=== PATIENT | female | born 1955 | race Caucasian/White ===

== ENCOUNTER 2016-10-08 13:21 | Emergency (ER) | payer MEDICARE ==
[2016-10-08] MEDS ORDERED: predniSONE 20 MG TAB PO STA (14:08)
[2016-10-08] MEDS ORDERED: DIAZEPAM 5 MG TAB PO STA (14:08)
[2016-10-08] MEDS ORDERED: HYDROmorphone 2 MG/ML 1 ML SYRINGE IM STA (14:08)
[2016-10-08] MEDS ORDERED: KETOROLAC 60 MG/2 ML VIAL IM STA (14:10)
--- NOTE | 2016-10-08 14:16 | ED ---
General Adult HPI - General Chief complaint: Extremity Problem,Nontraumatic Stated complaint: R side numbness Time Seen by Provider: 10/08/16 13:39 Source: patient, RN notes reviewed, old records reviewed Mode of arrival: wheelchair Limitations: no limitations - History of Present Illness Initial comments: This is a 7-year-old female to the ER for evaluation today. This patient presents for evaluation regarding right arm pain tingling and numbness. History of chronic back disease. Patient has multiple evaluations by different pain management physicians, has a appointment with neurologist next month. Patient does state premedication home but states her pain medication is working that she did this point is not working completely. Otherwise she denies any trauma or injury. - Related Data Home Medications Medication Instructions Recorded Confirmed ALPRAZolam [Xanax] 1 mg PO BID PRN 10/08/16 10/08/16 Gabapentin 1,200 mg PO BID 10/08/16 10/08/16 HYDROcodone/APAP 10-325MG [[place] 1 tab PO Q8H PRN 10/08/16 10/08/16 10-325] Hydrochlorothiazide 12.5 mg PO DAILY 10/08/16 10/08/16 Insulin Glargine,Hum.rec.anlog 24 unit SQ HS 10/08/16 10/08/16 [Lantus Solostar] Linagliptin [Tradjenta] 5 mg PO AC-LUNCH 10/08/16 10/08/16 Meloxicam [Mobic] 7.5 mg PO HS 10/08/16 10/08/16 Topiramate [Topamax] 100 mg PO BID 10/08/16 10/08/16 amLODIPine [Norvasc] 10 mg PO DAILY 10/08/16 10/08/16 tiZANidine [Zanaflex] 4 mg PO TID PRN 10/08/16 10/08/16 traZODone HCL 150 mg PO HS 10/08/16 10/08/16 Allergies Allergy/AdvReac Type Severity Reaction Status Date / Time aspirin AdvReac Nausea & Verified 10/08/16 13:57 Vomiting ibuprofen [From Motrin] AdvReac Nausea & Verified 10/08/16 13:57 Vomiting Review of Systems ROS Statement: Those systems with pertinent positive or pertinent negative responses have been documented in the HPI. ROS Other: All systems not noted in ROS Statement are negative. Past Medical History Past Medical History: COPD, Diabetes Mellitus Additional Past Medical History / Comment(s): kidney History of Any Multi-Drug Resistant Organisms: None Reported Past Surgical History: Tubal Ligation Additional Past Surgical History / Comment(s): toe, hip replacement Past Psychological History: Bipolar, Depression Smoking Status: Current every day smoker Past Alcohol Use History: None Reported Past Drug Use History: Marijuana General Exam Limitations: no limitations General appearance: alert, in no apparent distress Head exam: Present: atraumatic, normocephalic, normal inspection Eye exam: Present: normal appearance, PERRL, EOMI. Absent: scleral icterus, conjunctival injection, periorbital swelling ENT exam: Present: normal exam, mucous membranes moist Neck exam: Present: normal inspection. Absent: tenderness, meningismus, lymphadenopathy Respiratory exam: Present: normal lung sounds bilaterally. Absent: respiratory distress, wheezes, rales, rhonchi, stridor Cardiovascular Exam: Present: regular rate, normal rhythm, normal heart sounds. Absent: systolic murmur, diastolic murmur, rubs, gallop, clicks GI/Abdominal exam: Present: soft, normal bowel sounds. Absent: distended, tenderness, guarding, rebound, rigid Extremities exam: Present: normal inspection, full ROM, normal capillary refill. Absent: tenderness, pedal edema, joint swelling, calf tenderness Back exam: Present: normal inspection Neurological exam: Present: alert, oriented X3, CN II-XII intact Psychiatric exam: Present: normal affect, normal mood Skin exam: Present: warm, dry, intact, normal color. Absent: rash Course Vital Signs 10/08/16 13:35 Temperature 97.1 F L Pulse Rate 60 Respiratory 20 Rate Blood Pressure 135/70 O2 Sat by Pulse 97 Oximetry - Reevaluation(s) Reevaluation #1: 10/08/16 14:15 Pain and symptoms are improved, resolving Medical Decision Making - Medical Decision Making 61 [place] F reverse her bilateral extremity numbness and tingling, chronic back pain. Patient has good control pain symptoms at this time and can be discharged home Disposition Clinical Impression: Paresthesia of right upper extremity Disposition: HOME SELF-CARE Condition: Good Instructions: Cervical Radiculopathy (ED) Referrals: Zuhair Patel MD [Primary Care Provider] - 1-2 days
[2016-10-08 15:25] VITALS: BP 130/59; PULSE 58; RESP 18; TEMP 97
== END 2016-10-08 15:25 | disposition home or self-care (01) ==
LOC: EC 13:21
DX: R20.2 Paresthesia of skin (principal); E11.9 Type 2 diabetes mellitus without complications; F31.9 Bipolar disorder, unspecified; F17.200 Nicotine dependence, unspecified, uncomplicated; Z96.649 Presence of unspecified artificial hip joint; Z79.1 Long term (current) use of non-steroidal anti-inflammatories (NSAID); Z79.4 Long term (current) use of insulin; Z79.899 Other long term (current) drug therapy; Z88.6 Allergy status to analgesic agent
CPT/HCPCS: 99283; 96372 ×2; J1170; J1885; J7512

== ENCOUNTER 2017-05-16 14:00 | Emergency (ER) | payer MEDICARE ==
[2017-05-16 14:34] VITALS: TEMP 98.2
[2017-05-16] MEDS ORDERED: HYDROcodone/APAP 5-325MG 1 EACH TAB PO STA (14:50)
--- NOTE | 2017-05-16 15:21 | ED ---
Lower Extremity Injury HPI - General Chief Complaint: Extremity Injury, Lower Stated Complaint: Fell Time Seen by Provider: 05/16/17 14:42 Source: patient Mode of arrival: wheelchair Limitations: no limitations - History of Present Illness Initial Comments: 62-year-old female patient presents to the emergency department today for evaluation of left hip and left knee pain. Patient states that she had a fall on Tuesday, states that she twisted her knee during the fall. She denies hitting her head or losing consciousness. She states that since then she has had pain shooting from her hip down her thigh and from her knee down to her leg. States that she is having swelling to the left knee. States that she did see her primary care doctor today who was concerned for ligamentous injury so she sent her in for evaluation. Patient denies any numbness or tingling to the leg. States she is able to ablate however is very painful for her. Patient denies any headache, neck pain, back pain, chest pain, shortness of breath, dizziness, weakness, abdominal pain, nausea, vomiting, or difficulties with bowel movements or urination. - Related Data Home Medications Medication Instructions Recorded Confirmed ALPRAZolam [Xanax] 1 mg PO BID PRN 10/08/16 10/08/16 Gabapentin 1,200 mg PO BID 10/08/16 10/08/16 HYDROcodone/APAP 10-325MG [[place] 1 tab PO Q8H PRN 10/08/16 10/08/16 10-325] Hydrochlorothiazide 12.5 mg PO DAILY 10/08/16 10/08/16 Insulin Glargine,Hum.rec.anlog 24 unit SQ HS 10/08/16 10/08/16 [Lantus Solostar] Linagliptin [Tradjenta] 5 mg PO AC-LUNCH 10/08/16 10/08/16 Meloxicam [Mobic] 7.5 mg PO HS 10/08/16 10/08/16 Topiramate [Topamax] 100 mg PO BID 10/08/16 10/08/16 amLODIPine [Norvasc] 10 mg PO DAILY 10/08/16 10/08/16 tiZANidine [Zanaflex] 4 mg PO TID PRN 10/08/16 10/08/16 traZODone HCL 150 mg PO HS 10/08/16 10/08/16 Previous Rx's Medication Instructions Recorded Diazepam [Valium] 5 mg PO HS #20 tab 10/08/16 predniSONE 50 mg PO DAILY #5 tab 10/08/16 Hydrocodone/Acetaminophen [[place] 1 tab PO Q6HR PRN #12 tab 05/16/17 5-325] Allergies Allergy/AdvReac Type Severity Reaction Status Date / Time aspirin AdvReac Nausea & Verified 05/16/17 14:34 Vomiting ibuprofen [From Motrin] AdvReac Nausea & Verified 05/16/17 14:34 Vomiting Review of Systems ROS Statement: Those systems with pertinent positive or pertinent negative responses have been documented in the HPI. ROS Other: All systems not noted in ROS Statement are negative. Past Medical History Past Medical History: COPD, Diabetes Mellitus Additional Past Medical History / Comment(s): kidney History of Any Multi-Drug Resistant Organisms: None Reported Past Surgical History: Joint Replacement, Orthopedic Surgery, Tubal Ligation Additional Past Surgical History / Comment(s): toe, hip replacement Past Psychological History: Bipolar, Depression Smoking Status: Current every day smoker Past Alcohol Use History: None Reported Past Drug Use History: Marijuana General Exam Limitations: no limitations General appearance: alert, in no apparent distress, other (This is a well- developed, well-nourished adult female patient in no acute distress. Vital signs upon presentation are temperature 98.2F, pulse 77, respirations 18, blood pressure 133/61, pulse ox 95% on room air.) Eye exam: Present: normal appearance, PERRL, EOMI. Absent: scleral icterus, conjunctival injection, periorbital swelling Respiratory exam: Present: normal lung sounds bilaterally. Absent: respiratory distress, wheezes, rales, rhonchi, stridor Cardiovascular Exam: Present: regular rate, normal rhythm, normal heart sounds. Absent: systolic murmur, diastolic murmur, rubs, gallop, clicks Extremities exam: Present: full ROM, tenderness (Tenderness over the medial aspect of the left knee), normal capillary refill, joint swelling (Swelling noted over the medial aspect of the left knee), other (Skin is otherwise pink, warm, and dry to the left lower eduction 70. Cap refills less than 3 seconds. Pedal and posttibial pulses are 2+ and equal bilaterally.). Absent: normal inspection, pedal edema, calf tenderness Neurological exam: Present: alert, oriented X3, CN II-XII intact Psychiatric exam: Present: normal affect, normal mood Skin exam: Present: warm, dry, intact, normal color. Absent: rash Course Vital Signs 05/16/17 05/16/17 14:31 16:02 Temperature 98.2 F 98.2 F Pulse Rate 77 74 Respiratory 18 17 Rate Blood Pressure 133/61 128/72 O2 Sat by Pulse 95 99 Oximetry Medical Decision Making - Medical Decision Making 62-year-old female patient presented to the emergency department today for complaints of left hip and left knee pain after a fall on Tuesday. Physical examination does reveal some left knee swelling and tenderness to the medial aspect. Neurovascular status is intact. X-rays were obtained of left hip and knee which showed no acute osseous abnormalities. Did discuss with patient the possible of ligamentous injury and recommended she follow up with orthopedics for recheck in 1-2 days. She'll be given [place] for pain control. She is instructed to return here immediately for any new, worsening, or concerning symptoms. She verbalizes understanding and agrees with this plan. - Radiology Data Radiology results: report reviewed, image reviewed 3 views of the left knee are obtained, there is no acute fracture/dislocation evident in the left knee. There is mild to moderate tricompartment joint space loss. Vascular calcification in the posterior tissue is noted. Impression by Dr. Graff shows no acute fracture or dislocation in the left knee. Single AP view of the pelvis and 2 views of left hip are obtained. There is no acute fracture dislocation evident in the pelvis. The sacroiliac joints appear symmetric and unremarkable. Metallic hardware from bilateral hip surgery is present. Vascular calcification is seen in the pelvis extending into bilateral groin regions. 2 views of the left hip showed no acute fracture dislocation. Metallic hardware from left hip arthroplasty is well seated. The left great vascular calcification is present. Impression by Dr. Graff chest shows no acute fracture dislocation of the pelvis or left hip. Disposition Clinical Impression: Left hip pain, Left knee pain Disposition: HOME SELF-CARE Condition: Good Instructions: Knee Pain (ED), Hip Pain (ED) Additional Instructions: Plan ice to the painful areas, keep left leg elevated. Follow-up with orthopedics as soon as possible. Return here immediately for any new, worsening , or concerning symptoms. Prescriptions: Hydrocodone/Acetaminophen [[place] 5-325] 1 tab PO Q6HR PRN #12 tab PRN Reason: Pain Referrals: Nonstaff,Physician [Primary Care Provider] - 1-2 days Steven Dash DO [Doctor of Osteopathic Medicine] - 1-2 days Time of Disposition: 15:54
--- NOTE | 2017-05-16 15:25 | XR ---
EXAMINATION TYPE: XR knee complete LT DATE OF EXAM: 05/16/2017 CLINICAL HISTORY: Left knee pain after fall injury 3 days ago TECHNIQUE: Three views of the left knee are obtained. COMPARISON: None. FINDINGS: There is no acute fracture/dislocation evident in left knee. There is mild to moderate tri compartment joint space loss. Vascular calcification in the posterior tissue is noted. IMPRESSION: There is no acute fracture or dislocation in the left knee.
--- NOTE | 2017-05-16 15:27 | XR ---
EXAMINATION TYPE: XR Hip LT and AP Pelvis DATE OF EXAM: 05/16/2017 COMPARISON: NONE HISTORY: Fall injury 3 days ago with pelvic and left hip pain. TECHNIQUE: A single AP view of the pelvis is obtained. Two views of the left hip are obtained. FINDINGS: There is no acute fracture/dislocation evident in the pelvis. The sacroiliac joints appea r symmetric and unremarkable. Metallic hardware from bilateral hip surgery is present. Vascular suzanne cification is seen in the pelvis extending into bilateral groin regions. Two views of left hip show no acute fracture or dislocation. Metallic hardware from left hip arthropl asty is well seated. Left groin vascular calcification is present. IMPRESSION: There is no acute fracture or dislocation in the pelvis or left hip.
[2017-05-16 16:02] VITALS: BP 128/72; PULSE 74; RESP 17
== END 2017-05-16 16:02 | disposition home or self-care (01) ==
LOC: EC 14:00
DX: M25.562 Pain in left knee (principal); M25.552 Pain in left hip; E11.9 Type 2 diabetes mellitus without complications; F32.9 Major depressive disorder, single episode, unspecified; F17.200 Nicotine dependence, unspecified, uncomplicated; Z96.649 Presence of unspecified artificial hip joint; Z79.899 Other long term (current) drug therapy; Z79.4 Long term (current) use of insulin; Z79.1 Long term (current) use of non-steroidal anti-inflammatories (NSAID); Z88.6 Allergy status to analgesic agent; W00.0XXA Fall on same level due to ice and snow, initial encounter
CPT/HCPCS: 73502; 99283

== ENCOUNTER 2018-01-30 08:53 | Inpatient (IN) | payer MEDICARE ==
[2018-01-30] MEDS ORDERED: IPRATROPIUM-ALBUTEROL 3 ML NEB INHALATION STA (09:10)
[2018-01-30] MEDS ORDERED: SODIUM CHLORIDE 0.9% 1,000 ML IV STA (09:11)
--- NOTE | 2018-01-30 09:15 | ED ---
General Adult HPI <Patricio Escobar - Last Filed: 01/30/18 12:04> - General Source: patient, RN notes reviewed Mode of arrival: wheelchair Limitations: no limitations <Judd Granados - Last Filed: 01/30/18 13:01> - General Chief complaint: Shortness of Breath Stated complaint: upper respiratory Time Seen by Provider: 01/30/18 09:03 - History of Present Illness Initial comments: Patient 62-year-old female with significant past medical history for COPD, presented to the emergency room today with a chief complaint of increased shortness of breath and chest pain. She does admit that symptoms started approximately a week ago. She does have cough congestion but states she's been unable to get any sputum out. Patient states that she has been doing breathing treatments at home with little relief of the symptoms. She does admit that tightness in her chest. She denies any other complaints or symptoms. Patient denies any recent fever, chills, back pain, abdominal pain, nausea or vomiting, numbness or tingling, headaches or visual changes, or any other complaints. ( Judd Granados) - Related Data Home Medications Medication Instructions Recorded Confirmed ALPRAZolam [Xanax] 1 mg PO BID 10/08/16 01/30/18 Hydrochlorothiazide 12.5 mg PO DAILY 10/08/16 01/30/18 Linagliptin [Tradjenta] 5 mg PO AC-LUNCH 10/08/16 01/30/18 amLODIPine [Norvasc] 10 mg PO DAILY 10/08/16 01/30/18 traZODone HCL 150 mg PO HS 10/08/16 01/30/18 Cetirizine HCl [Zyrtec] 10 mg PO DAILY PRN 01/30/18 01/30/18 Gabapentin 800 mg PO TID 01/30/18 01/30/18 Insulin Degludec [Tresiba 24 units SQ HS 01/30/18 01/30/18 Flextouch U-100] Allergies Allergy/AdvReac Type Severity Reaction Status Date / Time aspirin AdvReac Nausea & Verified 01/30/18 11:17 Vomiting ibuprofen [From Motrin] AdvReac Nausea & Verified 01/30/18 11:17 Vomiting Review of Systems ROS Other: All systems not noted in ROS Statement are negative. <Patricio Escobar - Last Filed: 01/30/18 12:04> ROS Other: All systems not noted in ROS Statement are negative. <Judd Granados - Last Filed: 01/30/18 13:01> ROS Statement: Those systems with pertinent positive or pertinent negative responses have been documented in the HPI. Past Medical History Past Medical History: COPD, Diabetes Mellitus Additional Past Medical History / Comment(s): kidney History of Any Multi-Drug Resistant Organisms: None Reported Past Surgical History: Joint Replacement, Orthopedic Surgery, Tubal Ligation Additional Past Surgical History / Comment(s): toe, hip replacement Past Psychological History: Bipolar, Depression Smoking Status: Current every day smoker Past Alcohol Use History: None Reported Past Drug Use History: Marijuana <Judd Granados - Last Filed: 01/30/18 13:01> General Exam <Patricio Escobar - Last Filed: 01/30/18 12:04> Limitations: no limitations <Judd Granados - Last Filed: 01/30/18 13:01> - General Exam Comments Initial Comments: General: The patient is awake and alert, mild distress. Eye: Pupils are equal, round and reactive to light. Extra-ocular movements are intact. No nystagmus. There is normal conjunctiva bilaterally. No signs of icterus. Ears, nose, mouth and throat: There are moist mucous membranes and no oral lesions. Neck: The neck is supple, there is no tenderness or JVD. Cardiovascular: There is a regular rate and rhythm. No murmur, rub or gallop is appreciated. Respiratory: Bilateral expiratory wheeze. respirations are non-labored, breath sounds are equal. Nostridor, rales, or rhonchi. Musculoskeletal: Normal ROM, no tenderness. Sensation intact. Strength 5/5. Pulses equal bilaterally 2+. Neurological: A&O x 3. CN II-XII intact, There are no obvious motor or sensory deficits. Coordination appears grossly intact. Speech is normal. Skin: Skin is warm and dry and no rashes or lesions are noted. Psychiatric: Cooperative, appropriate mood & affect, normal judgment. (Judd Granados) Course <Patricio Escobar - Last Filed: 01/30/18 12:04> <Judd Granados - Last Filed: 01/30/18 13:01> Vital Signs 11/19/18 11/19/18 11/19/18 09:00 09:10 09:13 Temperature 98.6 F 99.8 F H Pulse Rate 95 Respiratory 26 H Rate Blood Pressure 130/80 O2 Sat by Pulse 74 L 87 L Oximetry 01/30/18 01/30/18 01/30/18 09:19 09:30 09:45 Temperature Pulse Rate 81 75 75 Respiratory Rate Blood Pressure O2 Sat by Pulse 88 L Oximetry 01/30/18 01/30/18 01/30/18 10:00 10:34 10:50 Temperature Pulse Rate 76 84 80 Respiratory 19 18 Rate Blood Pressure O2 Sat by Pulse 94 L Oximetry 01/30/18 01/30/18 01/30/18 11:00 11:30 12:00 Temperature Pulse Rate 86 86 87 Respiratory 22 22 19 Rate Blood Pressure O2 Sat by Pulse 88 L 92 L 94 L Oximetry - Reevaluation(s) Reevaluation #1: 01/30/18 12:04 Patient does meet criteria for sepsis diagnosed at 1204. Blood culture and lactic acid and IV antibiotics have been ordered. (Patricio Escobar) EKG Findings - EKG Comments: EKG Findings:: EKG performed at 1025: Shows normal sinus rhythm at 83 bpm. WI interval 138. QRS is 80. QT/QTc 400/470. No acute ST changes. <Judd Granados - Last Filed: 01/30/18 13:01> Medical Decision Making - Lab Data Result diagrams: 01/30/18 10:28 01/30/18 10:28 <Patricio Escobar - Last Filed: 01/30/18 12:04> - Lab Data Result diagrams: 01/30/18 10:28 01/30/18 10:28 <Judd Granados - Last Filed: 01/30/18 13:01> - Medical Decision Making Patient reevaluated by myself, Dr. Escobar. Patient resting comfortably in bed. Pulse ox 91-97% on Ventimask. Lung sounds with x-ray wheeze. Patient is not currently in respiratory distress. Patient family are updated on results and plan. Case was discussed in detail with Dr. tomlinson, with [facility] who will admit for hospital call. I did review and agree with PAs findings. this includes all diagnostic interpretations and treatment plan. (Patricio Escobar) Patient's chest x-ray shows possible pneumonia. Started on antibiotics of azithromycin and Rocephin. Patient breathing improved after breathing treatments here in the emergency room along with steroids. Patient does meet criteria for sepsis. Antibiotics and cultures have been ordered. Patient will be admitted to the hospital. (Judd Granados) - Lab Data Lab Results 01/30/18 01/30/18 01/30/18 Range/Units 10:28 10:28 10:28 WBC 10.0 (3.8-10.6) k/uL RBC 4.54 (3.80-5.40) m/uL Hgb 13.5 (11.4-16.0) gm/dL Hct 40.1 (34.0-46.0) % MCV 88.2 (80.0-100.0) fL MCH 29.8 (25.0-35.0) pg MCHC 33.7 (31.0-37.0) g/dL RDW 13.0 (11.5-15.5) % Plt Count 219 (150-450) k/uL Neutrophils % 59 % Lymphocytes % 28 % Monocytes % 4 % Eosinophils % 8 % Basophils % 0 % Neutrophils # 5.9 (1.3-7.7) k/uL Lymphocytes # 2.8 (1.0-4.8) k/uL Monocytes # 0.4 (0-1.0) k/uL Eosinophils # 0.8 H (0-0.7) k/uL Basophils # 0.0 (0-0.2) k/uL PT (9.0-12.0) sec INR (<1.2) APTT (22.0-30.0) sec Sodium 132 L (137-145) mmol/L Potassium 4.3 (3.5-5.1) mmol/L Chloride 93 L (98-107) mmol/L Carbon Dioxide 29 (22-30) mmol/L Anion Gap 10 mmol/L BUN 12 (7-17) mg/dL Creatinine 1.21 H (0.52-1.04) mg/dL Est GFR (CKD-EPI)AfAm 56 (>60 ml/min/1.73 sqM) Est GFR (CKD-EPI)NonAf 49 (>60 ml/min/1.73 sqM) Glucose 186 H (74-99) mg/dL Calcium 8.9 (8.4-10.2) mg/dL Total Bilirubin 0.8 (0.2-1.3) mg/dL AST 21 (14-36) U/L ALT 17 (9-52) U/L Alkaline Phosphatase 76 (38-126) U/L Total Creatine Kinase 115 (30-135) U/L CK-MB (CK-2) 2.1 (0.0-2.4) ng/mL CK-MB (CK-2) Rel Index 1.8 Troponin I <0.012 (0.000-0.034) ng/mL NT-Pro-B Natriuret Pep pg/mL Total Protein 7.4 (6.3-8.2) g/dL Albumin 3.6 (3.5-5.0) g/dL 01/30/18 01/30/18 Range/Units 10:28 10:28 WBC (3.8-10.6) k/uL RBC (3.80-5.40) m/uL Hgb (11.4-16.0) gm/dL Hct (34.0-46.0) % MCV (80.0-100.0) fL MCH (25.0-35.0) pg MCHC (31.0-37.0) g/dL RDW (11.5-15.5) % Plt Count (150-450) k/uL Neutrophils % % Lymphocytes % % Monocytes % % Eosinophils % % Basophils % % Neutrophils # (1.3-7.7) k/uL Lymphocytes # (1.0-4.8) k/uL Monocytes # (0-1.0) k/uL Eosinophils # (0-0.7) k/uL Basophils # (0-0.2) k/uL PT 10.0 (9.0-12.0) sec INR 1.0 (<1.2) APTT 22.9 (22.0-30.0) sec Sodium (137-145) mmol/L Potassium (3.5-5.1) mmol/L Chloride (98-107) mmol/L Carbon Dioxide (22-30) mmol/L Anion Gap mmol/L BUN (7-17) mg/dL Creatinine (0.52-1.04) mg/dL Est GFR (CKD-EPI)AfAm (>60 ml/min/1.73 sqM) Est GFR (CKD-EPI)NonAf (>60 ml/min/1.73 sqM) Glucose (74-99) mg/dL Calcium (8.4-10.2) mg/dL Total Bilirubin (0.2-1.3) mg/dL AST (14-36) U/L ALT (9-52) U/L Alkaline Phosphatase (38-126) U/L Total Creatine Kinase (30-135) U/L CK-MB (CK-2) (0.0-2.4) ng/mL CK-MB (CK-2) Rel Index Troponin I (0.000-0.034) ng/mL NT-Pro-B Natriuret Pep 545 pg/mL Total Protein (6.3-8.2) g/dL Albumin (3.5-5.0) g/dL Disposition <Patricio Escobar - Last Filed: 01/30/18 12:04> <Judd Granados - Last Filed: 01/30/18 13:01> Clinical Impression: COPD exacerbation, Sepsis Disposition: ADMITTED IP TO THIS HOSP Condition: Stable Referrals: Nonstaff,Physician [Primary Care Provider] - 1-2 days
[2018-01-30] MEDS ORDERED: ALBUTEROL NEBULIZED 15 MG, IPRATROPIUM NEBULIZED 0.5 MG INHALATION ONE ×2 (09:37)
--- NOTE | 2018-01-30 10:37 | XR ---
EXAMINATION TYPE: XR chest 2V DATE OF EXAM: 01/30/2018 COMPARISON: None HISTORY: 62-year-old female difficulty breathing, shortness of breath TECHNIQUE: AP and lateral views FINDINGS: Heart upper limits of normal in size. Diffuse interstitial densities. No sizable pleural effusion. IMPRESSION: Interstitial changes could reflect bronchitis, atypical pneumonias, interstitial pneumonitis, hyperse nsitivity pneumonitis, or pulmonary vascular congestion. Clinically correlate.
[2018-01-30] MEDS ORDERED: methylPREDNISolone SOD SUCCI 125 MG/2 ML VIAL IV STA (10:48)
[2018-01-30 10:59] LABS: Basophils % (A) 0 %; Eosinophils # (A) 0.8 k/uL (0-0.7); Eosinophils % (A) 8 %; HCT 40.1 % (34.0-46.0); HGB 13.5 gm/dL (11.4-16.0); Lymphocytes # (A) 2.8 k/uL (1.0-4.8); Lymphocytes % (A) 28 %; MCH 29.8 pg (25.0-35.0); MCHC 33.7 g/dL (31.0-37.0); MCV 88.2 fL (80.0-100.0); Mean Platelet Volume 7.7; Monocytes # (A) 0.4 k/uL (0-1.0); Monocytes % (A) 4 %; Neutrophils # (A) 5.9 k/uL (1.3-7.7); Neutrophils % (A) 59 %; Partial Thromboplastin Time 22.9 sec (22.0-30.0); Platelet Count 219 k/uL (150-450); RBC 4.54 m/uL (3.80-5.40)
[2018-01-30 11:03] LABS: Albumin 3.6 g/dL (3.5-5.0); Calcium 8.9 mg/dL (8.4-10.2); Total Bilirubin 0.8 mg/dL (0.2-1.3); Total Protein 7.4 g/dL (6.3-8.2)
[2018-01-30 11:11] LABS: Potassium 4.3 mmol/L (3.5-5.1)
[2018-01-30 11:17] LABS: Creatine Kinase 115 U/L (30-135)
[2018-01-30] MEDS ORDERED: AZITHROMYCIN 500 MG in SODIUM CHLORIDE 0.9% 250 ML IVPB STA (11:17)
[2018-01-30 11:28] LABS: Creatine Kinase MB 2.1 ng/mL (0.0-2.4); Troponin I <0.012 ng/mL (0.000-0.034)
[2018-01-30] MEDS ORDERED: SODIUM CHLORIDE 0.9% 1,000 ML IV ONE (13:01)
[2018-01-30] MEDS ORDERED: ONDANSETRON 4 MG/2 ML VIAL IVP PRN (13:47)
--- NOTE | 2018-01-30 13:57 | P.HPIM ---
History of Present Illness H&P Date: 01/30/18 Chief Complaint: Shortness of breath and cough This is a 62-year-old female with past medical history noted below significant for underlying COPD, essential hypertension, and type 2 diabetes who presented to the emergency room with worsening shortness of breath and cough. Patient said that her symptoms started last week and is being getting progressively worse over the past few days. She said that couple of days ago she was having a lot of chills and feeling generally fatigued. This was associated with worsening shortness of breath and cough. Patient said that her cough is generally nonproductive but occasionally productive of yellowish sputum. Patient was evaluated in the emergency room and was noted to be hypoxic requiring a Ventimask. She was given bronchodilators and IV steroids. Chest x- ray showed evidence of a typical pneumonia with acute on chronic bronchitis. Patient admitted that she smokes approximately one pack of cigarettes per day. She does not use oxygen at home usually. She denies any chest pain at this time. Review of Systems Review of system: 14 points review of systems were obtained and were negative except to what were mentioned in the HPI. All systems: negative Constitutional: Denies chills, Denies fever Eyes: denies blurred vision, denies pain Ears, nose, mouth and throat: Denies headache, Denies sore throat Cardiovascular: Denies chest pain, Denies shortness of breath Respiratory: Denies cough Gastrointestinal: Denies abdominal pain, Denies diarrhea, Denies nausea, Denies vomiting Genitourinary: Denies dysuria, Denies hematuria Musculoskeletal: Denies myalgias Integumentary: Denies pruritus, Denies rash Neurological: Denies numbness, Denies weakness Psychiatric: Denies anxiety, Denies depression Endocrine: Denies fatigue, Denies weight change Past Medical History Past Medical History: COPD, Diabetes Mellitus Additional Past Medical History / Comment(s): kidney History of Any Multi-Drug Resistant Organisms: None Reported Past Surgical History: Joint Replacement, Orthopedic Surgery, Tubal Ligation Additional Past Surgical History / Comment(s): toe, hip replacement Past Psychological History: Bipolar, Depression Smoking Status: Current every day smoker Past Alcohol Use History: None Reported Past Drug Use History: Marijuana Medications and Allergies Home Medications Medication Instructions Recorded Confirmed Type ALPRAZolam [Xanax] 1 mg PO BID 10/08/16 01/30/18 History Hydrochlorothiazide 12.5 mg PO DAILY 10/08/16 01/30/18 History Linagliptin [Tradjenta] 5 mg PO AC-LUNCH 10/08/16 01/30/18 History amLODIPine [Norvasc] 10 mg PO DAILY 10/08/16 01/30/18 History traZODone HCL 150 mg PO HS 10/08/16 01/30/18 History Cetirizine HCl [Zyrtec] 10 mg PO DAILY PRN 01/30/18 01/30/18 History Gabapentin 800 mg PO TID 01/30/18 01/30/18 History Insulin Degludec [Tresiba 24 units SQ HS 01/30/18 01/30/18 History Flextouch U-100] Allergies Allergy/AdvReac Type Severity Reaction Status Date / Time aspirin AdvReac Nausea & Verified 01/30/18 11:17 Vomiting ibuprofen [From Motrin] AdvReac Nausea & Verified 01/30/18 11:17 Vomiting Physical Exam Vitals: Vital Signs Temp Pulse Resp BP Pulse Ox 01/30/18 12:00 87 19 94 L 01/30/18 11:30 86 22 92 L 01/30/18 11:00 86 22 88 L 01/30/18 10:50 80 18 01/30/18 10:34 84 19 01/30/18 10:00 76 94 L 01/30/18 09:45 75 01/30/18 09:30 75 88 L 01/30/18 09:19 81 01/30/18 09:13 99.8 F H 01/30/18 09:10 87 L 01/30/18 09:00 98.6 F 95 26 H 130/80 74 L Intake and Output 01/29/18 01/30/18 01/30/18 22:59 06:59 14:59 Other: Weight 108.409 kg General: The patient is awake and alert, in no distress Eye: there is normal conjunctiva bilaterally. Neck: The neck is supple, there is no JVD. Cardiovascular: Normal S1-S2, no S3-S4, no murmurs. Respiratory: Lungs are diminished with mild end expiratory wheezing Gastrointestinal: Abdomen is soft, nontender Musculoskeletal: There is no pedal edema. Neurological:. Speech is normal. Skin: Skin is warm and dry Results CBC & Chem 7: 01/30/18 10:28 01/30/18 10:28 Labs: Abnormal Lab Results - Last 24 Hours (Table) 01/30/18 01/30/18 Range/Units 10:28 10:28 Eosinophils # 0.8 H (0-0.7) k/uL Sodium 132 L (137-145) mmol/L Chloride 93 L (98-107) mmol/L Creatinine 1.21 H (0.52-1.04) mg/dL Glucose 186 H (74-99) mg/dL Assessment and Plan Assessment: 1. Acute COPD exacerbation 2. Acute hypoxic respiratory failure 3. Interstitial pneumonia with acute on chronic bronchitis 4. Tobacco abuse: Counseled extensively to quit. Nicotine patch ordered 5. Type 2 diabetes, resume home dose of long-acting insulin. Sliding scale insulin as well 6. Essential hypertension: Blood pressure within acceptable range. Today, I reviewed her medication list and lab work results. We will continue bronchodilators around the clock. Mucinex twice daily. IV Solu-Medrol 60 mg every 6 hours for now. I would also order influenza screen to rule out influenza. Continue IV ceftriaxone and azithromycin for now. Attempt to collect sputum culture. Pulmonology consulted for further evaluation. I would also order lactic acid and probe calcitonin. Patient was updated about her current condition. All of her questions answered to her satisfaction.
[2018-01-30] MEDS: NICOTINE 14MG/24HR PATCH TRANSDERM SCH (15:53)
[2018-01-30] MEDS: GABAPENTIN 400 MG CAP PO SCH ×2 (15:54→20:25)
[2018-01-30 17:04] LABS: Glucose,Whole Blood 351 mg/dL (75-99)
[2018-01-30] MEDS: INSULIN ASPART 100 UNIT/ML 1 ML 10 ML VIAL SQ SCH ×2 (17:20→21:08)
[2018-01-30] MEDS: methylPREDNISolone SOD SUCCI 125 MG/2 ML VIAL IV SCH ×2 (17:22→23:47)
[2018-01-30] MEDS: IPRATROPIUM-ALBUTEROL 3 ML NEB INHALATION SCH ×2 (17:31→19:02)
[2018-01-30] MEDS: ACETAMINOPHEN TAB 325 MG TAB PO PRN (18:48)
[2018-01-30] MEDS: guaiFENesin 600 MG TABLET.ER PO SCH (20:24)
[2018-01-30] MEDS: ALPRAZolam 1 MG TAB PO SCH (20:24)
[2018-01-30] MEDS: HEPARIN SODIUM,PORCINE 5,000 UNIT/ML 1 ML VIAL SQ SCH (20:24)
[2018-01-30] MEDS: traZODone HCL 100 MG TAB PO SCH (20:25)
[2018-01-30 20:58] LABS: Glucose,Whole Blood 375 mg/dL (75-99)
[2018-01-30] MEDS: INSULIN DETEMIR 100 UNIT/ML 10 ML VIAL SQ SCH (21:08)
[2018-01-31 02:02] LABS: Glucose,Whole Blood 183 mg/dL (75-99)
[2018-01-31] MEDS: IPRATROPIUM-ALBUTEROL 3 ML NEB INHALATION PRN ×2 (03:17→23:59)
[2018-01-31] MEDS: methylPREDNISolone SOD SUCCI 125 MG/2 ML VIAL IV SCH ×2 (05:28→11:22)
[2018-01-31] MEDS: ACETAMINOPHEN TAB 325 MG TAB PO PRN (05:29)
[2018-01-31 05:41] LABS: Hemoglobin A1C 7.8 % (4.0-6.0)
[2018-01-31] MEDS: IPRATROPIUM-ALBUTEROL 3 ML NEB INHALATION SCH ×4 (06:52→19:58)
[2018-01-31 07:16] LABS: Glucose,Whole Blood 219 mg/dL (75-99)
[2018-01-31] MEDS: INSULIN ASPART 100 UNIT/ML 1 ML 10 ML VIAL SQ SCH ×4 (08:12→20:46)
[2018-01-31] MEDS: ALPRAZolam 1 MG TAB PO SCH ×2 (08:12→20:46)
[2018-01-31] MEDS: GABAPENTIN 400 MG CAP PO SCH ×3 (08:14→20:45)
[2018-01-31] MEDS: HEPARIN SODIUM,PORCINE 5,000 UNIT/ML 1 ML VIAL SQ SCH ×2 (08:15→20:46)
[2018-01-31] MEDS: guaiFENesin 600 MG TABLET.ER PO SCH ×2 (08:15→20:46)
[2018-01-31] MEDS ORDERED: cefTRIAXone 1,000 MG VIAL (IM USE) IM SCH (09:00)
[2018-01-31] MEDS: AZITHROMYCIN 500 MG in SODIUM CHLORIDE 0.9% 250 ML IVPB SCH (09:09)
[2018-01-31] MEDS: amLODIPine 10 MG TAB PO SCH (09:09)
[2018-01-31] MEDS: PANTOPRAZOLE 40 MG/10 ML VIAL IVP SCH (09:09)
[2018-01-31] MEDS: NICOTINE 14MG/24HR PATCH TRANSDERM SCH (09:09)
[2018-01-31] MEDS: HYDROCHLOROTHIAZIDE 12.5 MG CAP PO SCH (09:09)
--- NOTE | 2018-01-31 09:28 | P.PN ---
Subjective Progress Note Date: 01/31/18 Principal diagnosis: COPD exacerbation Patient is feeling slightly better today. Her shortness of breath improved compared to yesterday. However she is still requiring 4 L of oxygen and still having a lot of cough that is mostly nonproductive. No documented fever. Objective - Vital Signs Vital signs: Vital Signs Temp 97.8 F 01/31/18 06:08 Pulse 96 01/31/18 07:13 Resp 15 01/31/18 06:08 BP 135/63 01/31/18 06:08 Pulse Ox 96 01/31/18 06:08 Intake & Output 01/30/18 01/31/18 01/31/18 18:59 06:59 18:59 Intake Total 500 Balance 500 Weight 108.409 kg 108.409 kg Intake: Amount of Fluid Infused ( 500 ml) Other: # Voids 1 - Exam General: The patient is awake and alert, in no distress Eye: there is normal conjunctiva bilaterally. Neck: The neck is supple, there is no JVD. Cardiovascular: Normal S1-S2, no S3-S4, no murmurs. Respiratory: Lungs are diminished with mild end expiratory Gastrointestinal: Abdomen is soft, nontender Musculoskeletal: There is no pedal edema. Neurological:. Speech is normal. Skin: Skin is warm and dry - Labs CBC & Chem 7: 01/30/18 10:28 01/30/18 10:28 Labs: Abnormal Lab Results - Last 24 Hours (Table) 01/30/18 01/30/18 01/30/18 Range/Units 10:28 10:28 15:49 Eosinophils # 0.8 H (0-0.7) k/uL Sodium 132 L (137-145) mmol/L Chloride 93 L (98-107) mmol/L Creatinine 1.21 H (0.52-1.04) mg/dL Glucose 186 H (74-99) mg/dL POC Glucose (mg/dL) (75-99) mg/dL Hemoglobin A1c 7.8 H (4.0-6.0) % 01/30/18 01/30/18 01/31/18 Range/Units 16:57 20:56 01:58 Eosinophils # (0-0.7) k/uL Sodium (137-145) mmol/L Chloride (98-107) mmol/L Creatinine (0.52-1.04) mg/dL Glucose (74-99) mg/dL POC Glucose (mg/dL) 351 H 375 H 183 H (75-99) mg/dL Hemoglobin A1c (4.0-6.0) % 01/31/18 Range/Units 07:11 Eosinophils # (0-0.7) k/uL Sodium (137-145) mmol/L Chloride (98-107) mmol/L Creatinine (0.52-1.04) mg/dL Glucose (74-99) mg/dL POC Glucose (mg/dL) 219 H (75-99) mg/dL Hemoglobin A1c (4.0-6.0) % Assessment and Plan Assessment: 1. Acute COPD exacerbation 2. Acute hypoxic respiratory failure 3. Interstitial pneumonia with acute on chronic bronchitis 4. Tobacco abuse: Counseled extensively to quit. Nicotine patch ordered 5. Type 2 diabetes, resume home dose of long-acting insulin. Sliding scale insulin as well 6. Essential hypertension: Blood pressure within acceptable range. Today, I reviewed her medication list and lab work results. We will continue bronchodilators around the clock. Mucinex twice daily. IV Solu-Medrol 60 mg every 6 hours for now. Influenza screen was negative. Lactic acid was normal and pro-calcitonin is pending. Continue IV ceftriaxone and azithromycin for now. Attempt to collect sputum culture. Pulmonology consulted for further evaluation. Wean off O2 as tolerated for O2 sat greater than 90%. Incentive spirometry at bedside. Patient was updated about her current condition. All of her questions answered to her satisfaction.
[2018-01-31 11:01] LABS: Calcium 8.9 mg/dL (8.4-10.2); Potassium 4.4 mmol/L (3.5-5.1)
[2018-01-31 12:19] LABS: Glucose,Whole Blood 328 mg/dL (75-99)
--- NOTE | 2018-01-31 14:26 | P.CNPUL ---
History of Present Illness Consult date: 01/31/18 Requesting physician: Margarito Britt Reason for consult: dyspnea Chief complaint: Shortness of breath, cough, congestion History of present illness: This is a very pleasant 62-year-old female patient who follows with a doctor Nikolas out of the [facility] as her primary care physician. She has a history of hypertension, diabetes mellitus, left kidney atrophy and stage IV renal failure, hip replacement, toe amputation, peripheral neuropathy and bipolar disorder. She also has a history of chronic tobacco dependence of 50 years. She has not been seen by a straight edger in the past. She does have a albuterol rescue inhaler and a nebulizer at home. No maintenance medications. She presented here to the emergency room yesterday with complaints of increasing shortness of breath, chills, fatigue, nonproductive cough. She was quite hypoxic initially at 74% on room air. T-max 99.8. White count 10.0. Hemoglobin 13.5. Creatinine 1. 38. Influenza screen is negative. Troponin negative. His chest x-ray did reveal interstitial changes reflective for probable bronchitis, atypical pneumonia, interstitial pneumonitis, hypersensitivity pneumonitis or pulmonary vascular congestion. ProBNP 545. She is seen today in consultation on the regular medical floor. She is up ambulating in her room. She is awake and alert in no acute distress. She is breathing quite a bit easier today as compared to yesterday. Maintaining O2 saturations in the 90s on 2 L/m per nasal cannula. She was initiated on DuoNeb inhalations and IV Solu-Medrol. She was initiated on ceftriaxone and azithromycin. Review of Systems 14 point review of system was conducted. All negative other than as mentioned in the HPI. Past Medical History Past Medical History: COPD, Diabetes Mellitus, Hypertension, Osteoarthritis (OA) , Renal Disease Additional Past Medical History / Comment(s): jolly but does'nt use cpap anymore, past uterine fibroids.pt stated has had a pne vaccine but not sure of date.promotion writer unable to verify date at time of admit-please f/u w/ office in am. History of Any Multi-Drug Resistant Organisms: None Reported Past Surgical History: Hysterectomy, Joint Replacement, Orthopedic Surgery, Tubal Ligation Additional Past Surgical History / Comment(s): rt great toe amp,lt hip replacement, x2 rt hip replacments Past Anesthesia/Blood Transfusion Reactions: No Reported Reaction Smoking Status: Current every day smoker - Past Family History Mother Family Medical History: Diabetes Mellitus, Myocardial Infarction ([place]), Osteoarthritis (OA) Additional Family Medical History / Comment(s): djd Father Family Medical History: Deep Vein Thrombosis (DVT) Medications and Allergies Home Medications Medication Instructions Recorded Confirmed Type ALPRAZolam [Xanax] 1 mg PO BID 10/08/16 01/30/18 History Hydrochlorothiazide 12.5 mg PO DAILY 10/08/16 01/30/18 History Linagliptin [Tradjenta] 5 mg PO AC-LUNCH 10/08/16 01/30/18 History amLODIPine [Norvasc] 10 mg PO DAILY 10/08/16 01/30/18 History traZODone HCL 150 mg PO HS 10/08/16 01/30/18 History Cetirizine HCl [Zyrtec] 10 mg PO DAILY PRN 01/30/18 01/30/18 History Gabapentin 800 mg PO TID 01/30/18 01/30/18 History Insulin Degludec [Tresiba 24 units SQ HS 01/30/18 01/30/18 History Flextouch U-100] Allergies Allergy/AdvReac Type Severity Reaction Status Date / Time aspirin AdvReac Nausea & Verified 01/30/18 11:17 Vomiting ibuprofen [From Motrin] AdvReac Nausea & Verified 01/30/18 11:17 Vomiting Physical Exam Vitals: Vital Signs Temp Pulse Pulse Resp BP Pulse Ox 01/31/18 11:48 91 L 01/31/18 11:47 95 01/31/18 10:53 92 01/31/18 10:46 88 01/31/18 07:13 96 01/31/18 06:55 92 01/31/18 06:08 97.8 F 77 15 135/63 96 01/31/18 06:06 97.8 F 87 18 135/63 94 L 01/31/18 03:36 84 01/31/18 03:17 88 01/30/18 23:00 99.0 F 91 16 122/66 96 01/30/18 19:03 88 01/30/18 16:09 94 L 01/30/18 15:30 97.8 F 84 18 135/77 93 L Intake and Output 01/30/18 01/31/18 01/31/18 22:59 06:59 14:59 Other: # Voids 1 Weight 108.409 kg GENERAL EXAM: Alert, active, comfortable in no apparent distress. HEAD: Normocephalic. EYES: Normal reaction of pupils, equal size. NOSE: Clear with pink turbinates. THROAT: No erythema or exudates. NECK: No masses, no JVD. CHEST: No chest wall deformity. LUNGS: Equal air entry with few scattered rhonchi, bilateral end expiratory wheeze, faint crackles in posterior bases. Diminished. CVS: S1 and S2 normal with no audible murmur, regular rhythm. ABDOMEN: No hepatosplenomegaly, normal bowel sounds, no guarding or rigidity. SPINE: No scoliosis or deformity SKIN: No rashes CENTRAL NERVOUS SYSTEM: No focal deficits, tone is normal in all 4 extremities. EXTREMITIES: There is no peripheral edema. No clubbing, no cyanosis. Peripheral pulses are intact. Results - Laboratory Findings CBC and BMP: 01/30/18 10:28 01/31/18 09:52 PT/INR, D-dimer PT 10.0 sec (9.0-12.0) 01/30/18 10:28 INR 1.0 (<1.2) 01/30/18 10:28 Abnormal lab findings: Abnormal Labs 01/30/18 01/30/18 01/30/18 10:28 10:28 15:49 Eosinophils # 0.8 H Sodium 132 L Chloride 93 L BUN Creatinine 1.21 H Glucose 186 H POC Glucose (mg/dL) Hemoglobin A1c 7.8 H 01/30/18 01/30/18 01/31/18 16:57 20:56 01:58 Eosinophils # Sodium Chloride BUN Creatinine Glucose POC Glucose (mg/dL) 351 H 375 H 183 H Hemoglobin A1c 01/31/18 01/31/18 01/31/18 07:11 09:52 12:17 Eosinophils # Sodium 131 L Chloride 94 L BUN 20 H Creatinine 1.38 H Glucose 312 H POC Glucose (mg/dL) 219 H 328 H Hemoglobin A1c - Diagnostic Findings Chest x-ray: image reviewed Assessment and Plan Assessment: Impression: #1 Acute hypoxic respiratory failure secondary to an acute exacerbation of chronic obstructive pulmonary disease secondary to possible atypical pneumonia. #2 Chronic and ongoing tobacco dependence of 50 years. #3 Acute on chronic renal failure, creatinine 1.3. #4 Diabetes mellitus. #5 Diabetic neuropathy. #6 History of amputated toe. #7 Hypertension. #8 Bipolar disorder. Plan: The patient was seen and evaluated by Dr. Bergeron. Chest x-ray and labs reviewed. We'll continue with DuoNeb inhalations and IV Solu-Medrol. Add Symbicort. She remains on empiric antibiotics in the form of ceftriaxone and azithromycin. She is educated regarding the importance of complete smoking cessation. A NicoDerm patch will be applied. She would benefit from a follow- up in our office to perform full pulmonary function testing to evaluate the severity of her suspected COPD and make further recommendations regarding maintenance medications. In the interim, we will increase her activity as tolerated. We'll continue to follow and make further recommendations based on her clinical status. I, the cosigning physician, performed a history & physical examination of the patient. Lungs sounds with bilateral end expiratory wheeze, crackles in the bases. Diminished. Maintaining good O2 saturations in the 90s on 2 L/m per nasal cannula. I discussed the assessment and plan of care with my nurse practitioner, Sammi Garcia. I attest to the above consultation as dictated by her. Time with Patient: Greater than 30
[2018-01-31] MEDS: methylPREDNISolone SOD SUCCI 40 MG/ML 1 ML VIAL IV SCH ×2 (16:18→23:46)
[2018-01-31 17:24] LABS: Glucose,Whole Blood 235 mg/dL (75-99)
[2018-01-31 20:09] LABS: Glucose,Whole Blood 233 mg/dL (75-99)
[2018-01-31] MEDS: traZODone HCL 100 MG TAB PO SCH (20:45)
[2018-01-31] MEDS: INSULIN DETEMIR 100 UNIT/ML 10 ML VIAL SQ SCH (20:47)
[2018-02-01] MEDS: IPRATROPIUM-ALBUTEROL 3 ML NEB INHALATION PRN (03:24)
[2018-02-01] MEDS: ACETAMINOPHEN TAB 325 MG TAB PO PRN (06:16)
[2018-02-01 06:17] VITALS: TEMP 98
[2018-02-01] MEDS: IPRATROPIUM-ALBUTEROL 3 ML NEB INHALATION SCH ×3 (07:36→15:15)
[2018-02-01 07:37] LABS: Glucose,Whole Blood 265 mg/dL (75-99)
[2018-02-01] MEDS: INSULIN ASPART 100 UNIT/ML 1 ML 10 ML VIAL SQ SCH ×2 (08:08→13:24)
[2018-02-01] MEDS: guaiFENesin 600 MG TABLET.ER PO SCH (08:09)
[2018-02-01] MEDS: GABAPENTIN 400 MG CAP PO SCH ×2 (08:09→14:59)
[2018-02-01] MEDS: amLODIPine 10 MG TAB PO SCH (08:09)
[2018-02-01] MEDS: NICOTINE 14MG/24HR PATCH TRANSDERM SCH (08:09)
[2018-02-01] MEDS: methylPREDNISolone SOD SUCCI 40 MG/ML 1 ML VIAL IV SCH ×2 (08:09→14:59)
[2018-02-01] MEDS: HEPARIN SODIUM,PORCINE 5,000 UNIT/ML 1 ML VIAL SQ SCH (08:10)
[2018-02-01] MEDS: HYDROCHLOROTHIAZIDE 12.5 MG CAP PO SCH (08:10)
[2018-02-01] MEDS: PANTOPRAZOLE 40 MG/10 ML VIAL IVP SCH (08:10)
[2018-02-01] MEDS ORDERED: predniSONE 20 MG TAB PO SCH (09:00)
[2018-02-01] MEDS: AZITHROMYCIN 500 MG in SODIUM CHLORIDE 0.9% 250 ML IVPB SCH (09:23)
[2018-02-01] MEDS: ALPRAZolam 1 MG TAB PO SCH (09:23)
--- NOTE | 2018-02-01 10:37 | P.DS ---
Providers Date of admission: 01/30/18 12:02 Expected date of discharge: 02/01/18 Attending physician: Maki Kyle MD Consults: 01/30/18 12:05 Consult Physician Urgent Consulting Provider: Corby Artis Consult Reason/Comments: dyspnea Do you want consulting provider notified?: Yes Primary care physician: Physician Nonstaff Hospital Course: 1. Acute COPD exacerbation 2. Acute hypoxic respiratory failure 3. Interstitial pneumonia with acute on chronic bronchitis. Influenza screen was negative 4. Tobacco abuse: Counseled extensively to quit. Nicotine patch ordered 5. Type 2 diabetes, resume home dose of long-acting insulin. Sliding scale insulin as well 6. Essential hypertension: Blood pressure within acceptable range. Patient is feeling a lot better today. She is requesting to go home. She still having mild end expiratory wheezing. Shortness of breath and cough has resolved. She would be discharged home in a stable condition. She will finish 5 days course of prednisone. She will continue bronchodilators at home. Please refer to the electronic chart for further details about this hospitalization. Patient Condition at Discharge: Fair Plan - Discharge Summary Discharge Rx Participant: Yes New Discharge Prescriptions: New guaiFENesin [Mucinex] 1,200 mg PO Q12HR #10 tablet.er Ipratropium-Albuterol Nebulize [Duoneb 0.5 mg-3 mg/3 ml Soln] 3 ml INHALATION RT-QID ampul.neb Levofloxacin [Levaquin] 500 mg PO DAILY 5 Days #5 tab Nicotine 14Mg/24Hr Patch [Habitrol] 1 patch TRANSDERM DAILY #30 patch predniSONE 40 mg PO DAILY #10 tab Continue amLODIPine [Norvasc] 10 mg PO DAILY ALPRAZolam [Xanax] 1 mg PO BID Linagliptin [Tradjenta] 5 mg PO AC-LUNCH Hydrochlorothiazide 12.5 mg PO DAILY traZODone HCL 150 mg PO HS Cetirizine HCl [Zyrtec] 10 mg PO DAILY PRN PRN Reason: Allergy Symptoms Gabapentin 800 mg PO TID Insulin Degludec [Tresiba Flextouch U-100] 24 units SQ HS Discharge Medication List ALPRAZolam [Xanax] 1 mg PO BID 10/08/16 [History] Hydrochlorothiazide 12.5 mg PO DAILY 10/08/16 [History] Linagliptin [Tradjenta] 5 mg PO AC-LUNCH 10/08/16 [History] amLODIPine [Norvasc] 10 mg PO DAILY 10/08/16 [History] traZODone HCL 150 mg PO HS 10/08/16 [History] Cetirizine HCl [Zyrtec] 10 mg PO DAILY PRN 01/30/18 [History] Gabapentin 800 mg PO TID 01/30/18 [History] Insulin Degludec [Tresiba Flextouch U-100] 24 units SQ HS 01/30/18 [History] Ipratropium-Albuterol Nebulize [Duoneb 0.5 mg-3 mg/3 ml Soln] 3 ml INHALATION RT -QID ampul.neb 02/01/18 [Rx] Levofloxacin [Levaquin] 500 mg PO DAILY 5 Days #5 tab 02/01/18 [Rx] Nicotine 14Mg/24Hr Patch [Habitrol] 1 patch TRANSDERM DAILY #30 patch 02/01/18 [ Rx] guaiFENesin [Mucinex] 1,200 mg PO Q12HR #10 tablet.er 02/01/18 [Rx] predniSONE 40 mg PO DAILY #10 tab 02/01/18 [Rx] Follow up Appointment(s)/Referral(s): Nonstaff,Physician [Primary Care Provider] - 1-2 days Mary Ann Bergeron MD [STAFF PHYSICIAN] - 1 Week Discharge Disposition: HOME SELF-CARE
[2018-02-01 11:14] LABS: Calcium 9.2 mg/dL (8.4-10.2); Potassium 4.5 mmol/L (3.5-5.1)
[2018-02-01 11:17] LABS: Basophils % (A) 0 %; Eosinophils % (A) 0 %; HCT 40.3 % (34.0-46.0); HGB 12.7 gm/dL (11.4-16.0); Lymphocytes # (A) 0.7 k/uL (1.0-4.8); Lymphocytes % (A) 5 %; MCH 28.4 pg (25.0-35.0); MCHC 31.4 g/dL (31.0-37.0); MCV 90.4 fL (80.0-100.0); Mean Platelet Volume 7.3; Monocytes # (A) 0.4 k/uL (0-1.0); Monocytes % (A) 3 %; Neutrophils # (A) 12.1 k/uL (1.3-7.7); Neutrophils % (A) 91 %; Platelet Count 258 k/uL (150-450); RBC 4.46 m/uL (3.80-5.40); RDW 12.9 % (11.5-15.5); WBC 13.2 k/uL (3.8-10.6)
--- NOTE | 2018-02-01 11:37 | P.PN ---
Subjective Progress Note Date: 02/01/18 Principal diagnosis: Acute exacerbation of suspected significant chronic obstructive pulmonary disease. This is a very pleasant 62-year-old female patient who follows with a doctor Nikolas out of the [facility] as her primary care physician. She has a history of hypertension, diabetes mellitus, left kidney atrophy and stage IV renal failure, hip replacement, toe amputation, peripheral neuropathy and bipolar disorder. She also has a history of chronic tobacco dependence of 50 years. She has not been seen by a railway track worker in the past. She does have a albuterol rescue inhaler and a nebulizer at home. No maintenance medications. She presented here to the emergency room yesterday with complaints of increasing shortness of breath, chills, fatigue, nonproductive cough. She was quite hypoxic initially at 74% on room air. T-max 99.8. White count 10.0. Hemoglobin 13.5. Creatinine 1. 38. Influenza screen is negative. Troponin negative. His chest x-ray did reveal interstitial changes reflective for probable bronchitis, atypical pneumonia, interstitial pneumonitis, hypersensitivity pneumonitis or pulmonary vascular congestion. ProBNP 545. She is seen today in consultation on the regular medical floor. She is up ambulating in her room. She is awake and alert in no acute distress. She is breathing quite a bit easier today as compared to yesterday. Maintaining O2 saturations in the 90s on 2 L/m per nasal cannula. She was initiated on DuoNeb inhalations and IV Solu-Medrol. She was initiated on ceftriaxone and azithromycin. The patient is seen again today 02/01/2018 in follow-up on the regular medical floor. She is awake and alert in no acute distress. She's been up ambulating in the hallway without any respiratory distress. She is nearly back to her baseline. She is anxious to go home. She has been treated with DuoNeb inhalations, IV Solu-Medrol, empiric antibiotics. She's been afebrile. White count 13.2. Hemoglobin 12.7. Creatinine 1.48. Objective - Vital Signs Vital signs: Vital Signs Temp 98.0 F 02/01/18 06:16 Pulse 80 02/01/18 07:50 Resp 16 02/01/18 06:16 BP 128/70 02/01/18 06:16 Pulse Ox 95 02/01/18 06:16 Intake & Output 01/31/18 02/01/18 02/01/18 18:59 06:59 18:59 Intake Total 1050 Balance 1050 Weight 108.409 kg Intake: Oral 1050 Other: # Voids 3 1 3 - Exam GENERAL EXAM: Alert, active, comfortable in no apparent distress. HEAD: Normocephalic. EYES: Normal reaction of pupils, equal size. NOSE: Clear with pink turbinates. THROAT: No erythema or exudates. NECK: No masses, no JVD. CHEST: No chest wall deformity. LUNGS: Equal air entry with few end expiratory wheeze. Diminished. CVS: S1 and S2 normal with no audible murmur, regular rhythm. ABDOMEN: No hepatosplenomegaly, normal bowel sounds, no guarding or rigidity. SPINE: No scoliosis or deformity SKIN: No rashes CENTRAL NERVOUS SYSTEM: No focal deficits, tone is normal in all 4 extremities. EXTREMITIES: There is no peripheral edema. No clubbing, no cyanosis. Peripheral pulses are intact. - Labs CBC & Chem 7: 02/01/18 10:08 02/01/18 10:08 Labs: Abnormal Lab Results - Last 24 Hours (Table) 01/31/18 01/31/18 01/31/18 Range/Units 12:17 17:17 20:06 WBC (3.8-10.6) k/uL Neutrophils # (1.3-7.7) k/uL Lymphocytes # (1.0-4.8) k/uL Sodium (137-145) mmol/L Chloride (98-107) mmol/L BUN (7-17) mg/dL Creatinine (0.52-1.04) mg/dL Glucose (74-99) mg/dL POC Glucose (mg/dL) 328 H 235 H 233 H (75-99) mg/dL 02/01/18 02/01/18 02/01/18 Range/Units 07:06 10:08 10:08 WBC 13.2 H (3.8-10.6) k/uL Neutrophils # 12.1 H (1.3-7.7) k/uL Lymphocytes # 0.7 L (1.0-4.8) k/uL Sodium 132 L (137-145) mmol/L Chloride 93 L (98-107) mmol/L BUN 30 H (7-17) mg/dL Creatinine 1.48 H (0.52-1.04) mg/dL Glucose 382 H (74-99) mg/dL POC Glucose (mg/dL) 265 H (75-99) mg/dL Assessment and Plan Assessment: Impression: #1 Acute hypoxic respiratory failure secondary to an acute exacerbation of chronic obstructive pulmonary disease secondary to possible atypical pneumonia. #2 Chronic and ongoing tobacco dependence of 50 years. #3 Acute on chronic renal failure, creatinine 1.48. #4 Diabetes mellitus. #5 Diabetic neuropathy. #6 History of amputated toe. #7 Hypertension. #8 Bipolar disorder. Plan: The patient was seen and evaluated by Dr. Bergeron. She is cleared for discharge from the pulmonary standpoint. Complete a course of antibiotics. Complete her course of prednisone taper. Continue bronchodilators. She is educated regarding the importance of complete smoking cessation. A NicoDerm patch has been applied. She will be seen in our office in 1-2 weeks' time. She will perform a full pulmonary function testing to evaluate the severity of her suspected COPD and make further recommendations regarding maintenance medications. She is however encouraged to call sooner with any recurrence of symptoms or other questions or concerns. I, the cosigning physician, performed a history & physical examination of the patient. Lungs sounds with bilateral end expiratory wheeze. Diminished. Maintaining good O2 saturations in the 90s on room air. I discussed the assessment and plan of care with my nurse practitioner, Sammi Garcia. I attest to the above consultation as dictated by her.
[2018-02-01 12:37] LABS: Glucose,Whole Blood 268 mg/dL (75-99)
[2018-02-01 15:07] VITALS: BP 112/67; RESP 18
[2018-02-01 15:18] VITALS: PULSE 80
== END 2018-02-01 16:29 | disposition home or self-care (01) | DRG 190 ==
LOC: EC 08:53 → UNDOADMIN 12:02 → 4MS4W 12:02 → EC 14:04
PROVIDERS: ADMIT Internal Medicine; ATTEND Internal Medicine
DX: J44.0 Chronic obstructive pulmonary disease with (acute) lower respiratory infection (principal); J96.01 Acute respiratory failure with hypoxia; J84.9 Interstitial pulmonary disease, unspecified; N17.9 Acute kidney failure, unspecified; N18.4 Chronic kidney disease, stage 4 (severe); J44.1 Chronic obstructive pulmonary disease with (acute) exacerbation; E11.22 Type 2 diabetes mellitus with diabetic chronic kidney disease; E11.42 Type 2 diabetes mellitus with diabetic polyneuropathy; F17.200 Nicotine dependence, unspecified, uncomplicated; F31.9 Bipolar disorder, unspecified; G47.33 Obstructive sleep apnea (adult) (pediatric); I12.9 Hypertensive chronic kidney disease with stage 1 through stage 4 chronic kidney disease, or unspecified chronic kidney disease; J20.9 Acute bronchitis, unspecified; N26.1 Atrophy of kidney (terminal); Z79.4 Long term (current) use of insulin; Z82.49 Family history of ischemic heart disease and other diseases of the circulatory system; Z83.3 Family history of diabetes mellitus; Z89.429 Acquired absence of other toe(s), unspecified side; Z90.710 Acquired absence of both cervix and uterus; Z96.642 Presence of left artificial hip joint; Z79.84 Long term (current) use of oral hypoglycemic drugs; Z79.899 Other long term (current) drug therapy; Z71.6 Tobacco abuse counseling
CPT/HCPCS: 36415; 71046; 80048; 80053; 82550; 82553; 83036; 83605; 83880; 84145; 84484; 85025; 85610; 85730; 87502; 93005; 94640; 94644; 96361; 96365; 96367; 96375; 99285

== ENCOUNTER 2020-08-12 19:46 | Emergency (ER) | payer MEDICARE ==
[2020-08-12 20:25] VITALS: RESP 16; TEMP 97.8
[2020-08-12] MEDS ORDERED: MORPHINE SULFATE 4 MG/ML SYRINGE IV STA (20:58)
[2020-08-12] MEDS ORDERED: METOCLOPRAMIDE 5 MG/ML 2 ML VIAL IVP STA (20:58)
[2020-08-12] MEDS ORDERED: SODIUM CHLORIDE 0.9% 1,000 ML IV STA (20:58)
--- NOTE | 2020-08-12 21:09 | ED ---
General Adult HPI - General Chief complaint: Nausea/Vomiting/Diarrhea Stated complaint: nauses, vomiting, side pain Time Seen by Provider: 08/12/20 20:42 Source: patient, family (Significant other), RN notes reviewed Mode of arrival: wheelchair Limitations: no limitations - History of Present Illness Initial comments: 65-year-old white female, alert and oriented 4, presents to the emergency room with her significant other complaining of 1-1/2 months of abdominal pain mostly on the right side that radiates across her lower abdomen. Patient states that the pain gets worse immediately after she eats and feels sharp. Patient states today she had 3 episodes of vomiting which looked like food and water did have a bowel movement that was diarrhea today and then had a second bowel movement that was more formed. Patient denies hematochezia or hematemesis. Patient denies fevers. Patient has history of COPD, insulin-dependent diabetes, hypertension, osteoarthritis and has one kidney and left hip replacement. Patient is a pack-a-day smoker. Patient is tearful states that the pain is worse with palpation and radiates to her back. Patient states that she recently had a primary care doctor's appointment but the pain was not bad at that time and her labs are within normal limits. -: month(s) (A month and a half) Location: abdomen Radiation: back Severity scale (1-10): 8 Consistency: constant Improves with: medication (Tylenol and [id number] pain cream) Worsens with: eating (Immediately after eating), movement Associated Symptoms: headaches, nausea/vomiting Treatments Prior to Arrival: other (Tylenol) - Related Data Home Medications Medication Instructions Recorded Confirmed ALPRAZolam [Xanax] 1 mg PO BID 10/08/16 08/12/20 Hydrochlorothiazide 12.5 mg PO DAILY 10/08/16 08/12/20 [hydroCHLOROthiazide] amLODIPine [Norvasc] 10 mg PO DAILY 10/08/16 08/12/20 traZODone HCL 150 mg PO HS 10/08/16 08/12/20 Gabapentin 800 mg PO TID 01/30/18 08/12/20 Insulin Degludec [Tresiba 30 units SQ HS 01/30/18 08/12/20 Flextouch U-100] Acetaminophen Tab [Tylenol Tab] 1,000 mg PO Q6HR PRN 08/12/20 08/12/20 Albuterol Inhaler [Ventolin Hfa 2 puff INHALATION RT-QID PRN 08/12/20 08/12/20 Inhaler] Albuterol Nebulized [Ventolin 2.5 mg INHALATION RT-QID PRN 08/12/20 08/12/20 Nebulized] Liraglutide [Victoza 3-Abdias] 1.2 mg SQ DAILY 08/12/20 08/12/20 Allergies Allergy/AdvReac Type Severity Reaction Status Date / Time aspirin AdvReac Nausea & Verified 08/12/20 21:50 Vomiting ibuprofen [From Motrin] AdvReac Nausea & Verified 08/12/20 21:50 Vomiting Review of Systems ROS Statement: Those systems with pertinent positive or pertinent negative responses have been documented in the HPI. ROS Other: All systems not noted in ROS Statement are negative. 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 Past Anesthesia/Blood Transfusion Reactions: No Reported Reaction Past Psychological History: Bipolar, Depression Smoking Status: Current every day smoker Past Alcohol Use History: None Reported Past Drug Use History: Marijuana - Past Family History Mother Family Medical History: Diabetes Mellitus, Myocardial Infarction ([place]), Osteoar thritis ([place]) Additional Family Medical History / Comment(s): djd Father Family Medical History: Deep Vein Thrombosis (DVT) General Exam Limitations: no limitations General appearance: alert, in no apparent distress, obese Head exam: Present: atraumatic, normocephalic, normal inspection Eye exam: Present: normal appearance, PERRL, EOMI. Absent: scleral icterus, conjunctival injection, periorbital swelling Pupils: Present: normal accommodation ENT exam: Present: normal exam, normal oropharynx, mucous membranes moist Neck exam: Present: normal inspection, full ROM. Absent: tenderness, meningismus, lymphadenopathy, thyromegaly Respiratory exam: Present: decreased breath sounds (Diminished bases due to poor effort ). Absent: respiratory distress, wheezes, rales, rhonchi, stridor Cardiovascular Exam: Present: regular rate, normal rhythm, normal heart sounds. Absent: systolic murmur, diastolic murmur, rubs, gallop, clicks, JVD GI/Abdominal exam: Present: soft, tenderness (Right lower quadrant), normal bowel sounds. Absent: distended, guarding, rebound, rigid, mass, bruit, pulsatile mass, hernia Rectal exam: Present: deferred Extremities exam: Present: normal inspection, full ROM, normal capillary refill. Absent: tenderness, pedal edema, joint swelling, calf tenderness Back exam: Present: normal inspection, full ROM, tenderness (Lumbar spine ), vertebral tenderness. Absent: CVA tenderness (R), CVA tenderness (L), muscle spasm, rash noted Neurological exam: Present: alert, oriented X3, CN II-XII intact. Absent: motor sensory deficit Psychiatric exam: Present: normal affect, normal mood, other (2.) Skin exam: Present: warm, dry, intact, normal color. Absent: rash, cyanosis, diaphoretic, erythema, petechiae, pallor, mottled Course Vital Signs 08/12/20 20:19 Temperature 97.8 F Pulse Rate 81 Respiratory 16 Rate Blood Pressure 156/73 O2 Sat by Pulse 94 L Oximetry EKG Findings - EKG Results: EKG: WNL, sinus rhythm (Ventricular rate of 72, [place] interval of 0.150, QRS of 0 .78, QTC of 0.455), not changed from: (01/30/2018) Medical Decision Making - Medical Decision Making Hematocrit is 17.2 and 50.0 respectively, WBC count is 8.8, troponin is negative at 0.012, glucose is 117, UA is negative for infection. Creatinine levels 1.31 which has been consistent for patient since 2018. KUB x-ray shows no pneumoperitoneum and a non- acute abdomen. CT shows no liver, spleen or gallbladder abnormalities, no obstruction. No free air. Patient states she does not have a left kidney which is evident on CT. Bilateral hip prosthesis noted, no dislocation. This is likely musculoskeletal pain as patient has increased pain when she tries to sit up on the cart. Patient states that she does get some relief with Tylenol and [id number] pain ointments. Patient is agreeable to being discharged home with her significant other. Case discussed with Dr. Singh - Lab Data Result diagrams: 08/12/20 21:47 08/12/20 21:47 Lab Results 08/12/20 08/12/20 08/12/20 Range/Units 21:47 21:47 21:47 WBC 8.8 (3.8-10.6) k/uL RBC 5.75 H (3.80-5.40) m/uL Hgb 17.2 H (11.4-16.0) gm/dL Hct 52.0 H (34.0-46.0) % MCV 90.5 (80.0-100.0) fL MCH 30.0 (25.0-35.0) pg MCHC 33.1 (31.0-37.0) g/dL RDW 14.7 (11.5-15.5) % Plt Count 205 (150-450) k/uL MPV 7.1 Neutrophils % 66 % Lymphocytes % 25 % Monocytes % 5 % Eosinophils % 3 % Basophils % 1 % Neutrophils # 5.8 (1.3-7.7) k/uL Lymphocytes # 2.2 (1.0-4.8) k/uL Monocytes # 0.4 (0-1.0) k/uL Eosinophils # 0.2 (0-0.7) k/uL Basophils # 0.1 (0-0.2) k/uL PT 11.3 (9.0-12.0) sec INR 1.1 (<1.2) APTT 27.0 (22.0-30.0) sec Sodium (137-145) mmol/L Potassium (3.5-5.1) mmol/L Chloride (98-107) mmol/L Carbon Dioxide (22-30) mmol/L Anion Gap mmol/L BUN (7-17) mg/dL Creatinine (0.52-1.04) mg/dL Est GFR (CKD-EPI)AfAm (>60 ml/min/1.73 sqM) Est GFR (CKD-EPI)NonAf (>60 ml/min/1.73 sqM) Glucose (74-99) mg/dL Plasma Lactic Acid Maurice (0.7-2.0) mmol/L Calcium (8.4-10.2) mg/dL Total Bilirubin (0.2-1.3) mg/dL AST (14-36) U/L ALT (4-34) U/L Alkaline Phosphatase (38-126) U/L Troponin I (0.000-0.034) ng/mL Total Protein (6.3-8.2) g/dL Albumin (3.5-5.0) g/dL Amylase (30-110) U/L Lipase (23-300) U/L Urine Color Light Yellow Urine Appearance Clear (Clear) Urine pH 7.0 (5.0-8.0) Ur Specific [place] 1.008 (1.001-1.035) Urine Protein Negative (Negative) Urine Glucose (UA) Negative (Negative) Urine Ketones Negative (Negative) Urine Blood Negative (Negative) Urine Nitrite Negative (Negative) Urine Bilirubin Negative (Negative) Urine Urobilinogen <2.0 (<2.0) mg/dL Ur Leukocyte Esterase Negative (Negative) 08/12/20 08/12/20 08/12/20 Range/Units 21:47 21:47 21:47 WBC (3.8-10.6) k/uL RBC (3.80-5.40) m/uL Hgb (11.4-16.0) gm/dL Hct (34.0-46.0) % MCV (80.0-100.0) fL MCH (25.0-35.0) pg MCHC (31.0-37.0) g/dL RDW (11.5-15.5) % Plt Count (150-450) k/uL MPV Neutrophils % % Lymphocytes % % Monocytes % % Eosinophils % % Basophils % % Neutrophils # (1.3-7.7) k/uL Lymphocytes # (1.0-4.8) k/uL Monocytes # (0-1.0) k/uL Eosinophils # (0-0.7) k/uL Basophils # (0-0.2) k/uL PT (9.0-12.0) sec INR (<1.2) APTT (22.0-30.0) sec Sodium 134 L (137-145) mmol/L Potassium 4.2 (3.5-5.1) mmol/L Chloride 96 L (98-107) mmol/L Carbon Dioxide 33 H (22-30) mmol/L Anion Gap 5 mmol/L BUN 15 (7-17) mg/dL Creatinine 1.31 H (0.52-1.04) mg/dL Est GFR (CKD-EPI)AfAm 50 (>60 ml/min/1.73 sqM) Est GFR (CKD-EPI)NonAf 43 (>60 ml/min/1.73 sqM) Glucose 117 H (74-99) mg/dL Plasma Lactic Acid Maurice 1.1 (0.7-2.0) mmol/L Calcium 9.7 (8.4-10.2) mg/dL Total Bilirubin 0.8 (0.2-1.3) mg/dL AST 18 (14-36) U/L ALT 8 (4-34) U/L Alkaline Phosphatase 89 (38-126) U/L Troponin I <0.012 (0.000-0.034) ng/mL Total Protein 7.6 (6.3-8.2) g/dL Albumin 4.1 (3.5-5.0) g/dL Amylase 53 (30-110) U/L Lipase 64 (23-300) U/L Urine Color Urine Appearance (Clear) Urine pH (5.0-8.0) Ur Specific [place] (1.001-1.035) Urine Protein (Negative) Urine Glucose (UA) (Negative) Urine Ketones (Negative) Urine Blood (Negative) Urine Nitrite (Negative) Urine Bilirubin (Negative) Urine Urobilinogen (<2.0) mg/dL Ur Leukocyte Esterase (Negative) Disposition Clinical Impression: Abdominal pain Disposition: HOME SELF-CARE Condition: Good Instructions (If sedation given, give patient instructions): Abdominal Pain (ED) Additional Instructions: Continue taking Tylenol [id number] for pain and the primary care. Is patient prescribed a controlled substance at d/c from ED?: No Referrals: Nonstaff,Physician [Primary Care Provider] - 1-2 days Time of Disposition: 23:29
[2020-08-12 22:02] LABS: Appearance,Urine Clear (Clear); Basophils # (A) 0.1 k/uL (0-0.2); Basophils % (A) 1 %; Bilirubin,Urine Negative (Negative); Blood,Urine Negative (Negative); Color,Urine Light Yellow; Eosinophils # (A) 0.2 k/uL (0-0.7); Eosinophils % (A) 3 %; Glucose,Urine (UA) Negative (Negative); HGB 17.2 gm/dL (11.4-16.0); Ketones,Urine Negative (Negative); Leukocyte Esterase,Urine Negative (Negative); Lymphocytes # (A) 2.2 k/uL (1.0-4.8); Lymphocytes % (A) 25 %; MCHC 33.1 g/dL (31.0-37.0); MCV 90.5 fL (80.0-100.0); Mean Platelet Volume 7.1; Monocytes # (A) 0.4 k/uL (0-1.0); Monocytes % (A) 5 %; Neutrophils # (A) 5.8 k/uL (1.3-7.7); Neutrophils % (A) 66 %; Nitrite,Urine Negative (Negative); Platelet Count 205 k/uL (150-450); Protein,Urine Negative (Negative); RBC 5.75 m/uL (3.80-5.40); RDW 14.7 % (11.5-15.5); Specific Gravity,Urine 1.008 (1.001-1.035); Urobilinogen,Urine <2.0 mg/dL (<2.0); WBC 8.8 k/uL (3.8-10.6)
[2020-08-12 22:13] LABS: Albumin 4.1 g/dL (3.5-5.0); Calcium 9.7 mg/dL (8.4-10.2); Potassium 4.2 mmol/L (3.5-5.1); Total Bilirubin 0.8 mg/dL (0.2-1.3); Total Protein 7.6 g/dL (6.3-8.2)
[2020-08-12 22:16] LABS: INR 1.1 (<1.2); Prothrombin Time 11.3 sec (9.0-12.0)
--- NOTE | 2020-08-12 23:01 | XR ---
EXAMINATION TYPE: XR KUB DATE OF EXAM: 08/12/2020 COMPARISON: NONE HISTORY: Flank pain TECHNIQUE: 2 views upright FINDINGS: There is no sign of intestinal obstruction or pneumoperitoneum. Fecal pattern is normal. [place] ng bases are clear. There are no pathologic calcifications over the kidneys. There is bilateral hip p rosthesis. IMPRESSION: Nonacute abdomen.
--- NOTE | 2020-08-12 23:06 | CT ---
EXAMINATION TYPE: CT abdomen pelvis wo con DATE OF EXAM: 08/12/2020 COMPARISON: None HISTORY: right sided abdominal pain CT DLP: 1303.4 mGycm Automated exposure control for dose reduction was used. Images obtained from the diaphragm to the floor the pelvis without contrast. Lung bases are clear. There is no pleural effusion. Heart size is normal. There is no pericardial eff usion. Liver spleen pancreas stomach gallbladder appear intact. Bile ducts are not dilated. There is no adrenal mass. Kidneys have normal size. There is no hydronephrosis. There is some lobulat ion on the lower lateral aspect of the left kidney. This could be related to atrophy of the lower ramana e. There is no retroperitoneal adenopathy. Abdominal aorta is atheromatous. There is no mesenteric edema. There is no ascites or free air. There is no bowel obstruction. Appendi x appears normal. There is bilateral hip prosthesis. There is spondylotic changes in the lumbar spine . There is no compression fracture. IMPRESSION: Lobulation of the lower pole left kidney. Ultrasound or contrast CT scan recommended to exclude a mas s. Ultrasound may be technically difficult because of patient's size. Normal appendix.
[2020-08-12 23:40] VITALS: BP 174/80; PULSE 78
== END 2020-08-12 23:40 | disposition home or self-care (01) ==
LOC: EC 19:46
DX: R10.31 Right lower quadrant pain (principal); R11.2 Nausea with vomiting, unspecified; R51.9 Headache, unspecified; R19.7 Diarrhea, unspecified; J44.9 Chronic obstructive pulmonary disease, unspecified; E11.9 Type 2 diabetes mellitus without complications; I10 Essential (primary) hypertension; M19.90 Unspecified osteoarthritis, unspecified site; G47.33 Obstructive sleep apnea (adult) (pediatric); F41.9 Anxiety disorder, unspecified; F17.200 Nicotine dependence, unspecified, uncomplicated; F12.90 Cannabis use, unspecified, uncomplicated; Z79.51 Long term (current) use of inhaled steroids; Z79.4 Long term (current) use of insulin
CPT/HCPCS: 36415; 93005; 80053; 82150; 83605; 83690; 84484; 85025; 85610; 85730; 81003; 74018; 74176; 99284; 96374; 96375; J2270; J2765

== ENCOUNTER 2020-10-24 12:50 | Emergency (ER) | payer MEDICARE ==
[2020-10-24 13:10] VITALS: TEMP 98.6
[2020-10-24] MEDS ORDERED: SODIUM CHLORIDE 0.9% 1,000 ML IV ONE (14:11)
[2020-10-24] MEDS ORDERED: SODIUM CHLORIDE 0.9% 500 ML 500 ML IV ONE (14:11)
[2020-10-24] MEDS ORDERED: ONDANSETRON 4 MG/2 ML VIAL IVP STA (14:11)
[2020-10-24] MEDS ORDERED: HYDROmorphone 1 MG/ML 1 ML SYRINGE IVP STA (14:11)
--- NOTE | 2020-10-24 15:01 | ED ---
Abdominal Pain HPI - General Chief Complaint: Abdominal Pain Stated Complaint: possible acute appendicitis Time Seen by Provider: 10/24/20 13:52 Source: patient, RN notes reviewed Mode of arrival: ambulatory Limitations: no limitations - History of Present Illness Initial Comments: 65-year-old female presents emergency Department with chief complaint of abdominal pain. She states she's been having on and off symptoms have greatly worsened. She states that she signed by PCP to rule out acute appendicitis. Patient has no dysuria no hematuria no diarrhea but does complain of nausea vomiting. Patient had CT is recently she states that something has changed and worsened. - Related Data Home Medications Medication Instructions Recorded Confirmed ALPRAZolam [Xanax] 1 mg PO BID 10/08/16 10/24/20 Hydrochlorothiazide 12.5 mg PO DAILY 10/08/16 10/24/20 [hydroCHLOROthiazide] amLODIPine [Norvasc] 10 mg PO DAILY 10/08/16 10/24/20 traZODone HCL 150 mg PO HS 10/08/16 10/24/20 Gabapentin 800 mg PO TID 01/30/18 10/24/20 Insulin Degludec [Tresiba 30 units SQ HS 01/30/18 10/24/20 Flextouch U-100] Acetaminophen Tab [Tylenol Tab] 1,000 mg PO Q6HR PRN 08/12/20 10/24/20 Albuterol Inhaler [Ventolin Hfa 2 puff INHALATION RT-QID PRN 08/12/20 10/24/20 Inhaler] Albuterol Nebulized [Ventolin 2.5 mg INHALATION RT-QID PRN 08/12/20 10/24/20 Nebulized] Liraglutide [Victoza 3-Abdias] 1.2 mg SQ DAILY 08/12/20 10/24/20 Amoxic-Pot Clav 875-125Mg 1 tab PO Q12HR 10/24/20 10/24/20 [Augmentin 875-125] Omeprazole 20 mg PO DAILY 10/24/20 10/24/20 traMADol HCL 50 mg PO DAILY 10/24/20 10/24/20 Allergies Allergy/AdvReac Type Severity Reaction Status Date / Time aspirin AdvReac Nausea & Verified 10/24/20 16:32 Vomiting ibuprofen [From Motrin] AdvReac Nausea & Verified 08/13/21 16:32 Vomiting Review of Systems ROS Statement: Those systems with pertinent positive or pertinent negative responses have been documented in the HPI. ROS Other: All systems not noted in ROS Statement are negative. 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 Past Anesthesia/Blood Transfusion Reactions: No Reported Reaction Past Psychological History: Bipolar, Depression Smoking Status: Current every day smoker Past Alcohol Use History: None Reported Past Drug Use History: Marijuana - Past Family History Mother Family Medical History: Diabetes Mellitus, Myocardial Infarction ([place]), O steoarthritis (OA) Additional Family Medical History / Comment(s): djd Father Family Medical History: Deep Vein Thrombosis (DVT) General Exam Limitations: no limitations General appearance: alert, in no apparent distress Head exam: Present: atraumatic, normocephalic, normal inspection Neck exam: Present: normal inspection, full ROM. Absent: tenderness, meningismus, lymphadenopathy Respiratory exam: Present: normal lung sounds bilaterally. Absent: respiratory distress, wheezes, rales, rhonchi, stridor Cardiovascular Exam: Present: regular rate, normal rhythm, normal heart sounds. Absent: systolic murmur, diastolic murmur, rubs, gallop, clicks GI/Abdominal exam: Present: soft, tenderness (Right lower quadrant), normal bowel sounds. Absent: distended, guarding, rebound, rigid Back exam: Absent: CVA tenderness (R), CVA tenderness (L) Neurological exam: Present: alert Skin exam: Present: warm, dry, intact, normal color. Absent: rash Course Vital Signs 10/24/20 10/24/20 13:06 16:52 Temperature 98.6 F Pulse Rate 77 68 Respiratory 20 18 Rate Blood Pressure 100/65 139/67 O2 Sat by Pulse 98 93 L Oximetry Medical Decision Making - Medical Decision Making CT labs reviewed no significant changes. No arm abnormality started on CAT scan. Patient is improved from prior she is well hydrated given pain meds she will follow-up with primary care physician. Patient's pain may related to dominant wall - Lab Data Result diagrams: 10/24/20 14:16 10/24/20 14:16 Lab Results 10/24/20 10/24/20 10/24/20 Range/Units 14:16 14:16 14:16 WBC 7.7 (3.8-10.6) k/uL RBC 5.58 H (3.80-5.40) m/uL Hgb 17.3 H (11.4-16.0) gm/dL Hct 52.6 H (34.0-46.0) % MCV 94.2 (80.0-100.0) fL MCH 31.0 (25.0-35.0) pg MCHC 32.9 (31.0-37.0) g/dL RDW 14.4 (11.5-15.5) % Plt Count 217 (150-450) k/uL MPV 7.4 Neutrophils % 61 % Lymphocytes % 31 % Monocytes % 5 % Eosinophils % 2 % Basophils % 0 % Neutrophils # 4.7 (1.3-7.7) k/uL Lymphocytes # 2.4 (1.0-4.8) k/uL Monocytes # 0.4 (0-1.0) k/uL Eosinophils # 0.2 (0-0.7) k/uL Basophils # 0.0 (0-0.2) k/uL Sodium 131 L (137-145) mmol/L Potassium 4.3 (3.5-5.1) mmol/L Chloride 95 L (98-107) mmol/L Carbon Dioxide 29 (22-30) mmol/L Anion Gap 7 mmol/L BUN 12 (7-17) mg/dL Creatinine 1.19 H (0.52-1.04) mg/dL Est GFR (CKD-EPI)AfAm 56 (>60 ml/min/1.73 sqM) Est GFR (CKD-EPI)NonAf 48 (>60 ml/min/1.73 sqM) Glucose 77 (74-99) mg/dL Plasma Lactic Acid Maurice 1.0 (0.7-2.0) mmol/L Calcium 9.4 (8.4-10.2) mg/dL Total Bilirubin 1.2 (0.2-1.3) mg/dL AST 23 (14-36) U/L ALT 7 (4-34) U/L Alkaline Phosphatase 78 (38-126) U/L Total Protein 7.3 (6.3-8.2) g/dL Albumin 3.9 (3.5-5.0) g/dL Amylase 45 (30-110) U/L Lipase 11 L (23-300) U/L Urine Color Urine Appearance (Clear) Urine pH (5.0-8.0) Ur Specific [place] (1.001-1.035) Urine Protein (Negative) Urine Glucose (UA) (Negative) Urine Ketones (Negative) Urine Blood (Negative) Urine Nitrite (Negative) Urine Bilirubin (Negative) Urine Urobilinogen (<2.0) mg/dL Ur Leukocyte Esterase (Negative) Urine RBC (0-5) /hpf Urine WBC (0-5) /hpf Ur Squamous Epith Cells (0-4) /hpf Hyaline Casts (0-2) /lpf Urine Mucus (None) /hpf 10/24/20 Range/Units 14:21 WBC (3.8-10.6) k/uL RBC (3.80-5.40) m/uL Hgb (11.4-16.0) gm/dL Hct (34.0-46.0) % MCV (80.0-100.0) fL MCH (25.0-35.0) pg MCHC (31.0-37.0) g/dL RDW (11.5-15.5) % Plt Count (150-450) k/uL MPV Neutrophils % % Lymphocytes % % Monocytes % % Eosinophils % % Basophils % % Neutrophils # (1.3-7.7) k/uL Lymphocytes # (1.0-4.8) k/uL Monocytes # (0-1.0) k/uL Eosinophils # (0-0.7) k/uL Basophils # (0-0.2) k/uL Sodium (137-145) mmol/L Potassium (3.5-5.1) mmol/L Chloride (98-107) mmol/L Carbon Dioxide (22-30) mmol/L Anion Gap mmol/L BUN (7-17) mg/dL Creatinine (0.52-1.04) mg/dL Est GFR (CKD-EPI)AfAm (>60 ml/min/1.73 sqM) Est GFR (CKD-EPI)NonAf (>60 ml/min/1.73 sqM) Glucose (74-99) mg/dL Plasma Lactic Acid Maurice (0.7-2.0) mmol/L Calcium (8.4-10.2) mg/dL Total Bilirubin (0.2-1.3) mg/dL AST (14-36) U/L ALT (4-34) U/L Alkaline Phosphatase (38-126) U/L Total Protein (6.3-8.2) g/dL Albumin (3.5-5.0) g/dL Amylase (30-110) U/L Lipase (23-300) U/L Urine Color Yellow Urine Appearance Clear (Clear) Urine pH 6.5 (5.0-8.0) Ur Specific [place] 1.014 (1.001-1.035) Urine Protein Trace H (Negative) Urine Glucose (UA) Negative (Negative) Urine Ketones Negative (Negative) Urine Blood Negative (Negative) Urine Nitrite Negative (Negative) Urine Bilirubin Negative (Negative) Urine Urobilinogen 3.0 (<2.0) mg/dL Ur Leukocyte Esterase Small H (Negative) Urine RBC <1 (0-5) /hpf Urine WBC 1 (0-5) /hpf Ur Squamous Epith Cells 1 (0-4) /hpf Hyaline Casts 3 H (0-2) /lpf Urine Mucus Rare H (None) /hpf Disposition Clinical Impression: Abdominal pain Disposition: HOME SELF-CARE Condition: Stable Instructions (If sedation given, give patient instructions): Abdominal Pain (ED) Additional Instructions: Please return to the Emergency Department if symptoms worsen or any other concerns. Is patient prescribed a controlled substance at d/c from ED?: No Referrals: Nonstaff,Physician [Primary Care Provider] - 1-2 days Mary Spencer MD [STAFF PHYSICIAN] - 1-2 days Time of Disposition: 17:08
[2020-10-24 15:06] LABS: Basophils % (A) 0 %; Eosinophils # (A) 0.2 k/uL (0-0.7); Eosinophils % (A) 2 %; HCT 52.6 % (34.0-46.0); HGB 17.3 gm/dL (11.4-16.0); Lymphocytes # (A) 2.4 k/uL (1.0-4.8); Lymphocytes % (A) 31 %; MCHC 32.9 g/dL (31.0-37.0); MCV 94.2 fL (80.0-100.0); Mean Platelet Volume 7.4; Monocytes # (A) 0.4 k/uL (0-1.0); Monocytes % (A) 5 %; Neutrophils # (A) 4.7 k/uL (1.3-7.7); Neutrophils % (A) 61 %; Platelet Count 217 k/uL (150-450); RBC 5.58 m/uL (3.80-5.40); RDW 14.4 % (11.5-15.5); WBC 7.7 k/uL (3.8-10.6)
[2020-10-24 15:30] LABS: Albumin 3.9 g/dL (3.5-5.0); Calcium 9.4 mg/dL (8.4-10.2); Total Bilirubin 1.2 mg/dL (0.2-1.3); Total Protein 7.3 g/dL (6.3-8.2)
[2020-10-24 15:31] LABS: Appearance,Urine Clear (Clear); Bilirubin,Urine Negative (Negative); Blood,Urine Negative (Negative); Color,Urine Yellow; Glucose,Urine (UA) Negative (Negative); Hyaline Casts,Urine 3 /lpf (0-2); Ketones,Urine Negative (Negative); Leukocyte Esterase,Urine Small (Negative); Mucus,Urine Rare /hpf; Nitrite,Urine Negative (Negative); PH, Urine 6.5 (5.0-8.0); Protein,Urine Trace (Negative); RBC,Urine <1 /hpf (0-5); Specific Gravity,Urine 1.014 (1.001-1.035); Squamous Epithelial Cell,Urine 1 /hpf (0-4); WBC,Urine 1 /hpf (0-5)
[2020-10-24 15:34] LABS: Potassium 4.3 mmol/L (3.5-5.1)
[2020-10-24 16:56] VITALS: BP 139/67; PULSE 68; RESP 18
--- NOTE | 2020-10-24 17:04 | CT ---
EXAMINATION TYPE: CT abdomen pelvis w con DATE OF EXAM: 10/24/2020 COMPARISON: 08/12/2020. HISTORY: Generalized pain. CT DLP: 2115.4 mGycm Automated exposure control for dose reduction was used. TECHNIQUE: Helical acquisition of images was performed from the lung bases through the pelvis. CONTRAST: Performed without Oral Contrast and with IV Contrast, patient injected with 100 mL of Isovue 300. FINDINGS: LUNG BASES: No significant abnormality is appreciated. LIVER/GB: No significant abnormality is appreciated. PANCREAS: No significant abnormality is seen. SPLEEN: No significant abnormality is seen. ADRENALS: No acute abnormality is seen. Nonspecific mild bilateral adrenal gland thickening. KIDNEYS: No significant abnormality is seen. FREE AIR: No free air is visualized. RETROPERITONEAL ADENOPATHY: None visualized REPRODUCTIVE ORGANS: No significant abnormality is seen URINARY BLADDER: No acute abnormality is seen. Left renal cortical scarring and mild hypertrophy see n. PELVIC ADENOPATHY: None visualized. OSSEOUS STRUCTURES: No acute abnormality is seen. Bilateral hip arthroplasties seen. BOWEL: No significant abnormality is seen. OTHER: Advanced atherosclerotic disease. IMPRESSION: NO ACUTE ABNORMALITY. CHRONIC AND INCIDENTAL FINDINGS ABOVE.
[2020-10-24] MEDS ORDERED: ACET/COD 300 MG/30 MG STARTER PACK 6 TAB BTL PO STA (17:19)
== END 2020-10-24 17:26 | disposition home or self-care (01) ==
LOC: EC 12:50
DX: R10.31 Right lower quadrant pain (principal); E11.9 Type 2 diabetes mellitus without complications; I10 Essential (primary) hypertension; J44.9 Chronic obstructive pulmonary disease, unspecified; M19.90 Unspecified osteoarthritis, unspecified site; F31.9 Bipolar disorder, unspecified; F17.200 Nicotine dependence, unspecified, uncomplicated; F12.90 Cannabis use, unspecified, uncomplicated; Z79.4 Long term (current) use of insulin; Z79.899 Other long term (current) drug therapy; Z88.6 Allergy status to analgesic agent; Z96.642 Presence of left artificial hip joint; Z83.3 Family history of diabetes mellitus; Z82.49 Family history of ischemic heart disease and other diseases of the circulatory system
CPT/HCPCS: 36415; 80053; 82150; 83605; 83690; 85025; 81001; 74177; 96374; 96375; 96361 ×3; 99284; J2405; J1170; Q9967

== ENCOUNTER → 2020-12-23 | Outpatient (CLI) | payer MEDICARE ==
--- NOTE | 2020-12-23 07:40 | CTL ---
EXAMINATION TYPE: CT Low Dose Lung DATE OF EXAM ORDERED: 12/23/2020 HISTORY: Long-term tobacco use. Lung cancer screening CT DLP: 132.[address] CTDI: 4.00 mGy Automated exposure control for dose reduction was used. SCREENING VISIT: Baseline COMPARISON: None TECHNIQUE: Low dose computed tomography scan was performed through the chest at 1 mm thick sections a nd reconstructed images in multiple planes at 1 mm and [address] DIAGNOSTIC QUALITY: Limited, but interpretable FINDINGS: LUNG NODULES: None. LUNGS: COPD: Severity: None Fibrosis: Severity: Moderate irregular peripheral anterior right mid lung fibrotic change. Mild to mo derate bibasilar fibrotic change. Lymph nodes: No abnormal greater than 1 cm Other findings: An azygos lobe/fissure is noted RIGHT PLEURAL SPACE: Effusion: None Calcification: None Thickening: None Pneumothorax: None LEFT PLEURAL SPACE: Effusion: None Calcification: None Thickening: None Pneumothorax: None HEART: Heart Size: Normal Coronary calcification: Moderate Pericardial effusion: None OTHER FINDINGS: Upper abdomen: No significant abnormality. Bony thorax: Underlying scoliotic curvature. Supraclavicular region: No significant abnormality. Other: No significant abnormality. IMPRESSION: Mild to moderate parenchymal fibrotic changes without suspicious pulmonary nodules. CT LUNG RAD AND CT CHEST RECOMMENDATION: Lung-Rad 1 Negative: Continue annual screening with LDCT in 12 months. S Modifier (other clinically significant findings): S Moderate coronary artery calcification in the LAD and left circumflex distribution. Correlate clinica lly with additional cardiac risk factors.
== END | disposition home or self-care (01) ==
LOC: RADCTMAIN 06:47
PROVIDERS: ATTEND Internal Medicine
DX: Z12.2 Encounter for screening for malignant neoplasm of respiratory organs (principal); Z72.0 Tobacco use
CPT/HCPCS: 71271

== ENCOUNTER 2022-10-13 18:01 | Emergency (ER) | payer MEDICARE ==
[2022-10-13 18:08] VITALS: TEMP 98.1
[2022-10-13] MEDS ORDERED: ALBUTEROL NEBULIZED 2.5 MG/3 ML INHALATION STA (18:42)
[2022-10-13] MEDS ORDERED: IPRATROPIUM 0.5 MG/2.5 ML NEBU INHALATION STA (18:42)
[2022-10-13] MEDS ORDERED: methylPREDNISolone SOD SUCCI 125 MG/2 ML VIAL IV STA (18:42)
--- NOTE | 2022-10-13 18:46 | ED ---
General Adult HPI - General Source: patient, RN notes reviewed, old records reviewed Mode of arrival: wheelchair Limitations: no limitations <Frank Tinajero - Last Filed: 10/13/22 20:58> <Angela Villaseñor - Last Filed: 10/14/22 08:23> - General Chief complaint: Shortness of Breath Stated complaint: marianela MONTIEL shot on 10/08 Time Seen by Provider: 10/13/22 18:15 - History of Present Illness Initial comments: This a 61 sutural female who presents emergency Department complaining of difficulty breathing. Patient states she has COPD per patient states she still smokes. Patient states ever since she got her Pneumovax on Tuesday she feels as though it exacerbated or shortness of breath. Patient states been taking b reathing treatments at home and using her oxygen but she continues to feel worse per patient denies any fever chills per patient chest pain or palpitations. Patient feels as though she is wheezing. Patient denies any abdominal pain patient denies nausea vomiting diarrhea. Patient denies any swelling to legs or calf tenderness. Patient denies any exposure to COVID. (Frank Tinajero) - Related Data Home Medications Medication Instructions Recorded Confirmed amLODIPine [Norvasc] 10 mg PO DAILY 10/08/16 10/13/22 traZODone HCL 150 mg PO HS 10/08/16 10/13/22 Insulin Degludec [Tresiba 32 units SQ HS 01/30/18 10/13/22 Flextouch U-100 Pen] Acetaminophen Tab [Tylenol Tab] 1,000 mg PO Q6HR PRN 08/12/20 10/13/22 Albuterol Inhaler [Ventolin Hfa 2 puff INHALATION RT-QID PRN 08/12/20 10/13/22 Inhaler] Albuterol Nebulized [Ventolin 2.5 mg INHALATION RT-QID PRN 08/12/20 10/13/22 Nebulized] Omeprazole 20 mg PO BID 10/24/20 10/13/22 ALPRAZolam [Xanax] 0.5 mg PO Q8H PRN 10/13/22 10/13/22 Acetaminophen-Codeine 300-30mg 1 tab PO Q8H PRN 10/13/22 10/13/22 [Tylenol w/codeine #3] Biofreeze Patches 1 patch TOPICAL DAILY PRN 10/13/22 10/13/22 Cyclobenzaprine [Flexeril] 5 mg PO TID PRN 10/13/22 10/13/22 Empagliflozin [Jardiance] 10 mg PO DAILY 10/13/22 10/13/22 Fluticasone Propion/Salmeterol 1 puff INHALATION RT-BID 10/13/22 10/13/22 [Wixela 250-50 Inhub] Furosemide [Lasix] 40 mg PO DAILY 10/13/22 10/13/22 Insulin Aspart [NovoLOG Flexpen] 5 units SQ AC-TID PRN 10/13/22 10/13/22 Ondansetron Odt [Zofran Odt] 4 mg PO TID PRN 10/13/22 10/13/22 Venlafaxine HCl ER [Effexor Xr] 37.5 mg PO DAILY 10/13/22 10/13/22 carvediloL [Coreg] 3.125 mg PO BID 10/13/22 10/13/22 hydrALAZINE HCL [Apresoline] 50 mg PO TID 10/13/22 10/13/22 Previous Rx's Medication Instructions Recorded Albuterol Inhaler [Ventolin Hfa 1 - 2 puff INHALATION Q4HR #1 each 10/13/22 Inhaler] predniSONE [Deltasone] 20 mg PO BID #10 tab 10/13/22 Allergies Allergy/AdvReac Type Severity Reaction Status Date / Time aspirin AdvReac Nausea & Verified 10/13/22 18:16 Vomiting ibuprofen [From Motrin] AdvReac Nausea & Verified 10/13/22 18:16 Vomiting Review of Systems ROS Other: All systems not noted in ROS Statement are negative. <Frank Tinajero - Last Filed: 10/13/22 20:58> ROS Other: All systems not noted in ROS Statement are negative. <Angela Villaseñor - Last Filed: 10/14/22 08:23> ROS Statement: Those systems with pertinent positive or pertinent negative responses have been documented in the HPI. Past Medical History Past Medical History: COPD, Diabetes Mellitus, Hypertension, Osteoarthritis (OA), Renal Disease Additional Past Medical History / Comment(s): jolly but does'nt use cpap anymore, past uterine fibroids.pt stated has had a pne vaccine but not sure of date.procedure writer unable to verify date at time of admit-please f/u w/dr office in am. 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 Past Anesthesia/Blood Transfusion Reactions: No Reported Reaction Past Psychological History: Bipolar, Depression Smoking Status: Current every day smoker Past Alcohol Use History: None Reported Past Drug Use History: Marijuana - Past Family History Mother Family Medical History: Diabetes Mellitus, Myocardial Infarction (SD), Osteoarthritis (OA) Additional Family Medical History / Comment(s): djd Father Family Medical History: Deep Vein Thrombosis (DVT) <Frank Tinajero - Last Filed: 10/13/22 20:58> General Exam Limitations: no limitations <Frank Tinajero - Last Filed: 10/13/22 20:58> - General Exam Comments Initial Comments: GENERAL: Patient is well-developed and well-nourished. Patient is nontoxic and well- hydrated and is in mild distress. ENT: Neck is soft and supple. No significant lymphadenopathy is noted. Oropharynx is clear. Moist mucous membranes. Neck has full range of motion without eliciting any pain. EYES: The sclera were anicteric and conjunctiva were pink and moist. Extraocular movements were intact and pupils were equal round and reactive to light. Eyelids were unremarkable. PULMONARY: Patient has expiratory wheezing CARDIOVASCULAR: There is a regular rate and rhythm without any murmurs gallops or rubs. ABDOMEN: Soft and nontender with normal bowel sounds. SKIN: Skin is clear with no lesions or rashes and otherwise unremarkable. NEUROLOGIC: Patient is alert and oriented x3. Cranial nerves II through XII are grossly intact. Motor and sensory are also intact. Normal speech, volume and content. Symmetrical smile. MUSCULOSKELETAL: Normal extremities with adequate strength and full range of motion. LYMPHATICS: No significant lymphadenopathy is noted PSYCHIATRIC: Normal psychiatric evaluation. (Frank Tinajero) Course Vital Signs 10/13/22 10/13/22 10/13/22 18:05 19:32 20:17 Temperature 98.1 F Pulse Rate 63 84 85 Respiratory 26 H Rate Blood Pressure 154/73 O2 Sat by Pulse 93 L Oximetry 10/13/22 21:59 Temperature Pulse Rate 77 Respiratory 18 Rate Blood Pressure 196/87 O2 Sat by Pulse 93 L Oximetry Medical Decision Making - Lab Data Result diagrams: 10/13/22 19:14 10/13/22 19:14 <LiorFrank - Last Filed: 10/13/22 20:58> - Lab Data Result diagrams: 10/13/22 19:14 10/13/22 19:14 <Angela Villaseñor - Last Filed: 10/14/22 08:23> - Medical Decision Making Was pt. sent in by a medical professional or institution (, PA, O[employer] AND G[employer] PRINCIPAL, urgent care, hospital, or snf...) When possible be specific @ -No Did you speak to anyone other than the patient for history (EMS, parent, family, police, friend...)? What history was obtained from this source @ -[No] Did you review nursing and triage notes (agree or disagree)? Why? @ -[I reviewed and agree with nursing and triage notes] Were old charts reviewed (outside hosp., previous admission, EMS record, old EKG, old radiological studies, urgent care reports/EKG's, snf records)? Report findings @ -Reviewed prior lab work from prior charts in this patient as well as prior x-rays Differential Diagnosis (chest pain, altered mental status, abdominal pain women, abdominal pain men, vaginal bleeding, weakness, fever, dyspnea, syncope, headache, dizziness, GI bleed, back pain, seizure, CVA, palpatations, mental health, musculoskeletal)? @ -Differential Dyspnea: Coronary syndrome, arrhythmia, tamponade, asthma, COPD, pulmonary embolism, pneumonia, pneumothorax, pulmonary effusion, anaphylaxis, diabetic ketoacidosis, flailed chest, pulmonary contusion, diaphragmatic rupture, anemia, neuromuscular, this is not meant to be an all-inclusive list. EKG interpreted by me (3pts min.). @ -[As above] X-rays interpreted by me (1pt min.). @ -Chest x-ray shows no acute abnormality CT interpreted by me (1pt min.). @ -[None done] U/S interpreted by me (1pt. min.). @ -[None done] What testing was considered but not performed or refused? (CT, X-rays, U/S, labs )? Why? @ -[None] What meds were considered but not given or refused? Why? @ -[None] Did you discuss the management of the patient with other professionals (professionals i.e. , PA, O[employer] G[employer] PRINCIPAL, lab, RT, psych nurse, clinical social work therapist, night court magistrate, teacher, campus police officer, manager of case)? Give summary @ -[No] Was smoking cessation discussed for >3mins.? @ -[No] Was critical care preformed (if so, how long)? @ -[No] Were there social determinants of health that impacted care today? How? (Homelessness, low income, unemployed, alcoholism, drug addiction, transportation, low edu. Level, literacy, decrease access to med. care, correction, rehab)? @ -[No] Was there de-escalation of care discussed even if they declined (Discuss DNR or withdrawal of care, Hospice)? DNR status @ -[No] What co-morbidities impacted this encounter? (DM, HTN, Smoking, COPD, CAD, Cancer, CVA, ARF, Chemo, Hep., AIDS, mental health diagnosis, sleep apnea, morbid obesity)? @ -[None] Was patient admitted / discharged? Hospital course, mention meds given and route, prescriptions, significant lab abnormalities, going to OR and other pert inent info. @ -She received 2 breathing treatments while in the ER as well as Solu-Medrol. I went back and reevaluated the patient she was feeling considerably better was hoping to be able to go home this evening. Dr. Villaseñor will be taking over the care of this patient at 9 PM (Frank Tinajero) Was patient admitted / discharged? Hospital course, mention meds given and route, prescriptions, significant lab abnormalities, going to OR and other per tinent info. @ -Patient was signed out to me pending results of her viral swab. Patient is negative for influenza, RSV and Covid. She is reevaluated and would like to go home at this time. She'll be discharged on prednisone 20 mg twice daily. I did refill her albuterol inhaler. Instructed to use every 4 hours. Follow up with her adjunct faculty instructor return for any new or worsening symptoms. She does have oxygen at home and to use if needed. Patient was agreeable to this plan she is discharged in stable condition Undiagnosed new problem with uncertain prognosis? @ -No Drug Therapy requiring intensive monitoring for toxicity (Heparin, Nitro Insulin, Cardizem)? @ -No Were any procedures done? @ -No Diagnosis/symptom? @ -Acute respiratory insufficiency, acute COPD exacerbation Acute, or Chronic, or Acute on Chronic? @ -Acute Uncomplicated (without systemic symptoms) or Complicated (systemic symptoms)? @ -Complicated Side effects of treatment? @ -No Exacerbation, Progression, or Severe Exacerbation? @ -Exacerbation Poses a threat to life or bodily function? How? (Chest pain, USA, SD, pneumonia, PE, COPD, DKA, ARF, appy, cholecystitis, CVA, Diverticulitis, Homicidal, Suicidal, threat to staff... and al ritical care pts) @ -No (Angela Villaseñor) - Lab Data Lab Results 10/13/22 10/13/22 10/13/22 Range/Units 19:14 19:14 19:14 WBC 7.6 (3.8-10.6) k/uL RBC 4.79 (3.80-5.40) m/uL Hgb 13.9 (11.4-16.0) gm/dL Hct 42.8 (34.0-46.0) % MCV 89.2 (80.0-100.0) fL MCH 28.9 (25.0-35.0) pg MCHC 32.4 (31.0-37.0) g/dL RDW 14.8 (11.5-15.5) % Plt Count 235 (150-450) k/uL MPV 8.0 Neutrophils % 61 % Lymphocytes % 30 % Monocytes % 5 % Eosinophils % 2 % Basophils % 0 % Neutrophils # 4.6 (1.3-7.7) k/uL Lymphocytes # 2.2 (1.0-4.8) k/uL Monocytes # 0.4 (0-1.0) k/uL Eosinophils # 0.2 (0-0.7) k/uL Basophils # 0.0 (0-0.2) k/uL PT 10.4 (9.0-12.0) sec INR 1.0 (<1.2) APTT 27.0 (22.0-30.0) sec Sodium 130 L (137-145) mmol/L Potassium 3.6 (3.5-5.1) mmol/L Chloride 90 L (98-107) mmol/L Carbon Dioxide 33 H (22-30) mmol/L Anion Gap 7 mmol/L BUN 28 H (7-17) mg/dL Creatinine 1.98 H (0.52-1.04) mg/dL Est GFR (CKD-EPI)AfAm 30 (>60 ml/min/1.73 sqM) Est GFR (CKD-EPI)NonAf 26 (>60 ml/min/1.73 sqM) Glucose 58 L (74-99) mg/dL POC Glucose (mg/dL) (70-110) mg/dL POC Glu Construction Equipment Technician ID Plasma Lactic Acid Maurice (0.7-2.0) mmol/L Calcium 8.7 (8.4-10.2) mg/dL Magnesium 2.2 (1.6-2.3) mg/dL Total Bilirubin 1.4 H (0.2-1.3) mg/dL AST 24 (14-36) U/L ALT 12 (4-34) U/L Alkaline Phosphatase 94 (38-126) U/L Troponin I (0.000-0.034) ng/mL NT-Pro-B Natriuret Pep pg/mL Total Protein 7.4 (6.3-8.2) g/dL Albumin 3.9 (3.5-5.0) g/dL Influenza Type A (PCR) (Not Detectd) Influenza Type B (PCR) (Not Detectd) RSV (PCR) (Not Detectd) SARS-CoV-2 (PCR) (Not Detectd) 10/13/22 10/13/22 10/13/22 Range/Units 19:14 19:14 19:14 WBC (3.8-10.6) k/uL RBC (3.80-5.40) m/uL Hgb (11.4-16.0) gm/dL Hct (34.0-46.0) % MCV (80.0-100.0) fL MCH (25.0-35.0) pg MCHC (31.0-37.0) g/dL RDW (11.5-15.5) % Plt Count (150-450) k/uL MPV Neutrophils % % Lymphocytes % % Monocytes % % Eosinophils % % Basophils % % Neutrophils # (1.3-7.7) k/uL Lymphocytes # (1.0-4.8) k/uL Monocytes # (0-1.0) k/uL Eosinophils # (0-0.7) k/uL Basophils # (0-0.2) k/uL PT (9.0-12.0) sec INR (<1.2) APTT (22.0-30.0) sec Sodium (137-145) mmol/L Potassium (3.5-5.1) mmol/L Chloride (98-107) mmol/L Carbon Dioxide (22-30) mmol/L Anion Gap mmol/L BUN (7-17) mg/dL Creatinine (0.52-1.04) mg/dL Est GFR (CKD-EPI)AfAm (>60 ml/min/1.73 sqM) Est GFR (CKD-EPI)NonAf (>60 ml/min/1.73 sqM) Glucose (74-99) mg/dL POC Glucose (mg/dL) (70-110) mg/dL POC Glu Construction Equipment Technician ID Plasma Lactic Acid Maurice 1.2 (0.7-2.0) mmol/L Calcium (8.4-10.2) mg/dL Magnesium (1.6-2.3) mg/dL Total Bilirubin (0.2-1.3) mg/dL AST (14-36) U/L ALT (4-34) U/L Alkaline Phosphatase (38-126) U/L Troponin I <0.012 (0.000-0.034) ng/mL NT-Pro-B Natriuret Pep pg/mL Total Protein (6.3-8.2) g/dL Albumin (3.5-5.0) g/dL Influenza Type A (PCR) Not Detected (Not Detectd) Influenza Type B (PCR) Not Detected (Not Detectd) RSV (PCR) Not Detected (Not Detectd) SARS-CoV-2 (PCR) Not Detected (Not Detectd) 10/13/22 10/13/22 Range/Units 20:51 20:55 WBC (3.8-10.6) k/uL RBC (3.80-5.40) m/uL Hgb (11.4-16.0) gm/dL Hct (34.0-46.0) % MCV (80.0-100.0) fL MCH (25.0-35.0) pg MCHC (31.0-37.0) g/dL RDW (11.5-15.5) % Plt Count (150-450) k/uL MPV Neutrophils % % Lymphocytes % % Monocytes % % Eosinophils % % Basophils % % Neutrophils # (1.3-7.7) k/uL Lymphocytes # (1.0-4.8) k/uL Monocytes # (0-1.0) k/uL Eosinophils # (0-0.7) k/uL Basophils # (0-0.2) k/uL PT (9.0-12.0) sec INR (<1.2) APTT (22.0-30.0) sec Sodium (137-145) mmol/L Potassium (3.5-5.1) mmol/L Chloride (98-107) mmol/L Carbon Dioxide (22-30) mmol/L Anion Gap mmol/L BUN (7-17) mg/dL Creatinine (0.52-1.04) mg/dL Est GFR (CKD-EPI)AfAm (>60 ml/min/1.73 sqM) Est GFR (CKD-EPI)NonAf (>60 ml/min/1.73 sqM) Glucose (74-99) mg/dL POC Glucose (mg/dL) 76 (70-110) mg/dL POC Glu Construction Equipment Technician ID Ralph Larios Plasma Lactic Acid Maurice (0.7-2.0) mmol/L Calcium (8.4-10.2) mg/dL Magnesium (1.6-2.3) mg/dL Total Bilirubin (0.2-1.3) mg/dL AST (14-36) U/L ALT (4-34) U/L Alkaline Phosphatase (38-126) U/L Troponin I (0.000-0.034) ng/mL NT-Pro-B Natriuret Pep 2280 pg/mL Total Protein (6.3-8.2) g/dL Albumin (3.5-5.0) g/dL Influenza Type A (PCR) (Not Detectd) Influenza Type B (PCR) (Not Detectd) RSV (PCR) (Not Detectd) SARS-CoV-2 (PCR) (Not Detectd) Disposition <Frank Tinajero - Last Filed: 10/13/22 20:58> Is patient prescribed a controlled substance at d/c from ED?: No Time of Disposition: 21:44 <Angela Villaseñor - Last Filed: 10/14/22 08:23> Clinical Impression: COPD exacerbation Disposition: HOME SELF-CARE Condition: Stable Instructions (If sedation given, give patient instructions): COPD (Chronic Obstructive Pulmonary Disease) (ED) Additional Instructions: Start the steroids tomorrow. Use your inhaler or nebulizer every 4 hours. Follow-up with your adjunct faculty instructor and return for any new or worsening symptoms Prescriptions: predniSONE [Deltasone] 20 mg PO BID #10 tab Albuterol Inhaler [Ventolin Hfa Inhaler] 1 - 2 puff INHALATION Q4HR #1 each Referrals: Amara Parnell MD [Primary Care Provider] - 1-2 days
[2022-10-13 19:38] LABS: Basophils % (A) 0 %; Eosinophils # (A) 0.2 k/uL (0-0.7); Eosinophils % (A) 2 %; HCT 42.8 % (34.0-46.0); HGB 13.9 gm/dL (11.4-16.0); Lymphocytes # (A) 2.2 k/uL (1.0-4.8); Lymphocytes % (A) 30 %; MCH 28.9 pg (25.0-35.0); MCHC 32.4 g/dL (31.0-37.0); MCV 89.2 fL (80.0-100.0); Monocytes # (A) 0.4 k/uL (0-1.0); Monocytes % (A) 5 %; Neutrophils # (A) 4.6 k/uL (1.3-7.7); Neutrophils % (A) 61 %; Platelet Count 235 k/uL (150-450); RBC 4.79 m/uL (3.80-5.40); RDW 14.8 % (11.5-15.5); WBC 7.6 k/uL (3.8-10.6)
[2022-10-13 19:49] LABS: ALT 12 U/L (4-34); AST 24 U/L (14-36); African American GFR (CKD) 30 (>60 ml/min/1.73 sqM); Albumin 3.9 g/dL (3.5-5.0); Alkaline Phosphatase 94 U/L (38-126); Anion Gap 7 mmol/L; Blood Urea Nitrogen 28 mg/dL (7-17); Calcium 8.7 mg/dL (8.4-10.2); Carbon Dioxide 33 mmol/L (22-30); Chloride 90 mmol/L (98-107); Glucose 58 mg/dL (74-99); Magnesium 2.2 mg/dL (1.6-2.3); Non-African American GFR(CKD) 26 (>60 ml/min/1.73 sqM); Sodium 130 mmol/L (137-145); Total Bilirubin 1.4 mg/dL (0.2-1.3); Total Protein 7.4 g/dL (6.3-8.2)
[2022-10-13 19:51] LABS: Potassium 3.6 mmol/L (3.5-5.1)
[2022-10-13 20:16] LABS: Prothrombin Time 10.4 sec (9.0-12.0)
--- NOTE | 2022-10-13 20:32 | XR ---
EXAMINATION TYPE: XR chest 2V DATE OF EXAM: 10/13/2022 8:13 PM COMPARISON: Chest radiographs from 04/28/2022. TECHNIQUE: XR chest 2V Frontal and lateral views of the chest. CLINICAL INDICATION:Female, 67 years old with history of difficulty breathing; FINDINGS: Lungs/Pleura: There is no evidence of pleural effusion, focal consolidation, or pneumothorax. Pulmonary vascularity: Unremarkable. Heart/mediastinum: Cardiomediastinal silhouette is enlarged and stable. Musculoskeletal: No acute osseous pathology. IMPRESSION: Low lung volumes with a generalized hazy appearance which could represent atelectasis versus pulmonar y edema correlate with serum BNP.
[2022-10-13 20:53] LABS: Glucose,Whole Blood 76 mg/dL (70-110)
[2022-10-13 22:00] VITALS: BP 196/87; PULSE 77; RESP 18
== END 2022-10-13 22:00 | disposition home or self-care (01) ==
LOC: EC 18:01
DX: J44.1 Chronic obstructive pulmonary disease with (acute) exacerbation (principal); E11.9 Type 2 diabetes mellitus without complications; I10 Essential (primary) hypertension; F31.9 Bipolar disorder, unspecified; F17.200 Nicotine dependence, unspecified, uncomplicated; F12.90 Cannabis use, unspecified, uncomplicated; Z20.822 Contact with and (suspected) exposure to COVID-19; Z79.4 Long term (current) use of insulin; Z79.84 Long term (current) use of oral hypoglycemic drugs; Z79.51 Long term (current) use of inhaled steroids; Z79.899 Other long term (current) drug therapy; Z88.6 Allergy status to analgesic agent
CPT/HCPCS: 36415; 94640; 93005; 83880; 80053; 83605; 83735; 84484; 85025; 85610; 85730; 87636; 71046; 99285; 96374; J2930

== ENCOUNTER 2022-11-02 11:02 | Inpatient (IN) | payer MEDICARE ==
[2022-11-02] MEDS ORDERED: IPRATROPIUM-ALBUTEROL 3 ML NEB INHALATION STA (11:12)
[2022-11-02 11:52] LABS: Basophils % (A) 0 %; Eosinophils # (A) 0.2 k/uL (0-0.7); Eosinophils % (A) 2 %; HCT 43.4 % (34.0-46.0); HGB 13.5 gm/dL (11.4-16.0); Hypochromasia Slight; Lymphocytes # (A) 0.3 k/uL (1.0-4.8); Lymphocytes % (A) 3 %; MCH 28.2 pg (25.0-35.0); MCHC 31.2 g/dL (31.0-37.0); MCV 90.3 fL (80.0-100.0); Mean Platelet Volume 8.1; Monocytes # (A) 0.2 k/uL (0-1.0); Monocytes % (A) 2 %; Neutrophils # (A) 10.7 k/uL (1.3-7.7); Neutrophils % (A) 94 %; Platelet Count 249 k/uL (150-450); RDW 14.5 % (11.5-15.5); WBC 11.4 k/uL (3.8-10.6)
[2022-11-02 12:03] LABS: INR 0.9 (<1.2); Partial Thromboplastin Time 23.7 sec (22.0-30.0)
--- NOTE | 2022-11-02 12:07 | XR ---
EXAMINATION TYPE: XR chest 1V portable DATE OF EXAM: 11/02/2022 HISTORY: Shortness of breath. COMPARISON: 10/13/2022 TECHNIQUE: Single view of the chest is submitted. FINDINGS: Demonstrated are scattered senescent parenchymal change. Diffuse airspace infiltrates are seen with small effusions. Findings may reflect congestive failure a lthough underlying pneumonia is not excluded. Correlate clinically. Hilar and mediastinal structures are within normal limits. Degenerative changes are seen of the dorsal spine. IMPRESSION: 1. Diffuse airspace infiltrates are seen with small effusions. Findings may reflect congestive failu re although underlying pneumonia is not excluded. Correlate clinically.
[2022-11-02 12:11] LABS: ALT 14 U/L (4-34); AST 22 U/L (14-36); African American GFR (CKD) 23 (>60 ml/min/1.73 sqM); Albumin 3.8 g/dL (3.5-5.0); Alkaline Phosphatase 98 U/L (38-126); Anion Gap 11 mmol/L; Blood Urea Nitrogen 37 mg/dL (7-17); Calcium 8.6 mg/dL (8.4-10.2); Carbon Dioxide 29 mmol/L (22-30); Chloride 92 mmol/L (98-107); Glucose 299 mg/dL (74-99); Non-African American GFR(CKD) 20 (>60 ml/min/1.73 sqM); Potassium 4.4 mmol/L (3.5-5.1); Sodium 132 mmol/L (137-145); Total Bilirubin 0.7 mg/dL (0.2-1.3); Total Protein 7.4 g/dL (6.3-8.2)
[2022-11-02] MEDS ORDERED: FUROSEMIDE 10 MG/ML 4 ML VIAL IV STA (12:23)
[2022-11-02 12:38] LABS: ABG Base Excess 3.8 mmol/L; ABG HCO3 28 mmol/L (21-25); ABG Oxygen Saturation 97.4 % (94-97); ABG PCO2 40 mmHg (35-45); ABG PH 7.45 (7.35-7.45); ABG PO2 91 mmHg (83-108); ABG TCO2 29 mmol/L (19-24); Allen Test Performed? Yes
[2022-11-02] MEDS ORDERED: NALOXONE 0.4 MG/ML 1 ML VIAL IV PRN (13:19)
--- NOTE | 2022-11-02 14:14 | ED ---
General Adult HPI - General Chief complaint: Shortness of Breath Stated complaint: SOB Time Seen by Provider: 11/02/22 11:15 Source: patient, RN notes reviewed, old records reviewed Mode of arrival: EMS Limitations: physical limitation - History of Present Illness Initial comments: Patient is a 67 year old female who presents emergency Department complaining of shortness of breath. Has a history of COPD, diabetes, hypertension. Was transferred from [facility]. Presented hypoxic and was placed on BiPAP. Workup consisted cardio pulmonary workup. Diagnosis was pneumonia versus possible CHF and pulmonary edema. BNP was elevated. Chest x-ray shows diffuse infiltrates versus pulmonary edema. She improved on BiPAP. ABG adequate. Was given breathing treatments and steroids. He was transferred here for further evaluation. Patient is placed in trauma bay 4 upon arrival. She is saturating well. Alert and oriented 4. States she feels much improved. Vital signs within except for limits on BiPAP. We will repeat ABG as well as basic labs, and obtain a repeat EKG, and admit the patient the hospital. Echo was ordered. - Related Data Home Medications Medication Instructions Recorded Confirmed amLODIPine [Norvasc] 10 mg PO DAILY 10/08/16 11/02/22 traZODone HCL 150 mg PO HS 10/08/16 11/02/22 Insulin Degludec [Tresiba 32 units SQ HS PRN 01/30/18 11/02/22 Flextouch U-100 Pen] Acetaminophen Tab [Tylenol Tab] 1,000 mg PO Q6HR PRN 08/12/20 11/02/22 Albuterol Inhaler [Ventolin Hfa 2 puff INHALATION RT-QID PRN 08/12/20 11/02/22 Inhaler] Albuterol Nebulized [Ventolin 2.5 mg INHALATION RT-QID PRN 08/12/20 11/02/22 Nebulized] Omeprazole 20 mg PO BID 10/24/20 11/02/22 ALPRAZolam [Xanax] 0.5 mg PO Q8H PRN 10/13/22 11/02/22 Acetaminophen-Codeine 300-30mg 1 tab PO Q8H PRN 10/13/22 11/02/22 [Tylenol w/codeine #3] Biofreeze Patches 1 patch TOPICAL DAILY PRN 10/13/22 11/02/22 Cyclobenzaprine [Flexeril] 5 mg PO TID PRN 10/13/22 11/02/22 Empagliflozin [Jardiance] 10 mg PO DAILY 10/13/22 11/02/22 Furosemide [Lasix] 40 mg PO DAILY 10/13/22 11/02/22 Insulin Aspart [NovoLOG Flexpen] 5 units SQ AC-TID PRN 10/13/22 11/02/22 Ondansetron Odt [Zofran Odt] 4 mg PO TID PRN 10/13/22 11/02/22 Venlafaxine HCl ER [Effexor Xr] 37.5 mg PO DAILY 10/13/22 11/02/22 carvediloL [Coreg] 3.125 mg PO BID 10/13/22 11/02/22 hydrALAZINE HCL [Apresoline] 50 mg PO TID 10/13/22 11/02/22 Allergies Allergy/AdvReac Type Severity Reaction Status Date / Time aspirin AdvReac Nausea & Verified 11/02/22 13:24 Vomiting ibuprofen [From Motrin] AdvReac Nausea & Verified 11/02/22 13:24 Vomiting Review of Systems ROS Statement: Those systems with pertinent positive or pertinent negative responses have been documented in the HPI. Review of Systems: CONST: Denies fever EYES: Denies blurry vision ENT: Denies nasal congestion C/V: Denies Chest pain RESP: Endorses dyspnea GI: Denies abdominal pain : Denies dysuria SKIN: Denies rash. MSK: Denies joint pain. NEURO: Denies headache ROS Other: All systems not noted in ROS Statement are negative. Past Medical History Past Medical History: COPD, Diabetes Mellitus, Hypertension, Osteoarthritis ([place]), Renal Disease Additional Past Medical History / Comment(s): jolly but does'nt use cpap anymore, past uterine fibroids.pt stated has had a pne vaccine but not sure of date.web content writer unable to verify date at time of admit-please f/u w/dr office in am. 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 Past Anesthesia/Blood Transfusion Reactions: No Reported Reaction Past Psychological History: Bipolar, Depression Smoking Status: Current every day smoker Past Alcohol Use History: None Reported Past Drug Use History: Marijuana - Past Family History Mother Family Medical History: Diabetes Mellitus, Myocardial Infarction ([place]), Osteoar thritis ([place]) Additional Family Medical History / Comment(s): djd Father Family Medical History: Deep Vein Thrombosis (DVT) General Exam - General Exam Comments Initial Comments: General: Appears in no acute distress. HEAD: Normal with no signs of head trauma. EYES: PERRLA, EOMI, conjunctiva normal, no discharge. ENT: Hearing grossly intact, normal oropharynx. RESPIRATORY: Coarse breath sounds bilaterally. Saturating 93% on BiPAP, FiO2 of 75. Work of breathing improved from outside hospital. C/V: Regular rate and rhythm. S1 and S2 auscultated, no significant edema, peripheral pulses 2+ and intact throughout ABD: Abd is soft, nontender, nondistended EXT: Normal range of motion, no obvious deformity SKIN: No rashes or lesions observed on exposed skin. NEURO: Alert and oriented 4. Limitations: physical limitation Course Vital Signs 11/02/22 11/02/22 11/02/22 11:03 11:16 11:18 Temperature 98.2 F Pulse Rate 78 Respiratory 30 H Rate Blood Pressure 162/112 O2 Sat by Pulse 89 L Oximetry Fraction of 100 100 Inspired Oxygen (FIO2) 11/02/22 11/02/22 11/02/22 11:56 11:59 12:18 Temperature Pulse Rate 76 75 Respiratory 20 20 Rate Blood Pressure 176/96 O2 Sat by Pulse 95 Oximetry Fraction of Inspired Oxygen (FIO2) 11/02/22 11/02/22 11/02/22 12:30 12:46 12:52 Temperature Pulse Rate 71 74 Respiratory 13 Rate Blood Pressure 154/74 O2 Sat by Pulse 93 L Oximetry Fraction of 75 Inspired Oxygen (FIO2) 11/02/22 13:15 Temperature Pulse Rate Respiratory Rate Blood Pressure O2 Sat by Pulse Oximetry Fraction of 75 Inspired Oxygen (FIO2) Medical Decision Making - Medical Decision Making Was pt. sent in by a medical professional or institution (, PA, VERTICAL CONTOUR BAND SAW OPERATOR, urgent care, hospital, or shelter...) When possible be specific @ -No Did you speak to anyone other than the patient for history (EMS, parent, family, police, friend...)? What history was obtained from this source @ -Discussed with the physician from [facility] for course of care there. Did you review nursing and triage notes (agree or disagree)? Why? @ -I reviewed and agree with nursing and triage notes Were old charts reviewed (outside hosp., previous admission, EMS record, old EKG, old radiological studies, urgent care reports/EKG's, shelter records)? Report findings @ -Old charts reviewed from [facility] from earlier today. Differential Diagnosis (chest pain, altered mental status, abdominal pain women, abdominal pain men, vaginal bleeding, weakness, fever, dyspnea, syncope, headache, dizziness, GI bleed, back pain, seizure, CVA, palpatations, mental health, musculoskeletal)? @ -Differential Dyspnea: Coronary syndrome, arrhythmia, tamponade, asthma, COPD, pulmonary embolism, pneumonia, pneumothorax, pulmonary effusion, anaphylaxis, diabetic ketoacidosis, flailed chest, pulmonary contusion, diaphragmatic rupture, anemia, neuromuscul ar, this is not meant to be an all-inclusive list. EKG interpreted by me (3pts min.). @ -As above X-rays interpreted by me (1pt min.). @ -Chest x-ray shows bilateral pulmonary vascular congestion versus atypical pneumonia. CT interpreted by me (1pt min.). @ -None done U/S interpreted by me (1pt. min.). @ -None done What testing was considered but not performed or refused? (CT, X-rays, U/S, labs)? Why? @ -None What meds were considered but not given or refused? Why? @ -None Did you discuss the management of the patient with other professionals (chastity beal i.e. , PA, VERTICAL CONTOUR BAND SAW OPERATOR, lab, RT, psych nurse, social work job titles, tooling manager, teacher, worldwide chief creative officer, case loader operator)? Give summary @ -Discussed with transferring physician from [facility]. Discussed with the admitting physician, Dr. Yuan who accepted the admission. Patient sees Dr. gottlieb PCP who admits to [facility]. Was smoking cessation discussed for >3mins.? @ -No Was critical care preformed (if so, how long)? @ -Yes, 38 minutes. Were there social determinants of health that impacted care today? How? (Homelessness, low income, unemployed, alcoholism, drug addiction, transportation, low edu. Level, literacy, decrease access to med. care, snf, re hab)? @ -No Was there de-escalation of care discussed even if they declined (Discuss DNR or withdrawal of care, Hospice)? DNR status @ -No What co-morbidities impacted this encounter? (DM, HTN, Smoking, COPD, CAD, Cancer, CVA, ARF, Chemo, Hep., AIDS, mental health diagnosis, sleep apnea, morbid obesity)? @ -COPD Was patient admitted / discharged? Hospital course, mention meds given and route, prescriptions, significant lab abnormalities, going to OR and other pertinent info. @ -Based on the patient's presentation and physical exam, presents with acute hypoxic respiratory failure. Requiring BiPAP. Resting comfortably at this time. We will repeat labs as well as chest x-ray and obtain an anoscope. It is suspected revealing workup that patient has multiple decubitus to her hypoxia including COPD, as well as his atypical pneumonia versus CHF. Patient has worsening orthopnea, exertional dyspnea, mild lower extremity edema. Appears to be CHF related by patient was restarted on antibiotics to cover for atypical pneumonia. We will continue azithromycin and Rocephin tomorrow. We will provide her with a breathing treatment. She'll also receive Lasix. We will obtain an echo. Cardiology will be consulted. Pulmonology will consult. She was in agreement this plan. EKG showed no signs of acute ischemia. Chest x-ray showed bilateral pulmonary vascular congestion versus atypical pneumonia. Patient's labs were remarkable for an adequate ABG. Patient has an elevated troponin of 0.788 which is likely secondary to her underlying hypoxic etiology. She is no chest pain. Low suspicion for ACS. We'll continue to monitor. Patient has an ETHAN on CK D as well with a creatinine is 2.41. On reevaluation, patient remains stable. We are down titrating the patient's FiO2. BiPAP settings are 15/5 FiO2 of 75% at this time. Patient was in agreeme nt this plan for admission. I spoke with the admitting physician, Dr. Yuan of [facility] who admits for Dr. gottlieb. He accepted the admission. Patient admitted in serious condition to stepdown. Undiagnosed new problem with uncertain prognosis? @ -No Drug Therapy requiring intensive monitoring for toxicity (Heparin, Nitro, I nsulin, Cardizem)? @ -No Were any procedures done? @ -No Diagnosis/symptom? @ -Hypoxic respiratory failure, CHF versus atypical pneumonia in the setting of COPD requiring noninvasive positive pressure ventilation Acute, or Chronic, or Acute on Chronic? @ -Acute Uncomplicated (without systemic symptoms) or Complicated (systemic symptoms)? @ -Complicated Side effects of treatment? @ -No Exacerbation, Progression, or Severe Exacerbation? @ -No Poses a threat to life or bodily function? How? (Chest pain, [place], [place], pneumonia, PE, COPD, DKA, ARF, appy, cholecystitis, CVA, Diverticulitis, Homicidal, Suicidal, threat to staff... and all critical care pts) @ -Yes Diagnosis/symptom? @ -Elevated troponin Acute, or Chronic, or Acute on Chronic? @ -Acute Uncomplicated (without systemic symptoms) or Complicated (systemic symptoms)? @ -Uncomplicated Side effects of treatment? @ -none Exacerbation, Progression, or Severe Exacerbation] @ -no Poses a threat to life or bodily function? @ -no Diagnosis/symptom? @ -ETHAN on CK D Acute, or Chronic, or Acute on Chronic? @ -Acute Uncomplicated (without systemic symptoms) or Complicated (systemic symptoms)? @ -Uncomplicated Side effects of treatment? @ -none Exacerbation, Progression, or Severe Exacerbation] @ -no Poses a threat to life or bodily function? @ -no - Lab Data Result diagrams: 11/02/22 11:44 11/02/22 11:44 Lab Results 11/02/22 11/02/22 11/02/22 Range/Units 11:44 11:44 11:44 WBC 11.4 H (3.8-10.6) k/uL RBC 4.80 (3.80-5.40) m/uL Hgb 13.5 (11.4-16.0) gm/dL Hct 43.4 (34.0-46.0) % MCV 90.3 (80.0-100.0) fL MCH 28.2 (25.0-35.0) pg MCHC 31.2 (31.0-37.0) g/dL RDW 14.5 (11.5-15.5) % Plt Count 249 (150-450) k/uL MPV 8.1 Neutrophils % 94 % Lymphocytes % 3 % Monocytes % 2 % Eosinophils % 2 % Basophils % 0 % Neutrophils # 10.7 H (1.3-7.7) k/uL Lymphocytes # 0.3 L (1.0-4.8) k/uL Monocytes # 0.2 (0-1.0) k/uL Eosinophils # 0.2 (0-0.7) k/uL Basophils # 0.0 (0-0.2) k/uL Hypochromasia Slight PT 10.0 (9.0-12.0) sec INR 0.9 (<1.2) APTT 23.7 (22.0-30.0) sec Sample Site ABG pH (7.35-7.45) ABG pCO2 (35-45) mmHg ABG pO2 (83-108) mmHg ABG HCO3 (21-25) mmol/L ABG Total CO2 (19-24) mmol/L ABG O2 Saturation (94-97) % ABG Base Excess mmol/L Paramjit Test FiO2 % Sodium 132 L (137-145) mmol/L Potassium 4.4 (3.5-5.1) mmol/L Chloride 92 L (98-107) mmol/L Carbon Dioxide 29 (22-30) mmol/L Anion Gap 11 mmol/L BUN 37 H (7-17) mg/dL Creatinine 2.41 H (0.52-1.04) mg/dL Est GFR (CKD-EPI)AfAm 23 (>60 ml/min/1.73 sqM) Est GFR (CKD-EPI)NonAf 20 (>60 ml/min/1.73 sqM) Glucose 299 H (74-99) mg/dL Plasma Lactic Acid Maurice (0.7-2.0) mmol/L Calcium 8.6 (8.4-10.2) mg/dL Total Bilirubin 0.7 (0.2-1.3) mg/dL AST 22 (14-36) U/L ALT 14 (4-34) U/L Alkaline Phosphatase 98 (38-126) U/L Troponin I (0.000-0.034) ng/mL Total Protein 7.4 (6.3-8.2) g/dL Albumin 3.8 (3.5-5.0) g/dL 11/02/22 11/02/22 11/02/22 Range/Units 11:44 11:44 12:30 WBC (3.8-10.6) k/uL RBC (3.80-5.40) m/uL Hgb (11.4-16.0) gm/dL Hct (34.0-46.0) % MCV (80.0-100.0) fL MCH (25.0-35.0) pg MCHC (31.0-37.0) g/dL RDW (11.5-15.5) % Plt Count (150-450) k/uL MPV Neutrophils % % Lymphocytes % % Monocytes % % Eosinophils % % Basophils % % Neutrophils # (1.3-7.7) k/uL Lymphocytes # (1.0-4.8) k/uL Monocytes # (0-1.0) k/uL Eosinophils # (0-0.7) k/uL Basophils # (0-0.2) k/uL Hypochromasia PT (9.0-12.0) sec INR (<1.2) APTT (22.0-30.0) sec Sample Site Left Radial ABG pH 7.45 (7.35-7.45) ABG pCO2 40 (35-45) mmHg ABG pO2 91 (83-108) mmHg ABG HCO3 28 H (21-25) mmol/L ABG Total CO2 29 H (19-24) mmol/L ABG O2 Saturation 97.4 H (94-97) % ABG Base Excess 3.8 mmol/L Paramjit Test Yes FiO2 100 % Sodium (137-145) mmol/L Potassium (3.5-5.1) mmol/L Chloride (98-107) mmol/L Carbon Dioxide (22-30) mmol/L Anion Gap mmol/L BUN (7-17) mg/dL Creatinine (0.52-1.04) mg/dL Est GFR (CKD-EPI)AfAm (>60 ml/min/1.73 sqM) Est GFR (CKD-EPI)NonAf (>60 ml/min/1.73 sqM) Glucose (74-99) mg/dL Plasma Lactic Acid Maurice 1.7 (0.7-2.0) mmol/L Calcium (8.4-10.2) mg/dL Total Bilirubin (0.2-1.3) mg/dL AST (14-36) U/L ALT (4-34) U/L Alkaline Phosphatase (38-126) U/L Troponin I 0.788 H* (0.000-0.034) ng/mL Total Protein (6.3-8.2) g/dL Albumin (3.5-5.0) g/dL - EKG Data -: EKG Interpreted by Me EKG Comments: 12-lead Electrocardiogram Interpretation Note EKG was reviewed and interpreted by myself. 12-lead ECG performed at [facility] is interpreted by me as revealing normal sinus rhythm at a rate of 78 beats per minute. Mcloud is normal. KS Intervals 144 ms, QRS duration is 82 ms, QTc is 440 ms.. There were no ST or T wave abnormalities to suggest myocardial ischemia or injury. R wave progr ession across the precordium was satisfactory. By my interpretation this EKG is non-diagnostic for acute ischemia. Critical Care Time Critical Care Time: Yes Total Critical Care Time: 38 Disposition Clinical Impression: Acute respiratory failure with hypoxia, CHF (congestive heart failure), Atypical pneumonia, COPD (chronic obstructive pulmonary disease), ETHAN (acute kidney injury), Elevated troponin Disposition: ADMITTED IP TO THIS [facility] Condition: Serious Time of Disposition: 13:00
[2022-11-02] MEDS ORDERED: ALBUTEROL NEBULIZED 2.5 MG/3 ML INHALATION PRN (14:33)
[2022-11-02] MEDS ORDERED: ONDANSETRON ODT 4 MG TAB PO PRN (14:33)
[2022-11-02] MEDS ORDERED: ALBUTEROL HFA INHALER INHALATION PRN (14:33)
[2022-11-02] MEDS ORDERED: ASPIRIN 81 MG PO STA (15:19)
--- NOTE | 2022-11-02 15:48 | P.HPIM ---
History of Present Illness H&P Date: 11/02/22 Chief Complaint: dyspnea 67-year-old woman with medical history of COPD, hypertension, diabetes, hyperlipidemia presented for evaluation of dyspnea. Patient says that starting last night she started to experience sudden onset dyspnea which was particularly worse when she was lying flat. Remainder of the history is hard to ascertain due to patient frequent falling asleep during my exam as a consequence of being on BiPAP and having significant dyspnea. History is taken from chart review. From my understanding she went to an outside facility where she was placed on Bi PAP after being found to be hypoxic, noted to have a chest x-ray concerning for heart failure and pulmonary edema versus pneumonia, elevated BNP. She was up slightly transferred to our facility for further evaluation. Review of systems is limited due to patient's participation in history taking, however she does deny fevers, chills, chest pain, palpitations. She does report lower extremity edema. In the emergency room, patient was afebrile, 148/69, heart rate 78, 95% on BiPAP with an FiO2 of 75%. CBC shows leukocytosis to 11.4. Basic metabolic panel shows sodium of 132, chloride of 92, BMI of 37, creatinine 2.41, glucose was 299. Liver function tests are unremarkable. Initial troponin was 0.788. Coags are unremarkable. ABG showed a pH of 7.45, pCO2 of 40, pO2 of 91 on FiO2 of 100 %. EKG shows normal sinus rhythm with no evidence of ischemia. Chest x-ray shows bilateral pulmonary infiltrates concerning for pulmonary edema. Case was discussed with emergency room provider and Decision was made to admit the patient for heart failure exacerbation. All Systems reviewed and pertinent positives and negatives noted in HPI, all other symptoms are negative Gen: in no apparent distress, resting comfortably in bed Eyes: PERRL, no scleral injection or icterus HENT: normocephalic, atraumatic, good hearing acuity, moist mucous membranes Neck: no tracheal deviation, full range of motion Resp: Symmetric air expansion, no accessory muscle use, bilateral crackles, no wheezes CVS: good distal perfusion x 4, trace to 1+ pitting edema, regular rate and rhythm without murmurs GI: soft, NTTP, ND, no hepatosplenomegaly : no suprapubic tenderness, no CVAT, staley catheter not present MSK: no clubbing, no cyanosis, no noted contractures of extremities Skin: no noted rashes, petechiae; temperature of skin is appropriate Neuro: moving all extremities without signs of weakness, CN II-XII intact Psych: cooperative, euthymic mood, insight and judgment intact Labs and imaging as above Assessment: Acute heart failure exacerbation, echo pending Acute hypoxemic respiratory failure Elevated troponin secondary to the above Acute kidney injury superimposed on chronic kidney disease stage IIIB COPD without exacerbation Hypertension Hyperlipidemia Diabetes type 2 Plan: Vital signs reviewed and noted in the HPI Lab work reviewed and noted in the HPI EKG and CXR are personally interpreted and noted in the HPI Case was discussed with the Emergency Room provider and decision was made to admit the patient for heart failure exacerbation, respiratory failure Cardiology consult Echocardiogram Trend troponins Lasix 40 mg IV twice a day Ceftriaxone 1 g daily, azithromycin 500 mg daily initiated Patient is full code Past Medical History Past Medical History: COPD, Diabetes Mellitus, Hypertension, Osteoarthritis (OA), Renal Disease Additional Past Medical History / Comment(s): jolly but does'nt use cpap anymore, past uterine fibroids.pt stated has had a pne vaccine but not sure of date.advertising writer unable to verify date at time of admit-please f/u w/dr office in am. 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 Past Anesthesia/Blood Transfusion Reactions: No Reported Reaction Past Psychological History: Bipolar, Depression Smoking Status: Current every day smoker Past Alcohol Use History: None Reported Past Drug Use History: Marijuana - Past Family History Mother Family Medical History: Diabetes Mellitus, Myocardial Infarction ([place]), Osteoarthritis ([place]) Additional Family Medical History / Comment(s): djd Father Family Medical History: Deep Vein Thrombosis (DVT) Medications and Allergies Home Medications Medication Instructions Recorded Confirmed Type amLODIPine [Norvasc] 10 mg PO DAILY 10/08/16 11/02/22 History traZODone HCL 150 mg PO HS 10/08/16 11/02/22 History Insulin Degludec [Tresiba 32 units SQ HS PRN 01/30/18 11/02/22 History Flextouch U-100 Pen] Acetaminophen Tab [Tylenol Tab] 1,000 mg PO Q6HR PRN 08/12/20 11/02/22 History Albuterol Inhaler [Ventolin Hfa 2 puff INHALATION RT-QID PRN 08/12/20 11/02/22 History Inhaler] Albuterol Nebulized [Ventolin 2.5 mg INHALATION RT-QID PRN 08/12/20 11/02/22 History Nebulized] Omeprazole 20 mg PO BID 10/24/20 11/02/22 History ALPRAZolam [Xanax] 0.5 mg PO Q8H PRN 10/13/22 11/02/22 History Acetaminophen-Codeine 300-30mg 1 tab PO Q8H PRN 10/13/22 11/02/22 History [Tylenol w/codeine #3] Biofreeze Patches 1 patch TOPICAL DAILY PRN 10/13/22 11/02/22 History Cyclobenzaprine [Flexeril] 5 mg PO TID PRN 10/13/22 11/02/22 History Empagliflozin [Jardiance] 10 mg PO DAILY 10/13/22 11/02/22 History Furosemide [Lasix] 40 mg PO DAILY 10/13/22 11/02/22 History Insulin Aspart [NovoLOG Flexpen] 5 units SQ AC-TID PRN 10/13/22 11/02/22 History Ondansetron Odt [Zofran Odt] 4 mg PO TID PRN 10/13/22 11/02/22 History Venlafaxine HCl ER [Effexor Xr] 37.5 mg PO DAILY 10/13/22 11/02/22 History carvediloL [Coreg] 3.125 mg PO BID 10/13/22 11/02/22 History hydrALAZINE HCL [Apresoline] 50 mg PO TID 10/13/22 11/02/22 History Allergies Allergy/AdvReac Type Severity Reaction Status Date / Time aspirin AdvReac Nausea & Verified 11/02/22 13:24 Vomiting ibuprofen [From Motrin] AdvReac Nausea & Verified 11/02/22 13:24 Vomiting Physical Exam Osteopathic Statement: *. No significant issues noted on an osteopathic structural exam other than those noted in the History and Physical/Consult. Vitals: Vital Signs Temp Pulse Resp BP Pulse Ox FiO2 11/02/22 14:47 78 18 148/69 95 11/02/22 13:30 84 22 150/79 97 11/02/22 13:15 75 11/02/22 12:52 74 13 154/74 93 L 11/02/22 12:46 75 11/02/22 12:30 71 11/02/22 12:18 75 11/02/22 11:59 20 11/02/22 11:56 76 20 176/96 95 11/02/22 11:18 100 11/02/22 11:16 100 11/02/22 11:03 98.2 F 78 30 H 162/112 89 L Intake and Output 11/02/22 11/02/22 11/02/22 06:59 14:59 22:59 Other: Weight 143.789 kg Results CBC & Chem 7: 11/02/22 11:44 11/02/22 11:44 Labs: Abnormal Lab Results - Last 24 Hours (Table) 11/02/22 11/02/22 11/02/22 Range/Units 11:44 11:44 11:44 WBC 11.4 H (3.8-10.6) k/uL Neutrophils # 10.7 H (1.3-7.7) k/uL Lymphocytes # 0.3 L (1.0-4.8) k/uL ABG HCO3 (21-25) mmol/L ABG Total CO2 (19-24) mmol/L ABG O2 Saturation (94-97) % Sodium 132 L (137-145) mmol/L Chloride 92 L (98-107) mmol/L BUN 37 H (7-17) mg/dL Creatinine 2.41 H (0.52-1.04) mg/dL Glucose 299 H (74-99) mg/dL Troponin I 0.788 H* (0.000-0.034) ng/mL 11/02/22 Range/Units 12:30 WBC (3.8-10.6) k/uL Neutrophils # (1.3-7.7) k/uL Lymphocytes # (1.0-4.8) k/uL ABG HCO3 28 H (21-25) mmol/L ABG Total CO2 29 H (19-24) mmol/L ABG O2 Saturation 97.4 H (94-97) % Sodium (137-145) mmol/L Chloride (98-107) mmol/L BUN (7-17) mg/dL Creatinine (0.52-1.04) mg/dL Glucose (74-99) mg/dL Troponin I (0.000-0.034) ng/mL
[2022-11-02] MEDS: IPRATROPIUM-ALBUTEROL 3 ML NEB INHALATION SCH ×3 (15:56→22:55)
[2022-11-02] MEDS: hydrALAZINE HCL 50 MG TAB PO SCH ×2 (16:43→21:24)
[2022-11-02] MEDS: HEPARIN SODIUM,PORCINE 5,000 UNIT/ML 1 ML VIAL SQ SCH ×2 (16:45→23:59)
[2022-11-02] MEDS: carvediloL 3.125 MG TAB PO SCH (17:55)
[2022-11-02] MEDS: FUROSEMIDE 10 MG/ML 4 ML VIAL IV SCH (20:34)
[2022-11-02] MEDS: CYCLOBENZAPRINE 5 MG TAB PO PRN (20:35)
[2022-11-02] MEDS: PANTOPRAZOLE 40 MG TABLET PO SCH (20:35)
[2022-11-03] MEDS: methylPREDNISolone SOD SUCCI 125 MG/2 ML VIAL IV SCH ×4 (00:54→18:00)
[2022-11-03] MEDS ORDERED: DEXTROSE 50% SYRINGE 50 ML IVP PRN ×2 (01:03)
--- NOTE | 2022-11-03 01:38 | P.CNPUL ---
History of Present Illness Consult date: 11/03/22 (n) Requesting physician: Addison London Reason for consult: dyspnea Chief complaint: Shortness of breath and chest pain History of present illness: I am seeing this patient in new consultation today 11/03/2022 after being transferred from [facility] for acute hypoxemic respiratory failure requiring BiPAP. Patient is a 67-year-old female with past medical history significant for chronic obstructive pulmonary disease, obstructive sleep apnea not compliant with CPAP, hypertension, diabetes mellitus type 2, chronic kidney disease stage IV, GERD, and morbid obesity. Patient does follow in the office with Dr. Bergeron for management of her COPD, pulmonary nodule f/u, and suspected nonspecific interstitial pneumonitis. Patient presented to [facility] yesterday complaining of worsening shortness of breath over the preceding 24 hours accompanied with nonradiating epigastric pain. On arrival, patient was in respiratory distress, placed on the BiPAP, and subsequently transferred to [facility]. Patient is currently sitting up in bed, on BiPAP, in no acute distress. ABG on arrival to our facility shows a pO2 of 91, pCO2 of 40, and pH of 7.45 on 100% FiO2. Current BiPAP settings are 15/5 with an FiO2 of 60%. She appears comfortable. No signs of hypercapnic encephalopathy. Respiratory rate in the low 20s and achieving tidal volumes around 500 ML's. Chest x-ray on arrival shows diffuse interstitial infiltrates with small effusions concerning for congestive heart failure although underlying pneumonia is not excluded. She does have chronic fibrotic changes with lower lobe predominance. ProBNP was 9241 at [facility]. Admits epigastric pain prior to pres entation to the hospital. Denies heart palpitations, PND. No current lower extremity swelling. Troponins are elevated at 0.79, 0.86, and 0.93 respectfully. ECG shows normal sinus rhythm without any obvious acute ischemic changes. Denies any current chest pain. Admits persistent cough with occasional clear sputum production. Denies any fevers, chills, myalgias, hemoptysis. Denies sick contacts. CBC on arrival was unremarkable. BMP on arrival has a sodium 132, potassium 4.4, chloride 92, serum bicarb 29, BUN 37, creatinine 2.41, glucose 299. Patient has been started on Lasix 40 mg twice a day. Also started on bronchodilators, budesonide and formoterol inhalation, and IV Solu- Medrol. Empirically covered for community-acquired pneumonia. Afebrile. Patient is going to be admitted to the cardiac stepdown unit, we will continue to follow and make recommendations. Review of Systems REVIEW OF SYSTEMS: CONSTITUTIONAL: Denies any recent significant weight loss or weight gain. EYES: Denies change in vision. EARS, NOSE, MOUTH, THROAT: Denies headaches, denies sore throat. CARDIOVASCULAR: See HPI RESPIRATORY: See HPI GASTROINTESTINAL: Denies change in appetite, abdominal pain, or diarrhea . Admits some nausea and vomiting earlier in the week which was described as yellow/bilious, nothing currently. GENITOURINARY: Denies hematuria, denies infections. MUSKULOSKELETAL: Denies pain, denies swelling. INTEGUMENTARY: Denies rash, denies eczema. NEUROLOGICAL: Denies recent memory loss, no recent seizure activity. PSYCHIATRIC: Denies anxiety, denies depression. HEMATOLOGIC/LYMPHATIC: Denies anemia, denies enlarged lymph node Past Medical History Past Medical History: COPD, Diabetes Mellitus, Hypertension, Osteoarthritis (OA), Renal Disease Additional Past Medical History / Comment(s): jolly but does'nt use cpap anymore, past uterine fibroids.pt stated has had a pne vaccine but not sure of date.writer editor unable to verify date at time of admit-please f/u w/dr office in am. 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 Past Anesthesia/Blood Transfusion Reactions: No Reported Reaction Past Psychological History: Bipolar, Depression Smoking Status: Current every day smoker Past Alcohol Use History: None Reported Past Drug Use History: Marijuana - Past Family History Mother Family Medical History: Diabetes Mellitus, Myocardial Infarction (AR), Osteoarthritis (OA) Additional Family Medical History / Comment(s): djd Father Family Medical History: Deep Vein Thrombosis (DVT) Medications and Allergies Home Medications Medication Instructions Recorded Confirmed Type amLODIPine [Norvasc] 10 mg PO DAILY 10/08/16 11/02/22 History traZODone HCL 150 mg PO HS 10/08/16 11/02/22 History Insulin Degludec [Tresiba 32 units SQ HS PRN 01/30/18 11/02/22 History Flextouch U-100 Pen] Acetaminophen Tab [Tylenol Tab] 1,000 mg PO Q6HR PRN 08/12/20 11/02/22 History Albuterol Inhaler [Ventolin Hfa 2 puff INHALATION RT-QID PRN 08/12/20 11/02/22 History Inhaler] Albuterol Nebulized [Ventolin 2.5 mg INHALATION RT-QID PRN 08/12/20 11/02/22 History Nebulized] Omeprazole 20 mg PO BID 10/24/20 11/02/22 History ALPRAZolam [Xanax] 0.5 mg PO Q8H PRN 10/13/22 11/02/22 History Acetaminophen-Codeine 300-30mg 1 tab PO Q8H PRN 10/13/22 11/02/22 History [Tylenol w/codeine #3] Biofreeze Patches 1 patch TOPICAL DAILY PRN 10/13/22 11/02/22 History Cyclobenzaprine [Flexeril] 5 mg PO TID PRN 10/13/22 11/02/22 History Empagliflozin [Jardiance] 10 mg PO DAILY 10/13/22 11/02/22 History Furosemide [Lasix] 40 mg PO DAILY 10/13/22 11/02/22 History Insulin Aspart [NovoLOG Flexpen] 5 units SQ AC-TID PRN 10/13/22 11/02/22 History Ondansetron Odt [Zofran Odt] 4 mg PO TID PRN 10/13/22 11/02/22 History Venlafaxine HCl ER [Effexor Xr] 37.5 mg PO DAILY 10/13/22 11/02/22 History carvediloL [Coreg] 3.125 mg PO BID 10/13/22 11/02/22 History hydrALAZINE HCL [Apresoline] 50 mg PO TID 10/13/22 11/02/22 History Allergies Allergy/AdvReac Type Severity Reaction Status Date / Time aspirin AdvReac Nausea & Verified 11/02/22 13:24 Vomiting ibuprofen [From Motrin] AdvReac Nausea & Verified 11/02/22 13:24 Vomiting Physical Exam Vitals: Vital Signs Temp Pulse Resp BP Pulse Ox FiO2 11/03/22 00:02 79 27 H 163/78 98 11/02/22 23:10 74 11/02/22 22:56 73 60 11/02/22 21:24 72 14 167/89 98 11/02/22 20:33 75 18 155/78 98 11/02/22 19:52 75 11/02/22 19:41 75 18 168/82 97 11/02/22 19:40 77 65 11/02/22 18:14 97.8 F 81 20 168/80 92 L 11/02/22 18:09 79 26 H 165/79 92 L 11/02/22 17:35 79 22 168/84 92 L 11/02/22 16:51 80 168/87 11/02/22 15:36 80 11/02/22 15:26 80 70 11/02/22 14:47 78 18 148/69 95 11/02/22 13:30 84 22 150/79 97 11/02/22 13:15 75 11/02/22 12:52 74 13 154/74 93 L 11/02/22 12:46 75 11/02/22 12:30 71 11/02/22 12:18 75 11/02/22 11:59 20 11/02/22 11:56 76 20 176/96 95 11/02/22 11:18 100 11/02/22 11:16 100 11/02/22 11:03 98.2 F 78 30 H 162/112 89 L Intake and Output 11/02/22 11/02/22 11/03/22 14:59 22:59 06:59 Other: Weight 143.789 kg GENERAL EXAM: Alert, 67-year-old obese white female, comfortable in no apparent distress. HEAD: Normocephalic and atraumatic EYES: Normal reaction of pupils, equal size. NOSE: Clear with pink turbinates. THROAT: No erythema or exudates. NECK: No masses, no JVD. CHEST: No chest wall deformity. LUNGS: Equal air entry with expiratory wheezes heard throughout. Minimal bibasilar inspiratory crackles. On BiPAP with settings 15/5 and FiO2 of 60%. SpO2 is 96% on current settings. No conversational dyspnea or accessory muscle use.. CVS: S1 and S2 normal with no audible murmur, regular rhythm. No extra heart sounds ABDOMEN: Obese abdomen, no hepatosplenomegaly, active bowel sounds, no guarding or rigidity. SPINE: No scoliosis or deformity SKIN: No rashes CENTRAL NERVOUS SYSTEM: No focal deficits, tone is normal in all 4 extremities. EXTREMITIES: There is no peripheral edema, clubbing, or cyanosis. Peripheral p ulses are intact. Results - Laboratory Findings CBC and BMP: 11/03/22 08:59 11/03/22 08:59 ABG ABG pH 7.45 (7.35-7.45) 11/02/22 12:30 ABG pCO2 40 mmHg (35-45) 11/02/22 12:30 ABG pO2 91 mmHg (83-108) 11/02/22 12:30 ABG O2 Saturation 97.4 % (94-97) H 11/02/22 12:30 PT/INR, D-dimer PT 10.0 sec (9.0-12.0) 11/02/22 11:44 INR 0.9 (<1.2) 11/02/22 11:44 Abnormal lab findings: Abnormal Labs 11/02/22 11/02/22 11/02/22 11:44 11:44 11:44 WBC 11.4 H Neutrophils # 10.7 H Lymphocytes # 0.3 L ABG HCO3 ABG Total CO2 ABG O2 Saturation Sodium 132 L Chloride 92 L BUN 37 H Creatinine 2.41 H Glucose 299 H Troponin I 0.788 H* 11/02/22 11/02/22 11/02/22 12:30 16:36 19:47 WBC Neutrophils # Lymphocytes # ABG HCO3 28 H ABG Total CO2 29 H ABG O2 Saturation 97.4 H Sodium Chloride BUN Creatinine Glucose Troponin I 0.864 H* 0.926 H* - Diagnostic Findings Chest x-ray: image reviewed Assessment and Plan Assessment: Acute hypoxemic respiratory failure, currently on BiPAP, likely secondary to diastolic CHF exacerbation, although, underlying pneumonia is not ruled out. Chest x-ray on arrival shows diffuse interstitial infiltrates with small effusions concerning for congestive heart failure. She does have chronic fibrotic changes with lower lobe predominance. ProBNP was 9241 at [facility]. COVID-19 negative at [facility]. No significant leukocytosis. Afebrile. Acute COPD exacerbation Chronic systolic heart failure with impaired left ventricular ejection fraction Elevated troponins, rule out non-ST elevation AR Acute on chronic kidney disease, creatinine 2.41 Diabetes mellitus type 2, insulin-dependent Benign essential hypertension Chronic kidney disease stage IV GERD without esophagitis Morbid obesity, with a BMI of 68.6 kg/m Obstructive sleep apnea, noncompliant with CPAP Chronic nicotine dependence Plan: Patient's medications, labs, chest x-ray reviewed Continue BiPAP with current settings and titrate FiO2 as tolerated Agree with diuresis Monitor intake and output Repeat chest x-ray in a.m. Echocardiogram is pending Troponins are trending Cardiology has been consulted Start patient on combination of bronchodilators, formoterol, budesonide, and IV Solu-Medrol Continue empiric antibiotics, and check procalcitonin level NovoLog ACHS to scale for hyperglycemia Protonix for GI prophylaxis We will continue to follow and make recommendations I have personally seen and examined the patient, performed the documentation and the assessment and plan as written. Number of minutes spent on the visit:20 Ms. the joint evaluation that was done along with the nurse practitioner. This evaluation was done in more than 30 minutes. The patient presented with decompensated heart failure and fluid overload and she also has a component of chronic kidney disease. The patient responded nicely to diuretics. Overnight, the patient was On a BiPAP and currently she is off the BiPAP and she is on 3 L of oxygen by nasal cannula. The chest x-ray that was repeated showed improvement in the volume status. The patient is hemodynamically stable. The patient is also to be evaluated by cardiology. Aspirin was added. Coreg dose will be modified. Will monitor renal function. Will continue diuresis. Fluid echocardiogram to be obtained. We'll continue to follow.
[2022-11-03 01:56] LABS: Glucose,Whole Blood 176 mg/dL (70-110)
[2022-11-03] MEDS: IPRATROPIUM-ALBUTEROL 3 ML NEB INHALATION SCH ×5 (02:45→21:44)
[2022-11-03 06:06] LABS: Glucose,Whole Blood 208 mg/dL (70-110)
[2022-11-03] MEDS: INSULIN ASPART (NovoLOG) 100 UNIT/ML VIAL SQ SCH ×4 (06:36→20:52)
[2022-11-03] MEDS: PANTOPRAZOLE 40 MG TABLET PO SCH (06:37)
[2022-11-03] MEDS: carvediloL 3.125 MG TAB PO SCH (06:37)
[2022-11-03] MEDS: ACETAMINOPHEN TAB 325 MG TAB PO PRN ×3 (06:37→21:01)
[2022-11-03] MEDS: VENLAFAXINE HCL ER 37.5 MG CAP PO SCH (08:40)
[2022-11-03] MEDS: hydrALAZINE HCL 50 MG TAB PO SCH ×3 (08:42→20:51)
[2022-11-03] MEDS: HEPARIN SODIUM,PORCINE 5,000 UNIT/ML 1 ML VIAL SQ SCH ×2 (08:42→18:00)
[2022-11-03] MEDS: FUROSEMIDE 10 MG/ML 4 ML VIAL IV SCH ×2 (08:43→20:52)
[2022-11-03] MEDS ORDERED: amLODIPine 10 MG TAB PO SCH (09:00)
[2022-11-03] MEDS: BUDESONIDE 1 MG/2 ML NEBU INHALATION SCH ×2 (09:03→21:44)
[2022-11-03] MEDS: FORMOTEROL FUMARATE 20 MCG/2 ML NEBU INHALATION SCH ×2 (09:03→21:44)
--- NOTE | 2022-11-03 09:54 | XR ---
EXAMINATION TYPE: XR chest 1V portable DATE OF EXAM: 11/03/2022 COMPARISON: 11/02/2022 INDICATION: CHF TECHNIQUE: Single frontal view of the chest is obtained. FINDINGS: The heart size is normal. The pulmonary vasculature is somewhat prominent. Mild diffuse increased lung markings may be present. Correlate for mild volume overload IMPRESSION: 1. Mild CHF or mild volume overload. Findings have improved from comparison.
--- NOTE | 2022-11-03 10:00 | CA ---
Transthoracic Echo Report Name: Alexandria Conteh Age: 67 Gender: F : 1955 Exam Date: 11/02/2022 14:06 Exam Location: [facility] Ht (in): 57 Wt (lb): 317 Ordering Physician: Addison London MD Attending/Referring Phys: [employer] Director Tramaine Martino Procedure CPT: Indications: chf Cardiac Hx: Technical Quality: Very technically difficult study Contrast 1: Lumason Total Dose (mL): 5 Contrast 2: Total Dose (mL): MEASUREMENTS (Male / Female) Normal Values 2D ECHO LV Diastolic Diameter PLAX 4.6 cm 4.2 - 5.9 / 3.9 - 5.3 cm LV Systolic Diameter PLAX 3.3 cm IVS Diastolic Thickness 1.2 cm 0.6 - 1.0 / 0.6 - 0.9 cm LVPW Diastolic Thickness 1.1 cm 0.6 - 1.0 / 0.6 - 0.9 cm LV Relative Wall Thickness 0.5 RV Internal Dim ED PLAX 1.9 cm LVOT Diameter 1.8 cm Aortic Root Diameter 2.4 cm LA Systolic Diameter LX 2.9 cm 3.0 - 4.0 / 2.7 - 3.8 cm LA Volume 42.0 cm??? 18 - 58 / 22 - 52 cm??? DOPPLER AV Peak Velocity 126.2 cm/s AV Peak Gradient 6.4 mmHg LVOT Peak Velocity 87.7 cm/s LVOT Peak Gradient 3.1 mmHg AV Area Cont Eq pk 1.7 cm??? MV Peak Velocity 129.6 cm/s MV Peak Gradient 6.7 mmHg MV Mean Velocity 73.4 cm/s MV Mean Gradient 2.7 mmHg MV Velocity Time Integral 43.7 cm MR Peak Velocity 443.1 cm/s MR Peak Gradient 78.5 mmHg Mitral E Point Velocity 110.3 cm/s Mitral A Point Velocity 94.2 cm/s Mitral E to A Ratio 1.2 MV Deceleration Time 194.1 ms MV E' Velocity 9.1 cm/s Mitral E to MV E' Ratio 12.2 TR Peak Velocity 297.2 cm/s TR Peak Gradient 35.3 mmHg Right Ventricular Systolic Press 40.3 mmHg PV Peak Velocity 93.0 cm/s PV Peak Gradient 3.5 mmHg FINDINGS Left Ventricle Normal LV saundra and wall thickness.left ventricular ejection fraction is estimated at 30-35 %. Right Ventricle Normal right ventricular size. RVSP= 40mmhg. Right Atrium Normal right atrial size. Left Atrium Normal left atrial size. LA Volume index= 19 ml/m2 Mitral Valve Mild posterior MAC. Mild MR. Aortic Valve Aortic valve not well visualized. No aortic valve stenosis or regurgitation. Tricuspid Valve Tricuspid valve not well visualized. Mild TR. Pulmonic Valve Pulmonic valve not well visualized. Pericardium Normal pericardium. Aorta Normal size aortic root . CONCLUSIONS Normal LV size with reduced LV systolic function Ejection fraction 35% echo contrast used Previewed by: Dr. Garth Ontiveros MD (Electronically Signed) Final Date: 03 November 2022 09:59
[2022-11-03 10:21] LABS: African American GFR (CKD) 27 (>60 ml/min/1.73 sqM); Anion Gap 12 mmol/L; Blood Urea Nitrogen 36 mg/dL (7-17); Calcium 8.5 mg/dL (8.4-10.2); Carbon Dioxide 30 mmol/L (22-30); Chloride 88 mmol/L (98-107); Glucose 329 mg/dL (74-99); Non-African American GFR(CKD) 23 (>60 ml/min/1.73 sqM); Potassium 3.6 mmol/L (3.5-5.1); Sodium 130 mmol/L (137-145)
--- NOTE | 2022-11-03 10:23 | P.PN ---
Subjective Progress Note Date: 11/03/22 No new complaints. Plan for [facility] today. Gen: awake, alert HEENT: normocephalic, atraumatic, good hearing acuity, moist mucous membranes Resp: good air exchange, breathing comfortably with no accessory muscle use CVS: good distal perfusion x 4, GI: soft, NTTP, ND : no SPT, no CVAT, staley catheter not present MSK: no pitting edema, no clubbing Neuro: non-focal, moving all extremities Psych: cooperative, euthymic mood Hospital Course: 67-year-old woman with medical history of COPD, hypertension, diabetes, hyperlipidemia presented for evaluation of dyspnea. In the emergency room, patient was afebrile, 148/69, heart rate 78, 95% on BiPAP with an FiO2 of 75%. CBC shows leukocytosis to 11.4. Basic metabolic panel shows sodium of 132, chloride of 92, BMI of 37, creatinine 2.41, glucose was 299. Liver function tests are unremarkable. Initial troponin was 0.788. Coags are unremarkable. ABG showed a pH of 7.45, pCO2 of 40, pO2 of 91 on FiO2 of 100%. EKG shows normal sinus rhythm with no evidence of ischemia. Chest x-ray shows bilateral pulmonary infiltrates concerning for pulmonary edema. Case was discussed with emergency room provider and Decision was made to admit the patient for heart failure exacerbation. Assessment: Acute heart failure exacerbation, echo pending Acute hypoxemic respiratory failure Elevated troponin secondary to the above Acute kidney injury superimposed on chronic kidney disease stage IIIB COPD without exacerbation Hypertension Hyperlipidemia Diabetes type 2 Plan: BMP shows Na of 130, Cl 88, BUN 36, Cr 2.15 PC is 0.45 CXR personally interpreted by me today - shows improvement in pulmonary edema Pulmonology note reviewed - they agree with diuresis, broad spectrum abx until PC returns Cardiology consult Echocardiogram Trend troponins Lasix 40 mg IV twice a day Ceftriaxone 1 g daily, azithromycin 500 mg daily initiated Patient is full code Objective - Vital Signs Vital signs: Vital Signs Temp 98 F 11/03/22 03:17 Pulse 86 11/03/22 09:29 Resp 18 11/03/22 03:17 BP 171/92 11/03/22 01:00 Pulse Ox 95 11/03/22 09:03 FiO2 35 11/03/22 06:08 Intake & Output 11/02/22 11/03/2223 18:59 06:59 18:59 Intake Total 360 Output Total 300 Balance -300 360 Weight 143.789 kg 96 kg Intake: Oral 360 Output: Urine 300 Other: Voiding Method External Catheter - Labs CBC & Chem 7: 11/02/22 11:44 11/02/22 11:44 Labs: Abnormal Lab Results - Last 24 Hours (Table) 11/02/22 11/02/22 11/02/22 Range/Units 11:44 11:44 11:44 WBC 11.4 H (3.8-10.6) k/uL Neutrophils # 10.7 H (1.3-7.7) k/uL Lymphocytes # 0.3 L (1.0-4.8) k/uL ABG HCO3 (21-25) mmol/L ABG Total CO2 (19-24) mmol/L ABG O2 Saturation (94-97) % Sodium 132 L (137-145) mmol/L Chloride 92 L (98-107) mmol/L BUN 37 H (7-17) mg/dL Creatinine 2.41 H (0.52-1.04) mg/dL Glucose 299 H (74-99) mg/dL POC Glucose (mg/dL) (70-110) mg/dL Troponin I 0.788 H* (0.000-0.034) ng/mL Procalcitonin (0.02-0.09) ng/mL 11/02/22 11/02/22 11/02/22 Range/Units 11:44 12:30 16:36 WBC (3.8-10.6) k/uL Neutrophils # (1.3-7.7) k/uL Lymphocytes # (1.0-4.8) k/uL ABG HCO3 28 H (21-25) mmol/L ABG Total CO2 29 H (19-24) mmol/L ABG O2 Saturation 97.4 H (94-97) % Sodium (137-145) mmol/L Chloride (98-107) mmol/L BUN (7-17) mg/dL Creatinine (0.52-1.04) mg/dL Glucose (74-99) mg/dL POC Glucose (mg/dL) (70-110) mg/dL Troponin I 0.864 H* (0.000-0.034) ng/mL Procalcitonin 0.45 H (0.02-0.09) ng/mL 11/02/22 11/03/22 11/03/22 Range/Units 19:47 01:54 06:04 WBC (3.8-10.6) k/uL Neutrophils # (1.3-7.7) k/uL Lymphocytes # (1.0-4.8) k/uL ABG HCO3 (21-25) mmol/L ABG Total CO2 (19-24) mmol/L ABG O2 Saturation (94-97) % Sodium (137-145) mmol/L Chloride (98-107) mmol/L BUN (7-17) mg/dL Creatinine (0.52-1.04) mg/dL Glucose (74-99) mg/dL POC Glucose (mg/dL) 176 H 208 H (70-110) mg/dL Troponin I 0.926 H* (0.000-0.034) ng/mL Procalcitonin (0.02-0.09) ng/mL
[2022-11-03 10:47] LABS: Basophils % (A) 0 %; Eosinophils % (A) 0 %; HCT 40.8 % (34.0-46.0); HGB 12.9 gm/dL (11.4-16.0); Hypochromasia Slight; Lymphocytes # (A) 0.4 k/uL (1.0-4.8); Lymphocytes % (A) 4 %; MCH 28.6 pg (25.0-35.0); MCHC 31.5 g/dL (31.0-37.0); MCV 90.7 fL (80.0-100.0); Mean Platelet Volume 8.4; Monocytes # (A) 0.2 k/uL (0-1.0); Monocytes % (A) 2 %; Neutrophils % (A) 94 %; Platelet Count 258 k/uL (150-450); RDW 14.5 % (11.5-15.5); WBC 8.5 k/uL (3.8-10.6)
[2022-11-03] MEDS ORDERED: hydrALAZINE HCL 50 MG TAB PO SCH (11:30)
[2022-11-03 12:09] LABS: Glucose,Whole Blood 368 mg/dL (70-110)
[2022-11-03] MEDS: AZITHROMYCIN 500 MG in SODIUM CHLORIDE 0.9% 250 ML IVPB SCH (13:23)
[2022-11-03] MEDS: CYCLOBENZAPRINE 5 MG TAB PO PRN ×2 (13:33→21:01)
--- NOTE | 2022-11-03 13:43 | P.CRDCN ---
History of Present Illness History of present illness: HISTORY OF PRESENT ILLNESS: This is a 67-year-old female with a past medical history significant for hypertension, hyperlipidemia, diabetes, and COPD. 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 We have been asked to see the patient in consultation for possible congestive heart failure and elevated troponin. Patient examined at the bedside. Patient reports Tuesday after dinner she went to sit on her bed and she could not breath. She denies chest pain or pressure. Blood pressures are elevated with a SBP 150-160s. * EKG reveals sinus mechanism with no signs of acute ischemia * Chest xray from 11/02/2022 reveals diffuse airspace infiltrates are seen a small effusions. Findings may reflect congestive heart failure although underlying pneumonias excluded. * Laboratory data: WBC 8.5. Hemoglobin 12.9. Platelet count 258. Sodium 130. Potassium 3.6. BUN 36. Creatinine 2.15. Troponin 0.788. 0.864. 0.96. * Current home cardiac medications include Lasix 40 mg daily, amlodipine 10 mg daily, carvedilol 3.125 mg twice a day, hydralazine 50 mg 3 times a day * Echocardiogram completed revealing ejection fraction 30-35%, mild MR, mild TR REVIEW OF SYSTEMS: At the time of my exam: CONSTITUTIONAL: Denies fever or chills. HEENT: Denies blurred vision, vision changes, or eye pain. Denies hemoptysis CARDIOVASCULAR: Denies chest pain. Denies orthopnea. Denies PND. Denies palpitations RESPIRATORY: Denies shortness of breath. GASTROINTESTINAL: Denies abdominal pain. Denies nausea or vomiting. HEMATOLOGIC: Denies bleeding disorders. GENITOURINARY: Denies any blood in urine. SKIN: Denies pruitis. Denies rash. PHYSICAL EXAM: VITAL SIGNS: Reviewed. GENERAL: Well-developed in no acute distress. HEENT: Head is normocephalic. Pupils are equal, round. Sclerae anicteric. Mucous membranes of the mouth are moist. Neck supple. No JVD or thyromegaly LUNGS: Respirations even and unlabored. Lungs with expiratory wheezing throughout. HEART: Regular rate and rhythm. S1 and S2 heard. ABDOMEN: Soft. Nondistended. Nontender. EXTREMITIES: Normal range of motion. No clubbing or cyanosis. Peripheral pulses intact. Minimal lower extremity edema, left greater than right. NEUROLOGIC: Awake and alert. Oriented x 3. ASSESSMENT: Shortness of breath COPD exacerbation Acute on chronic heart failure with reduced EF, 30-35% Acute on chronic hypoxic respiratory failure requiring supplemental oxygen, patient also on home o2 Cardiomyopathy, unknown if ischemic or nonischemic Acute kidney injury Elevated troponins, flat, likely secondary to above, no evidence of acute coronary syndrome Chronic kidney disease Hypertension Hyperlipidemia Diabetes Morbid obesity: BMI 45.8 Nicotine dependence, patient quit smoking 1 week ago PLAN: 2-D echo obtained and reviewed Discontinue amlodipine secondary to cardiomyopathy Add aspirin 81 mg daily Increase Coreg to 12.5mg BID. Goal to increase to 25mg BID. Recommend starting Jardiance and Imdur tomorrow Patient would benefit from MARINO/ARB secondary to cardiomyopathy. However, will hold at this time secondary to kidney function. Outpatient workup for cardiomyopathy Further recommendations pending patient course Nurse practitioner note has been reviewed by physician. Signing provider agrees with the documented findings, assessment, and plan of care. Past Medical History Past Medical History: COPD, Diabetes Mellitus, Hypertension, Osteoarthritis (OA), Renal Disease Additional Past Medical History / Comment(s): jolly but does'nt use cpap anymore, past uterine fibroids.pt stated has had a pne vaccine but not sure of date.write r unable to verify date at time of admit-please f/u w/dr office in am. 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 Past Anesthesia/Blood Transfusion Reactions: No Reported Reaction Past Psychological History: Bipolar, Depression Smoking Status: Current every day smoker Past Alcohol Use History: None Reported Past Drug Use History: Marijuana - Past Family History Mother Family Medical History: Diabetes Mellitus, Myocardial Infarction (CT), Osteoarthritis (OA) Additional Family Medical History / Comment(s): djd Father Family Medical History: Deep Vein Thrombosis (DVT) Medications and Allergies Home Medications Medication Instructions Recorded Confirmed Type amLODIPine [Norvasc] 10 mg PO DAILY 10/08/16 11/02/22 History traZODone HCL 150 mg PO HS 10/08/16 11/02/22 History Insulin Degludec [Tresiba 32 units SQ HS PRN 01/30/18 11/02/22 History Flextouch U-100 Pen] Acetaminophen Tab [Tylenol Tab] 1,000 mg PO Q6HR PRN 08/12/20 11/02/22 History Albuterol Inhaler [Ventolin Hfa 2 puff INHALATION RT-QID PRN 08/12/20 11/02/22 History Inhaler] Albuterol Nebulized [Ventolin 2.5 mg INHALATION RT-QID PRN 08/12/20 11/02/22 History Nebulized] Omeprazole 20 mg PO BID 10/24/20 11/02/22 History ALPRAZolam [Xanax] 0.5 mg PO Q8H PRN 10/13/22 11/02/22 History Acetaminophen-Codeine 300-30mg 1 tab PO Q8H PRN 10/13/22 11/02/22 History [Tylenol w/codeine #3] Biofreeze Patches 1 patch TOPICAL DAILY PRN 10/13/22 11/02/22 History Cyclobenzaprine [Flexeril] 5 mg PO TID PRN 10/13/22 11/02/22 History Empagliflozin [Jardiance] 10 mg PO DAILY 10/13/22 11/02/22 History Furosemide [Lasix] 40 mg PO DAILY 10/13/22 11/02/22 History Insulin Aspart [NovoLOG Flexpen] 5 units SQ AC-TID PRN 10/13/22 11/02/22 History Ondansetron Odt [Zofran Odt] 4 mg PO TID PRN 10/13/22 11/02/22 History Venlafaxine HCl ER [Effexor Xr] 37.5 mg PO DAILY 10/13/22 11/02/22 History carvediloL [Coreg] 3.125 mg PO BID 10/13/22 11/02/22 History hydrALAZINE HCL [Apresoline] 50 mg PO TID 10/13/22 11/02/22 History Allergies Allergy/AdvReac Type Severity Reaction Status Date / Time aspirin AdvReac Nausea & Verified 11/02/22 13:24 Vomiting ibuprofen [From Motrin] AdvReac Nausea & Verified 11/02/22 13:24 Vomiting Physical Exam Vitals: Vital Signs Temp Pulse Pulse Resp BP Pulse Ox FiO2 11/03/22 09:29 86 11/03/22 09:20 87 11/03/22 09:19 87 11/03/22 09:03 86 95 11/03/22 08:00 98 F 82 18 95 11/03/22 06:08 35 11/03/22 03:17 98 F 80 18 98 60 11/03/22 03:08 50 11/03/22 02:55 77 11/03/22 02:45 79 60 11/03/22 01:00 79 25 H 171/92 96 11/03/22 00:14 80 27 H 163/78 97 11/03/22 00:02 79 27 H 163/78 98 11/02/22 23:10 74 11/02/22 22:56 73 60 11/02/22 21:24 72 14 167/89 98 11/02/22 20:33 75 18 155/78 98 11/02/22 19:52 75 11/02/22 19:41 75 18 168/82 97 11/02/22 19:40 77 65 11/02/22 18:14 97.8 F 81 20 168/80 92 L 11/02/22 18:09 79 26 H 165/79 92 L 11/02/22 17:35 79 22 168/84 92 L 11/02/22 16:51 80 168/87 11/02/22 15:36 80 11/02/22 15:26 80 70 11/02/22 14:47 78 18 148/69 95 11/02/22 13:30 84 22 150/79 97 11/02/22 13:15 75 11/02/22 12:52 74 13 154/74 93 L 11/02/22 12:46 75 11/02/22 12:30 71 11/02/22 12:18 75 11/02/22 11:59 20 11/02/22 11:56 76 20 176/96 95 11/02/22 11:18 100 11/02/22 11:16 100 Intake and Output 11/02/22 11/03/22 11/03/22 22:59 06:59 14:59 Intake Total 360 Output Total 300 Balance -300 360 Intake: Oral 360 Output: Urine 300 Other: Voiding Method External Catheter External Catheter Weight 96 kg Results 11/03/22 08:59 11/03/22 08:59 Cardiac Enzymes 11/02/22 11/02/22 11/02/22 Range/Units 11:44 11:44 16:36 AST 22 (14-36) U/L Troponin I 0.788 H* 0.864 H* (0.000-0.034) ng/mL 11/02/22 Range/Units 19:47 AST (14-36) U/L Troponin I 0.926 H* (0.000-0.034) ng/mL Coagulation 11/02/22 Range/Units 11:44 PT 10.0 (9.0-12.0) sec APTT 23.7 (22.0-30.0) sec CBC 11/02/22 11/03/22 Range/Units 11:44 08:59 WBC 11.4 H 8.5 (3.8-10.6) k/uL RBC 4.80 4.50 (3.80-5.40) m/uL Hgb 13.5 12.9 (11.4-16.0) gm/dL Hct 43.4 40.8 (34.0-46.0) % Plt Count 249 258 (150-450) k/uL Comprehensive Metabolic Panel 11/02/22 11/03/22 Range/Units 11:44 08:59 Sodium 132 L 130 L (137-145) mmol/L Potassium 4.4 3.6 (3.5-5.1) mmol/L Chloride 92 L 88 L (98-107) mmol/L Carbon Dioxide 29 30 (22-30) mmol/L BUN 37 H 36 H (7-17) mg/dL Creatinine 2.41 H 2.15 H (0.52-1.04) mg/dL Glucose 299 H 329 H (74-99) mg/dL Calcium 8.6 8.5 (8.4-10.2) mg/dL AST 22 (14-36) U/L ALT 14 (4-34) U/L Alkaline Phosphatase 98 (38-126) U/L Total Protein 7.4 (6.3-8.2) g/dL Albumin 3.8 (3.5-5.0) g/dL Current Medications Generic Name Dose Route Start Last Admin Trade Name Freq PRN Reason Stop Dose Admin Acetaminophen 650 mg 11/03/22 06:25 11/03/22 06:37 Acetaminophen Tab 325 Mg Tab PO 650 mg Q4HR PRN Administration Fever and/ or Pain Albuterol Sulfate 2.5 mg 11/02/22 14:33 Albuterol Nebulized 2.5 Mg/3 Ml INHALATION RT-QID PRN Shortness Of Breath Albuterol/Ipratropium 3 ml 11/02/22 16:00 11/03/22 09:03 Ipratropium-Albuterol 3 Ml Neb INHALATION 3 ml RT-Q4H DESTINY Administration Amlodipine Besylate 10 mg 11/03/22 09:00 11/03/22 08:42 Amlodipine 10 Mg Tab PO 10 mg DAILY DESTINY Administration Budesonide 1 mg 11/03/22 08:00 11/03/22 09:03 Budesonide 1 Mg/2 Ml Nebu INHALATION 1 mg RT-BID DESTINY Administration Carvedilol 3.125 mg 11/02/22 17:30 11/03/22 06:37 Carvedilol 3.125 Mg Tab PO 3.125 mg BID-W/MEALS DESTINY Administration Cyclobenzaprine HCl 5 mg 11/02/22 14:33 11/02/22 20:35 Cyclobenzaprine 5 Mg Tab PO 5 mg TID PRN Administration Muscle Pain Dextrose/Water 25 ml 11/03/22 01:03 Dextrose 50% Syringe 50 Ml IVP PER PROTOCOL PRN Hypoglycemia Protocol Dextrose/Water 50 ml 11/03/22 01:03 Dextrose 50% Syringe 50 Ml IVP PER PROTOCOL PRN Hypoglycemia Protocol Formoterol Fumarate 20 mcg 11/03/22 08:00 11/03/22 09:03 Formoterol Fumarate 20 Mcg/2 Ml Nebu INHALATION 20 mcg RT-BID DESTINY Administration Furosemide 40 mg 11/02/22 21:00 11/03/22 08:43 Furosemide 10 Mg/Ml 4 Ml Vial IV 40 mg Q12HR DESTINY Administration Heparin Sodium (Porcine) 5,000 unit 11/02/22 16:00 11/03/22 08:42 Heparin Sodium,Porcine 5,000 Unit/Ml 1 Ml Vial SQ 5,000 unit Q8HR DESTINY Administration Hydralazine HCl 50 mg 11/02/22 16:00 11/03/22 08:42 Hydralazine Hcl 50 Mg Tab PO 50 mg TID DESTINY Administration Azithromycin 500 mg/ Sodium 250 mls @ 250 mls/hr 11/03/22 09:00 Chloride IVPB 11/05/22 09:59 DAILY DESTINY Protocol Ceftriaxone Sodium 1 gm/ 50 mls @ 100 mls/hr 11/03/22 09:00 11/03/22 08:43 Sodium Chloride IVPB 100 mls/hr Q24HR DESTINY Administration Protocol Insulin Aspart 0 unit 11/03/22 07:30 11/03/22 06:36 Insulin Aspart (Novolog) 100 Unit/Ml Vial SQ 4 unit ACHS DESTINY Administration Protocol Methylprednisolone Sodium Succinate 60 mg 11/03/22 00:30 11/03/22 06:36 Methylprednisolone Sod Succi 125 Mg/2 Ml Vial IV 60 mg Q6HR DESTINY Administration Naloxone HCl 0.2 mg 11/02/22 13:19 Naloxone 0.4 Mg/Ml 1 Ml Vial IV Q2M PRN Opioid Reversal Ondansetron HCl 4 mg 11/02/22 14:33 Ondansetron Odt 4 Mg Tab PO TID PRN Nausea Pantoprazole Sodium 40 mg 11/02/22 21:00 11/03/22 06:37 Pantoprazole 40 Mg Tablet PO 40 mg AC-[id number] DESTINY Administration Venlafaxine HCl 37.5 mg 11/03/22 09:00 11/03/22 08:40 Venlafaxine Hcl Er 37.5 Mg Cap PO 37.5 mg DAILY DESTINY Administration Intake and Output 11/02/22 11/03/22 11/03/22 22:59 06:59 14:59 Intake Total 360 Output Total 300 Balance -300 360 Intake: Oral 360 Output: Urine 300 Other: Voiding Method External Catheter External Catheter Weight 96 kg 11/03/22 08:59 11/03/22 08:59
[2022-11-03 17:03] LABS: Glucose,Whole Blood 290 mg/dL (70-110)
[2022-11-03] MEDS: carvediloL 12.5 MG TAB PO SCH (18:00)
[2022-11-03 20:54] LABS: Glucose,Whole Blood 232 mg/dL (70-110)
[2022-11-04] MEDS: HEPARIN SODIUM,PORCINE 5,000 UNIT/ML 1 ML VIAL SQ SCH ×3 (00:45→16:34)
[2022-11-04] MEDS: methylPREDNISolone SOD SUCCI 125 MG/2 ML VIAL IV SCH ×2 (00:45→06:30)
[2022-11-04] MEDS: IPRATROPIUM-ALBUTEROL 3 ML NEB INHALATION SCH ×6 (00:54→22:04)
[2022-11-04] MEDS: ACETAMINOPHEN TAB 325 MG TAB PO PRN ×2 (06:31→20:54)
[2022-11-04] MEDS: carvediloL 12.5 MG TAB PO SCH ×2 (06:31→16:34)
[2022-11-04] MEDS: PANTOPRAZOLE 40 MG TABLET PO SCH (06:31)
[2022-11-04] MEDS: INSULIN ASPART (NovoLOG) 100 UNIT/ML VIAL SQ SCH ×4 (06:34→20:55)
[2022-11-04 06:48] LABS: Glucose,Whole Blood 256 mg/dL (70-110)
[2022-11-04] MEDS: FORMOTEROL FUMARATE 20 MCG/2 ML NEBU INHALATION SCH ×2 (09:16→19:50)
[2022-11-04] MEDS: BUDESONIDE 1 MG/2 ML NEBU INHALATION SCH ×2 (09:16→19:38)
[2022-11-04] MEDS: ASPIRIN 81 MG PO SCH (09:22)
[2022-11-04] MEDS: VENLAFAXINE HCL ER 37.5 MG CAP PO SCH (09:22)
[2022-11-04] MEDS: FUROSEMIDE 10 MG/ML 4 ML VIAL IV SCH (09:22)
[2022-11-04] MEDS: AZITHROMYCIN 500 MG in SODIUM CHLORIDE 0.9% 250 ML IVPB SCH (09:22)
[2022-11-04] MEDS: hydrALAZINE HCL 50 MG TAB PO SCH ×3 (09:22→20:55)
[2022-11-04] MEDS: CYCLOBENZAPRINE 5 MG TAB PO PRN ×2 (09:41→20:55)
[2022-11-04 10:40] LABS: Basophils % (A) 0 %; Eosinophils # (A) 0.1 k/uL (0-0.7); Eosinophils % (A) 1 %; HCT 39.9 % (34.0-46.0); HGB 13.1 gm/dL (11.4-16.0); Lymphocytes # (A) 0.4 k/uL (1.0-4.8); Lymphocytes % (A) 4 %; MCH 29.3 pg (25.0-35.0); MCHC 32.9 g/dL (31.0-37.0); Mean Platelet Volume 7.9; Monocytes # (A) 0.3 k/uL (0-1.0); Monocytes % (A) 3 %; Neutrophils # (A) 8.2 k/uL (1.3-7.7); Neutrophils % (A) 91 %; Platelet Count 252 k/uL (150-450); RBC 4.49 m/uL (3.80-5.40); RDW 14.8 % (11.5-15.5)
[2022-11-04 10:56] LABS: African American GFR (CKD) 30 (>60 ml/min/1.73 sqM); Anion Gap 12 mmol/L; Blood Urea Nitrogen 53 mg/dL (7-17); Calcium 8.6 mg/dL (8.4-10.2); Carbon Dioxide 29 mmol/L (22-30); Chloride 88 mmol/L (98-107); Glucose 270 mg/dL (74-99); Magnesium 2.2 mg/dL (1.6-2.3); Non-African American GFR(CKD) 26 (>60 ml/min/1.73 sqM); Potassium 3.4 mmol/L (3.5-5.1); Sodium 129 mmol/L (137-145)
[2022-11-04] MEDS ORDERED: carvediloL 12.5 MG TAB PO STA (11:04)
--- NOTE | 2022-11-04 11:10 | CDI ---
Documentation Clarification Form Date: 11/04/2022 10:52:32 AM From: Hillary Cooper RN CCDS Phone: [phone] Admit Date: 11/02/2022 01:20:00 PM Patient Name: Alexandria Conteh Visit Number: [id number] Discharge Date: ATTENTION: The Clinical Documentation Specialists (CDI) and [facility] Coding Staff appreciate your assistance in clarifying documentation. Please respond to the clarification below the line at the bottom and electronically sign. The CDI & [facility] Coding staff will review the response and follow-up if needed. Please note: Queries are made part of the Legal Health Record. If you have any questions, please contact the author of this message via ITS. Dr. Carla Finnegan Conflicting documentation has been found in the medical record. As attending physician, please provide clarification. Chronic kidney disease stage IIIB, documented Medicine note, 11/03. Chronic kidney disease stage IV, documented Pulmonology consult, 11/02 History/Risk Factors: 67-year-old male presents to the ED with shortness of breath. Medical history: CHF, CKD, HTN, COPD and DM2 Patients Historical 10/13/22 BUN 28 CR 1.98 GFR 48 02/10/22 BUN 16.5 CR 2.2 GFR 22.6 Clinical Indicators: Current 11/02/22BUN 37 CR 2.41 GFR: 20 Treatment: daily lab monitoring of creatinine Please clarify the stage of the CKD, if known: [ ] CKD Stage 4 (GFR 15-29) CKD Stage IIIB (Template Last revised: April 2020) MTDD
--- NOTE | 2022-11-04 11:27 | P.PN ---
Subjective Progress Note Date: 11/04/22 No new complaints. Breathing is signficantly improved per patient. Now on home oxygen rate for nasal cannula. Gen: awake, alert HEENT: normocephalic, atraumatic, good hearing acuity, moist mucous membranes Resp: good air exchange, breathing comfortably with no accessory muscle use CVS: good distal perfusion x 4, GI: soft, NTTP, ND : no SPT, no CVAT, staley catheter not present MSK: no pitting edema, no clubbing Neuro: non-focal, moving all extremities Psych: cooperative, euthymic mood Hospital Course: 67-year-old woman with medical history of COPD, hypertension, diabetes, hyperlipidemia presented for evaluation of dyspnea. In the emergency room, patient was afebrile, 148/69, heart rate 78, 95% on BiPAP with an FiO2 of 75%. CBC shows leukocytosis to 11.4. Basic metabolic panel shows sodium of 132, chloride of 92, BMI of 37, creatinine 2.41, glucose was 299. Liver function tests are unremarkable. Initial troponin was 0.788. Coags are unremarkable. ABG showed a pH of 7.45, pCO2 of 40, pO2 of 91 on FiO2 of 100%. EKG shows normal sinus rhythm with no evidence of ischemia. Chest x-ray shows bilateral pulmonary infiltrates concerning for pulmonary edema. Case was discussed with e mergency room provider and Decision was made to admit the patient for heart failure exacerbation. Assessment: Acute heart failure exacerbation, EF 35-40% Acute hypoxemic respiratory failure Elevated troponin secondary to the above Acute kidney injury superimposed on chronic kidney disease stage IIIB COPD without exacerbation Hypertension Hyperlipidemia Diabetes type 2 Plan: BMP shows Na of 129, Cl 88, BUN 53, Cr 1.97 Discussed with cardiology, would like to continue ongoing diuresis Pulmonology note reviewed - they agree with diuresis Echocardiogram = reduced EF 35-40% Lasix 40 mg IV twice a day to be switched to bumex 1mg PO daily Ceftriaxone 1 g daily, azithromycin 500 mg daily initiated in the ER, I will discontinue this today Patient is full code Objective - Vital Signs Vital signs: Vital Signs Temp 97.8 F 11/04/22 07:47 Pulse 74 11/04/22 09:36 Resp 18 11/04/22 09:36 BP 151/64 11/04/22 07:47 Pulse Ox 96 11/04/22 09:19 FiO2 35 11/03/22 06:08 Intake & Output 11/03/22 11/04/22 11/04/22 18:59 06:59 18:59 Intake Total 980 20 370 Output Total 550 1700 350 Balance 430 -1680 20 Weight 95.5 kg Intake: IV 20 20 10 Invasive Line 2 20 20 10 Oral 960 360 Output: Urine 550 1700 350 Other: Voiding Method External Catheter External Catheter External Catheter - Labs CBC & Chem 7: 11/04/22 10:14 11/04/22 10:14 Labs: Abnormal Lab Results - Last 24 Hours (Table) 11/03/22 11/03/22 11/03/22 Range/Units 11:59 16:54 20:53 Neutrophils # (1.3-7.7) k/uL Lymphocytes # (1.0-4.8) k/uL Sodium (137-145) mmol/L Potassium (3.5-5.1) mmol/L Chloride (98-107) mmol/L BUN (7-17) mg/dL Creatinine (0.52-1.04) mg/dL Glucose (74-99) mg/dL POC Glucose (mg/dL) 368 H 290 H 232 H (70-110) mg/dL 11/04/22 11/04/22 11/04/22 Range/Units 06:32 10:14 10:14 Neutrophils # 8.2 H (1.3-7.7) k/uL Lymphocytes # 0.4 L (1.0-4.8) k/uL Sodium 129 L (137-145) mmol/L Potassium 3.4 L (3.5-5.1) mmol/L Chloride 88 L (98-107) mmol/L BUN 53 H (7-17) mg/dL Creatinine 1.97 H (0.52-1.04) mg/dL Glucose 270 H (74-99) mg/dL POC Glucose (mg/dL) 256 H (70-110) mg/dL
--- NOTE | 2022-11-04 11:28 | CDI ---
Documentation Clarification Form Date: 11/04/2022 11:11:38 AM From: Hillary Cooper RN CCDS Phone: [phone] Admit Date: 11/02/2022 01:20:00 PM Patient Name: Alexandria Conteh Visit Number: [id number] Discharge Date: ATTENTION: The Clinical Documentation Specialists (CDI) and [facility] Coding Staff appreciate your assistance in clarifying documentation. Please respond to the clarification below the line at the bottom and electronically sign. The CDI & [facility] Coding staff will review the response and follow-up if needed. Please note: Queries are made part of the Legal Health Record. If you have any questions, please contact the author of this message via ITS. Dr. Carla Finnegan Elevated troponin secondary to Acute heart failure exacerbation and Acute hypoxemic respiratory failure, 11/02, H&P. Please clarify if there is an additional diagnosis and/or clinical significance related to this value. History/Risk Factors: 67-year-old male presents to the ED with shortness of breath. Medical history: CHF, CKD, HTN, COPD and DM2 Clinical indicators: 11/02, EKG: Sinus rhythm 11/02 VSS: B/P 162/112; HR 78; Temp 98.2 F Axillary; RR 30; SpO2 89% BiPAP 11/02 Labs: Troponin 0.788; 0.926 ProBNP 50112 Treatment: 11/02 Lasix 40mg IV x 1; 11/02 11/03 Coreg 3.125mg PO BID; 11/03- 11/04 Coreg 12.5mg PO BID; 11/04 Coreg 25mg PO BID; 11/05 Bumex 1mg PO Daily; 11/04 Imdur 30mg PO Daily; 11/02 Duoneb Inhalation x 1; Ventolin Hfa Inhaler QID PRN; 11/02 Duoneb Inhalation Q4H DESTINY; 11/03 11/04 Solumedorl IV Q6HR; 11/03 Pulmicort Inhalation BID DESTINY; 11/03 Perforomist Inhalation BID DESTINY; 11/04 Prednisone 40mg PO Daily Is there an additional diagnosis and/or clinical significance related to the above lab result/information: [x] Type 2 MT due to Acute exacerbation of heart failure and acute hypoxemic respiratory failure [ ] No additional diagnosis/Not clinically significant [ ] Other, please specify [ ] Unable to determine Reference: [place] [employer] Fourth [place] Definition of Myocardial Infraction Elevated Cardiac Troponin >99th percentile with Troponin rise and/or fall With Acute ischemia o Acute Myocardial Infarction Atherosclerosis thrombosis Type I MT Oxygen supply and demand imbalance Type II MT (Please indicate etiology) Without acute ischemia o Acute Myocardial Injury (Template Last Reviewed: September 2022) MTDD
[2022-11-04 11:42] LABS: Glucose,Whole Blood 289 mg/dL (70-110)
[2022-11-04] MEDS: NICOTINE 21MG/24HR PATCH TRANSDERM SCH (11:56)
[2022-11-04] MEDS: predniSONE 20 MG TAB PO SCH (11:56)
[2022-11-04] MEDS: ISOSORBIDE MONONITRATE ER 30 MG TAB.ER.24H PO SCH (11:56)
[2022-11-04] MEDS: LIDOCAINE 5% PATCH TOPICAL SCH (11:56)
--- NOTE | 2022-11-04 12:46 | P.PN ---
Subjective Progress Note Date: 11/04/22 I am seeing this patient in new consultation today 11/03/2022 after being trans ferred from [facility] for acute hypoxemic respiratory failure requiring BiPAP. Patient is a 67-year-old female with past medical history significant for chronic obstructive pulmonary disease, obstructive sleep apnea not compliant with CPAP, hypertension, diabetes mellitus type 2, chronic kidney disease stage IV, GERD, and morbid obesity. Patient does follow in the office with Dr. Bergeron for management of her COPD, pulmonary nodule f/u, and suspected nonspecific interstitial pneumonitis. Patient presented to [facility] yesterday complaining of worsening shortness of breath over the preceding 24 hours accompanied with nonradiating epigastric pain. On arrival, patient was in respiratory distress, placed on the BiPAP, and subsequently transferred to [facility]. Patient is currently sitting up in bed, on BiPAP, in no acute distress. ABG on arrival to our facility shows a pO2 of 91, pCO2 of 40, and pH of 7.45 on 100% FiO2. Current BiPAP settings are 15/5 with an FiO2 of 60%. She appears comfortable. No signs of hypercapnic encephalopathy. Respiratory rate in the low 20s and achieving tidal volumes around 500 ML's. Chest x-ray on arrival shows diffuse interstitial infiltrates with small effusions concerning for congestive heart failure although underlying pneumonia is not excluded. She does have chronic fibrotic changes with lower lobe predominance. ProBNP was 9241 at [facility]. Admits epigastric pain prior to presentation to the hospital. Denies heart palpitations, PND. No current lower extremity swelling. Troponins are elevated at 0.79, 0.86, and 0.93 respectfully. ECG shows normal sinus rhythm without any obvious acute ischemic changes. Denies any current chest pain. Admits persistent cough with occasional clear sputum production. Denies any fevers, chills, myalgias, hemoptysis. Denies sick contacts. CBC on arrival was unremarkable. BMP on arrival has a sodium 132, potassium 4.4, chloride 92, serum bicarb 29, BUN 37, creatinine 2.41, glucose 299. Patient has been started on Lasix 40 mg twice a day. Also started on bronchodilators, budesonide and formoterol inhalation, and IV Solu- Medrol. Empirically covered for community-acquired pneumonia. Afebrile. Patient is going to be admitted to the cardiac stepdown unit, we will continue to follow and make On today's evaluation, the patient is being seen in follow-up on 11/04/2022. The patient is doing well. She is less short of breath compared to yesterday. The patient's diabetes IV Lasix. The patient is also on empiric antibiotic coverage and she is also on IV Solu-Medrol. Reports improvement in her shortness of breath. Her presentation was more consistent with CHF although she has an underlying component of COPD. She is a chronic smoker and she is also in need for a nicotine patch. No other new complaints otherwise for now. No chest pain. Objective - Vital Signs Vital signs: Vital Signs Temp 97.8 F 11/04/22 07:47 Pulse 74 11/04/22 09:36 Resp 18 11/04/22 09:36 BP 151/64 11/04/22 07:47 Pulse Ox 96 11/04/22 09:19 FiO2 35 11/03/22 06:08 Intake & Output 11/03/22 11/04/22 11/04/22 18:59 06:59 18:59 Intake Total 980 20 370 Output Total 550 1700 350 Balance 430 -1680 20 Weight 95.5 kg Intake: IV 20 20 10 Invasive Line 2 20 20 10 Oral 960 360 Output: Urine 550 1700 350 Other: Voiding Method External Catheter External Catheter External Catheter - Exam GENERAL EXAM: Alert, 67-year-old obese white female, comfortable in no apparent distress. The patient is currently on 3 L of oxygen by nasal cannula with a pulse ox of 98%. HEAD: Normocephalic and atraumatic EYES: Normal reaction of pupils, equal size. NOSE: Clear with pink turbinates. THROAT: No erythema or exudates. NECK: No masses, no JVD. CHEST: No chest wall deformity. LUNGS: Equal air entry with expiratory wheezes heard throughout. Minimal bibasilar inspiratory crackles. No conversational dyspnea or accessory muscle use.. CVS: S1 and S2 normal with no audible murmur, regular rhythm. No extra heart so unds ABDOMEN: Obese abdomen, no hepatosplenomegaly, active bowel sounds, no guarding or rigidity. SPINE: No scoliosis or deformity SKIN: No rashes CENTRAL NERVOUS SYSTEM: No focal deficits, tone is normal in all 4 extremities. EXTREMITIES: There is no peripheral edema, clubbing, or cyanosis. Peripheral pulses are intact. - Labs CBC & Chem 7: 11/04/22 10:14 11/04/22 10:14 Labs: Abnormal Lab Results - Last 24 Hours (Table) 11/03/22 11/03/22 11/03/22 Range/Units 08:59 11:59 16:54 Neutrophils # 8.0 H (1.3-7.7) k/uL Lymphocytes # 0.4 L (1.0-4.8) k/uL POC Glucose (mg/dL) 368 H 290 H (70-110) mg/dL 11/03/22 11/04/22 Range/Units 20:53 06:32 Neutrophils # (1.3-7.7) k/uL Lymphocytes # (1.0-4.8) k/uL POC Glucose (mg/dL) 232 H 256 H (70-110) mg/dL Assessment and Plan Assessment: Acute hypoxemic respiratory failure, currently on BiPAP, likely secondary to diastolic CHF exacerbation, although, underlying pneumonia is not ruled out. Chest x-ray on arrival shows diffuse interstitial infiltrates with small effusions concerning for congestive heart failure. She does have chronic fibrotic changes with lower lobe predominance. ProBNP was 9241 at [facility]. COVID-19 negative at [facility]. No significant leukocytosis. Afebrile. Acute COPD exacerbation Chronic systolic heart failure with impaired left ventricular ejection fraction Elevated troponins, rule out non-ST elevation [place] Acute on chronic kidney disease, creatinine 2.41 Diabetes mellitus type 2, insulin-dependent Benign essential hypertension Chronic kidney disease stage IV GERD without esophagitis Morbid obesity, with a BMI of 68.6 kg/m Obstructive sleep apnea, noncompliant with CPAP Chronic nicotine dependence Plan: Continue diuretics Discontinue the IV Solu-Medrol. The patient prednisone burst taper Continue the antibiotic antibiotic coverage Discontinue BiPAP for now Continue combination of bronchodilators, formoterol, budesonide, and IV Solu-M edrol Continue empiric antibiotics, and check procalcitonin level was 0.45 NovoLog ACHS to scale for hyperglycemia Protonix for GI prophylaxis Give the patient nicotine patch Repeat chest x-ray in the morning We will continue to follow and make recommendations
--- NOTE | 2022-11-04 13:56 | P.PN ---
Subjective HISTORY OF PRESENT ILLNESS: This is a 67-year-old female with a past medical history significant for hypertension, hyperlipidemia, diabetes, and COPD. Patient does not follow with a school librarian. We have been asked to see the patient in consultation for possible congestive heart failure and elevated troponin. Patient examined at the bedside. Patient reports Tuesday after dinner she went to sit on her bed and she could not breath. She denies chest pain or pressure. Blood pressures are elevated with a SBP 150-160s. * EKG reveals sinus mechanism with no signs of acute ischemia * Chest xray from 11/02/2022 reveals diffuse airspace infiltrates are seen a small effusions. Findings may reflect congestive heart failure although underlying pneumonias excluded. * Laboratory data: WBC 8.5. Hemoglobin 12.9. Platelet count 258. Sodium 130. Potassium 3.6. BUN 36. Creatinine 2.15. Troponin 0.788. 0.864. 0.96. * Current home cardiac medications include Lasix 40 mg daily, amlodipine 10 mg daily, carvedilol 3.125 mg twice a day, hydralazine 50 mg 3 times a day * Echocardiogram completed revealing ejection fraction 30-35%, mild MR, mild TR 11/04/2022 Patient examined this afternoon at the bedside. Patient denies chest pain or pressure. She denies shortness of breath. She is complaining of right shoulder pain and is crying at the time of examination. Vital signs are stable. Blood pressure remains elevated with a recent reading of 175/80. PHYSICAL EXAM: VITAL SIGNS: Reviewed. GENERAL: Well-developed in no acute distress. HEENT: Head is normocephalic. Pupils are equal, round. Sclerae anicteric. Mucous membranes of the mouth are moist. Neck supple. No JVD or thyromegaly LUNGS: Respirations even and unlabored. Lungs with expiratory wheezing throughout. HEART: Regular rate and rhythm. S1 and S2 heard. ABDOMEN: Soft. Nondistended. Nontender. EXTREMITIES: Normal range of motion. No clubbing or cyanosis. Peripheral pulses intact. Minimal lower extremity edema, left greater than right. NEUROLOGIC: Awake and alert. Oriented x 3. ASSESSMENT: Shortness of breath COPD exacerbation Acute on chronic heart failure with reduced EF, 30-35% Acute on chronic hypoxic respiratory failure requiring supplemental oxygen, patient also on home o2 Cardiomyopathy, unknown if ischemic or nonischemic Acute kidney injury Elevated troponins, flat, likely secondary to above, no evidence of acute coronary syndrome Chronic kidney disease Hypertension Hyperlipidemia Diabetes Morbid obesity: BMI 45.8 Nicotine dependence, patient quit smoking 1 week ago Chronic right shoulder pain, patient reports she has dislocated shoulder PLAN: Amlodipine discontinued secondary to cardiomyopathy Increase carvedilol to 25 mg twice a day Add Imdur 30 mg daily Recommend starting Jardiance. However, will hold off secondary to patient's renal function Patient would benefit from MARINO/ARB secondary to cardiomyopathy. However, will hold at this time secondary to kidney function. Outpatient workup for cardiomyopathy Further recommendations pending patient course Nurse practitioner note has been reviewed by physician. Signing provider agrees with the documented findings, assessment, and plan of care. Objective - Vital Signs Vital signs: Vital Signs Temp 98 F 11/04/22 12:00 Pulse 72 11/04/22 12:00 Resp 18 11/04/22 12:00 BP 175/80 11/04/22 12:00 Pulse Ox 98 11/04/22 12:00 FiO2 35 11/03/22 06:08 Intake & Output 11/03/22 11/04/22 11/04/22 18:59 06:59 18:59 Intake Total 980 20 370 Output Total 550 1700 1000 Balance 430 -1680 -630 Weight 95.5 kg Intake: IV 20 20 10 Invasive Line 2 20 20 10 Oral 960 360 Output: Urine 550 1700 1000 Other: Voiding Method External Catheter External Catheter External Catheter - Labs CBC & Chem 7: 11/04/22 10:14 11/04/22 10:14 Labs: Abnormal Lab Results - Last 24 Hours (Table) 11/03/22 11/03/22 11/04/22 Range/Units 16:54 20:53 06:32 Neutrophils # (1.3-7.7) k/uL Lymphocytes # (1.0-4.8) k/uL Sodium (137-145) mmol/L Potassium (3.5-5.1) mmol/L Chloride (98-107) mmol/L BUN (7-17) mg/dL Creatinine (0.52-1.04) mg/dL Glucose (74-99) mg/dL POC Glucose (mg/dL) 290 H 232 H 256 H (70-110) mg/dL Troponin I (0.000-0.034) ng/mL 11/04/22 11/04/22 11/04/22 Range/Units 10:14 10:14 10:14 Neutrophils # 8.2 H (1.3-7.7) k/uL Lymphocytes # 0.4 L (1.0-4.8) k/uL Sodium 129 L (137-145) mmol/L Potassium 3.4 L (3.5-5.1) mmol/L Chloride 88 L (98-107) mmol/L BUN 53 H (7-17) mg/dL Creatinine 1.97 H (0.52-1.04) mg/dL Glucose 270 H (74-99) mg/dL POC Glucose (mg/dL) (70-110) mg/dL Troponin I 0.470 H* (0.000-0.034) ng/mL 11/04/22 Range/Units 11:40 Neutrophils # (1.3-7.7) k/uL Lymphocytes # (1.0-4.8) k/uL Sodium (137-145) mmol/L Potassium (3.5-5.1) mmol/L Chloride (98-107) mmol/L BUN (7-17) mg/dL Creatinine (0.52-1.04) mg/dL Glucose (74-99) mg/dL POC Glucose (mg/dL) 289 H (70-110) mg/dL Troponin I (0.000-0.034) ng/mL
[2022-11-04 16:20] LABS: Glucose,Whole Blood 369 mg/dL (70-110)
[2022-11-04 20:10] LABS: Glucose,Whole Blood 351 mg/dL (70-110)
[2022-11-05] MEDS: HEPARIN SODIUM,PORCINE 5,000 UNIT/ML 1 ML VIAL SQ SCH ×4 (00:01→23:26)
[2022-11-05] MEDS: IPRATROPIUM-ALBUTEROL 3 ML NEB INHALATION SCH ×7 (00:36→21:12)
[2022-11-05 06:07] LABS: Glucose,Whole Blood 230 mg/dL (70-110)
[2022-11-05] MEDS ORDERED: INSULIN DETEMIR (LEVEMIR) 100 UNIT/ML SYR SQ STA (08:32)
[2022-11-05] MEDS: carvediloL 12.5 MG TAB PO SCH ×2 (09:03→16:14)
[2022-11-05] MEDS: INSULIN ASPART (NovoLOG) 100 UNIT/ML VIAL SQ SCH ×5 (09:04→20:25)
[2022-11-05] MEDS: PANTOPRAZOLE 40 MG TABLET PO SCH (09:04)
[2022-11-05] MEDS: NICOTINE 21MG/24HR PATCH TRANSDERM SCH (09:10)
[2022-11-05] MEDS: LIDOCAINE 5% PATCH TOPICAL SCH (09:10)
[2022-11-05] MEDS: VENLAFAXINE HCL ER 37.5 MG CAP PO SCH (09:11)
[2022-11-05] MEDS: ASPIRIN 81 MG PO SCH (09:11)
[2022-11-05] MEDS: ISOSORBIDE MONONITRATE ER 30 MG TAB.ER.24H PO SCH (09:12)
[2022-11-05] MEDS: BUMETANIDE 1 MG TAB PO SCH (09:12)
[2022-11-05] MEDS: predniSONE 20 MG TAB PO SCH (09:12)
[2022-11-05] MEDS: hydrALAZINE HCL 50 MG TAB PO SCH ×3 (09:12→20:25)
[2022-11-05] MEDS: FORMOTEROL FUMARATE 20 MCG/2 ML NEBU INHALATION SCH ×3 (09:43→21:13)
[2022-11-05] MEDS: BUDESONIDE 1 MG/2 ML NEBU INHALATION SCH ×2 (09:43→21:13)
[2022-11-05 10:21] LABS: Basophils % (A) 0 %; Eosinophils # (A) 0.1 k/uL (0-0.7); Eosinophils % (A) 1 %; HCT 41.6 % (34.0-46.0); HGB 13.2 gm/dL (11.4-16.0); Hypochromasia Slight; Lymphocytes # (A) 0.7 k/uL (1.0-4.8); Lymphocytes % (A) 9 %; MCH 28.6 pg (25.0-35.0); MCHC 31.7 g/dL (31.0-37.0); MCV 90.2 fL (80.0-100.0); Mean Platelet Volume 8.1; Monocytes # (A) 0.4 k/uL (0-1.0); Monocytes % (A) 5 %; Neutrophils # (A) 6.7 k/uL (1.3-7.7); Neutrophils % (A) 84 %; Platelet Count 255 k/uL (150-450); RBC 4.61 m/uL (3.80-5.40); RDW 14.7 % (11.5-15.5)
[2022-11-05 10:37] LABS: African American GFR (CKD) 35 (>60 ml/min/1.73 sqM); Blood Urea Nitrogen 59 mg/dL (7-17); Calcium 8.4 mg/dL (8.4-10.2); Carbon Dioxide 31 mmol/L (22-30); Chloride 86 mmol/L (98-107); Glucose 268 mg/dL (74-99); Magnesium 2.2 mg/dL (1.6-2.3); Non-African American GFR(CKD) 31 (>60 ml/min/1.73 sqM); Potassium 3.7 mmol/L (3.5-5.1)
[2022-11-05 10:38] LABS: Anion Gap 8 mmol/L; Sodium 125 mmol/L (137-145)
[2022-11-05 11:30] LABS: Glucose,Whole Blood 276 mg/dL (70-110)
[2022-11-05] MEDS: DAPAGLIFLOZIN PROPANEDIOL 10 MG TABLET PO SCH (12:27)
--- NOTE | 2022-11-05 12:42 | P.PN ---
Subjective HISTORY OF PRESENT ILLNESS: This is a 67-year-old female with a past medical history significant for hypertension, hyperlipidemia, diabetes, and COPD. Patient does not follow with a home service consultant. We have been asked to see the patient in consultation for possible congestive heart failure and elevated troponin. Patient examined at the bedside. Patient reports Tuesday after dinner she went to sit on her bed and she could not breath. She denies chest pain or pressure. Blood pressures are elevated with a SBP 150-160s. * EKG reveals sinus mechanism with no signs of acute ischemia * Chest xray from 11/02/2022 reveals diffuse airspace infiltrates are seen a small effusions. Findings may reflect congestive heart failure although underlying pneumonias excluded. * Laboratory data: WBC 8.5. Hemoglobin 12.9. Platelet count 258. Sodium 130. Potassium 3.6. BUN 36. Creatinine 2.15. Troponin 0.788. 0.864. 0.96. * Current home cardiac medications include Lasix 40 mg daily, amlodipine 10 mg daily, carvedilol 3.125 mg twice a day, hydralazine 50 mg 3 times a day * Echocardiogram completed revealing ejection fraction 30-35%, mild MR, mild TR 11/04/2022 Patient examined this afternoon at the bedside. Patient denies chest pain or pressure. She denies shortness of breath. She is complaining of right shoulder pain and is crying at the time of examination. Vital signs are stable. Blood pressure remains elevated with a recent reading of 175/80. 11/05/2022 Patient examined this morning at the bedside. Patient denies chest pain or pressure. She denies shortness of breath. She states her right shoulder pain has resolved. She reports relief with a lidocaine patch. Blood pressure 126/57. PHYSICAL EXAM: VITAL SIGNS: Reviewed. GENERAL: Well-developed in no acute distress. HEENT: Head is normocephalic. Pupils are equal, round. Sclerae anicteric. Mucous membranes of the mouth are moist. Neck supple. No JVD or thyromegaly LUNGS: Respirations even and unlabored. Lungs clear to auscultation HEART: Regular rate and rhythm. S1 and S2 heard. ABDOMEN: Soft. Nondistended. Nontender. EXTREMITIES: Normal range of motion. No clubbing or cyanosis. Peripheral pulses intact. Minimal lower extremity edema, left greater than right. NEUROLOGIC: Awake and alert. Oriented x 3. ASSESSMENT: Shortness of breath COPD exacerbation Acute on chronic heart failure with reduced EF, 30-35% Acute on chronic hypoxic respiratory failure requiring supplemental oxygen, patient also on home o2 Cardiomyopathy, unknown if ischemic or nonischemic Acute kidney injury Elevated troponins, flat, likely secondary to above, no evidence of acute coronary syndrome Chronic kidney disease Hypertension Hyperlipidemia Diabetes Morbid obesity: BMI 45.8 Nicotine dependence, patient quit smoking 1 week ago Chronic right shoulder pain, patient reports she has dislocated shoulder PLAN: Amlodipine discontinued secondary to cardiomyopathy Add Farxiga 10mg daily (patient takes Jardiance at home) Patient would benefit from MARINO/ARB secondary to cardiomyopathy. However, will hold at this time secondary to kidney function. Outpatient workup for cardiomyopathy Patient is stable for discharge home today from a cardiac standpoint Nurse practitioner note has been reviewed by physician. Signing provider agrees with the documented findings, assessment, and plan of care. Objective - Vital Signs Vital signs: Vital Signs Temp 97.8 F 11/04/22 15:20 Pulse 68 11/05/22 09:54 Resp 16 11/05/22 08:00 BP 126/57 11/05/22 08:00 Pulse Ox 94 L 11/05/22 08:00 FiO2 35 11/03/22 06:08 Intake & Output 11/04/22 11/05/22 11/05/22 18:59 06:59 18:59 Intake Total 860 10 360 Output Total 1000 600 650 Balance -140 -590 -290 Intake: IV 20 10 Invasive Line 2 20 10 Oral 840 360 Output: Urine 1000 600 650 Other: Voiding Method External Catheter External Catheter External Catheter - Labs CBC & Chem 7: 11/05/22 09:37 11/05/22 09:37 Labs: Abnormal Lab Results - Last 24 Hours (Table) 11/03/22 11/04/22 11/04/22 Range/Units 08:59 16:18 20:07 Lymphocytes # (1.0-4.8) k/uL Sodium (137-145) mmol/L Chloride (98-107) mmol/L Carbon Dioxide (22-30) mmol/L BUN (7-17) mg/dL Creatinine (0.52-1.04) mg/dL Glucose (74-99) mg/dL POC Glucose (mg/dL) 369 H 351 H (70-110) mg/dL Hemoglobin A1c 7.3 H (<=6.0) % 11/05/22 11/05/22 11/05/22 Range/Units 06:06 09:37 09:37 Lymphocytes # 0.7 L (1.0-4.8) k/uL Sodium 125 L (137-145) mmol/L Chloride 86 L (98-107) mmol/L Carbon Dioxide 31 H (22-30) mmol/L BUN 59 H (7-17) mg/dL Creatinine 1.72 H (0.52-1.04) mg/dL Glucose 268 H (74-99) mg/dL POC Glucose (mg/dL) 230 H (70-110) mg/dL Hemoglobin A1c (<=6.0) % 11/05/22 Range/Units 11:28 Lymphocytes # (1.0-4.8) k/uL Sodium (137-145) mmol/L Chloride (98-107) mmol/L Carbon Dioxide (22-30) mmol/L BUN (7-17) mg/dL Creatinine (0.52-1.04) mg/dL Glucose (74-99) mg/dL POC Glucose (mg/dL) 276 H (70-110) mg/dL Hemoglobin A1c (<=6.0) %
--- NOTE | 2022-11-05 14:05 | P.PN ---
Subjective Progress Note Date: 11/05/22 I am seeing this patient in new consultation today 11/03/2022 after being trans ferred from [facility] for acute hypoxemic respiratory failure requiring BiPAP. Patient is a 67-year-old female with past medical history significant for chronic obstructive pulmonary disease, obstructive sleep apnea not compliant with CPAP, hypertension, diabetes mellitus type 2, chronic kidney disease stage IV, GERD, and morbid obesity. Patient does follow in the office with Dr. Bergeron for management of her COPD, pulmonary nodule f/u, and suspected nonspecific interstitial pneumonitis. Patient presented to [facility] yesterday complaining of worsening shortness of breath over the preceding 24 hours accompanied with nonradiating epigastric pain. On arrival, patient was in respiratory distress, placed on the BiPAP, and subsequently transferred to [facility]. Patient is currently sitting up in bed, on BiPAP, in no acute distress. ABG on arrival to our facility shows a pO2 of 91, pCO2 of 40, and pH of 7.45 on 100% FiO2. Current BiPAP settings are 15/5 with an FiO2 of 60%. She appears comfortable. No signs of hypercapnic encephalopathy. Respiratory rate in the low 20s and achieving tidal volumes around 500 ML's. Chest x-ray on arrival shows diffuse interstitial infiltrates with small effusions concerning for congestive heart failure although underlying pneumonia is not excluded. She does have chronic fibrotic changes with lower lobe predominance. ProBNP was 9241 at [facility]. Admits epigastric pain prior to presentation to the hospital. Denies heart palpitations, PND. No current lower extremity swelling. Troponins are elevated at 0.79, 0.86, and 0.93 respectfully. ECG shows normal sinus rhythm without any obvious acute ischemic changes. Denies any current chest pain. Admits persistent cough with occasional clear sputum production. Denies any fevers, chills, myalgias, hemoptysis. Denies sick contacts. CBC on arrival was unremarkable. BMP on arrival has a sodium 132, potassium 4.4, chloride 92, serum bicarb 29, BUN 37, creatinine 2.41, glucose 299. Patient has been started on Lasix 40 mg twice a day. Also started on bronchodilators, budesonide and formoterol inhalation, and IV Solu- Medrol. Empirically covered for community-acquired pneumonia. Afebrile. Patient is going to be admitted to the cardiac stepdown unit, we will continue to follow and make On today's evaluation, the patient is being seen in follow-up on 11/04/2022. The patient is doing well. She is less short of breath compared to yesterday. The patient's diabetes IV Lasix. The patient is also on empiric antibiotic coverage and she is also on IV Solu-Medrol. Reports improvement in her shortness of breath. Her presentation was more consistent with CHF although she has an underlying component of COPD. She is a chronic smoker and she is also in need for a nicotine patch. No other new complaints otherwise for now. No chest pain. 11/05/2022, the patient is feeling much better and she feels her overall respiratory status is back to her baseline. She was treated for COPD exacerbation in addition to CHF. She remains on bronchodilators and she is on DuoNeb about treatments [id number]. She is on a prednisone burst taper. She is also on Bumex 1 mg a day. She is on oxygen at 3 L/m nasal cannula. She has limited cough. No angina. No palpitations. No chest pain. She has been maintained on Symbicort on outpatient basis. The patient's blood work from today shows a sodium level of 125, potassium level of 3.7, BUN is 59 with a creatinine of 1.7. WBC count is at 8 with a hemoglobin 15.2 Objective - Vital Signs Vital signs: Vital Signs Temp 97.8 F 11/04/22 15:20 Pulse 68 11/05/22 09:54 Resp 16 11/05/22 08:00 BP 126/57 11/05/22 08:00 Pulse Ox 94 L 11/05/22 08:00 FiO2 35 11/03/22 06:08 Intake & Output 11/04/22 11/05/22 11/05/22 18:59 06:59 18:59 Intake Total 860 10 360 Output Total 1000 600 650 Balance -140 -590 -290 Intake: IV 20 10 Invasive Line 2 20 10 Oral 840 360 Output: Urine 1000 600 650 Other: Voiding Method External Catheter External Catheter External Catheter - Exam GENERAL EXAM: Alert, 67-year-old obese white female, comfortable in no apparent distress. The patient is currently on 3 L of oxygen by nasal cannula with a pulse ox of 98%. HEAD: Normocephalic and atraumatic EYES: Normal reaction of pupils, equal size. NOSE: Clear with pink turbinates. THROAT: No erythema or exudates. NECK: No masses, no JVD. CHEST: No chest wall deformity. LUNGS: Equal air entry with expiratory wheezes heard throughout. Minimal bibasilar inspiratory crackles. No conversational dyspnea or accessory muscle use.. CVS: S1 and S2 normal with no audible murmur, regular rhythm. No extra heart sounds ABDOMEN: Obese abdomen, no hepatosplenomegaly, active bowel sounds, no guarding or rigidity. SPINE: No scoliosis or deformity SKIN: No rashes CENTRAL NERVOUS SYSTEM: No focal deficits, tone is normal in all 4 extremities. EXTREMITIES: There is no peripheral edema, clubbing, or cyanosis. Peripheral pulses are intact. - Labs CBC & Chem 7: 11/05/22 09:37 11/05/22 09:37 Labs: Abnormal Lab Results - Last 24 Hours (Table) 11/03/22 11/04/22 11/04/22 Range/Units 08:59 10:14 11:40 Lymphocytes # (1.0-4.8) k/uL Sodium (137-145) mmol/L Chloride (98-107) mmol/L Carbon Dioxide (22-30) mmol/L BUN (7-17) mg/dL Creatinine (0.52-1.04) mg/dL Glucose (74-99) mg/dL POC Glucose (mg/dL) 289 H (70-110) mg/dL Hemoglobin A1c 7.3 H (<=6.0) % Troponin I 0.470 H* (0.000-0.034) ng/mL 11/04/22 11/04/22 11/05/22 Range/Units 16:18 20:07 06:06 Lymphocytes # (1.0-4.8) k/uL Sodium (137-145) mmol/L Chloride (98-107) mmol/L Carbon Dioxide (22-30) mmol/L BUN (7-17) mg/dL Creatinine (0.52-1.04) mg/dL Glucose (74-99) mg/dL POC Glucose (mg/dL) 369 H 351 H 230 H (70-110) mg/dL Hemoglobin A1c (<=6.0) % Troponin I (0.000-0.034) ng/mL 11/05/22 11/05/22 Range/Units 09:37 09:37 Lymphocytes # 0.7 L (1.0-4.8) k/uL Sodium 125 L (137-145) mmol/L Chloride 86 L (98-107) mmol/L Carbon Dioxide 31 H (22-30) mmol/L BUN 59 H (7-17) mg/dL Creatinine 1.72 H (0.52-1.04) mg/dL Glucose 268 H (74-99) mg/dL POC Glucose (mg/dL) (70-110) mg/dL Hemoglobin A1c (<=6.0) % Troponin I (0.000-0.034) ng/mL Assessment and Plan Assessment: Acute hypoxemic respiratory failure, currently on BiPAP, likely secondary to diastolic CHF exacerbation, although, underlying pneumonia is not ruled out. Chest x-ray on arrival shows diffuse interstitial infiltrates with small effusions concerning for congestive heart failure. She does have chronic fibrot ic changes with lower lobe predominance. ProBNP was 9241 at [facility]. COVID-19 negative at [facility]. No significant leukocytosis. Afebrile. Acute COPD exacerbation Chronic systolic heart failure with impaired left ventricular ejection fraction Elevated troponins, rule out non-ST elevation [place] Acute on chronic kidney disease, creatinine is improving and the creatinine is down to 1.7 Hyponatremia with drop in sodium level is down to 125 Diabetes mellitus type 2, insulin-dependent Benign essential hypertension Chronic kidney disease stage IV GERD without esophagitis Morbid obesity, with a BMI of 68.6 kg/m Obstructive sleep apnea, noncompliant with CPAP Chronic nicotine dependence Plan: May need to hold Bumex and monitor sodium level Fluid restriction Prednisone burst taper Continue combination of bronchodilators, formoterol, budesonide, and the patient is on Symbicort on outpatient basis Continue empiric antibiotics, and check procalcitonin level was 0.45 NovoLog ACHS to scale for hyperglycemia Protonix for GI prophylaxis Give the patient nicotine patch We will continue to follow and make recommendations
--- NOTE | 2022-11-05 14:47 | P.PN ---
Subjective Progress Note Date: 11/05/22 No new complaints. Breathing is signficantly improved per patient. Hyponatremic now to 125 Gen: awake, alert HEENT: normocephalic, atraumatic, good hearing acuity, moist mucous membranes Resp: good air exchange, breathing comfortably with no accessory muscle use CVS: good distal perfusion x 4, GI: soft, NTTP, ND : no SPT, no CVAT, staley catheter not present MSK: no pitting edema, no clubbing Neuro: non-focal, moving all extremities Psych: cooperative, euthymic mood Hospital Course: 67-year-old woman with medical history of COPD, hypertension, diabetes, hyperlipidemia presented for evaluation of dyspnea. In the emergency room, patient was afebrile, 148/69, heart rate 78, 95% on BiPAP with an FiO2 of 75%. CBC shows leukocytosis to 11.4. Basic metabolic panel shows sodium of 132, chloride of 92, BMI of 37, creatinine 2.41, glucose was 299. Liver function tests are unremarkable. Initial troponin was 0.788. Coags are unremarkable. ABG showed a pH of 7.45, pCO2 of 40, pO2 of 91 on FiO2 of 100%. EKG shows normal sinus rhythm with no evidence of ischemia. Chest x-ray shows bilateral pulmonary infiltrates concerning for pulmonary edema. Case was discussed with emergency room provider and Decision was made to admit the patient for heart failure exacerbation. Assessment: Acute heart failure exacerbation, EF 35-40% Acute hypoxemic respiratory failure Elevated troponin secondary to the above Acute kidney injury superimposed on chronic kidney disease stage IIIB COPD without exacerbation Hypertension Hyperlipidemia Diabetes type 2 Plan: BMP shows Na of 125, Cl 86, BUN 59, Cr 1.72 BS 276-351 Nephrology consulted today for hyponatremia Lasix 40 mg IV twice a day to be switched to bumex 1mg PO daily Ceftriaxone 1 g daily, azithromycin 500 mg daily initiated in the ER, I will discontinue this today Patient is full code Objective - Vital Signs Vital signs: Vital Signs Temp 97.8 F 11/04/22 15:20 Pulse 68 11/05/22 09:54 Resp 16 11/05/22 08:00 BP 126/57 11/05/22 08:00 Pulse Ox 94 L 11/05/22 08:00 FiO2 35 11/03/22 06:08 Intake & Output 0811/05/22 11/05/22 18:59 06:59 18:59 Intake Total 860 10 780 Output Total 1000 600 650 Balance -140 -590 130 Intake: IV 20 10 Invasive Line 2 20 10 Oral 840 780 Output: Urine 1000 600 650 Other: Voiding Method External Catheter External Catheter External Catheter - Labs CBC & Chem 7: 11/05/22 09:37 11/05/22 09:37 Labs: Abnormal Lab Results - Last 24 Hours (Table) 11/03/22 11/04/22 11/04/22 Range/Units 08:59 16:18 20:07 Lymphocytes # (1.0-4.8) k/uL Sodium (137-145) mmol/L Chloride (98-107) mmol/L Carbon Dioxide (22-30) mmol/L BUN (7-17) mg/dL Creatinine (0.52-1.04) mg/dL Glucose (74-99) mg/dL POC Glucose (mg/dL) 369 H 351 H (70-110) mg/dL Hemoglobin A1c 7.3 H (<=6.0) % 11/05/22 11/05/22 11/05/22 Range/Units 06:06 09:37 09:37 Lymphocytes # 0.7 L (1.0-4.8) k/uL Sodium 125 L (137-145) mmol/L Chloride 86 L (98-107) mmol/L Carbon Dioxide 31 H (22-30) mmol/L BUN 59 H (7-17) mg/dL Creatinine 1.72 H (0.52-1.04) mg/dL Glucose 268 H (74-99) mg/dL POC Glucose (mg/dL) 230 H (70-110) mg/dL Hemoglobin A1c (<=6.0) % 11/05/22 Range/Units 11:28 Lymphocytes # (1.0-4.8) k/uL Sodium (137-145) mmol/L Chloride (98-107) mmol/L Carbon Dioxide (22-30) mmol/L BUN (7-17) mg/dL Creatinine (0.52-1.04) mg/dL Glucose (74-99) mg/dL POC Glucose (mg/dL) 276 H (70-110) mg/dL Hemoglobin A1c (<=6.0) %
[2022-11-05 15:08] LABS: African American GFR (CKD) 35 (>60 ml/min/1.73 sqM); Anion Gap 8 mmol/L; Blood Urea Nitrogen 60 mg/dL (7-17); Calcium 8.5 mg/dL (8.4-10.2); Carbon Dioxide 32 mmol/L (22-30); Chloride 86 mmol/L (98-107); Glucose 384 mg/dL (74-99); Non-African American GFR(CKD) 30 (>60 ml/min/1.73 sqM); Potassium 3.9 mmol/L (3.5-5.1); Sodium 126 mmol/L (137-145)
[2022-11-05 16:09] LABS: Glucose,Whole Blood 342 mg/dL (70-110)
[2022-11-05] MEDS ORDERED: ALPRAZolam 0.5 MG TAB PO STA (16:24)
[2022-11-05] MEDS: ACETAMINOPHEN TAB 325 MG TAB PO PRN (16:28)
[2022-11-05] MEDS: CYCLOBENZAPRINE 5 MG TAB PO PRN (16:29)
[2022-11-05 16:42] LABS: Glucose,Whole Blood 361 mg/dL (70-110)
[2022-11-05 16:59] LABS: T4, Free (Free Thyroxine) 2.15 ng/dL (0.78-2.19)
[2022-11-05 20:23] LABS: Glucose,Whole Blood 358 mg/dL (70-110)
[2022-11-05 20:27] LABS: African American GFR (CKD) 33 (>60 ml/min/1.73 sqM); Anion Gap 11 mmol/L; Blood Urea Nitrogen 60 mg/dL (7-17); Calcium 8.4 mg/dL (8.4-10.2); Carbon Dioxide 32 mmol/L (22-30); Chloride 85 mmol/L (98-107); Glucose 368 mg/dL (74-99); Non-African American GFR(CKD) 28 (>60 ml/min/1.73 sqM); Potassium 3.6 mmol/L (3.5-5.1); Sodium 128 mmol/L (137-145)
[2022-11-05] MEDS ORDERED: INSULIN DETEMIR (LEVEMIR) 100 UNIT/ML SYR SQ SCH (21:00)
[2022-11-06] MEDS: IPRATROPIUM-ALBUTEROL 3 ML NEB INHALATION SCH ×4 (01:17→12:34)
[2022-11-06 02:23] LABS: African American GFR (CKD) 34 (>60 ml/min/1.73 sqM); Anion Gap 6 mmol/L; Blood Urea Nitrogen 58 mg/dL (7-17); Calcium 8.5 mg/dL (8.4-10.2); Carbon Dioxide 34 mmol/L (22-30); Chloride 89 mmol/L (98-107); Glucose 144 mg/dL (74-99); Non-African American GFR(CKD) 29 (>60 ml/min/1.73 sqM); Potassium 3.6 mmol/L (3.5-5.1); Sodium 129 mmol/L (137-145)
[2022-11-06] MEDS: INSULIN ASPART (NovoLOG) 100 UNIT/ML VIAL SQ SCH ×7 (06:19→21:34)
[2022-11-06] MEDS: PANTOPRAZOLE 40 MG TABLET PO SCH (06:20)
[2022-11-06] MEDS: carvediloL 12.5 MG TAB PO SCH ×2 (06:20→17:08)
[2022-11-06 06:21] LABS: Glucose,Whole Blood 66 mg/dL (70-110)
[2022-11-06 06:38] LABS: Glucose,Whole Blood 86 mg/dL (70-110)
[2022-11-06] MEDS: HEPARIN SODIUM,PORCINE 5,000 UNIT/ML 1 ML VIAL SQ SCH ×2 (07:51→17:08)
[2022-11-06] MEDS: predniSONE 20 MG TAB PO SCH (07:52)
[2022-11-06] MEDS: ISOSORBIDE MONONITRATE ER 30 MG TAB.ER.24H PO SCH (07:52)
[2022-11-06] MEDS: INSULIN DETEMIR (LEVEMIR) 100 UNIT/ML SYR SQ SCH (07:52)
[2022-11-06] MEDS: ASPIRIN 81 MG PO SCH (07:53)
[2022-11-06] MEDS: hydrALAZINE HCL 50 MG TAB PO SCH ×3 (07:53→20:24)
[2022-11-06] MEDS: DAPAGLIFLOZIN PROPANEDIOL 10 MG TABLET PO SCH (07:53)
[2022-11-06] MEDS: LIDOCAINE 5% PATCH TOPICAL SCH (07:54)
[2022-11-06] MEDS: NICOTINE 21MG/24HR PATCH TRANSDERM SCH (07:54)
[2022-11-06] MEDS: VENLAFAXINE HCL ER 37.5 MG CAP PO SCH (07:54)
[2022-11-06] MEDS: BUMETANIDE 1 MG TAB PO SCH (07:59)
[2022-11-06] MEDS ORDERED: amLODIPine 5 MG TAB PO SCH ×2 (09:00→16:00)
[2022-11-06] MEDS: BUDESONIDE 1 MG/2 ML NEBU INHALATION SCH ×2 (09:28→21:23)
[2022-11-06] MEDS: FORMOTEROL FUMARATE 20 MCG/2 ML NEBU INHALATION SCH ×2 (09:28→21:23)
[2022-11-06 10:00] LABS: African American GFR (CKD) 35 (>60 ml/min/1.73 sqM); Anion Gap 7 mmol/L; Blood Urea Nitrogen 53 mg/dL (7-17); Calcium 8.5 mg/dL (8.4-10.2); Carbon Dioxide 35 mmol/L (22-30); Chloride 89 mmol/L (98-107); Glucose 119 mg/dL (74-99); Non-African American GFR(CKD) 30 (>60 ml/min/1.73 sqM); Potassium 3.6 mmol/L (3.5-5.1); Sodium 131 mmol/L (137-145)
[2022-11-06 11:21] LABS: Glucose,Whole Blood 86 mg/dL (70-110)
--- NOTE | 2022-11-06 13:59 | P.PN ---
Subjective Progress Note Date: 11/06/22 I am seeing this patient in new consultation today 11/03/2022 after being trans ferred from [facility] for acute hypoxemic respiratory failure requiring BiPAP. Patient is a 67-year-old female with past medical history significant for chronic obstructive pulmonary disease, obstructive sleep apnea not compliant with CPAP, hypertension, diabetes mellitus type 2, chronic kidney disease stage IV, GERD, and morbid obesity. Patient does follow in the office with Dr. Bergeron for management of her COPD, pulmonary nodule f/u, and suspected nonspecific interstitial pneumonitis. Patient presented to [facility] yesterday complaining of worsening shortness of breath over the preceding 24 hours accompanied with nonradiating epigastric pain. On arrival, patient was in respiratory distress, placed on the BiPAP, and subsequently transferred to [facility]. Patient is currently sitting up in bed, on BiPAP, in no acute distress. ABG on arrival to our facility shows a pO2 of 91, pCO2 of 40, and pH of 7.45 on 100% FiO2. Current BiPAP settings are 15/5 with an FiO2 of 60%. She appears comfortable. No signs of hypercapnic encephalopathy. Respiratory rate in the low 20s and achieving tidal volumes around 500 ML's. Chest x-ray on arrival shows diffuse interstitial infiltrates with small effusions concerning for congestive heart failure although underlying pneumonia is not excluded. She does have chronic fibrotic changes with lower lobe predominance. ProBNP was 9241 at [facility]. Admits epigastric pain prior to presentation to the hospital. Denies heart palpitations, PND. No current lower extremity swelling. Troponins are elevated at 0.79, 0.86, and 0.93 respectfully. ECG shows normal sinus rhythm without any obvious acute ischemic changes. Denies any current chest pain. Admits persistent cough with occasional clear sputum production. Denies any fevers, chills, myalgias, hemoptysis. Denies sick contacts. CBC on arrival was unremarkable. BMP on arrival has a sodium 132, potassium 4.4, chloride 92, serum bicarb 29, BUN 37, creatinine 2.41, glucose 299. Patient has been started on Lasix 40 mg twice a day. Also started on bronchodilators, budesonide and formoterol inhalation, and IV Solu- Medrol. Empirically covered for community-acquired pneumonia. Afebrile. Patient is going to be admitted to the cardiac stepdown unit, we will continue to follow and make On today's evaluation, the patient is being seen in follow-up on 11/04/2022. The patient is doing well. She is less short of breath compared to yesterday. The patient's diabetes IV Lasix. The patient is also on empiric antibiotic coverage and she is also on IV Solu-Medrol. Reports improvement in her shortness of breath. Her presentation was more consistent with CHF although she has an underlying component of COPD. She is a chronic smoker and she is also in need for a nicotine patch. No other new complaints otherwise for now. No chest pain. 11/05/2022, the patient is feeling much better and she feels her overall respiratory status is back to her baseline. She was treated for COPD exacerbation in addition to CHF. She remains on bronchodilators and she is on DuoNeb about treatments [id number]. She is on a prednisone burst taper. She is also on Bumex 1 mg a day. She is on oxygen at 3 L/m nasal cannula. She has limited cough. No angina. No palpitations. No chest pain. She has been maintained on Symbicort on outpatient basis. The patient's blood work from today shows a sodium level of 125, potassium level of 3.7, BUN is 59 with a creatinine of 1.7. WBC count is at 8 with a hemoglobin 15.2 11/06/2022, the patient is improving. She has no specific complaints. Her sodium level was low and his fluids up to 131. BUN is at 53 with a creatinine of 1.7. The patient remains on DuoNeb about treatments [id number]. The patient is on Perforomist and Pulmicort updrafts. The patient is on a prednisone burst taper. The patient negative patch. Diuretics and form of Bumex 1 mg by mouth daily Objective - Vital Signs Vital signs: Vital Signs Temp 97.9 F 11/05/22 20:00 Pulse 65 11/06/22 11:16 Resp 18 11/06/22 11:16 BP 162/77 11/06/22 11:16 Pulse Ox 94 L 11/06/22 11:16 FiO2 35 11/03/22 06:08 Intake & Output 11/05/22 11/06/22 11/06/22 18:59 06:59 18:59 Intake Total 920 Output Total 1550 1140 400 Balance -073 -1140 400 Intake: Oral 920 Output: Urine 1550 1140 400 Other: Voiding Method External Catheter External Catheter External Catheter # Voids 1 - Exam GENERAL EXAM: Alert, 67-year-old obese white female, comfortable in no apparent distress. The patient is currently on 3 L of oxygen by nasal cannula with a pulse ox of 98%. HEAD: Normocephalic and atraumatic EYES: Normal reaction of pupils, equal size. NOSE: Clear with pink turbinates. THROAT: No erythema or exudates. NECK: No masses, no JVD. CHEST: No chest wall deformity. LUNGS: Equal air entry with expiratory wheezes heard throughout. Minimal bibasilar inspiratory crackles. No conversational dyspnea or accessory muscle use.. CVS: S1 and S2 normal with no audible murmur, regular rhythm. No extra heart sounds ABDOMEN: Obese abdomen, no hepatosplenomegaly, active bowel sounds, no guarding or rigidity. SPINE: No scoliosis or deformity SKIN: No rashes CENTRAL NERVOUS SYSTEM: No focal deficits, tone is normal in all 4 extremities. EXTREMITIES: There is no peripheral edema, clubbing, or cyanosis. Peripheral pulses are intact. - Labs CBC & Chem 7: 11/05/22 09:37 11/06/22 08:43 Labs: Abnormal Lab Results - Last 24 Hours (Table) 11/05/22 11/05/22 11/05/22 Range/Units 14:18 16:08 16:40 Sodium 126 L (137-145) mmol/L Chloride 86 L (98-107) mmol/L Carbon Dioxide 32 H (22-30) mmol/L BUN 60 H (7-17) mg/dL Creatinine 1.73 H (0.52-1.04) mg/dL Glucose 384 H (74-99) mg/dL POC Glucose (mg/dL) 342 H 361 H (70-110) mg/dL Osmolality 303 H (280-301) mosm/kg TSH 0.275 L (0.465-4.680) mIU/L 11/05/22 11/05/22 11/06/22 Range/Units 19:48 20:22 01:56 Sodium 128 L 129 L (137-145) mmol/L Chloride 85 L 89 L (98-107) mmol/L Carbon Dioxide 32 H 34 H (22-30) mmol/L BUN 60 H 58 H (7-17) mg/dL Creatinine 1.84 H 1.79 H (0.52-1.04) mg/dL Glucose 368 H 144 H (74-99) mg/dL POC Glucose (mg/dL) 358 H (70-110) mg/dL Osmolality (280-301) mosm/kg TSH (0.465-4.680) mIU/L 11/06/22 11/06/22 Range/Units 06:19 08:43 Sodium 131 L (137-145) mmol/L Chloride 89 L (98-107) mmol/L Carbon Dioxide 35 H (22-30) mmol/L BUN 53 H (7-17) mg/dL Creatinine 1.73 H (0.52-1.04) mg/dL Glucose 119 H (74-99) mg/dL POC Glucose (mg/dL) 66 L (70-110) mg/dL Osmolality (280-301) mosm/kg TSH (0.465-4.680) mIU/L Assessment and Plan Assessment: Acute hypoxemic respiratory failure, currently on BiPAP, likely secondary to diastolic CHF exacerbation, although, underlying pneumonia is not ruled out. Chest x-ray on arrival shows diffuse interstitial infiltrates with small effusions concerning for congestive heart failure. She does have chronic fibrotic changes with lower lobe predominance. ProBNP was 9241 at [facility]. COVID-19 negative at [facility]. No significant leukocytosis. Afebrile. The patient is stable Acute COPD exacerbation, improved Chronic systolic heart failure with impaired left ventricular ejection fraction Elevated troponins, rule out non-ST elevation OK Acute on chronic kidney disease, creatinine is improving and the creatinine is down to 1.7 Hyponatremia with drop in sodium level is down to 125 Diabetes mellitus type 2, insulin-dependent Benign essential hypertension Chronic kidney disease stage IV GERD without esophagitis Morbid obesity, with a BMI of 68.6 kg/m Obstructive sleep apnea, noncompliant with CPAP Chronic nicotine dependence Plan: Sodium level is improved Renal function continues to improve Fluid restriction Prednisone burst taper Continue Bumex Continue combination of bronchodilators, formoterol, budesonide, and the patient is on Symbicort on outpatient basis Continue empiric antibiotics, and check procalcitonin level was 0.45 NovoLog ACHS to scale for hyperglycemia Protonix for GI prophylaxis Give the patient nicotine patch We will continue to follow and make recommendations, possible home within next 24 hours
--- NOTE | 2022-11-06 14:47 | P.PN ---
Subjective Progress Note Date: 11/06/22 No new complaints. Breathing is signficantly improved per patient. Hyponatremic now to 131 Gen: awake, alert HEENT: normocephalic, atraumatic, good hearing acuity, moist mucous membranes Resp: good air exchange, breathing comfortably with no accessory muscle use CVS: good distal perfusion x 4, GI: soft, NTTP, ND : no SPT, no CVAT, staley catheter not present MSK: no pitting edema, no clubbing Neuro: non-focal, moving all extremities Psych: cooperative, euthymic mood Hospital Course: 67-year-old woman with medical history of COPD, hypertension, diabetes, hyperlipidemia presented for evaluation of dyspnea. In the emergency room, patient was afebrile, 148/69, heart rate 78, 95% on BiPAP with an FiO2 of 75%. CBC shows leukocytosis to 11.4. Basic metabolic panel shows sodium of 132, chloride of 92, BMI of 37, creatinine 2.41, glucose was 299. Liver function tests are unremarkable. Initial troponin was 0.788. Coags are unremarkable. ABG showed a pH of 7.45, pCO2 of 40, pO2 of 91 on FiO2 of 100%. EKG shows normal sinus rhythm with no evidence of ischemia. Chest x-ray shows bilateral pulmonary infiltrates concerning for pulmonary edema. Case was discussed with emergency room provider and Decision was made to admit the patient for heart failure exacerbation. Assessment: Acute heart failure exacerbation, EF 35-40% Acute hypoxemic respiratory failure Elevated troponin secondary to the above Acute kidney injury superimposed on chronic kidney disease stage IIIB COPD without exacerbation Hypertension Hyperlipidemia Diabetes type 2 Plan: BMP shows Na of 131, Cl 86, BUN 59, Cr 1.73 SOsm 303, UOsm 360 TSH 0.275, FT4 2.15, Cortisol 22 Nephrology consulted, discussed with them today, they will evaluate and consider samsca Continue bumex 1mg PO daily Duonebs q4h changed to PRN Insulin levemir 15U daily started, 32U HS resumed and downtitrated to 20U HS Coreg 25mg BID Patient is full code Objective - Vital Signs Vital signs: Vital Signs Temp 97.9 F 11/05/22 20:00 Pulse 70 11/06/22 12:46 Resp 18 11/06/22 11:16 BP 162/77 11/06/22 11:16 Pulse Ox 94 L 11/06/22 11:16 FiO2 35 11/03/22 06:08 Intake & Output 11/05/22 11/06/22 11/06/22 18:59 06:59 18:59 Intake Total 920 Output Total 1550 1140 400 Balance -928 -1140 -400 Intake: Oral 920 Output: Urine 1550 1140 400 Other: Voiding Method External Catheter External Catheter External Catheter # Voids 1 - Labs CBC & Chem 7: 11/05/22 09:37 11/06/22 08:43 Labs: Abnormal Lab Results - Last 24 Hours (Table) 11/05/22 11/05/22 11/05/22 Range/Units 14:18 16:08 16:40 Sodium 126 L (137-145) mmol/L Chloride 86 L (98-107) mmol/L Carbon Dioxide 32 H (22-30) mmol/L BUN 60 H (7-17) mg/dL Creatinine 1.73 H (0.52-1.04) mg/dL Glucose 384 H (74-99) mg/dL POC Glucose (mg/dL) 342 H 361 H (70-110) mg/dL Osmolality 303 H (280-301) mosm/kg TSH 0.275 L (0.465-4.680) mIU/L 11/05/22 11/05/22 11/06/22 Range/Units 19:48 20:22 01:56 Sodium 128 L 129 L (137-145) mmol/L Chloride 85 L 89 L (98-107) mmol/L Carbon Dioxide 32 H 34 H (22-30) mmol/L BUN 60 H 58 H (7-17) mg/dL Creatinine 1.84 H 1.79 H (0.52-1.04) mg/dL Glucose 368 H 144 H (74-99) mg/dL POC Glucose (mg/dL) 358 H (70-110) mg/dL Osmolality (280-301) mosm/kg TSH (0.465-4.680) mIU/L 11/06/22 11/06/22 Range/Units 06:19 08:43 Sodium 131 L (137-145) mmol/L Chloride 89 L (98-107) mmol/L Carbon Dioxide 35 H (22-30) mmol/L BUN 53 H (7-17) mg/dL Creatinine 1.73 H (0.52-1.04) mg/dL Glucose 119 H (74-99) mg/dL POC Glucose (mg/dL) 66 L (70-110) mg/dL Osmolality (280-301) mosm/kg TSH (0.465-4.680) mIU/L
[2022-11-06 15:00] LABS: African American GFR (CKD) 35 (>60 ml/min/1.73 sqM); Anion Gap 8 mmol/L; Blood Urea Nitrogen 54 mg/dL (7-17); Calcium 8.4 mg/dL (8.4-10.2); Carbon Dioxide 34 mmol/L (22-30); Chloride 88 mmol/L (98-107); Glucose 171 mg/dL (74-99); Non-African American GFR(CKD) 30 (>60 ml/min/1.73 sqM); Potassium 3.8 mmol/L (3.5-5.1); Sodium 130 mmol/L (137-145)
[2022-11-06] MEDS ORDERED: carvediloL 12.5 MG TAB PO STA (15:20)
--- NOTE | 2022-11-06 16:05 | P.NPCON ---
History of Present Illness - Reason for Consult Consult date: 11/06/22 hyponatremia - Chief Complaint Shortness of breath - History of Present Illness 67-year-old white female coming to the hospital with shortness of breath. She has systolic CHF with the EF of 30%. She was volume overloaded with pulmonary vascular congestion on chest x-ray. She was diuresed and volume status is much better, currently on oral Bumex. She has CK D stage IIIB suspected nephrosclerosis with a baseline creatinine of 1.6-2.0 MG per DL. Creatinine currently at baseline. She also has chronic hyponatremia with a sodium around 130 to 132. While in the hospital, sodium around baseline. No nausea vomiting diarrhea. No history of active cancers, not on any thiazide type of diuretics. At home she takes trazodone and venlafaxine. Review of Systems Constitutional: Reports as per HPI Past Medical History Past Medical History: COPD, Diabetes Mellitus, Hypertension, Osteoarthritis (OA), Renal Disease Additional Past Medical History / Comment(s): jolly but does'nt use cpap anymore, past uterine fibroids.pt stated has had a pne vaccine but not sure of date.tag writer unable to verify date at time of admit-please f/u w/dr office in am. 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 Past Anesthesia/Blood Transfusion Reactions: No Reported Reaction Past Psychological History: Bipolar, Depression Smoking Status: Current every day smoker Past Alcohol Use History: None Reported Past Drug Use History: Marijuana - Past Family History Mother Family Medical History: Diabetes Mellitus, Myocardial Infarction ([place]), Osteoarthritis (OA) Additional Family Medical History / Comment(s): djd Father Family Medical History: Deep Vein Thrombosis (DVT) Medications and Allergies Home Medications Medication Instructions Recorded Confirmed Type traZODone HCL 150 mg PO HS 10/08/16 11/02/22 History Insulin Degludec [Tresiba 32 units SQ HS PRN 01/30/18 11/02/22 History Flextouch U-100 Pen] Acetaminophen Tab [Tylenol] 1,000 mg PO Q6HR PRN 08/12/20 11/02/22 History Albuterol Inhaler [Ventolin Hfa 2 puff INHALATION RT-QID PRN 08/12/20 11/02/22 History Inhaler] Albuterol Nebulized [Ventolin 2.5 mg INHALATION RT-QID PRN 08/12/20 11/02/22 History Nebulized] Omeprazole 20 mg PO BID 10/24/20 11/02/22 History ALPRAZolam [Xanax] 0.5 mg PO Q8H PRN 10/13/22 11/02/22 History Acetaminophen-Codeine 300-30mg 1 tab PO Q8H PRN 10/13/22 11/02/22 History [Tylenol w/codeine #3] Biofreeze Patches 1 patch TOPICAL DAILY PRN 10/13/22 11/02/22 History Cyclobenzaprine [Flexeril] 5 mg PO TID PRN 10/13/22 11/02/22 History Insulin Aspart [NovoLOG Flexpen] 5 units SQ AC-TID PRN 10/13/22 11/02/22 History Ondansetron Odt [Zofran ODT] 4 mg PO TID PRN 10/13/22 11/02/22 History Venlafaxine HCl ER [Effexor XR] 37.5 mg PO DAILY 10/13/22 11/02/22 History hydrALAZINE HCL [Apresoline] 50 mg PO TID 10/13/22 11/02/22 History Aspirin 81 mg PO DAILY #30 tab 11/05/22 Rx Budesonide/Formoterol Fumarate 1 puff INHALATION BID #1 each 11/05/22 Rx [Symbicort 80-4.5 Mcg Inhaler] Bumetanide [BUMEX] 1 mg PO DAILY #30 tab 11/05/22 Rx Dapagliflozin Propanediol [Farxiga] 10 mg PO DAILY #30 tab 11/05/22 Rx Isosorbide Mononitrate ER [Imdur] 30 mg PO DAILY #30 tab 11/05/22 Rx carvediloL [Coreg*] 25 mg PO BID-W/MEALS #60 tab 11/05/22 Rx lisinopriL [Zestril] 10 mg PO DAILY #30 tab 11/05/22 Rx predniSONE [Deltasone] 40 mg PO DAILY #4 tab 11/05/22 Rx Allergies Allergy/AdvReac Type Severity Reaction Status Date / Time aspirin AdvReac Nausea & Verified 11/02/22 13:24 Vomiting ibuprofen [From Motrin] AdvReac Nausea & Verified 11/02/22 13:24 Vomiting Physical Exam Vitals: Vital Signs Temp Pulse Pulse Resp BP BP Pulse Ox 11/06/22 12:46 70 11/06/22 12:36 66 11/06/22 11:16 65 18 162/77 94 L 11/06/22 09:39 68 18 11/06/22 09:28 64 16 98 11/06/22 07:45 63 18 181/83 93 L 11/06/22 05:34 78 11/06/22 05:23 76 11/06/22 04:00 65 18 170/84 94 L 11/06/22 01:28 76 11/06/22 01:18 78 11/06/22 01:17 18 11/06/22 00:00 72 18 160/77 90 L 11/05/22 21:41 80 11/05/22 21:28 86 11/05/22 21:13 79 11/05/22 20:00 97.9 F 67 18 165/75 93 L 11/05/22 16:47 84 11/05/22 16:36 88 11/05/22 16:00 80 16 172/80 93 L Intake and Output 11/06/22 11/06/22 11/06/22 06:59 14:59 22:59 Output Total 1140 400 Balance -1140 -400 Output: Urine 1140 400 Other: Voiding Method External Catheter External Catheter # Voids 1 No acute distress S1-S2 heard Decreased breath sounds Abdomen soft No edema Results - Lab Results Most recent lab results ABG pH 7.45 (7.35-7.45) 11/02/22 12:30 ABG pCO2 40 mmHg (35-45) 11/02/22 12:30 ABG pO2 91 mmHg (83-108) 11/02/22 12:30 ABG HCO3 28 mmol/L (21-25) H 11/02/22 12:30 ABG O2 Saturation 97.4 % (94-97) H 11/02/22 12:30 Calcium 8.4 mg/dL (8.4-10.2) 11/06/22 14:20 Magnesium 2.2 mg/dL (1.6-2.3) 11/05/22 09:37 11/05/22 09:37 11/06/22 14:20 Assessment and Plan Assessment: #1 acute on chronic hyperosmolar hyponatremia. Multifactorial. -Osmolality was 303 -Also on trazodone and venlafaxine at home. 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 #3 CHF with systolic dysfunction #4 volume overload, improved with diuresis #5 metabolic alkalosis secondary to diuretics #6 hypertension with chronic kidney disease Plan: #1 sodium chronically low. Close to baseline. #2 continue with diuretics, agree with the current dose of 1 mg by mouth daily. #3 fluid restriction to 1.5 L per day. #4 check myeloma screen and lipid profile. Also consider stopping trazodone and venlafaxine, considering alternative. #5 stable from nephrology for discharge to be followed up in the office in 1-2 weeks with repeat labs.
[2022-11-06 16:28] LABS: Uric Acid 9.8 mg/dL (3.7-7.4)
[2022-11-06 16:52] LABS: Glucose,Whole Blood 282 mg/dL (70-110)
[2022-11-06 17:27] LABS: Appearance,Urine Clear (Clear); Bilirubin,Urine Negative (Negative); Blood,Urine Negative (Negative); Budding Yeast,Urine Rare /hpf; Color,Urine Light Yellow; Glucose,Urine (UA) 4+ (Negative); Ketones,Urine Negative (Negative); Leukocyte Esterase,Urine Negative (Negative); Nitrite,Urine Negative (Negative); Protein,Urine 1+ (Negative); RBC,Urine 5 /hpf (0-5); Specific Gravity,Urine 1.012 (1.001-1.035); Squamous Epithelial Cell,Urine 3 /hpf (0-4); Urobilinogen,Urine <2.0 mg/dL (<2.0); WBC,Urine 1 /hpf (0-5)
[2022-11-06 20:20] VITALS: TEMP 98
[2022-11-06] MEDS: ACETAMINOPHEN TAB 325 MG TAB PO PRN (20:23)
[2022-11-06] MEDS: ALPRAZolam 0.5 MG TAB PO PRN (20:23)
[2022-11-06] MEDS: CYCLOBENZAPRINE 5 MG TAB PO PRN (20:24)
[2022-11-06 20:30] LABS: Glucose,Whole Blood 212 mg/dL (70-110)
[2022-11-06] MEDS ORDERED: INSULIN DETEMIR (LEVEMIR) 100 UNIT/ML SYR SQ SCH (21:00)
[2022-11-06] MEDS: IPRATROPIUM-ALBUTEROL 3 ML NEB INHALATION PRN (21:23)
--- NOTE | 2022-11-06 22:37 | P.PN ---
Subjective Progress Note Date: 11/06/22 HISTORY OF PRESENT ILLNESS: This is a 67-year-old female with a past medical history significant for hypertension, hyperlipidemia, diabetes, and COPD. Patient does not follow with a hostess. We have been asked to see the patient in consultation for possible congestive heart failure and elevated troponin. Patient examined at the bedside. Patient reports Tuesday after dinner she went to sit on her bed and she could not breath. She denies chest pain or pressure. Blood pressures are elevated with a SBP 150-160s. * EKG reveals sinus mechanism with no signs of acute ischemia * Chest xray from 11/02/2022 reveals diffuse airspace infiltrates are seen a small effusions. Findings may reflect congestive heart failure although underlying pneumonias excluded. * Laboratory data: WBC 8.5. Hemoglobin 12.9. Platelet count 258. Sodium 130. Potassium 3.6. BUN 36. Creatinine 2.15. Troponin 0.788. 0.864. 0.96. * Current home cardiac medications include Lasix 40 mg daily, amlodipine 10 mg daily, carvedilol 3.125 mg twice a day, hydralazine 50 mg 3 times a day * Echocardiogram completed revealing ejection fraction 30-35%, mild MR, mild TR 11/04/2022 Patient examined this afternoon at the bedside. Patient denies chest pain or pressure. She denies shortness of breath. She is complaining of right shoulder pain and is crying at the time of examination. Vital signs are stable. Blood pressure remains elevated with a recent reading of 175/80. 11/05/2022 Patient examined this morning at the bedside. Patient denies chest pain or pressure. She denies shortness of breath. She states her right shoulder pain has resolved. She reports relief with a lidocaine patch. Blood pressure 126/57. 11/06/2022 Heart shoulder pain is better, blood pressure control is better. Renal Function is stable at current regimen PHYSICAL EXAM: VITAL SIGNS: Reviewed. GENERAL: Well-developed in no acute distress. HEENT: Head is normocephalic. Pupils are equal, round. Sclerae anicteric. Mucous membranes of the mouth are moist. Neck supple. No JVD or thyromegaly LUNGS: Respirations even and unlabored. Lungs clear to auscultation HEART: Regular rate and rhythm. S1 and S2 heard. ABDOMEN: Soft. Nondistended. Nontender. EXTREMITIES: Normal range of motion. No clubbing or cyanosis. Peripheral pulses intact. Minimal lower extremity edema, left greater than right. NEUROLOGIC: Awake and alert. Oriented x 3. ASSESSMENT: Shortness of breath COPD exacerbation Acute on chronic heart failure with reduced EF, 30-35% Acute on chronic hypoxic respiratory failure requiring supplemental oxygen, patient also on home o2 Cardiomyopathy, unknown if ischemic or nonischemic Acute kidney injury Elevated troponins, flat, likely secondary to above, no evidence of acute coronary syndrome Chronic kidney disease Hypertension Hyperlipidemia Diabetes Morbid obesity: BMI 45.8 Nicotine dependence, patient quit smoking 1 week ago Chronic right shoulder pain, patient reports she has dislocated shoulder PLAN: Increase Coreg 37.5 mg twice a day Continue Farxiga. If patient was taking Jardiance at home, became resume that at discharge Hydralazine 50 minutes 3 times a day, Imdur 30 mg Change diuretics to Bumex 1 mg by mouth daily OutPatient follow-up with Dr. White in 1-2 weeks Objective - Vital Signs Vital signs: Vital Signs Temp 98 F 11/06/22 20:00 Pulse 72 11/06/22 21:42 Resp 18 11/06/22 20:00 BP 170/80 11/06/22 20:00 Pulse Ox 94 L 11/06/22 20:00 FiO2 35 11/03/22 06:08 Intake & Output 11/06/22 11/06/22 11/07/22 06:59 18:59 06:59 Intake Total 250 Output Total 1140 400 Balance -1140 -150 Intake: Oral 250 Output: Urine 1140 400 Other: Voiding Method External Catheter External Catheter # Voids 2 # Bowel Movements 1 - Labs CBC & Chem 7: 11/05/22 09:37 11/06/22 14:20 Labs: Abnormal Lab Results - Last 24 Hours (Table) 11/06/22 11/06/22 11/06/22 Range/Units 01:56 06:19 08:43 Sodium 129 L 131 L (137-145) mmol/L Chloride 89 L 89 L (98-107) mmol/L Carbon Dioxide 34 H 35 H (22-30) mmol/L BUN 58 H 53 H (7-17) mg/dL Creatinine 1.79 H 1.73 H (0.52-1.04) mg/dL Glucose 144 H 119 H (74-99) mg/dL POC Glucose (mg/dL) 66 L (70-110) mg/dL Uric Acid (3.7-7.4) mg/dL Urine Protein (Negative) Urine Glucose (UA) (Negative) Urine Yeast (Budding) (None) /hpf 11/06/22 11/06/22 11/06/22 Range/Units 14:20 14:20 16:51 Sodium 130 L (137-145) mmol/L Chloride 88 L (98-107) mmol/L Carbon Dioxide 34 H (22-30) mmol/L BUN 54 H (7-17) mg/dL Creatinine 1.74 H (0.52-1.04) mg/dL Glucose 171 H (74-99) mg/dL POC Glucose (mg/dL) 282 H (70-110) mg/dL Uric Acid 9.8 H (3.7-7.4) mg/dL Urine Protein (Negative) Urine Glucose (UA) (Negative) Urine Yeast (Budding) (None) /hpf 11/06/22 11/06/22 Range/Units 17:00 20:29 Sodium (137-145) mmol/L Chloride (98-107) mmol/L Carbon Dioxide (22-30) mmol/L BUN (7-17) mg/dL Creatinine (0.52-1.04) mg/dL Glucose (74-99) mg/dL POC Glucose (mg/dL) 212 H (70-110) mg/dL Uric Acid (3.7-7.4) mg/dL Urine Protein 1+ H (Negative) Urine Glucose (UA) 4+ H (Negative) Urine Yeast (Budding) Rare H (None) /hpf
[2022-11-07] MEDS: HEPARIN SODIUM,PORCINE 5,000 UNIT/ML 1 ML VIAL SQ SCH ×2 (00:21→08:01)
[2022-11-07] MEDS: ACETAMINOPHEN TAB 325 MG TAB PO PRN (03:25)
[2022-11-07] MEDS: ALPRAZolam 0.5 MG TAB PO PRN (03:25)
[2022-11-07] MEDS: PANTOPRAZOLE 40 MG TABLET PO SCH (03:26)
[2022-11-07] MEDS: carvediloL 12.5 MG TAB PO SCH (03:26)
[2022-11-07] MEDS: CYCLOBENZAPRINE 5 MG TAB PO PRN (03:26)
[2022-11-07] MEDS: INSULIN ASPART (NovoLOG) 100 UNIT/ML VIAL SQ SCH ×3 (06:09→11:38)
[2022-11-07 06:10] LABS: Glucose,Whole Blood 73 mg/dL (70-110)
[2022-11-07] MEDS: FORMOTEROL FUMARATE 20 MCG/2 ML NEBU INHALATION SCH (07:36)
[2022-11-07] MEDS: BUDESONIDE 1 MG/2 ML NEBU INHALATION SCH (07:36)
[2022-11-07] MEDS: IPRATROPIUM-ALBUTEROL 3 ML NEB INHALATION PRN (07:36)
[2022-11-07 07:41] VITALS: BP 191/88; RESP 16
[2022-11-07] MEDS: IPRATROPIUM-ALBUTEROL 3 ML NEB INHALATION SCH ×2 (07:51→11:07)
[2022-11-07] MEDS: LIDOCAINE 5% PATCH TOPICAL SCH (08:00)
[2022-11-07] MEDS: INSULIN DETEMIR (LEVEMIR) 100 UNIT/ML SYR SQ SCH (08:01)
[2022-11-07] MEDS: NICOTINE 21MG/24HR PATCH TRANSDERM SCH (08:01)
[2022-11-07] MEDS: predniSONE 20 MG TAB PO SCH (08:02)
[2022-11-07] MEDS: BUMETANIDE 1 MG TAB PO SCH (08:02)
[2022-11-07] MEDS: hydrALAZINE HCL 50 MG TAB PO SCH (08:02)
[2022-11-07] MEDS: ISOSORBIDE MONONITRATE ER 30 MG TAB.ER.24H PO SCH (08:02)
[2022-11-07] MEDS: VENLAFAXINE HCL ER 37.5 MG CAP PO SCH (08:02)
[2022-11-07] MEDS: DAPAGLIFLOZIN PROPANEDIOL 10 MG TABLET PO SCH (08:02)
[2022-11-07] MEDS: ASPIRIN 81 MG PO SCH (08:02)
[2022-11-07 09:51] LABS: Urine Creatinine 38.4 mg/dL (28.0-217.0)
[2022-11-07 10:08] LABS: Basophils % (A) 0 %; Eosinophils # (A) 0.1 k/uL (0-0.7); Eosinophils % (A) 1 %; HCT 44.6 % (34.0-46.0); HGB 14.4 gm/dL (11.4-16.0); Lymphocytes # (A) 0.9 k/uL (1.0-4.8); Lymphocytes % (A) 12 %; MCH 28.6 pg (25.0-35.0); MCHC 32.4 g/dL (31.0-37.0); MCV 88.4 fL (80.0-100.0); Mean Platelet Volume 7.8; Monocytes # (A) 0.4 k/uL (0-1.0); Monocytes % (A) 5 %; Neutrophils # (A) 6.6 k/uL (1.3-7.7); Neutrophils % (A) 82 %; Platelet Count 309 k/uL (150-450); RBC 5.04 m/uL (3.80-5.40); RDW 14.5 % (11.5-15.5); WBC 8.1 k/uL (3.8-10.6)
[2022-11-07 10:18] LABS: African American GFR (CKD) 37 (>60 ml/min/1.73 sqM); Anion Gap 5 mmol/L; Blood Urea Nitrogen 48 mg/dL (7-17); Calcium 8.2 mg/dL (8.4-10.2); Carbon Dioxide 37 mmol/L (22-30); Chloride 87 mmol/L (98-107); Glucose 152 mg/dL (74-99); Non-African American GFR(CKD) 32 (>60 ml/min/1.73 sqM); Potassium 3.8 mmol/L (3.5-5.1); Sodium 129 mmol/L (137-145)
[2022-11-07 11:20] VITALS: PULSE 72
[2022-11-07 11:35] LABS: Glucose,Whole Blood 130 mg/dL (70-110)
--- NOTE | 2022-11-07 12:01 | P.PN ---
Subjective Progress Note Date: 11/07/22 I am seeing this patient in new consultation today 11/03/2022 after being trans ferred from [facility] for acute hypoxemic respiratory failure requiring BiPAP. Patient is a 67-year-old female with past medical history significant for chronic obstructive pulmonary disease, obstructive sleep apnea not compliant with CPAP, hypertension, diabetes mellitus type 2, chronic kidney disease stage IV, GERD, and morbid obesity. Patient does follow in the office with Dr. Bergeron for management of her COPD, pulmonary nodule f/u, and suspected nonspecific interstitial pneumonitis. Patient presented to [facility] yesterday complaining of worsening shortness of breath over the preceding 24 hours accompanied with nonradiating epigastric pain. On arrival, patient was in respiratory distress, placed on the BiPAP, and subsequently transferred to [facility]. Patient is currently sitting up in bed, on BiPAP, in no acute distress. ABG on arrival to our facility shows a pO2 of 91, pCO2 of 40, and pH of 7.45 on 100% FiO2. Current BiPAP settings are 15/5 with an FiO2 of 60%. She appears comfortable. No signs of hypercapnic encephalopathy. Respiratory rate in the low 20s and achieving tidal volumes around 500 ML's. Chest x-ray on arrival shows diffuse interstitial infiltrates with small effusions concerning for congestive heart failure although underlying pneumonia is not excluded. She does have chronic fibrotic changes with lower lobe predominance. ProBNP was 9241 at [facility]. Admits epigastric pain prior to presentation to the hospital. Denies heart palpitations, PND. No current lower extremity swelling. Troponins are elevated at 0.79, 0.86, and 0.93 respectfully. ECG shows normal sinus rhythm without any obvious acute ischemic changes. Denies any current chest pain. Admits persistent cough with occasional clear sputum production. Denies any fevers, chills, myalgias, hemoptysis. Denies sick contacts. CBC on arrival was unremarkable. BMP on arrival has a sodium 132, potassium 4.4, chloride 92, serum bicarb 29, BUN 37, creatinine 2.41, glucose 299. Patient has been started on Lasix 40 mg twice a day. Also started on bronchodilators, budesonide and formoterol inhalation, and IV Solu- Medrol. Empirically covered for community-acquired pneumonia. Afebrile. Patient is going to be admitted to the cardiac stepdown unit, we will continue to follow and make On today's evaluation, the patient is being seen in follow-up on 11/04/2022. The patient is doing well. She is less short of breath compared to yesterday. The patient's diabetes IV Lasix. The patient is also on empiric antibiotic coverage and she is also on IV Solu-Medrol. Reports improvement in her shortness of breath. Her presentation was more consistent with CHF although she has an underlying component of COPD. She is a chronic smoker and she is also in need for a nicotine patch. No other new complaints otherwise for now. No chest pain. 11/05/2022, the patient is feeling much better and she feels her overall respiratory status is back to her baseline. She was treated for COPD exacerbation in addition to CHF. She remains on bronchodilators and she is on DuoNeb about treatments [id number]. She is on a prednisone burst taper. She is also on Bumex 1 mg a day. She is on oxygen at 3 L/m nasal cannula. She has limited cough. No angina. No palpitations. No chest pain. She has been maintained on Symbicort on outpatient basis. The patient's blood work from today shows a sodium level of 125, potassium level of 3.7, BUN is 59 with a creatinine of 1.7. WBC count is at 8 with a hemoglobin 15.2 11/06/2022, the patient is improving. She has no specific complaints. Her sodium level was low and his fluids up to 131. BUN is at 53 with a creatinine of 1.7. The patient remains on DuoNeb about treatments [id number]. The patient is on Perforomist and Pulmicort updrafts. The patient is on a prednisone burst taper. The patient negative patch. Diuretics and form of Bumex 1 mg by mouth daily 11/07/2022, no new complaints and the patient is resting comfortably in bed. Creatinine is down to 1.66, slightly improved compared to yesterday with a BUN of 48. Sodium is at 129. The white cell count of 8.4 with a hemoglobin 14.4. The patient remains on Bumex 1 mg by mouth daily. Remains on bronchodilators. Remains on a prednisone burst taper. Objective - Vital Signs Vital signs: Vital Signs Temp 98 F 11/06/22 20:00 Pulse 62 08/27/23 08:02 Resp 16 11/07/22 07:40 BP 191/88 11/07/22 07:40 Pulse Ox 96 11/07/22 07:40 FiO2 35 11/03/22 06:08 Intake & Output 11/06/22 11/07/22 11/07/22 18:59 06:59 18:59 Intake Total 250 120 Output Total 400 0 Balance -150 120 Intake: Oral 250 120 Output: Gastric Drainage 0 Urine 400 0 Stool 0 Urine/Stool Mix 0 Emesis 0 Oral Regurgitation 0 Other 0 Other: Voiding Method External Catheter Toilet # Voids 2 2 0 # Bowel Movements 1 0 - Exam GENERAL EXAM: Alert, 67-year-old obese white female, comfortable in no apparent distress. The patient is currently on 3 L of oxygen by nasal cannula with a pulse ox of 98%. HEAD: Normocephalic and atraumatic EYES: Normal reaction of pupils, equal size. NOSE: Clear with pink turbinates. THROAT: No erythema or exudates. NECK: No masses, no JVD. CHEST: No chest wall deformity. LUNGS: Equal air entry with expiratory wheezes heard throughout. Minimal bibasilar inspiratory crackles. No conversational dyspnea or accessory muscle use.. CVS: S1 and S2 normal with no audible murmur, regular rhythm. No extra heart sounds ABDOMEN: Obese abdomen, no hepatosplenomegaly, active bowel sounds, no guarding or rigidity. SPINE: No scoliosis or deformity SKIN: No rashes CENTRAL NERVOUS SYSTEM: No focal deficits, tone is normal in all 4 extremities. EXTREMITIES: There is no peripheral edema, clubbing, or cyanosis. Peripheral pulses are intact. - Labs CBC & Chem 7: 11/07/22 09:49 11/07/22 09:49 Labs: Abnormal Lab Results - Last 24 Hours (Table) 11/06/22 11/06/22 11/06/22 Range/Units 14:20 14:20 16:51 Lymphocytes # (1.0-4.8) k/uL Sodium 130 L (137-145) mmol/L Chloride 88 L (98-107) mmol/L Carbon Dioxide 34 H (22-30) mmol/L BUN 54 H (7-17) mg/dL Creatinine 1.74 H (0.52-1.04) mg/dL Glucose 171 H (74-99) mg/dL POC Glucose (mg/dL) 282 H (70-110) mg/dL Uric Acid 9.8 H (3.7-7.4) mg/dL Calcium (8.4-10.2) mg/dL Urine Protein (Negative) Urine Glucose (UA) (Negative) Urine Yeast (Budding) (None) /hpf Ur Random Microalbumin (0.0-1.9) mg/dL Microalb/Creat Ratio (0-30) mg/g Cr 11/06/22 11/06/22 11/06/22 Range/Units 17:00 17:00 20:29 Lymphocytes # (1.0-4.8) k/uL Sodium (137-145) mmol/L Chloride (98-107) mmol/L Carbon Dioxide (22-30) mmol/L BUN (7-17) mg/dL Creatinine (0.52-1.04) mg/dL Glucose (74-99) mg/dL POC Glucose (mg/dL) 212 H (70-110) mg/dL Uric Acid (3.7-7.4) mg/dL Calcium (8.4-10.2) mg/dL Urine Protein 1+ H (Negative) Urine Glucose (UA) 4+ H (Negative) Urine Yeast (Budding) Rare H (None) /hpf Ur Random Microalbumin 35.9 H (0.0-1.9) mg/dL Microalb/Creat Ratio 935 H (0-30) mg/g Cr 11/07/22 11/07/22 Range/Units 09:49 09:49 Lymphocytes # 0.9 L (1.0-4.8) k/uL Sodium 129 L (137-145) mmol/L Chloride 87 L (98-107) mmol/L Carbon Dioxide 37 H (22-30) mmol/L BUN 48 H (7-17) mg/dL Creatinine 1.66 H (0.52-1.04) mg/dL Glucose 152 H (74-99) mg/dL POC Glucose (mg/dL) (70-110) mg/dL Uric Acid (3.7-7.4) mg/dL Calcium 8.2 L (8.4-10.2) mg/dL Urine Protein (Negative) Urine Glucose (UA) (Negative) Urine Yeast (Budding) (None) /hpf Ur Random Microalbumin (0.0-1.9) mg/dL Microalb/Creat Ratio (0-30) mg/g Cr Assessment and Plan Assessment: Acute hypoxemic respiratory failure, currently on BiPAP, likely secondary to diastolic CHF exacerbation, although, underlying pneumonia is not ruled out. Chest x-ray on arrival shows diffuse interstitial infiltrates with small effusions concerning for congestive heart failure. She does have chronic fibrotic changes with lower lobe predominance. ProBNP was 9241 at [facility]. COVID-19 negative at [facility]. No significant leukocytosis. Afebrile. The patient is stable Acute COPD exacerbation, improved Chronic systolic heart failure with impaired left ventricular ejection fraction Elevated troponins, rule out non-ST elevation NH Acute on chronic kidney disease, creatinine is improving and the creatinine is down to 1.7 Hyponatremia with drop in sodium level is down to 125 Diabetes mellitus type 2, insulin-dependent Benign essential hypertension Chronic kidney disease stage IV GERD without esophagitis Morbid obesity, with a BMI of 68.6 kg/m Obstructive sleep apnea, noncompliant with CPAP Chronic nicotine dependence Plan: Will discharge home today Sodium level is stable Renal function continues to improve Fluid restriction Prednisone burst taper Continue Bumex Continue combination of bronchodilators, formoterol, budesonide, and the patient is on Symbicort on outpatient basis Continue empiric antibiotics, and check procalcitonin level was 0.45 NovoLog ACHS to scale for hyperglycemia Protonix for GI prophylaxis Give the patient nicotine patch We will continue to follow and make recommendations, possible home
--- NOTE | 2022-11-07 12:41 | P.PN ---
Subjective Progress Note Date: 11/07/22 Follow-up for hyponatremia. Feels better today, no nausea vomiting diarrhea. No chest pain shortness of breath or confusion. Objective - Vital Signs Vital signs: Vital Signs Temp 98 F 11/06/22 20:00 Pulse 72 11/07/22 11:19 Resp 16 11/07/22 07:40 BP 191/88 11/07/22 07:40 Pulse Ox 96 11/07/22 07:40 FiO2 35 11/03/22 06:08 Intake & Output 11/06/22 11/07/22 11/07/22 18:59 06:59 18:59 Intake Total 250 120 Output Total 400 0 Balance -150 120 Intake: Oral 250 120 Output: Gastric Drainage 0 Urine 400 0 Stool 0 Urine/Stool Mix 0 Emesis 0 Oral Regurgitation 0 Other 0 Other: Voiding Method External Catheter Toilet # Voids 2 2 0 # Bowel Movements 1 0 - Exam No acute distress S1-S2 heard Lungs clear Abdomen soft No edema - Labs CBC & Chem 7: 11/07/22 09:49 11/07/22 09:49 Labs: Abnormal Lab Results - Last 24 Hours (Table) 11/06/22 11/06/22 11/06/22 Range/Units 14:20 14:20 16:51 Lymphocytes # (1.0-4.8) k/uL Sodium 130 L (137-145) mmol/L Chloride 88 L (98-107) mmol/L Carbon Dioxide 34 H (22-30) mmol/L BUN 54 H (7-17) mg/dL Creatinine 1.74 H (0.52-1.04) mg/dL Glucose 171 H (74-99) mg/dL POC Glucose (mg/dL) 282 H (70-110) mg/dL Uric Acid 9.8 H (3.7-7.4) mg/dL Calcium (8.4-10.2) mg/dL Urine Protein (Negative) Urine Glucose (UA) (Negative) Urine Yeast (Budding) (None) /hpf Ur Random Microalbumin (0.0-1.9) mg/dL Microalb/Creat Ratio (0-30) mg/g Cr 11/06/22 11/06/22 11/06/22 Range/Units 17:00 17:00 20:29 Lymphocytes # (1.0-4.8) k/uL Sodium (137-145) mmol/L Chloride (98-107) mmol/L Carbon Dioxide (22-30) mmol/L BUN (7-17) mg/dL Creatinine (0.52-1.04) mg/dL Glucose (74-99) mg/dL POC Glucose (mg/dL) 212 H (70-110) mg/dL Uric Acid (3.7-7.4) mg/dL Calcium (8.4-10.2) mg/dL Urine Protein 1+ H (Negative) Urine Glucose (UA) 4+ H (Negative) Urine Yeast (Budding) Rare H (None) /hpf Ur Random Microalbumin 35.9 H (0.0-1.9) mg/dL Microalb/Creat Ratio 935 H (0-30) mg/g Cr 11/07/22 11/07/22 11/07/22 Range/Units 09:49 09:49 11:33 Lymphocytes # 0.9 L (1.0-4.8) k/uL Sodium 129 L (137-145) mmol/L Chloride 87 L (98-107) mmol/L Carbon Dioxide 37 H (22-30) mmol/L BUN 48 H (7-17) mg/dL Creatinine 1.66 H (0.52-1.04) mg/dL Glucose 152 H (74-99) mg/dL POC Glucose (mg/dL) 130 H (70-110) mg/dL Uric Acid (3.7-7.4) mg/dL Calcium 8.2 L (8.4-10.2) mg/dL Urine Protein (Negative) Urine Glucose (UA) (Negative) Urine Yeast (Budding) (None) /hpf Ur Random Microalbumin (0.0-1.9) mg/dL Microalb/Creat Ratio (0-30) mg/g Cr Assessment and Plan Assessment: #1 acute on chronic hyperosmolar hyponatremia. Multifactorial. -Osmolality was 303 -Also on trazodone and venlafaxine at home. 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 #3 CHF with systolic dysfunction #4 volume overload, improved with diuresis #5 metabolic alkalosis secondary to diuretics #6 hypertension with chronic kidney disease Plan: #1 sodium chronically low. Close to baseline. #2 continue with diuretics, agree with the current dose of 1 mg by mouth daily. #3 fluid restriction to 1.5 L per day. #4 check myeloma screen and lipid profile. Also consider stopping trazodone and venlafaxine, considering alternative. #5 stable from nephrology for discharge to be followed up in the office in 1-2 weeks with repeat labs.
--- NOTE | 2022-11-07 17:04 | P.DS ---
Providers Date of admission: 11/02/22 13:20 Expected date of discharge: 11/07/22 Attending physician: Ravi Yuan MD Consults: 11/02/22 14:31 Consult Physician Routine Consulting Provider: [facility] Consult Reason/Comments: possible chf, elevated troponin Do you want consulting provider notified?: Yes 11/02/22 14:33 Consult Physician Routine Consulting Provider: Corby Artis Consult Reason/Comments: hypoxic respiratory failure, chf Do you want consulting provider notified?: Yes 11/05/22 13:49 Consult Physician Routine Consulting Provider: Hunter Lyons Consult Reason/Comments: hyponatremia Do you want consulting provider notified?: Yes Primary care physician: [facility] Course: Assessment: Acute heart failure exacerbation, EF 35-40% Acute hypoxemic respiratory failure Elevated troponin secondary to the above Acute kidney injury superimposed on chronic kidney disease stage IIIB COPD without exacerbation Hypertension Hyperlipidemia Diabetes type 2 Hospital Course: 67-year-old woman with medical history of COPD, hypertension, diabetes, hyperlipidemia presented for evaluation of dyspnea. In the emergency room, patient was afebrile, 148/69, heart rate 78, 95% on BiPAP with an FiO2 of 75%. CBC shows leukocytosis to 11.4. Basic metabolic panel shows sodium of 132, chloride of 92, BMI of 37, creatinine 2.41, glucose was 299. Liver function tests are unremarkable. Initial troponin was 0.788. Coags are unremarkable. ABG showed a pH of 7.45, pCO2 of 40, pO2 of 91 on FiO2 of 100%. EKG shows normal sinus rhythm with no evidence of ischemia. Chest x-ray shows bilateral pulmonary infiltrates concerning for pulmonary edema. Case was discussed with emergency room provider and Decision was made to admit the patient for heart failure exacerbation. Echo demonstrated EF 35%. Pt was seen by cardiology who recommended GDMT and outpatient ischemic eval. Pts dyspnea and O2 requirement improved with diuretics. Her Na did drop to 125, but improved with fluid restriction and change to oral bumex from IV lasix. She was prescribed symbicort, farxiga, prinivil, aspirin, bumex, coreg, imdur on discharge. She has good f/u with cardiology, pulmonology, nephrology, and PCP. I spent 45 minutes coordinating this discharge on 11/07 Gen: awake, alert HEENT: normocephalic, atraumatic, good hearing acuity, moist mucous membranes Resp: good air exchange, breathing comfortably with no accessory muscle use CVS: good distal perfusion x 4, GI: soft, NTTP, ND : no SPT, no CVAT, staley catheter not present MSK: no pitting edema, no clubbing Neuro: non-focal, moving all extremities Psych: cooperative, euthymic mood Patient Condition at Discharge: Good Plan - Discharge Summary Discharge Rx Participant: No New Discharge Prescriptions: New Budesonide/Formoterol Fumarate [Budesonide-Formoterol 80-4.5] 1 puff PO BID 1 Days #10.2 gm Dapagliflozin Propanediol [Farxiga] 10 mg PO DAILY #30 tablet lisinopriL [Prinivil] 10 mg PO DAILY #30 tab Aspirin 81 mg PO DAILY #30 tab Bumetanide [Bumex] 1 mg PO DAILY #30 tablet carvediloL [Coreg*] 37.5 mg PO BID-W/MEALS #180 tab Isosorbide Mononitrate ER [Imdur] 30 mg PO DAILY #30 tab Continue traZODone HCL 150 mg PO HS Insulin Degludec [Tresiba Flextouch U-100 Pen] 32 units SQ HS PRN PRN Reason: high blood sugar Acetaminophen Tab [Tylenol] 1,000 mg PO Q6HR PRN PRN Reason: Pain Or Fever > 100.5 Albuterol Inhaler [Ventolin Hfa Inhaler] 2 puff INHALATION RT-QID PRN PRN Reason: Shortness Of Breath Insulin Aspart [NovoLOG Flexpen] 5 units SQ AC-TID PRN PRN Reason: high blood sugar Biofreeze Patches 1 patch TOPICAL DAILY PRN PRN Reason: shoulder pain Cyclobenzaprine [Flexeril] 5 mg PO TID PRN PRN Reason: Muscle Pain ALPRAZolam [Xanax] 0.5 mg PO Q8H PRN PRN Reason: Anxiety Albuterol Nebulized [Ventolin Nebulized] 2.5 mg INHALATION RT-QID PRN PRN Reason: Shortness Of Breath Omeprazole 20 mg PO BID hydrALAZINE HCL [Apresoline] 50 mg PO TID Venlafaxine HCl ER [Effexor XR] 37.5 mg PO DAILY Ondansetron Odt [Zofran ODT] 4 mg PO TID PRN PRN Reason: Nausea Acetaminophen-Codeine 300-30mg [Tylenol w/codeine #3] 1 tab PO Q8H PRN PRN Reason: Pain Discontinued amLODIPine [Norvasc] 10 mg PO DAILY Furosemide [Lasix] 40 mg PO DAILY Empagliflozin [Jardiance] 10 mg PO DAILY carvediloL [Coreg] 3.125 mg PO BID Discharge Medication List traZODone HCL 150 mg PO HS 10/08/16 [History] Insulin Degludec [Tresiba Flextouch U-100 Pen] 32 units SQ HS PRN 01/30/18 [History] Acetaminophen Tab [Tylenol] 1,000 mg PO Q6HR PRN 08/12/20 [History] Albuterol Inhaler [Ventolin Hfa Inhaler] 2 puff INHALATION RT-QID PRN 08/12/20 [History] Albuterol Nebulized [Ventolin Nebulized] 2.5 mg INHALATION RT-QID PRN 08/12/20 [History] Omeprazole 20 mg PO BID 10/24/20 [History] ALPRAZolam [Xanax] 0.5 mg PO Q8H PRN 10/13/22 [History] Acetaminophen-Codeine 300-30mg [Tylenol w/codeine #3] 1 tab PO Q8H PRN 10/13/22 [History] Biofreeze Patches 1 patch TOPICAL DAILY PRN 10/13/22 [History] Cyclobenzaprine [Flexeril] 5 mg PO TID PRN 10/13/22 [History] Insulin Aspart [NovoLOG Flexpen] 5 units SQ AC-TID PRN 10/13/22 [History] Ondansetron Odt [Zofran ODT] 4 mg PO TID PRN 10/13/22 [History] Venlafaxine HCl ER [Effexor XR] 37.5 mg PO DAILY 10/13/22 [History] hydrALAZINE HCL [Apresoline] 50 mg PO TID 10/13/22 [History] Aspirin 81 mg PO DAILY #30 tab 11/07/22 [Rx] Budesonide/Formoterol Fumarate [Budesonide-Formoterol 80-4.5] 1 puff PO BID 1 Days #10.2 gm 08/27/23 [Rx] Bumetanide [Bumex] 1 mg PO DAILY #30 tablet 11/07/22 [Rx] Dapagliflozin Propanediol [Farxiga] 10 mg PO DAILY #30 tablet 11/07/22 [Rx] Isosorbide Mononitrate ER [Imdur] 30 mg PO DAILY #30 tab 11/07/22 [Rx] carvediloL [Coreg*] 37.5 mg PO BID-W/MEALS #180 tab 11/07/22 [Rx] lisinopriL [Prinivil] 10 mg PO DAILY #30 tab 11/07/22 [Rx] Follow up Appointment(s)/Referral(s): Renard White MD [Medical Doctor] - 1 Week (Office is closed. Please call to schedule appointment) Amara Stephenson NPC [STAFF PHYSICIAN] - 1-2 Days (Office is closed. Please call to schedule appointment) [employer] [NON-STAFF] - (Can loan out commode.) Discharge/Stand Alone Forms: Who Do I Call?, Community Resources, Personal Tool [employer] Set Up Operator Discharge Disposition: HOME SELF-CARE
[2022-11-08 14:36] LABS: Albumin 3.8 d/dL (3.8-4.9); Protein, Total 6.5 d/dL (6.2-8.2)
[2022-11-09 16:00] LABS: Gamma Globulin 0.91 d/dL (0.70-1.50)
[2022-11-12 14:44] LABS: Free Kappa Lt Chain Qnt, Serum 4.03 mg/dL (0.33-1.94); Free Lambda Lt Chain Qnt, Seru 2.72 mg/dL (0.57-2.63)
== END 2022-11-07 12:17 | disposition home or self-care (01) | DRG 280 ==
LOC: EC 11:02 → 3SCARD 13:20
PROVIDERS: ADMIT Student in an Organized Health Care Education/Training Program; ATTEND Student in an Organized Health Care Education/Training Program
DX: I13.0 Hypertensive heart and chronic kidney disease with heart failure and stage 1 through stage 4 chronic kidney disease, or unspecified chronic kidney disease (principal); I50.33 Acute on chronic diastolic (congestive) heart failure; I21.A1 Myocardial infarction type 2; J18.9 Pneumonia, unspecified organism; J96.21 Acute and chronic respiratory failure with hypoxia; Z68.44 Body mass index [BMI] 60.0-69.9, adult; J44.1 Chronic obstructive pulmonary disease with (acute) exacerbation; E87.1 Hypo-osmolality and hyponatremia; E87.3 Alkalosis; J44.0 Chronic obstructive pulmonary disease with (acute) lower respiratory infection; N17.9 Acute kidney failure, unspecified; N18.4 Chronic kidney disease, stage 4 (severe); I42.9 Cardiomyopathy, unspecified; I12.9 Hypertensive chronic kidney disease with stage 1 through stage 4 chronic kidney disease, or unspecified chronic kidney disease; E11.22 Type 2 diabetes mellitus with diabetic chronic kidney disease; F31.9 Bipolar disorder, unspecified; E66.01 Morbid (severe) obesity due to excess calories; E78.5 Hyperlipidemia, unspecified; Z96.643 Presence of artificial hip joint, bilateral; G47.33 Obstructive sleep apnea (adult) (pediatric); G89.29 Other chronic pain; F17.200 Nicotine dependence, unspecified, uncomplicated; I25.10 Atherosclerotic heart disease of native coronary artery without angina pectoris; M25.511 Pain in right shoulder; T50.2X5A Adverse effect of carbonic-anhydrase inhibitors, benzothiadiazides and other diuretics, initial encounter; K21.9 Gastro-esophageal reflux disease without esophagitis; Z20.822 Contact with and (suspected) exposure to COVID-19; Z89.411 Acquired absence of right great toe; Z91.199 Patient's noncompliance with other medical treatment and regimen due to unspecified reason; Z66 Do not resuscitate; Z79.4 Long term (current) use of insulin; Z79.51 Long term (current) use of inhaled steroids; Z79.82 Long term (current) use of aspirin; Z79.84 Long term (current) use of oral hypoglycemic drugs; Z79.899 Other long term (current) drug therapy; Z82.49 Family history of ischemic heart disease and other diseases of the circulatory system; Z90.710 Acquired absence of both cervix and uterus
CPT/HCPCS: 36415; 36600; 51702; 71045; 80048; 80053; 81001; 82043; 82533; 82570; 82805; 83036; 83605; 83735; 83880; 83883; 83930; 83935; 84133; 84145; 84165; 84300; 84439; 84443; 84484; 84540; 84550; 85025; 85610; 85730; 93005; 93306; 94640; 94660; 94760; 96372; 96374; 96375; 96376; 99291

== ENCOUNTER → 2023-04-19 | Outpatient (CLI) | payer MEDICARE ==
--- NOTE | 2023-04-23 15:50 | MR ---
EXAMINATION TYPE: MR shoulder LT wo con DATE OF EXAM: 04/19/2023 COMPARISON: Bilateral shoulder x-ray April 13, 2023 HISTORY: Lt shoulder pain for 6 months with difficulty raising arm overhead TECHNIQUE: Multiplanar, multisequence imaging of the left shoulder is performed without contrast. FINDINGS: Rotator Cuff: Intact supraspinatus and infraspinatus tendons. Intact subscapularis tendon. Mild gener alized muscular atrophy of all visualized muscles. Acromioclavicular Joint: Moderate narrowing and capsular hypertrophy. Mild spurring. Some mass effect at the myotendinous junction is seen. Glenohumeral Joint: Moderate size joint effusion. Narrowing is present. Labrum: Heterogeneous increased signal in the superior labrum consistent with tearing. Biceps Tendon: The long head of biceps is in normal location within bicipital groove. Bone marrow signal: Heterogeneous increased T2 signal throughout the osseous glenoid greatest along t he posterior aspect. Additional areas of involvement in the superolateral humeral head likely reflect subchondral cystic change. Other: No additional significant abnormality is appreciated. IMPRESSION: 1. No rotator cuff tear. Superior labral tear is seen. 2. Fairly moderate to severe acromioclavicular and glenohumeral joint arthropathy as detailed above.
== END | disposition home or self-care (01) ==
LOC: RADMRIMAIN 12:59
PROVIDERS: ATTEND Orthopaedic Surgery
DX: M19.012 Primary osteoarthritis, left shoulder (principal); M75.102 Unspecified rotator cuff tear or rupture of left shoulder, not specified as traumatic

== ENCOUNTER → 2023-07-07 | Outpatient (CLI) | payer MEDICARE ==
[2023-07-07 16:12] LABS: Blood Urea Nitrogen 44.7 mg/dL (9.0-27.0); Calcium 8.1 mg/dL (8.7-10.3); Carbon Dioxide 21.3 mmol/L (21.6-31.8); Chloride 103 mmol/L (96-109); Glucose 125 mg/dL (70-110); Potassium 4.7 mmol/L (3.5-5.5); Sodium 142 mmol/L (135-145)
[2023-07-07 16:20] LABS: Basophils # (A) 0.04 X 10*3/uL (0.00-0.10); Basophils % (A) 0.4 %; Eosinophils # (A) 0.23 X 10*3/uL (0.04-0.35); Eosinophils % (A) 2.4 %; HCT 40.9 % (37.2-46.3); HGB 12.3 g/dL (12.0-15.0); Lymphocytes # (A) 2.72 X 10*3/uL (0.90-5.00); Lymphocytes % (A) 28.7 %; MCHC 30.1 g/dL (32.0-37.0); MCV 99.8 FL (80.0-97.0); Mean Platelet Volume 11.1 FL (9.5-12.2); Monocytes # (A) 0.71 X 10*3/uL (0.20-1.00); Monocytes % (A) 7.5 %; NRBC Per 100 WBC 0 X 10*3/uL (0.00-0.01); Neutrophils # (A) 5.75 X 10*3/uL (1.80-7.70); Neutrophils % (A) 60.7 %; Platelet Count 196 X 10*3/uL (140-440); RDW 14.2 % (11.5-14.5); WBC 9.48 X 10*3/uL (4.50-10.00)
== END | disposition home or self-care (01) ==
LOC: LABPAT 08:29
PROVIDERS: ATTEND Orthopaedic Surgery
DX: Z01.812 Encounter for preprocedural laboratory examination (principal); M75.42 Impingement syndrome of left shoulder
CPT/HCPCS: 36415; 80048; 85025

== ENCOUNTER 2023-10-10 14:25 | Emergency (ER) | payer MEDICARE, OTHER ==
--- NOTE | 2023-10-10 14:43 | ED ---
Chest Pain HPI - General Source: patient, RN notes reviewed Mode of arrival: ambulatory Limitations: no limitations <Lindsay Vasquez - Last Filed: 10/10/23 14:40> <Cornelius Bhakta - Last Filed: 10/10/23 18:17> - General Chief Complaint: Chest Pain Stated Complaint: SOB-chest pain Time Seen by Provider: 10/10/23 14:40 - History of Present Illness Initial Comments: Quick Note: This is a 68-year-old female who presents to the emergency department for chest pain, shortness of breath, and elevated blood pressure. St ates that it started 3 days ago. The last time this happened states that she was in heart failure. Also reports a history of renal disease. Also reports experiencing headaches, nausea, and vomiting. (Lindsay Vasquez) Patient presents to the ED with her fianc for evaluation. Patient states that her blood pressure readings have been elevated for the past 3 days or so. P atient states that she had one of her blood pressure medications discontinued by her ice scraper last week. Patient also states that she has had intermittent chest pressure, dyspnea, a headache, nausea, vomiting and diarrhea for the past 3 days or so. Patient also states that she feels generally fatigued. Patient denies having any chest pain at this time. Patient denies fever or chills, trauma or injury, head injury, sudden onset of headache, LOC, neck pain or stiffness, focal numbness/weakness/neurodeficit, visual changes, speech difficulty, neck/arm/jaw/back pain, pleuritic pain, cough or cold symptoms, palpitations, dizziness, bloody or melanotic stool, hematemesis, dysuria/hematuria/urinary frequency/urinary symptoms, decreased urine output, leg swelling or pain, or any other symptoms or complaints. Patient states that she is on home oxygen as needed due to COPD. (Cornelius Bhakta) - Related Data Home Medications Medication Instructions Recorded Confirmed traZODone HCL 150 mg PO HS 10/08/16 11/02/22 Insulin Degludec [Tresiba 32 units SQ HS PRN 01/30/18 11/02/22 Flextouch U-100 Pen] Acetaminophen Tab [Tylenol] 1,000 mg PO Q6HR PRN 08/12/20 11/02/22 Albuterol Inhaler [Ventolin Hfa 2 puff INHALATION RT-QID PRN 08/12/20 11/02/22 Inhaler] Albuterol Nebulized [Ventolin 2.5 mg INHALATION RT-QID PRN 08/12/20 11/02/22 Nebulized] Omeprazole 20 mg PO BID 10/24/20 11/02/22 ALPRAZolam [Xanax] 0.5 mg PO Q8H PRN 10/13/22 11/02/22 Acetaminophen-Codeine 300-30mg 1 tab PO Q8H PRN 10/13/22 11/02/22 [Tylenol w/codeine #3] Biofreeze Patches 1 patch TOPICAL DAILY PRN 10/13/22 11/02/22 Cyclobenzaprine [Flexeril] 5 mg PO TID PRN 10/13/22 11/02/22 Insulin Aspart [NovoLOG Flexpen] 5 units SQ AC-TID PRN 10/13/22 11/02/22 Ondansetron Odt [Zofran ODT] 4 mg PO TID PRN 10/13/22 11/02/22 Venlafaxine HCl ER [Effexor XR] 37.5 mg PO DAILY 10/13/22 11/02/22 hydrALAZINE HCL [Apresoline] 50 mg PO TID 10/13/22 11/02/22 Previous Rx's Medication Instructions Recorded Aspirin 81 mg PO DAILY #30 tab 11/07/22 Budesonide/Formoterol Fumarate 1 puff PO BID 1 Days #10.2 gm 11/07/22 [Budesonide-Formoterol 80-4.5] Bumetanide [Bumex] 1 mg PO DAILY #30 tablet 11/07/22 Dapagliflozin Propanediol [Farxiga] 10 mg PO DAILY #30 tablet 11/07/22 Isosorbide Mononitrate ER [Imdur] 30 mg PO DAILY #30 tab 11/07/22 carvediloL [Coreg*] 37.5 mg PO BID-W/MEALS #180 tab 11/07/22 lisinopriL [Prinivil] 10 mg PO DAILY #30 tab 11/07/22 Allergies Allergy/AdvReac Type Severity Reaction Status Date / Time aspirin AdvReac Nausea & Verified 10/10/23 14:41 Vomiting ibuprofen [From Motrin] AdvReac Nausea & Verified 10/10/23 14:41 Vomiting Review of Systems ROS Other: All systems not noted in ROS Statement are negative. <Lindsay Vasquez - Last Filed: 10/10/23 14:40> ROS Other: All systems not noted in ROS Statement are negative. <Cornelius Bhakta - Last Filed: 10/10/23 18:17> ROS Statement: Those systems with pertinent positive or pertinent negative responses have been documented in the HPI. EKG Findings - EKG Comments: EKG Findings:: ED physician interpretation (interpreted by me): Normal sinus rhythm, no ectopy, ventricular rate of 65 bpm, normal OH and QRS intervals, normal QT interval, normal axis, no ST or T wave abnormality <Cornelius Bhakta - Last Filed: 10/10/23 18:17> Past Medical History Past Medical History: COPD, Diabetes Mellitus, Hypertension, Osteoarthritis (OA), Renal Disease Additional Past Medical History / Comment(s): jolly but does'nt use cpap anymore, past uterine fibroids.pt stated has had a pne vaccine but not sure of date.property underwriter unable to verify date at time of admit-please f/u w/dr office in am. 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 Past Anesthesia/Blood Transfusion Reactions: No Reported Reaction Past Psychological History: Bipolar, Depression Smoking Status: Current every day smoker Past Alcohol Use History: None Reported Past Drug Use History: Marijuana - Past Family History Mother Family Medical History: Diabetes Mellitus, Myocardial Infarction ([place]), Osteoarthritis ([place]) Additional Family Medical History / Comment(s): djd Father Family Medical History: Deep Vein Thrombosis (DVT) <Lindsay Vasquez - Last Filed: 10/10/23 14:40> General Exam <Lindsay Vasquez - Last Filed: 10/10/23 14:40> Limitations: no limitations General appearance: alert, in no apparent distress Head exam: Present: atraumatic, normocephalic Eye exam: Present: normal appearance, PERRL, EOMI ENT exam: Present: mucous membranes moist Neck exam: Present: other (Trachea is in midline). Absent: tenderness, meningismus Respiratory exam: Present: wheezes, rales. Absent: respiratory distress, stridor, chest wall tenderness Cardiovascular Exam: Present: regular rate, normal rhythm, normal heart sounds, other (Normal radial pulses bilaterally) GI/Abdominal exam: Present: soft. Absent: distended, tenderness, guarding Extremities exam: Present: other (Negative Homans' sign bilaterally). Absent: tenderness, pedal edema, calf tenderness Neurological exam: Present: alert, oriented X3, CN II-XII intact. Absent: motor sensory deficit Psychiatric exam: Present: normal affect Skin exam: Present: warm, dry, normal color <Cornelius Bhakta - Last Filed: 10/10/23 18:17> - General Exam Comments Initial Comments: Visual Physical Exam Vital signs reviewed General: Well-appearing, nontoxic, no acute distress. Head: Normocephalic, atraumatic Eyes: PERRLA, EOMI ENT: Airway patent Chest: Nonlabored breathing Skin: No visual rash, normal skin tone Neuro: Alert and oriented 3 Musculoskeletal: No gross abnormalities (Lindsay Vasquez) Course <Cornelius Bhakta - Last Filed: 10/10/23 18:17> Vital Signs 10/10/23 10/10/23 10/10/23 14:39 17:03 17:10 Temperature 97.4 F L Pulse Rate 65 68 Respiratory 18 16 20 Rate Blood Pressure 159/86 190/85 O2 Sat by Pulse 96 96 Oximetry - Reevaluation(s) Reevaluation #1: 10/10/23 18:10 Case, H&P, test results and ED management thus far were discussed with Dr. Hurtado. He accepts hospital admission. He has no further recommendations at this time. (Cornelius Bhakta) Chest Pain MDM <Lindsay Vasquez - Last Filed: 10/10/23 14:40> <Cornelius Bhakta - Last Filed: 10/10/23 18:17> - MDM I performed the QuickNote portion of this chart. Signed Lindsay Vasquez PA-C. (Lindsay Vasquez) Chest x-ray: Pulmonary edema correlate with serum BNP. Noncontrast head CT: No acute intracranial process. Was pt. sent in by a medical professional or institution ([facility], PRICING SPECIALIST, urgent care, hospital, or skilled nursing...) When possible be specific @ -No Did you speak to anyone other than the patient for history (EMS, parent, family, police, friend...)? What history was obtained from this source @ -No Did you review nursing and triage notes (agree or disagree)? Why? @ -I reviewed and agree with nursing and triage notes Were old charts reviewed (outside hosp., previous admission, EMS record, old EKG, old radiological studies, urgent care reports/EKG's, skilled nursing records)? Report findings @ -No old charts were reviewed Differential Diagnosis (chest pain, altered mental status, abdominal pain women, abdominal pain men, vaginal bleeding, weakness, fever, dyspnea, syncope, headache, dizziness, GI bleed, back pain, seizure, CVA, palpatations, mental health, musculoskeletal)? @ -Differential Chest Pain: Stable Angina, Unstable Angina, STEMI, NSTEMI, Pneumothorax, Musculoskeletal, Esophageal Spasm, GERD, CHF, COPD, nausea, vomiting, diarrhea, gastroenteritis, viral illness, headache, intracranial hemorrhage, dehydration, renal insufficiency, this is not meant to be an all-inclusive list. EKG interpreted by me (3pts min.). @ -As above X-rays interpreted by me (1pt min.). @ -Chest x-ray was reviewed myself and shows findings of pulmonary edema. I agree with the radiologist's interpretation as above. CT interpreted by me (1pt min.). @ -Noncontrast head CT was reviewed myself and shows no acute intracranial abnormality. I agree with the radiologist's interpretation as above. U/S interpreted by me (1pt. min.). @ -None done What testing was considered but not performed or refused? (CT, X-rays, U/S, labs)? Why? @ -None What meds were considered but not given or refused? Why? @ -None Did you discuss the management of the patient with other professionals (professionals i.e. [facility] Zepeda, PRICING SPECIALIST, lab, RT, psych nurse, secondary social studies teacher, embroiderer, teacher, real estate officer, rifle case repairer)? Give summary @ -As above. Was smoking cessation discussed for >3mins.? @ -No Was critical care preformed (if so, how long)? @ -No Were there social determinants of health that impacted care today? How? (Homelessness, low income, unemployed, alcoholism, drug addiction, transportation, low edu. Level, literacy, decrease access to med. care, senior care, rehab)? @ -No Was there de-escalation of care discussed even if they declined (Discuss DNR or withdrawal of care, Hospice)? DNR status @ -No What co-morbidities impacted this encounter? (DM, HTN, Smoking, COPD, CAD, Cancer, CVA, ARF, Chemo, Hep., AIDS, mental health diagnosis, sleep apnea, morbid obesity)? @ -Renal insufficiency, COPD. Was patient admitted / discharged? Hospital course, mention meds given and route, prescriptions, significant lab abnormalities, going to OR and other pertinent info. @ -Patient presents to the ED with numerous complaints. Patient's troponin is within normal limits. Patient's BNP is elevated and her chest x-ray demonstrates findings of pulmonary edema. Patient has been treated with IV Lasix for suspected CHF. Patient's renal function is also elevated, but it is unclear if she is at her baseline level. Patient's head CT is negative for acute intracranial process. Patient has been treated with medications for COPD as well due to complaints of dyspnea and wheezing noted on exam. Patient has also been treated with aspirin in the ED. Patient and fianc are aware of the patient's test results, and patient agrees with hospital admission at this time. She denies development of any new pain or symptoms while in the ED. She continues to deny having any chest pain in the ED. Dr. Hurtado has accepted hospital admission. Undiagnosed new problem with uncertain prognosis? @ -No Drug Therapy requiring intensive monitoring for toxicity (Heparin, Nitro, Insulin, Cardizem)? @ -No Were any procedures done? @ -No Diagnosis/symptom? @ -Chest pain, CHF, renal insufficiency, headache, vomiting and diarrhea Acute, or Chronic, or Acute on Chronic? @ -Default Uncomplicated (without systemic symptoms) or Complicated (systemic symptoms)? @ -Default Side effects of treatment? @ -No Exacerbation, Progression, or Severe Exacerbation? @ -No Poses a threat to life or bodily function? How? (Chest pain, [place], [place], pneumonia, PE, COPD, DKA, ARF, appy, cholecystitis, CVA, Diverticulitis, Homicidal, Suicidal, threat to staff... and all critical care pts) @ -No (Cornelius Bhakta) Disposition <Lindsay Vasquez - Last Filed: 10/10/23 14:40> Is patient prescribed a controlled substance at d/c from ED?: No Time of Disposition: 18:12 <Cornelius Bhakta - Last Filed: 10/10/23 18:17> Clinical Impression: Chest pain, CHF (congestive heart failure), Chronic renal insufficiency, Nausea and vomiting, Headache Disposition: ADMITTED IP TO THIS HOSP Condition: Stable Referrals: Amara Parnell MD [Primary Care Provider] - 1-2 days
[2023-10-10 15:30] LABS: Basophils % (A) 0 %; Eosinophils # (A) 0.2 k/uL (0-0.7); Eosinophils % (A) 2 %; HCT 43.6 % (34.0-46.0); HGB 13.5 gm/dL (11.4-16.0); Hypochromasia Marked; Lymphocytes # (A) 1.8 k/uL (1.0-4.8); Lymphocytes % (A) 17 %; MCH 29.7 pg (25.0-35.0); MCHC 31.1 g/dL (31.0-37.0); MCV 95.6 fL (80.0-100.0); Mean Platelet Volume 8.2; Monocytes # (A) 0.5 k/uL (0-1.0); Monocytes % (A) 5 %; Neutrophils % (A) 76 %; Platelet Count 233 k/uL (150-450); RBC 4.56 m/uL (3.80-5.40); RDW 14.2 % (11.5-15.5); WBC 10.5 k/uL (3.8-10.6)
--- NOTE | 2023-10-10 15:43 | XR ---
EXAMINATION TYPE: XR chest 2V DATE OF EXAM: 10/10/2023 3:28 PM CLINICAL INDICATION:Female, 68 years old with history of Chest Pain; COMPARISON: Chest radiographs from 08/31/2022 TECHNIQUE: XR chest 2V Frontal view of the chest. FINDINGS: Lungs/Pleura: Haziness to the lungs with increased interstitial lung markings. There is no evidence o f pleural effusion, focal consolidation, or pneumothorax. Pulmonary vascularity: Unremarkable. Heart/mediastinum: Cardiomediastinal silhouette is unremarkable. Musculoskeletal: No acute osseous pathology. IMPRESSION: Pulmonary edema correlate with serum BNP.
[2023-10-10 15:46] LABS: ALT 8 U/L (4-34); African American GFR (CKD) 19 (>60 ml/min/1.73 sqM); Anion Gap 9 mmol/L; Blood Urea Nitrogen 24 mg/dL (7-17); Calcium 8.5 mg/dL (8.4-10.2); Carbon Dioxide 20 mmol/L (22-30); Chloride 105 mmol/L (98-107); Glucose 142 mg/dL (74-99); Magnesium 1.8 mg/dL (1.6-2.3); Non-African American GFR(CKD) 17 (>60 ml/min/1.73 sqM); Sodium 134 mmol/L (137-145); Total Bilirubin 1.1 mg/dL (0.2-1.3)
[2023-10-10 15:49] LABS: Potassium 4.8 mmol/L (3.5-5.1); Total Protein 7.2 g/dL (6.3-8.2)
[2023-10-10 15:50] LABS: AST 23 U/L (14-36); Albumin 3.9 g/dL (3.5-5.0); Alkaline Phosphatase 74 U/L (38-126)
[2023-10-10 15:54] LABS: NT-Pro-B-Type Natriuretic Pept 23100 pg/mL; Partial Thromboplastin Time 26.8 sec (22.0-30.0); Prothrombin Time 11.1 sec (10.0-12.5)
[2023-10-10] MEDS: ONDANSETRON 4 MG/2 ML VIAL IVP STA (17:19)
[2023-10-10] MEDS: methylPREDNISolone SOD SUCCI 125 MG/2 ML VIAL IV STA (17:21)
[2023-10-10] MEDS: FUROSEMIDE 10 MG/ML 4 ML VIAL IV STA (17:22)
--- NOTE | 2023-10-10 17:46 | CT ---
EXAMINATION TYPE: CT brain wo con CT DLP: 1095.4 mGycm, Automated exposure control for dose reduction was used. DATE OF EXAM: 10/10/2023 5:35 PM COMPARISON: None. CLINICAL INDICATION:Female, 68 years old with history of headache, Headache, states that she fell x 1 .5 weeks ago-doesnt remember details TECHNIQUE: Brain: Axial CT images of the brain were obtained with coronal and sagittal reformats created and rev iewed. Contrast used: None. Oral contrast used: None. FINDINGS: Brain: Extra-axial spaces: No abnormal extra-axial fluid collections. Ventricular system: Within normal limits Cerebral parenchyma: No acute intraparenchymal hemorrhage or mass effect. The miner-white junction is well differentiated. Cerebellum: Unremarkable. Mass effect: No evidence of midline shift. Intracranial vasculature: Atherosclerotic calcifications of the intracranial vessels. Soft tissues: Normal. Calvarium/osseous structures: No depressed skull fracture. Paranasal sinuses and mastoid air cells: Mild scattered paranasal sinus disease. Visualized orbits: Orbital contents are intact. IMPRESSION: No acute intracranial process.
[2023-10-10] MEDS ORDERED: NALOXONE 0.4 MG/ML 1 ML VIAL IV PRN (18:12)
[2023-10-10] MEDS: ASPIRIN 81 MG PO STA (18:25)
[2023-10-10] MEDS: ACETAMINOPHEN TAB 500 MG TAB PO STA (18:28)
[2023-10-10] MEDS: IPRATROPIUM-ALBUTEROL 3 ML NEB INHALATION STA (18:36)
[2023-10-10 19:49] VITALS: BP 189/74; PULSE 77; RESP 18; TEMP 98
[2023-10-10 20:21] LABS: Appearance,Urine Clear (Clear); Bilirubin,Urine Negative (Negative); Blood,Urine Trace (Negative); Color,Urine Colorless; Glucose,Urine (UA) 2+ (Negative); Ketones,Urine Negative (Negative); Leukocyte Esterase,Urine Large (Negative); Nitrite,Urine Negative (Negative); Protein,Urine Trace (Negative); RBC,Urine <1 /hpf (0-5); Specific Gravity,Urine 1.005 (1.001-1.035); Urobilinogen,Urine <2.0 mg/dL (<2.0); WBC,Urine 5 /hpf (0-5)
--- NOTE | 2023-10-14 07:28 | P.HPIM ---
History of Present Illness H&P Date: 10/10/23 Patient left AMA at 2030. Past Medical History Past Medical History: COPD, Diabetes Mellitus, Hypertension, Osteoarthritis (OA), Renal Disease Additional Past Medical History / Comment(s): jolly but does'nt use cpap anymore, past uterine fibroids.pt stated has had a pne vaccine but not sure of date.life insurance underwriter unable to verify date at time of admit-please f/u w/dr office in am. 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 Past Anesthesia/Blood Transfusion Reactions: No Reported Reaction Past Psychological History: Bipolar, Depression Smoking Status: Current every day smoker Past Alcohol Use History: None Reported Past Drug Use History: Marijuana - Past Family History Mother Family Medical History: Diabetes Mellitus, Myocardial Infarction ([place]), Osteoarthritis ([place]) Additional Family Medical History / Comment(s): djd Father Family Medical History: Deep Vein Thrombosis (DVT) Medications and Allergies Home Medications Medication Instructions Recorded Confirmed Type traZODone HCL 150 mg PO HS 10/08/16 10/10/23 History Insulin Degludec [Tresiba 32 units SQ HS 01/30/18 10/10/23 History Flextouch U-100 Pen] Albuterol Inhaler [Ventolin Hfa 2 puff INHALATION RT-Q6H PRN 08/12/20 10/10/23 History Inhaler] ALPRAZolam [Xanax] 0.5 mg PO BID 10/13/22 10/10/23 History Acetaminophen-Codeine 300-30mg 1 tab PO Q4H PRN 10/13/22 10/10/23 History [Tylenol w/codeine #3] Cyclobenzaprine [Flexeril] 5 mg PO Q8H 10/13/22 10/10/23 History Dapagliflozin Propanediol [Farxiga] 10 mg PO DAILY #30 tablet 11/07/22 10/10/23 Rx Isosorbide Mononitrate ER [Imdur] 30 mg PO DAILY #30 tab 11/07/22 10/10/23 Rx Bumetanide [Bumex] 2 mg PO DAILY 10/10/23 10/10/23 History Omeprazole 20 mg PO BID 10/10/23 10/10/23 History Ondansetron Odt [Zofran Odt] 4 mg PO Q8HR PRN 10/10/23 10/10/23 History Venlafaxine HCl ER [Effexor Xr] 75 mg PO DAILY 10/10/23 10/10/23 History carvediloL [Coreg] 25 mg PO BID 10/10/23 10/10/23 History hydrALAZINE HCL [Apresoline] 25 mg PO BID 10/10/23 10/10/23 History Allergies Allergy/AdvReac Type Severity Reaction Status Date / Time aspirin AdvReac Nausea & Verified 10/10/23 18:16 Vomiting ibuprofen [From Motrin] AdvReac Nausea & Verified 10/10/23 18:16 Vomiting Results CBC & Chem 7: 10/10/23 15:07 10/10/23 15:07
--- NOTE | 2023-10-14 07:29 | P.DS ---
Providers Date of admission: 10/10/23 18:13 Expected date of discharge: 10/10/23 Attending physician: Cece Hurtado MD Primary care physician: Amara [facility] Course: Patient left AMA at 2030. Plan - Discharge Summary New Discharge Prescriptions: No Action traZODone HCL 150 mg PO HS Insulin Degludec [Tresiba Flextouch U-100 Pen] 32 units SQ HS Albuterol Inhaler [Ventolin Hfa Inhaler] 2 puff INHALATION RT-Q6H PRN PRN Reason: Shortness Of Breath Cyclobenzaprine [Flexeril] 5 mg PO Q8H ALPRAZolam [Xanax] 0.5 mg PO BID Dapagliflozin Propanediol [Farxiga] 10 mg PO DAILY #30 tablet hydrALAZINE HCL [Apresoline] 25 mg PO BID Omeprazole 20 mg PO BID Acetaminophen-Codeine 300-30mg [Tylenol w/codeine #3] 1 tab PO Q4H PRN PRN Reason: Pain Isosorbide Mononitrate ER [Imdur] 30 mg PO DAILY #30 tab carvediloL [Coreg] 25 mg PO BID Venlafaxine HCl ER [Effexor Xr] 75 mg PO DAILY Bumetanide [Bumex] 2 mg PO DAILY Ondansetron Odt [Zofran Odt] 4 mg PO Q8HR PRN PRN Reason: Nausea Discharge Medication List traZODone HCL 150 mg PO HS 10/08/16 [History] Insulin Degludec [Tresiba Flextouch U-100 Pen] 32 units SQ HS 01/30/18 [History] Albuterol Inhaler [Ventolin Hfa Inhaler] 2 puff INHALATION RT-Q6H PRN 08/12/20 [History] ALPRAZolam [Xanax] 0.5 mg PO BID 10/13/22 [History] Acetaminophen-Codeine 300-30mg [Tylenol w/codeine #3] 1 tab PO Q4H PRN 10/13/22 [History] Cyclobenzaprine [Flexeril] 5 mg PO Q8H 10/13/22 [History] Dapagliflozin Propanediol [Farxiga] 10 mg PO DAILY #30 tablet 11/07/22 [Rx] Isosorbide Mononitrate ER [Imdur] 30 mg PO DAILY #30 tab 11/07/22 [Rx] Bumetanide [Bumex] 2 mg PO DAILY 10/10/23 [History] Omeprazole 20 mg PO BID 10/10/23 [History] Ondansetron Odt [Zofran Odt] 4 mg PO Q8HR PRN 10/10/23 [History] Venlafaxine HCl ER [Effexor Xr] 75 mg PO DAILY 10/10/23 [History] carvediloL [Coreg] 25 mg PO BID 10/10/23 [History] hydrALAZINE HCL [Apresoline] 25 mg PO BID 10/10/23 [History] Follow up Appointment(s)/Referral(s): Amara Parnell MD [Primary Care Provider] - 1-2 days
== END 2023-10-10 20:30 | disposition other institution (70) ==
LOC: EC 14:25 → 3SCARD 18:13 → UNDOADMIN 18:13 → 3SCARD 20:06 → UNDODISIN 20:30 → 3SCARD 21:47 → UNDODISIN 10-14 10:13
DX: I13.0 Hypertensive heart and chronic kidney disease with heart failure and stage 1 through stage 4 chronic kidney disease, or unspecified chronic kidney disease (principal); E11.22 Type 2 diabetes mellitus with diabetic chronic kidney disease; F17.200 Nicotine dependence, unspecified, uncomplicated; I50.9 Heart failure, unspecified; J44.9 Chronic obstructive pulmonary disease, unspecified; N18.9 Chronic kidney disease, unspecified; Z79.4 Long term (current) use of insulin; Z79.82 Long term (current) use of aspirin; Z79.84 Long term (current) use of oral hypoglycemic drugs; Z11.52 Encounter for screening for COVID-19; Z82.49 Family history of ischemic heart disease and other diseases of the circulatory system
CPT/HCPCS: 36415; 70450; 71046; 80053; 81001; 83735; 83880; 84484; 85025; 85610; 85730; 87636; 93005; 94640; 96374; 96375; 99285

== ENCOUNTER 2024-05-04 17:24 | Inpatient (IN) | payer MEDICARE ==
--- NOTE | 2024-05-04 17:54 | ED ---
SOB HPI - General Chief Complaint: Shortness of Breath Stated Complaint: SOB Time Seen by Provider: 05/04/24 17:30 Source: patient Mode of arrival: EMS Limitations: no limitations - History of Present Illness Initial Comments: This patient is 69-year-old woman who presents with complaint that she is having shortness of breath and nonproductive cough. The patient states has been getting worse over the course of past days. She denies known fever or chills. No chest pain, no leg pain or swelling. Patient also states that she is having pain sitting on the bed and that this is related to skin ulcers she has on her backside. Patient states that she had been seen by her physician in the clinic and sent over with concerns about her respiratory status. MD Complaint: shortness of breath, cough -: days(s) Severity scale (1-10): 0 Consistency: constant Improves With: nothing Worsens With: lying flat, exertion Known History Of: COPD, congestive heart failure Associated Symptoms: cough Treatments Prior to Arrival: none - Related Data Home Oxygen Therapy: No Home Medications Medication Instructions Recorded Confirmed traZODone HCL 150 mg PO HS PRN 10/08/16 05/04/24 Albuterol Inhaler [Ventolin Hfa 2 puff INHALATION RT-Q4H PRN 08/12/20 05/04/24 Inhaler] Cyclobenzaprine [Flexeril] 5 mg PO TID PRN 10/13/22 05/04/24 Venlafaxine HCl ER [Effexor XR] 75 mg PO DAILY 10/10/23 05/04/24 carvediloL [Coreg] 25 mg PO DAILY 10/10/23 05/04/24 Cephalexin [Keflex] 500 mg PO QID 05/04/24 05/04/24 Previous Rx's Medication Instructions Recorded Isosorbide Mononitrate ER [Imdur] 30 mg PO DAILY #30 tab 11/07/22 Calcium Acetate [PhosLo] 667 mg PO TID-W/MEALS #90 tab 04/13/24 Ipratropium-Albuterol Nebulize 3 ml INHALATION RT-QID each 04/13/24 [Duoneb 0.5 mg-3 mg/3 ml Soln] Ipratropium-Albuterol Nebulize 3 ml INHALATION RT-QID PRN each 04/13/24 [Duoneb 0.5 mg-3 mg/3 ml Soln] Pantoprazole [Protonix] 40 mg PO AC-BRKFST #30 tab 04/13/24 Acetaminophen-Codeine 300-30mg 1 tab PO BID PRN #6 tab 04/17/24 [Tylenol w/codeine #3] Furosemide [Lasix] 40 mg PO DAILY tab 04/17/24 ALPRAZolam [Xanax] 0.5 mg PO BID PRN #6 tab 05/10/24 Benzonatate [Tessalon Perles] 100 mg PO TID PRN #30 cap 05/10/24 INSULIN LISPRO (HumaLOG) [HumaLOG] 0 unit SQ ACHS each 05/10/24 Insulin Degludec [Tresiba 18 units SQ HS #0 05/10/24 Flextouch U-100 Pen] Pregabalin [Lyrica] 75 mg PO BID #30 cap 05/10/24 Tamsulosin [Flomax] 0.4 mg PO PC-BRKFST #30 cap 05/10/24 hydrALAZINE HCL [Apresoline] 50 mg PO TID #90 tab 05/10/24 polyethylene glycoL 3350 [Miralax] 17 gm PO HS #30 packet 05/10/24 Allergies Allergy/AdvReac Type Severity Reaction Status Date / Time aspirin AdvReac Nausea & Verified 05/04/24 20:24 Vomiting ibuprofen [From Motrin] AdvReac Nausea & Verified 05/04/24 20:24 Vomiting Review of Systems ROS Statement: Those systems with pertinent positive or pertinent negative responses have been documented in the HPI. ROS Other: All systems not noted in ROS Statement are negative. Constitutional: Reports: weakness. Denies: fever, chills Respiratory: Reports: cough, dyspnea, wheezes. Denies: hemoptysis Cardiovascular: Reports: dyspnea on exertion, orthopnea. Denies: chest pain, palpitations, edema, syncope Gastrointestinal: Denies: abdominal pain, nausea, vomiting, diarrhea Genitourinary: Denies: dysuria, hematuria Musculoskeletal: Denies: back pain Skin: Reports: as per HPI, lesions. 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 Past Anesthesia/Blood Transfusion Reactions: No Reported Reaction Past Psychological History: Bipolar, Depression Smoking Status: Former smoker Past Alcohol Use History: None Reported Past Drug Use History: Marijuana - Past Family History Mother Family Medical History: Diabetes Mellitus, Myocardial Infarction (ND), Osteoarthritis (OA) Additional Family Medical History / Comment(s): djd Father Family Medical History: Deep Vein Thrombosis (DVT) General Exam Limitations: no limitations General appearance: alert, in distress (Mild respiratory distress with pursed lip breathing) Head exam: Present: atraumatic, normocephalic Eye exam: Present: normal appearance. Absent: scleral icterus, conjunctival injection ENT exam: Present: mucous membranes dry Neck exam: Present: normal inspection Respiratory exam: Present: respiratory distress, wheezes. Absent: rales, rhonchi, stridor, accessory muscle use, decreased breath sounds, prolonged expiratory Cardiovascular Exam: Present: regular rate, normal rhythm, normal heart sounds. Absent: systolic murmur, diastolic murmur, rubs, gallop GI/Abdominal exam: Present: soft. Absent: distended, tenderness, guarding, rebound, rigid, mass Extremities exam: Present: normal inspection, normal capillary refill. Absent: pedal edema, calf tenderness Back exam: Present: normal inspection. Absent: CVA tenderness (R), CVA tenderness (L) Neurological exam: Present: alert Skin exam: Present: warm, dry, normal color, other (Patient has to less than 1 cm sacral decubitus ulcers, stage I). Absent: rash Course Vital Signs 05/04/24 05/04/24 05/04/24 17:27 17:31 18:08 Temperature 97.7 F Pulse Rate 70 76 Respiratory 18 20 20 Rate Blood Pressure 139/66 140/91 O2 Sat by Pulse 92 L 96 Oximetry 05/04/24 05/04/24 05/04/24 18:34 18:51 19:30 Temperature Pulse Rate 68 66 68 Respiratory 18 Rate Blood Pressure 147/66 O2 Sat by Pulse 95 Oximetry 05/04/24 05/04/24 05/04/24 20:43 20:49 23:00 Temperature Pulse Rate 69 74 69 Respiratory 20 20 16 Rate Blood Pressure 164/61 O2 Sat by Pulse 94 L Oximetry 05/05/24 05/05/24 05/05/24 00:00 02:00 06:43 Temperature Pulse Rate 71 65 75 Respiratory 20 65 H 18 Rate Blood Pressure 143/83 157/68 165/70 O2 Sat by Pulse 94 L 94 L 98 Oximetry 05/05/24 05/05/24 05/05/24 08:14 08:36 08:43 Temperature 98.0 F Pulse Rate 72 74 73 Respiratory 20 18 18 Rate Blood Pressure 157/72 O2 Sat by Pulse 96 Oximetry 05/05/24 05/05/24 05/05/24 10:47 12:28 12:37 Temperature Pulse Rate 70 69 91 Respiratory 20 18 18 Rate Blood Pressure 122/57 O2 Sat by Pulse 91 L Oximetry 05/05/24 13:35 Temperature Pulse Rate 71 Respiratory 20 Rate Blood Pressure 108/85 O2 Sat by Pulse 95 Oximetry Medical Decision Making - Medical Decision Making The patient had chest x-ray that I interpreted as showing vascular congestion consistent with CHF. No pneumothorax or infiltrate. Was pt. sent in by a medical professional or institution (, PA, DRAW STRING KNOTTER, urgent care, hospital, or senior living...) When possible be specific @ -[No] Did you speak to anyone other than the patient for history (EMS, parent, family, police, friend...)? What history was obtained from this source @ -[No] Did you review nursing and triage notes (agree or disagree)? Why? @ -[I reviewed and agree with nursing and triage notes] Were old charts reviewed (outside hosp., previous admission, EMS record, old EKG, old radiological studies, urgent care reports/EKG's, senior living records)? Report findings @ -[No old charts were reviewed] Differential Diagnosis (chest pain, altered mental status, abdominal pain women, abdominal pain men, vaginal bleeding, weakness, fever, dyspnea, syncope, headache, dizziness, GI bleed, back pain, seizure, CVA, palpatations, mental health, musculoskeletal)? @ -Differential Dyspnea: Coronary syndrome, arrhythmia, tamponade, asthma, COPD, pulmonary embolism, pneumonia, pneumothorax, pulmonary effusion, anaphylaxis, diabetic ketoacidosis, flailed chest, pulmonary contusion, diaphragmatic rupture, anemia, neuromuscular, this is not meant to be an all-inclusive list. EKG interpreted by me (3pts min.). @ -[I interpreted as above] X-rays interpreted by me (1pt min.). @ -[I interpreted as above CT interpreted by me (1pt min.). @ -[None done] U/S interpreted by me (1pt. min.). @ -[None done] What testing was considered but not performed or refused? (CT, X-rays, U/S, labs)? Why? @ -[None] What meds were considered but not given or refused? Why? @ -[None] Did you discuss the management of the patient with other professionals (professionals i.e. , PA, DRAW STRING KNOTTER, lab, RT, psych nurse, social media job titles, skimmer scoop operator, teacher, parachute/combatant diver officer, case reviewer)? Give summary @ -[No] Was smoking cessation discussed for >3mins.? @ -[No] Was critical care preformed (if so, how long)? @ -[No] Were there social determinants of health that impacted care today? How? (Homelessness, low income, unemployed, alcoholism, drug addiction, transportation, low edu. Level, literacy, decrease access to med. care, half-way, rehab)? @ -[No] Was there de-escalation of care discussed even if they declined (Discuss DNR or withdrawal of care, Hospice)? DNR status @ -[No] What co-morbidities impacted this encounter? (DM, HTN, Smoking, COPD, CAD, Cancer, CVA, ARF, Chemo, Hep., AIDS, mental health diagnosis, sleep apnea, mor bid obesity)? @ -[None] Was patient admitted / discharged? Hospital course, mention meds given and route, prescriptions, significant lab abnormalities, going to OR and other pertinent info. @ -[hospital course] Undiagnosed new problem with uncertain prognosis? @ -[No] Drug Therapy requiring intensive monitoring for toxicity (Heparin, Nitro, Insulin, Cardizem)? @ -[No] Were any procedures done? @ -[No] Diagnosis/symptom? @ -[Acute exacerbation of congestive heart failure Acute, or Chronic, or Acute on Chronic? @ -[Acute Uncomplicated (without systemic symptoms) or Complicated (systemic symptoms)? @ -[default] Side effects of treatment? @ -[No] Exacerbation, Progression, or Severe Exacerbation? @ -[Exacerbation of CHF Poses a threat to life or bodily function? How? (Chest pain, USA, ND, pneumonia, PE, COPD, DKA, ARF, appy, cholecystitis, CVA, Diverticulitis, Homicidal, Suicidal, threat to staff... and all critical care pts) @ -[No] All treatments are based on ideal body weight as in ED triage - Lab Data Result diagrams: 05/10/24 04:38 05/10/24 04:38 Lab Results 05/04/24 05/04/24 05/04/24 Range/Units 17:57 17:57 17:57 WBC 6.0 (3.8-10.6) k/uL RBC 3.87 (3.80-5.40) m/uL Hgb 11.5 (11.4-16.0) gm/dL Hct 36.3 (34.0-46.0) % MCV 93.9 (80.0-100.0) fL MCH 29.8 (25.0-35.0) pg MCHC 31.8 (31.0-37.0) g/dL RDW 15.4 (11.5-15.5) % Plt Count 223 (150-450) k/uL MPV 7.7 Neutrophils % 69 % Lymphocytes % 20 % Monocytes % 8 % Eosinophils % 1 % Basophils % 0 % Neutrophils # 4.2 (1.3-7.7) k/uL Lymphocytes # 1.2 (1.0-4.8) k/uL Monocytes # 0.5 (0-1.0) k/uL Eosinophils # 0.1 (0-0.7) k/uL Basophils # 0.0 (0-0.2) k/uL Hypochromasia Moderate PT 10.7 (10.0-12.5) sec INR 1.0 (<1.2) APTT 22.4 (22.0-30.0) sec VBG pH (7.31-7.41) VBG pCO2 (37-51) mmHg VBG HCO3 (24-28) mmol/L Sodium 130 L (137-145) mmol/L Potassium 4.2 (3.5-5.1) mmol/L Chloride 83 L (98-107) mmol/L Carbon Dioxide 38 H (22-30) mmol/L Anion Gap 9 mmol/L BUN 79 H (7-17) mg/dL Creatinine 2.93 H (0.52-1.04) mg/dL Est GFR (CKD-EPI)AfAm 18 (>60 ml/min/1.73 sqM) Est GFR (CKD-EPI)NonAf 16 (>60 ml/min/1.73 sqM) Glucose 215 H (74-99) mg/dL Plasma Lactic Acid Maurice (0.7-2.0) mmol/L Calcium 9.0 (8.4-10.2) mg/dL Total Bilirubin 0.9 (0.2-1.3) mg/dL AST 23 (14-36) U/L ALT 41 H (4-34) U/L Alkaline Phosphatase 89 (38-126) U/L Ammonia (<30) umol/L Troponin I (0.000-0.034) ng/mL NT-Pro-B Natriuret Pep 9100 pg/mL Total Protein 7.2 (6.3-8.2) g/dL Albumin 4.0 (3.5-5.0) g/dL Influenza Type A (PCR) (Not Detectd) Influenza Type B (PCR) (Not Detectd) RSV (PCR) (Not Detectd) SARS-CoV-2 (PCR) (Not Detectd) 05/04/24 05/04/24 05/04/24 Range/Units 17:57 17:57 20:05 WBC (3.8-10.6) k/uL RBC (3.80-5.40) m/uL Hgb (11.4-16.0) gm/dL Hct (34.0-46.0) % MCV (80.0-100.0) fL MCH (25.0-35.0) pg MCHC (31.0-37.0) g/dL RDW (11.5-15.5) % Plt Count (150-450) k/uL MPV Neutrophils % % Lymphocytes % % Monocytes % % Eosinophils % % Basophils % % Neutrophils # (1.3-7.7) k/uL Lymphocytes # (1.0-4.8) k/uL Monocytes # (0-1.0) k/uL Eosinophils # (0-0.7) k/uL Basophils # (0-0.2) k/uL Hypochromasia PT (10.0-12.5) sec INR (<1.2) APTT (22.0-30.0) sec VBG pH (7.31-7.41) VBG pCO2 (37-51) mmHg VBG HCO3 (24-28) mmol/L Sodium (137-145) mmol/L Potassium (3.5-5.1) mmol/L Chloride (98-107) mmol/L Carbon Dioxide (22-30) mmol/L Anion Gap mmol/L BUN (7-17) mg/dL Creatinine (0.52-1.04) mg/dL Est GFR (CKD-EPI)AfAm (>60 ml/min/1.73 sqM) Est GFR (CKD-EPI)NonAf (>60 ml/min/1.73 sqM) Glucose (74-99) mg/dL Plasma Lactic Acid Maurice (0.7-2.0) mmol/L Calcium (8.4-10.2) mg/dL Total Bilirubin (0.2-1.3) mg/dL AST (14-36) U/L ALT (4-34) U/L Alkaline Phosphatase (38-126) U/L Ammonia 10 (<30) umol/L Troponin I 0.030 (0.000-0.034) ng/mL NT-Pro-B Natriuret Pep pg/mL Total Protein (6.3-8.2) g/dL Albumin (3.5-5.0) g/dL Influenza Type A (PCR) Not Detected (Not Detectd) Influenza Type B (PCR) Not Detected (Not Detectd) RSV (PCR) Not Detected (Not Detectd) SARS-CoV-2 (PCR) Not Detected (Not Detectd) 05/04/24 05/04/24 Range/Units 20:05 20:09 WBC (3.8-10.6) k/uL RBC (3.80-5.40) m/uL Hgb (11.4-16.0) gm/dL Hct (34.0-46.0) % MCV (80.0-100.0) fL MCH (25.0-35.0) pg MCHC (31.0-37.0) g/dL RDW (11.5-15.5) % Plt Count (150-450) k/uL MPV Neutrophils % % Lymphocytes % % Monocytes % % Eosinophils % % Basophils % % Neutrophils # (1.3-7.7) k/uL Lymphocytes # (1.0-4.8) k/uL Monocytes # (0-1.0) k/uL Eosinophils # (0-0.7) k/uL Basophils # (0-0.2) k/uL Hypochromasia PT (10.0-12.5) sec INR (<1.2) APTT (22.0-30.0) sec VBG pH 7.42 H (7.31-7.41) VBG pCO2 64 H (37-51) mmHg VBG HCO3 41 H (24-28) mmol/L Sodium (137-145) mmol/L Potassium (3.5-5.1) mmol/L Chloride (98-107) mmol/L Carbon Dioxide (22-30) mmol/L Anion Gap mmol/L BUN (7-17) mg/dL Creatinine (0.52-1.04) mg/dL Est GFR (CKD-EPI)AfAm (>60 ml/min/1.73 sqM) Est GFR (CKD-EPI)NonAf (>60 ml/min/1.73 sqM) Glucose (74-99) mg/dL Plasma Lactic Acid Maurice 1.6 (0.7-2.0) mmol/L Calcium (8.4-10.2) mg/dL Total Bilirubin (0.2-1.3) mg/dL AST (14-36) U/L ALT (4-34) U/L Alkaline Phosphatase (38-126) U/L Ammonia (<30) umol/L Troponin I (0.000-0.034) ng/mL NT-Pro-B Natriuret Pep pg/mL Total Protein (6.3-8.2) g/dL Albumin (3.5-5.0) g/dL Influenza Type A (PCR) (Not Detectd) Influenza Type B (PCR) (Not Detectd) RSV (PCR) (Not Detectd) SARS-CoV-2 (PCR) (Not Detectd) - EKG Data -: EKG Interpreted by Me (The interpretation is limited by some artifact related to respiratory effor) EKG shows normal: sinus rhythm, intervals (Normal), QRS complexes (Normal), ST-T waves (T inversions anterolaterally possible ischemia.) Rate: normal (Rate 67 bpm) Disposition Clinical Impression: COPD exacerbation, CHF (congestive heart failure), Sacral decubitus ulcer Disposition: ADMITTED IP TO THIS HOSP Condition: Fair Is patient prescribed a controlled substance at d/c from ED?: No
[2024-05-04 18:30] LABS: Basophils % (A) 0 %; Eosinophils # (A) 0.1 k/uL (0-0.7); Eosinophils % (A) 1 %; HCT 36.3 % (34.0-46.0); HGB 11.5 gm/dL (11.4-16.0); Hypochromasia Moderate; Lymphocytes # (A) 1.2 k/uL (1.0-4.8); Lymphocytes % (A) 20 %; MCH 29.8 pg (25.0-35.0); MCHC 31.8 g/dL (31.0-37.0); MCV 93.9 fL (80.0-100.0); Mean Platelet Volume 7.7; Monocytes # (A) 0.5 k/uL (0-1.0); Monocytes % (A) 8 %; Neutrophils # (A) 4.2 k/uL (1.3-7.7); Neutrophils % (A) 69 %; Platelet Count 223 k/uL (150-450); RBC 3.87 m/uL (3.80-5.40); RDW 15.4 % (11.5-15.5)
[2024-05-04] MEDS: ALBUTEROL NEBULIZED 2.5 MG/3 ML INHALATION STA ×2 (18:34→20:43)
[2024-05-04] MEDS: IPRATROPIUM-ALBUTEROL 3 ML NEB INHALATION STA (18:34)
[2024-05-04 18:41] LABS: ALT 41 U/L (4-34); AST 23 U/L (14-36); African American GFR (CKD) 18 (>60 ml/min/1.73 sqM); Alkaline Phosphatase 89 U/L (38-126); Anion Gap 9 mmol/L; Blood Urea Nitrogen 79 mg/dL (7-17); Carbon Dioxide 38 mmol/L (22-30); Chloride 83 mmol/L (98-107); Glucose 215 mg/dL (74-99); Non-African American GFR(CKD) 16 (>60 ml/min/1.73 sqM); Potassium 4.2 mmol/L (3.5-5.1); Sodium 130 mmol/L (137-145); Total Bilirubin 0.9 mg/dL (0.2-1.3); Total Protein 7.2 g/dL (6.3-8.2)
[2024-05-04 18:45] LABS: Partial Thromboplastin Time 22.4 sec (22.0-30.0); Prothrombin Time 10.7 sec (10.0-12.5)
[2024-05-04 18:48] LABS: NT-Pro-B-Type Natriuretic Pept 9100 pg/mL
[2024-05-04 18:54] LABS: Influenza A Not Detected (Not Detectd); Influenza B Not Detected (Not Detectd); RSV Not Detected (Not Detectd)
--- NOTE | 2024-05-04 19:40 | XR ---
EXAMINATION TYPE: XR chest 2V DATE OF EXAM: 05/04/2024 7:35 PM COMPARISON: 04/12/2024 CLINICAL INDICATION: Female, 69 years old with history of difficulty breathing, TECHNIQUE: XR chest 2V view(s) obtained. FINDINGS: The heart size is normal. The pulmonary vasculature is prominent. The lungs are clear. IMPRESSION: 1. Correlate for mild volume overload [facility], , 05/04/2024 7:37 PM
[2024-05-04] MEDS: MORPHINE SULFATE 4 MG/ML SYRINGE IV STA (19:51)
[2024-05-04 20:25] LABS: VBG PH 7.42 (7.31-7.41)
[2024-05-04] MEDS ORDERED: IPRATROPIUM-ALBUTEROL 3 ML NEB INHALATION PRN (22:13)
[2024-05-04] MEDS ORDERED: NALOXONE 0.4 MG/ML 1 ML VIAL IVP PRN (22:13)
[2024-05-05] MEDS ORDERED: DEXTROSE 50% SYRINGE 50 ML IVP PRN (01:36)
[2024-05-05 02:10] LABS: Glucose,Whole Blood 191 mg/dL (70-110)
--- NOTE | 2024-05-05 06:14 | P.HPIM ---
History of Present Illness H&P Date: 05/04/24 Patient is a 69-year-old female with past medical history significant for COPD on 2 L home oxygen, insulin-dependent diabetes mellitus, hypertension, CKD who presents to the emergency department today with shortness of breath. She states that she has had a nonproductive cough for about a week but today her dyspnea suddenly became worse. She was encouraged by her PCP to come here for further evaluation. Of note she was discharged from [facility] on 05/01/2024 for similar complaints. She denies fever/chills, nausea/vomiting, abdominal pain, chest pain, orthopnea. She reports increasing dyspnea. denies smoking Initial vitals: BP 140/91, IA 76 bpm, RR 20, 96% on 4 L nasal cannula Initial labs: WBC 6, hemoglobin 11.5, platelets 223, sodium 130, potassium 4.2, chloride 83, CO2 38, BUN to 79, creatinine 2.93, glucose 215, troponin x 1: 0.030; Cepheid 4 Plex negative Initial chest x-ray: Correlate for mild volume overload, pulmonary vasculature prominent ED documentation reviewed. Given DuoNeb x 1, nebulized albuterol x 2 Review of Systems Pertinent positives and negatives as discussed in HPI, a complete review of systems was performed and all other systems are negative. Past Medical History Past Medical History: COPD, Diabetes Mellitus, Hypertension, Osteoarthritis (OA), Renal Disease Additional Past Medical History / Comment(s): EDIN but does'nt use cpap anymore, past uterine fibroids.pt stated has had a pne vaccine but not sure of date. 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 Past Anesthesia/Blood Transfusion Reactions: No Reported Reaction Past Psychological History: Bipolar, Depression Smoking Status: Former smoker Past Alcohol Use History: None Reported Past Drug Use History: Marijuana - Past Family History Mother Family Medical History: Diabetes Mellitus, Myocardial Infarction ([place]), Osteoarthritis (OA) Additional Family Medical History / Comment(s): djd Father Family Medical History: Deep Vein Thrombosis (DVT) Medications and Allergies Home Medications Medication Instructions Recorded Confirmed Type traZODone HCL 150 mg PO HS PRN 10/08/16 05/04/24 History Insulin Degludec [Tresiba 32 units SQ HS 01/30/18 05/04/24 History Flextouch U-100 Pen] Albuterol Inhaler [Ventolin Hfa 2 puff INHALATION RT-Q4H PRN 08/12/20 05/04/24 History Inhaler] Cyclobenzaprine [Flexeril] 5 mg PO TID PRN 10/13/22 05/04/24 History Isosorbide Mononitrate ER [Imdur] 30 mg PO DAILY #30 tab 11/07/22 05/04/24 Rx Venlafaxine HCl ER [Effexor XR] 75 mg PO DAILY 10/10/23 05/04/24 History carvediloL [Coreg] 25 mg PO DAILY 10/10/23 05/04/24 History Calcium Acetate [PhosLo] 667 mg PO TID-W/MEALS #90 tab 04/13/24 05/04/24 Rx Ipratropium-Albuterol Nebulize 3 ml INHALATION RT-QID each 04/13/24 05/04/24 Rx [Duoneb 0.5 mg-3 mg/3 ml Soln] Ipratropium-Albuterol Nebulize 3 ml INHALATION RT-QID PRN each 04/13/24 05/04/24 Rx [Duoneb 0.5 mg-3 mg/3 ml Soln] Pantoprazole [Protonix] 40 mg PO AC-BRKFST #30 tab 04/13/24 05/04/24 Rx amLODIPine [Norvasc] 10 mg PO DAILY #30 tab 04/13/24 05/04/24 Rx hydrALAZINE HCL [Apresoline] 100 mg PO TID #90 tab 04/13/24 05/04/24 Rx ALPRAZolam [Xanax] 0.5 mg PO BID PRN #6 tab 04/17/24 05/04/24 Rx Acetaminophen-Codeine 300-30mg 1 tab PO BID PRN #6 tab 04/17/24 05/04/24 Rx [Tylenol w/codeine #3] Furosemide [Lasix] 40 mg PO DAILY tab 04/17/24 05/04/24 Rx Cephalexin [Keflex] 500 mg PO QID 05/04/24 05/04/24 History Pregabalin [Lyrica] 75 mg PO BID 05/04/24 05/04/24 History Allergies Allergy/AdvReac Type Severity Reaction Status Date / Time aspirin AdvReac Nausea & Verified 05/04/24 20:24 Vomiting ibuprofen [From Motrin] AdvReac Nausea & Verified 05/04/24 20:24 Vomiting Physical Exam Vitals: Vital Signs Temp Pulse Resp BP Pulse Ox 05/04/24 19:30 68 18 147/66 95 05/04/24 18:51 66 05/04/24 18:34 68 05/04/24 18:08 76 20 140/91 96 05/04/24 17:31 20 05/04/24 17:27 97.7 F 70 18 139/66 92 L Intake and Output 05/04/24 05/04/24 05/04/24 06:59 14:59 22:59 Other: Weight 87.543 kg Vital signs reviewed General: Nontoxic, no distress, appears stated age, well-appearing Derm: Warm, dry, intact, no cyanosis, stage 1 sacral pressure ulcer Head: Atraumatic, normocephalic, symmetric Eyes: EOMI, anicteric sclera, PERRL Ears: Normal appearing, no external lesions, hearing intact Nose: Normal appearing, no external lesions Mouth: No lip lesion, mucus membranes moist, no tonsilar hypertrophy or exudate Neck: Supple, without lesions, trachea midline Cardiovascular: S1-S2 regular, no murmur, no pedal edema Lungs: CTA bilateral, no wheezes, no rhonchi, no rales, no accessory muscle use Abdominal: Soft, non-tender to palpation, bowel sounds present Extremities: Muscle strength 4/5 in all extremities, radial pulses 2+ bilateral, posterior tibial pulses 1+ bilateral, patient was having repetitive limb jerks Neuro: Alert, oriented x 4, gross neurological examination did not reveal any focal deficits. Cranial nerves II to XII grossly intact. Psych: Appropriate affect and mood Results CBC & Chem 7: 05/04/24 17:57 05/04/24 17:57 Labs: Abnormal Lab Results - Last 24 Hours (Table) 05/04/24 05/04/24 Range/Units 17:57 20:09 VBG pH 7.42 H (7.31-7.41) VBG pCO2 64 H (37-51) mmHg VBG HCO3 41 H (24-28) mmol/L Sodium 130 L (137-145) mmol/L Chloride 83 L (98-107) mmol/L Carbon Dioxide 38 H (22-30) mmol/L BUN 79 H (7-17) mg/dL Creatinine 2.93 H (0.52-1.04) mg/dL Glucose 215 H (74-99) mg/dL ALT 41 H (4-34) U/L Thrombosis Risk Factor Assmnt - Choose All That Apply Each Factor Represents 1 point: Abnormal pulmonary function (COPD), Obesity (BMI >25) Each Risk Factor Represents 2 Points: Age 61-74 years Thrombosis Risk Factor Assessment Total Risk Factor Score: 4 Thrombosis Risk Factor Assessment Level: Moderate Risk Assessment and Plan Assessment: Patient is a 69-year-old female with past medical history significant for COPD on 2 L home oxygen, insulin-dependent diabetes mellitus, hypertension, CKD stage III admitted for acute COPD exacerbation. Plan: Active #. Acute COPD exacerbation #. Acute on chronic hypoxic respiratory failure Chest x-ray: Correlate for mild volume overload Continue DuoNebs four times daily and as needed Continue prednisone 40 mg p.o. daily Benzonatate 100 mg p.o. 3 times daily as needed for cough acute respiratory viral panel negative for covid , rsv, influenza #. Hyponatremia #. Hypochloremia Encourage oral intake Monitor BMP #. Hyperglycemia #. Insulin-dependent diabetes mellitus Accu-Cheks ACHS Insulin sliding scale Monitor for hypoglycemia #. Lower extremity weakness bilaterally Consult PT/OT Chronic #. Stage 1-2 decubitus ulcer Frequent position changes #. Hypertension Continue amlodipine 10 mg p.o. daily Continue Coreg 25 mg p.o. daily Continue hydralazine 100 mg p.o. 3 times daily #. CKD stage IIIb Creatinine at baseline Monitor BMP DVT prophylaxis: Lovenox 30 mg subcutaneous daily GI prophylaxis: Protonix 40 mg p.o. daily The patient is admitted with an anticipated less than 2 midnight stay for evaluation of acute COPD exacerbation. CODE STATUS: Full Code Anticipated discharge place: Pending clinical course I have seen and evaluated the patient today. I Discussed the case with the resident and agree with the resident's findings I edited the assessment and plan as necessary as documented in the resident's note.
[2024-05-05 08:03] LABS: Glucose,Whole Blood 177 mg/dL (70-110)
[2024-05-05] MEDS: IPRATROPIUM-ALBUTEROL 3 ML NEB INHALATION SCH (08:35)
[2024-05-05] MEDS: SYMBICORT 160-4.5 MCG INHALER INHALATION SCH (08:35)
[2024-05-05] MEDS: ENOXAPARIN 30 MG/0.3 ML SYRINGE SQ SCH (08:42)
[2024-05-05] MEDS: INSULIN LISPRO (HumaLOG) 100 UNIT/ML 10 mL VL SQ SCH (08:42)
[2024-05-05] MEDS: CALCIUM ACETATE 667 MG TAB PO SCH (08:45)
[2024-05-05] MEDS: carvediloL 12.5 MG TAB PO SCH (08:46)
[2024-05-05] MEDS: AZITHROMYCIN 500 MG TAB PO SCH (08:46)
[2024-05-05] MEDS: PANTOPRAZOLE 40 MG TABLET PO SCH (08:46)
[2024-05-05] MEDS: amLODIPine 10 MG TAB PO SCH (08:46)
[2024-05-05] MEDS: predniSONE 20 MG TAB PO SCH (08:47)
[2024-05-05] MEDS: ISOSORBIDE MONONITRATE ER 30 MG TAB.ER.24H PO SCH (08:47)
[2024-05-05] MEDS: FUROSEMIDE 40 MG TAB PO SCH (08:47)
[2024-05-05] MEDS: hydrALAZINE HCL 50 MG TAB PO SCH (08:47)
[2024-05-05] MEDS: VENLAFAXINE HCL ER 75 MG CAP PO SCH (08:48)
[2024-05-05] MEDS: PREGABALIN 75 MG CAP PO SCH (08:48)
[2024-05-05 13:11] LABS: Glucose,Whole Blood 212 mg/dL (70-110)
[2024-05-05 13:28] LABS: Basophils % (A) 0 %; Eosinophils # (A) 0.1 k/uL (0-0.7); Eosinophils % (A) 1 %; HGB 10.1 gm/dL (11.4-16.0); Hypochromasia Slight; Lymphocytes # (A) 0.8 k/uL (1.0-4.8); Lymphocytes % (A) 13 %; MCH 28.8 pg (25.0-35.0); MCHC 30.6 g/dL (31.0-37.0); MCV 94.1 fL (80.0-100.0); Mean Platelet Volume 7.9; Monocytes # (A) 0.4 k/uL (0-1.0); Monocytes % (A) 6 %; Neutrophils # (A) 4.6 k/uL (1.3-7.7); Neutrophils % (A) 76 %; Platelet Count 220 k/uL (150-450); RDW 15.5 % (11.5-15.5)
[2024-05-05 13:42] LABS: African American GFR (CKD) 19 (>60 ml/min/1.73 sqM); Anion Gap 7 mmol/L; Blood Urea Nitrogen 75 mg/dL (7-17); Calcium 8.6 mg/dL (8.4-10.2); Carbon Dioxide 39 mmol/L (22-30); Chloride 83 mmol/L (98-107); Glucose 189 mg/dL (74-99); Magnesium 1.7 mg/dL (1.6-2.3); Non-African American GFR(CKD) 17 (>60 ml/min/1.73 sqM); Sodium 129 mmol/L (137-145)
[2024-05-05] MEDS ORDERED: ZINC OXIDE PASTE (Z-GUARD) 1 APPLIC TOPICAL PRN (15:13)
[2024-05-05] MEDS: HYDROcodone/APAP 5-325MG 1 EACH TAB PO PRN (15:17)
[2024-05-05 16:29] LABS: Glucose,Whole Blood 238 mg/dL (70-110)
[2024-05-05] MEDS ORDERED: traZODone HCL 50 MG TAB PO PRN (17:11)
--- NOTE | 2024-05-05 17:15 | P.PN ---
Subjective Progress Note Date: 05/05/24 Hospital course: Patient is a pleasant 69-year-old female with a past medical history of COPD with chronic hypoxic and hypercarbic respiratory failure 3 L home O2 dependent, CKD stage IV, HFrEF, insulin-dependent diabetes mellitus, hypertension, and Depression. She presented to our on 05/04/2024 with a chief complaint of shortness of breath. Upon arrival to our facility, patient underwent evaluation in the emergency department. Vital signs upon arrival show blood pressure 139/66, heart rate 70, respiratory rate 18, temp 97.7 F, and SpO2 of 92% on 4 L. EKG completed showing sinus mechanism with diffuse T wave abnormalities. Chest x-ray completed showing mild volume overload. Labs completed and reviewed. CBC unremarkable. Coagulation profile normal findings. BMP showing hyponatremia with sodium of 130 and metabolic alkalosis with chloride of 83, bicarb of 38, and anion gap of 9 with renal function consistent with known CKD stage IV with BUN of 79, creatinine 2.93, GFR of 16. Magnesium 1.6. Liver profile showing elevated ALT of 41 otherwise normal findings. Troponin was 0.030 with proBNP of 9100. Influenza A, influenza B, RSV, and COVID PCR were negative. Patient mated under services with consultation to nephrology and cardiology. Physical exam: Patient seen and fully evaluated at bedside this morning patient reports breathing is unchanged from yesterday and continues to feel short of breath but states her main complaint is pain in her tailbone from lying on the stretcher. Patient remains in ER room 6 at this time waiting for bed assignment on 4S. Patient denies having any other needs, questions, concerns, or complaints at this time. Vital signs reviewed and stable. General: Nontoxic, no distress and appears stated age. Obese. Chronically ill- appearing. Derm: Skin warm and dry, normal coloration for ethnicity. Head: Atraumatic, normocephalic and symmetric. Eyes: EOM's intact, no lid lag, and anicteric sclera Mouth: no lip lesions, mucus membranes moist Cardiovascular: regular rate and rhythm with normal S1S2, systolic murmur, po sitive posterior tibial pulses bilaterally, and cap refill < 2 seconds. Lungs: Respirations even, regular, and unlabored on 3 L O2 via nasal cannula. Lungs diminished with expiratory wheezes. No conversational dyspnea noted. Abdominal: soft, nontender to palpation, no guarding, no appreciable org anomegaly Ext: ROM intact. No gross muscle atrophy, no edema, no contractures Neuro: Speech clear, face symmetrical and CN II-XII grossly intact with no noted focal neuro deficits Psych: Alert and oriented to person, place, time, and situation. Appropriate and pleasant affect. Assessment and Plan of Care: Acute on chronic hypoxic and hypercarbic respiratory failure Acute on chronic diastolic heart failure COPD mild exacerbation Hypertension -Cardiology consulted, appreciate recommendations -Nephrology consulted, appreciate recommendations -Telemetry monitoring -Troponin 0.030.. ProBNP 9100. -Daily weights and Close monitoring of I's and O's -Lasix 40 mg IVP x 1 dose pending evaluation and recommendations by video systems engineer/handicraft or hobby shop manager and patient to resume oral home Lasix 40 mg daily. -Continue daily medication regimen with aspirin 81 mg daily, amlodipine 10 mg daily, carvedilol 25 mg twice daily, isosorbide mononitrate 30 mg daily, and hydralazine 100 mg 3 times daily -Continued close monitoring of electrolytes while diuresing. Insulin-dependent diabetes mellitus -Continue Lantus 32 units nightly and patient placed on glycemic protocol with Humalog sliding scale. Pressure ulcers, present upon arrival -RN reports to stage II pressure ulcers to coccyx/sacral region. Order placed for wound care consult. Data and imaging reviewed: Vital signs reviewed. Pressure 157/72, heart rate 72, respiratory rate 20, temp 98.0 F, and SpO2 of 96% on 3 L. Morning labs reviewed. CBC showing stable normocytic anemia with hemoglobin of 10.1. BMP showing hyponatremia with sodium of 129, chloride 83, bicarb 39, anion gap 7, BUN 75, creatinine 2.82, GFR of 17. Blood glucose 189. Magnesium 1.7. CODE STATUS: Full code DVT prophylaxis: Lovenox Anticipated discharge date: Pending clinical course Anticipated discharge place: Pending clinical course Patient was seen independently by Nurse Pracitioner. This document was prepared using [employer] dictation software. Please allow for errors in cad designer drafter, while rare they do occur. Ham Mckinney NP rendered care for this patient independently, reviewed the findings and plan as documented in the note above and agree with plan. I did not physically speak with or examine the patient on this date. Objective - Vital Signs Vital signs: Vital Signs Temp 98.0 F 05/05/24 08:14 Pulse 73 05/05/24 08:43 Resp 18 05/05/24 08:43 BP 157/72 05/05/24 08:14 Pulse Ox 96 05/05/24 08:14 FiO2 Intake & Output 05/04/24 05/05/24 05/05/24 18:59 06:59 18:59 Weight 87.543 kg - Labs CBC & Chem 7: 05/05/24 13:06 05/05/24 13:06 Labs: Abnormal Lab Results - Last 24 Hours (Table) 05/04/24 05/04/24 05/05/24 Range/Units 17:57 20:09 02:08 VBG pH 7.42 H (7.31-7.41) VBG pCO2 64 H (37-51) mmHg VBG HCO3 41 H (24-28) mmol/L Sodium 130 L (137-145) mmol/L Chloride 83 L (98-107) mmol/L Carbon Dioxide 38 H (22-30) mmol/L BUN 79 H (7-17) mg/dL Creatinine 2.93 H (0.52-1.04) mg/dL Glucose 215 H (74-99) mg/dL POC Glucose (mg/dL) 191 H (70-110) mg/dL ALT 41 H (4-34) U/L 05/05/24 Range/Units 08:02 VBG pH (7.31-7.41) VBG pCO2 (37-51) mmHg VBG HCO3 (24-28) mmol/L Sodium (137-145) mmol/L Chloride (98-107) mmol/L Carbon Dioxide (22-30) mmol/L BUN (7-17) mg/dL Creatinine (0.52-1.04) mg/dL Glucose (74-99) mg/dL POC Glucose (mg/dL) 177 H (70-110) mg/dL ALT (4-34) U/L
[2024-05-05] MEDS: FUROSEMIDE 10 MG/ML 4 ML VIAL IV STA (18:07)
[2024-05-05 20:55] LABS: Glucose,Whole Blood 151 mg/dL (70-110)
[2024-05-05] MEDS ORDERED: NON FORMULARY DRUG (Insulin Degludec [Tresiba Flextouch U-100 Pen] 100 UNIT/ML Insuln.Pen) SQ SCH (21:00)
[2024-05-05] MEDS: INSULIN GLARGINE (LANTUS) 100 UNIT/ML SYR SQ SCH (21:11)
[2024-05-06 06:30] LABS: Glucose,Whole Blood 90 mg/dL (70-110)
[2024-05-06] MEDS: ASPIRIN 81 MG PO SCH (08:42)
[2024-05-06 09:23] LABS: HCT 32.4 % (37.2-46.3); HGB 9.6 g/dL (12.0-15.0); MCH 27.7 pg (27.0-32.0); MCHC 29.6 g/dL (32.0-37.0); MCV 93.6 FL (80.0-97.0); Mean Platelet Volume 10.6 FL (9.5-12.2); NRBC Per 100 WBC 0 X 10*3/uL (0.00-0.01); Platelet Count 241 X 10*3/uL (140-440); RBC 3.46 X 10*6/uL (4.10-5.20); RDW 15.4 % (11.5-14.5); WBC 6.12 X 10*3/uL (4.50-10.00)
[2024-05-06] MEDS: BENZONATATE 100 MG CAP PO PRN (10:00)
--- NOTE | 2024-05-06 11:35 | P.NPCON ---
History of Present Illness - Reason for Consult acute renal failure, chronic renal failure - History of Present Illness Patient is a 69-year-old female with history of chronic kidney disease stage IV secondary to diabetic kidney disease and nephrosclerosis. Baseline creatinine more recently has been around 2.8 -3.0 mg/dL. She is admitted to the hospital with complaints of shortness of breath. Chest x-ray shows prominent pulmonary vasculature. Patient has been diuresed with IV Lasix and it is switched to oral now. Patient also has underlying COPD for which she is being treated with steroids. Status post recent treatment for COPD exacerbation. Blood pressure is not low Patient has an indwelling Crocker catheter which was placed this admission. Serum creatinine this admission at 2.8 to 2.9 mg/dL. Past Medical History Past Medical History: COPD, Diabetes Mellitus, Hypertension, Osteoarthritis (OA), Renal Disease Additional Past Medical History / Comment(s): EDIN but does'nt use cpap anymore, past uterine fibroids 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 Past Anesthesia/Blood Transfusion Reactions: No Reported Reaction Past Psychological History: Bipolar, Depression Additional Psychological History / Comment(s): lives with jessica Smoking Status: Former smoker Past Alcohol Use History: None Reported Additional Past Alcohol Use History / Comment(s): started smoking at age 15, smokes 1 ppd Past Drug Use History: Marijuana - Past Family History Mother Family Medical History: Diabetes Mellitus, Myocardial Infarction ([place]), Osteoarthritis (OA) Additional Family Medical History / Comment(s): djd Father Family Medical History: Deep Vein Thrombosis (DVT) Medications and Allergies Home Medications Medication Instructions Recorded Confirmed Type traZODone HCL 150 mg PO HS PRN 10/08/16 05/04/24 History Insulin Degludec [Tresiba 32 units SQ HS 01/30/18 05/04/24 History Flextouch U-100 Pen] Albuterol Inhaler [Ventolin Hfa 2 puff INHALATION RT-Q4H PRN 08/12/20 05/04/24 History Inhaler] Cyclobenzaprine [Flexeril] 5 mg PO TID PRN 10/13/22 05/04/24 History Isosorbide Mononitrate ER [Imdur] 30 mg PO DAILY #30 tab 11/07/22 05/04/24 Rx Venlafaxine HCl ER [Effexor XR] 75 mg PO DAILY 10/10/23 05/04/24 History carvediloL [Coreg] 25 mg PO DAILY 10/10/23 05/04/24 History Calcium Acetate [PhosLo] 667 mg PO TID-W/MEALS #90 tab 04/13/24 05/04/24 Rx Ipratropium-Albuterol Nebulize 3 ml INHALATION RT-QID each 04/13/24 05/04/24 Rx [Duoneb 0.5 mg-3 mg/3 ml Soln] Ipratropium-Albuterol Nebulize 3 ml INHALATION RT-QID PRN each 04/13/24 05/04/24 Rx [Duoneb 0.5 mg-3 mg/3 ml Soln] Pantoprazole [Protonix] 40 mg PO AC-BRKFST #30 tab 04/13/24 05/04/24 Rx amLODIPine [Norvasc] 10 mg PO DAILY #30 tab 04/13/24 05/04/24 Rx hydrALAZINE HCL [Apresoline] 100 mg PO TID #90 tab 04/13/24 05/04/24 Rx ALPRAZolam [Xanax] 0.5 mg PO BID PRN #6 tab 04/17/24 05/04/24 Rx Acetaminophen-Codeine 300-30mg 1 tab PO BID PRN #6 tab 04/17/24 05/04/24 Rx [Tylenol w/codeine #3] Furosemide [Lasix] 40 mg PO DAILY tab 04/17/24 05/04/24 Rx Cephalexin [Keflex] 500 mg PO QID 05/04/24 05/04/24 History Pregabalin [Lyrica] 75 mg PO BID 05/04/24 05/04/24 History Allergies Allergy/AdvReac Type Severity Reaction Status Date / Time aspirin AdvReac Nausea & Verified 05/04/24 20:24 Vomiting ibuprofen [From Motrin] AdvReac Nausea & Verified 05/04/24 20:24 Vomiting Physical Exam Vitals: Vital Signs Temp Pulse Pulse Pulse Resp BP BP 05/06/24 09:19 82 02/23/25 09:08 84 05/06/24 07:00 98.4 F 75 18 137/64 05/06/24 01:57 98.4 F 80 20 130/56 05/05/24 21:28 85 05/05/24 21:15 86 05/05/24 19:50 76 05/05/24 19:11 97.8 F 77 18 147/73 05/05/24 16:01 90 18 05/05/24 15:52 88 18 05/05/24 14:46 97.9 F 71 16 124/65 05/05/24 13:35 71 20 108/85 05/05/24 12:37 91 18 05/05/24 12:28 69 18 Pulse Ox 05/06/24 09:19 05/06/24 09:08 05/06/24 07:00 93 L 05/06/24 01:57 93 L 05/05/24 21:28 05/05/24 21:15 05/05/24 19:50 05/05/24 19:11 92 L 05/05/24 16:01 05/05/24 15:52 05/05/24 14:46 92 L 05/05/24 13:35 95 05/05/24 12:37 05/05/24 12:28 Intake and Output 05/05/24 05/06/24 05/06/24 22:59 06:59 14:59 Intake Total 200 Output Total 650 800 Balance -650 -800 200 Intake: Oral 200 Output: Urine 650 800 Other: Voiding Method External Catheter External Catheter Weight 87.543 kg 82.5 kg Patient is awake, comfortable, no acute distress. 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 Chronic kidney disease stage IV with baseline creatinine 2.8 to 3 mg/dL. History of recent acute kidney injury with peak creatinine at 3.9 mg/dL. Lasix has been decreased. 2. Acute on chronic hypoxic and hypercapnic respiratory failure 3. COPD with acute exacerbation 4. Volume overload status post diuresis. Lasix has been decreased appropriately. 5.. Hypertension with CKD stage IV Plan: Continue with current dose of oral Lasix. We will continue to monitor for need for renal replacement therapy. Repeat labs in a.m. Avoid nephrotoxic agents Thank you for the consultation. We will continue to follow the patient with you during her hospitalization.
[2024-05-06 11:36] LABS: Glucose,Whole Blood 184 mg/dL (70-110)
[2024-05-06 12:04] LABS: ALT 36 U/L (8-44); AST 19 U/L (13-35); Albumin 3.6 g/dL (3.8-4.9); Alkaline Phosphatase 83 U/L (41-126); BUN/Creat Ratio 21.76 Ratio (12.00-20.00); Blood Urea Nitrogen 63.1 mg/dL (9.0-27.0); Calcium 8.7 mg/dL (8.7-10.3); Carbon Dioxide 35.7 mmol/L (21.6-31.8); Chloride 84 mmol/L (96-109); Glucose 89 mg/dL (70-110); Magnesium 1.5 mg/dL (1.5-2.4); Potassium 3.8 mmol/L (3.5-5.5); Sodium 133 mmol/L (135-145); Total Bilirubin 0.5 mg/dL (0.3-1.2); Total Protein 6.6 g/dL (6.2-8.2)
--- NOTE | 2024-05-06 12:15 | P.CRDCN ---
History of Present Illness Consult date: 05/06/24 Requesting physician: Millie Neal Reason for Consult (text): CHF Chief complaint: cough, shortness of breath History of present illness: This is a pleasant 69-year-old female patient of Dr. Felipe with past medical history of COPD, chronic hypoxic respiratory failure on home O2 follows with Dr. Diamond, cardiomyopathy with improvement in the LV systolic function, diabetes, hypertension, chronic kidney disease, nicotine dependence, quit 7 weeks ago. She has been in and out of the hospital since mid March. In March she presented with worsening shortness of breath and was found to be positive for influenza A at that time an echocardiogram was done which showed some improvement in her LV. She had a NT proBNP at that time of 94,500. She is being followed closely by nephrology and they have contemplated dialysis in the past. She was subsequently sent to [facility] for rehab. She was recently discharged from [facility] on the of this month was there with wo rsening shortness of breath. Presented to the hospital with complaints of shortness of breath and cough. Since her hospitalization in March she has been unable to find relief from her cough. The cough is congested, frequent but she is unable to expectorate secretions. She complains of generalized weakness. She continues to complain of shortness of breath. She was smoking up until 7 weeks ago when she was admitted in March. She continues on home oxygen. She denies any edema or chest pain. She has had no palpitations. She has had no dizziness or lightheadedness. Diagnostics -EKG: Sinus rhythm with poor baseline -Chest x-ray: Correlate for mild volume overload -Laboratory studies: COVID 9.6, sodium 129, potassium 4.0, BUN 75, creatinine 2.82, NT proBNP 9100 -Home cardiac medications: Hydralazine 100 mg p.o. 3 times daily, carvedilol 25 mg p.o. daily, amlodipine 10 mg p.o. daily, isosorbide 30 mg p.o. daily, Lasix 40 mg p.o. daily -Prior stress test: Results not available -Echocardiogram: March 2024 ejection fraction 50 to 55% with mild MR, previous echocardiogram from 2022 showed ejection fraction 30 to 35% -Cardiac catheterization: None Review Of Systems: At the time of my exam: CONSTITUTIONAL: Denies fever or chills. HEENT: Denies blurred vision, vision changes. CARDIOVASCULAR: Denies chest pain. Denies orthopnea. Denies PND. Denies palpitations, dizziness, or syncope. RESPIRATORY: Positive for shortness of breath, wheezing, and cough. Denies hemoptysis. GASTROINTESTINAL: Denies abdominal pain. Denies nausea or vomiting. Denies bleeding. HEMATOLOGIC: Denies bleeding disorders. GENITOURINARY: Denies hematuria. SKIN: Denies puritis. Denies rash. PHYSICAL EXAMINATION: This is a 69-year-old ill-appearing female. VITAL SIGNS: Reviewed. HEENT: Head is atraumatic, normocephalic. Pupils are equal, round. Sclerae anicteric. Conjunctivae are clear. Mucous membranes of the mouth are moist. Neck is supple. There is no elevated jugular venous pressure. No carotid bruit is heard. CHEST EXAMINATION: Lungs reveal expiratory wheezing throughout. Respirations even and nonlabored. HEART EXAMINATION: Heart regular, positive S1 and S2. No S3. No S4. No clicks, rubs or murmurs. ABDOMEN: Soft, nontender. Bowel sounds are heard. No organomegaly noted. EXTREMITIES: 2+ peripheral pulses with no evidence of peripheral edema and no calf tenderness noted. NEUROLOGIC EXAMINATION: Patient is awake, alert and oriented x3. Assessment: 1. COPD exacerbation, follows with Dr. Stover as an outpatient 2. Elevated NT proBNP, likely secondary to renal impairment, improved since March 3. Cardiomyopathy, no documentation of ischemic heart disease, most recent ejection fraction 50 to 55% 4. Chronic kidney disease 5. Nicotine dependence, recently quit 6. Hypertension Plan: From cardiology's perspective patient's symptoms consistent with COPD exacerbation. We would recommend pulmonary consultation. Medications were reviewed and we will continue the same. Thank you kindly for this consultation. Nurse practitioner note has been reviewed, I agree with documented findings and plan of care. Patient was seen and examined. Past Medical History Past Medical History: COPD, Diabetes Mellitus, Hypertension, Osteoarthritis (OA), Renal Disease Additional Past Medical History / Comment(s): EDIN but does'nt use cpap anymore, past uterine fibroids 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 Past Anesthesia/Blood Transfusion Reactions: No Reported Reaction Past Psychological History: Bipolar, Depression Additional Psychological History / Comment(s): lives with jessica Smoking Status: Former smoker Past Alcohol Use History: None Reported Additional Past Alcohol Use History / Comment(s): started smoking at age 15, smokes 1 ppd Past Drug Use History: Marijuana - Past Family History Mother Family Medical History: Diabetes Mellitus, Myocardial Infarction ([place]), Osteoarthritis (OA) Additional Family Medical History / Comment(s): djd Father Family Medical History: Deep Vein Thrombosis (DVT) Medications and Allergies Home Medications Medication Instructions Recorded Confirmed Type traZODone HCL 150 mg PO HS PRN 10/08/16 05/04/24 History Insulin Degludec [Tresiba 32 units SQ HS 01/30/18 05/04/24 History Flextouch U-100 Pen] Albuterol Inhaler [Ventolin Hfa 2 puff INHALATION RT-Q4H PRN 08/12/20 05/04/24 History Inhaler] Cyclobenzaprine [Flexeril] 5 mg PO TID PRN 10/13/22 05/04/24 History Isosorbide Mononitrate ER [Imdur] 30 mg PO DAILY #30 tab 11/07/22 05/04/24 Rx Venlafaxine HCl ER [Effexor XR] 75 mg PO DAILY 10/10/23 05/04/24 History carvediloL [Coreg] 25 mg PO DAILY 10/10/23 05/04/24 History Calcium Acetate [PhosLo] 667 mg PO TID-W/MEALS #90 tab 04/13/24 05/04/24 Rx Ipratropium-Albuterol Nebulize 3 ml INHALATION RT-QID each 04/13/24 05/04/24 Rx [Duoneb 0.5 mg-3 mg/3 ml Soln] Ipratropium-Albuterol Nebulize 3 ml INHALATION RT-QID PRN each 04/13/24 05/04/24 Rx [Duoneb 0.5 mg-3 mg/3 ml Soln] Pantoprazole [Protonix] 40 mg PO AC-BRKFST #30 tab 04/13/24 05/04/24 Rx amLODIPine [Norvasc] 10 mg PO DAILY #30 tab 04/13/24 05/04/24 Rx hydrALAZINE HCL [Apresoline] 100 mg PO TID #90 tab 04/13/24 05/04/24 Rx ALPRAZolam [Xanax] 0.5 mg PO BID PRN #6 tab 04/17/24 05/04/24 Rx Acetaminophen-Codeine 300-30mg 1 tab PO BID PRN #6 tab 04/17/24 05/04/24 Rx [Tylenol w/codeine #3] Furosemide [Lasix] 40 mg PO DAILY tab 04/17/24 05/04/24 Rx Cephalexin [Keflex] 500 mg PO QID 05/04/24 05/04/24 History Pregabalin [Lyrica] 75 mg PO BID 05/04/24 05/04/24 History Allergies Allergy/AdvReac Type Severity Reaction Status Date / Time aspirin AdvReac Nausea & Verified 05/04/24 20:24 Vomiting ibuprofen [From Motrin] AdvReac Nausea & Verified 05/04/24 20:24 Vomiting Physical Exam Vitals: Vital Signs Temp Pulse Pulse Pulse Resp BP BP 05/06/24 09:19 82 05/06/24 09:08 84 05/06/24 07:00 98.4 F 75 18 137/64 05/06/24 01:57 98.4 F 80 20 130/56 05/05/24 21:28 85 05/05/24 21:15 86 05/05/24 19:50 76 05/05/24 19:11 97.8 F 77 18 147/73 05/05/24 16:01 90 18 05/05/24 15:52 88 18 05/05/24 14:46 97.9 F 71 16 124/65 05/05/24 13:35 71 20 108/85 05/05/24 12:37 91 18 05/05/24 12:28 69 18 05/05/24 10:47 70 20 122/57 Pulse Ox 05/06/24 09:19 05/06/24 09:08 05/06/24 07:00 93 L 05/06/24 01:57 93 L 05/05/24 21:28 05/05/24 21:15 05/05/24 19:50 05/05/24 19:11 92 L 05/05/24 16:01 05/05/24 15:52 05/05/24 14:46 92 L 05/05/24 13:35 95 05/05/24 12:37 05/05/24 12:28 05/05/24 10:47 91 L Intake and Output 05/05/24 05/06/24 05/06/24 22:59 06:59 14:59 Intake Total 200 Output Total 650 800 Balance -650 -800 200 Intake: Oral 200 Output: Urine 650 800 Other: Voiding Method External Catheter Weight 87.543 kg 82.5 kg Results 05/06/24 03:16 05/06/24 03:16 CBC 05/05/24 05/06/24 Range/Units 13:06 03:16 WBC 6.0 6.12 (3.8-10.6) k/uL RBC 3.50 L 3.46 L (3.80-5.40) m/uL Hgb 10.1 L 9.6 L (11.4-16.0) gm/dL Hct 33.0 L 32.4 L (34.0-46.0) % Plt Count 220 241 (150-450) k/uL Comprehensive Metabolic Panel 05/05/24 Range/Units 13:06 Sodium 129 L (137-145) mmol/L Potassium 4.0 (3.5-5.1) mmol/L Chloride 83 L (98-107) mmol/L Carbon Dioxide 39 H (22-30) mmol/L BUN 75 H (7-17) mg/dL Creatinine 2.82 H (0.52-1.04) mg/dL Glucose 189 H (74-99) mg/dL Calcium 8.6 (8.4-10.2) mg/dL Current Medications Generic Name Dose Route Start Last Admin Trade Name Freq PRN Reason Stop Dose Admin Acetaminophen 650 mg 05/05/24 14:21 Acetaminophen Tab 325 Mg Tab PO Q6HR PRN Mild Pain or Fever > 100.5 Hydrocodone Bitart/Acetaminophen 1 each 05/05/24 14:21 05/06/24 06:39 Hydrocodone/Apap 5-325mg 1 Each Tab PO 1 each Q4HR PRN Administration Moderate Pain (Scale 4 to 6) Albuterol/Ipratropium 3 ml 05/05/24 08:00 05/06/24 09:07 Ipratropium-Albuterol 3 Ml Neb INHALATION 3 ml RT-QID DESTINY Administration Albuterol/Ipratropium 3 ml 05/04/24 22:13 Ipratropium-Albuterol 3 Ml Neb INHALATION RT-Q2H PRN Shortness Of Breath Or Wheezing Alprazolam 0.5 mg 05/05/24 02:04 Alprazolam 0.5 Mg Tab PO BID PRN Anxiety Amlodipine Besylate 10 mg 05/05/24 09:00 05/06/24 08:42 Amlodipine 10 Mg Tab PO 10 mg DAILY DESTINY Administration Aspirin 81 mg 05/06/24 09:00 05/06/24 08:42 Aspirin 81 Mg PO 81 mg DAILY DESTINY Administration Azithromycin 500 mg 05/05/24 09:00 05/06/24 09:56 Azithromycin 500 Mg Tab PO 05/07/24 09:01 500 mg DAILY DESTINY Administration Protocol Benzonatate 100 mg 05/05/24 01:20 05/06/24 10:00 Benzonatate 100 Mg Cap PO 100 mg TID PRN Administration Cough Budesonide/Formoterol Fumarate 2 puff 05/05/24 08:00 05/06/24 09:07 Symbicort 160-4.5 Mcg Inhaler INHALATION 2 puff RT-BID DESTINY Administration Calcium Acetate 667 mg 05/05/24 07:30 05/06/24 06:39 Calcium Acetate 667 Mg Tab PO 667 mg TID-W/MEALS DESTINY Administration Carvedilol 25 mg 05/05/24 09:00 05/06/24 08:42 Carvedilol 12.5 Mg Tab PO 25 mg DAILY DESTINY Administration Dextrose/Water 25 ml 05/05/24 01:36 Dextrose 50% Syringe 50 Ml IVP PER PROTOCOL PRN Hypoglycemia Protocol Dextrose/Water 50 ml 05/05/24 01:36 Dextrose 50% Syringe 50 Ml IVP PER PROTOCOL PRN Hypoglycemia Protocol Enoxaparin Sodium 30 mg 05/05/24 09:00 05/06/24 08:43 Enoxaparin 30 Mg/0.3 Ml Syringe SQ 30 mg DAILY DESTINY Administration Furosemide 40 mg 05/05/24 09:00 05/06/24 08:42 Furosemide 40 Mg Tab PO 40 mg DAILY DESTINY Administration Hydralazine HCl 100 mg 05/05/24 09:00 05/06/24 08:42 Hydralazine Hcl 50 Mg Tab PO 100 mg TID DESTINY Administration Insulin Glargine 32 unit 05/05/24 21:00 05/05/24 21:11 Insulin Glargine (Lantus) 100 Unit/Ml Syr SQ 32 unit HS DESTINY Administration Insulin Human Lispro 0 unit 05/05/24 07:30 05/06/24 06:32 Insulin Lispro (Humalog) 100 Unit/Ml 10 Ml Vl SQ Not Given ACHS [facility] Protocol Isosorbide Mononitrate 30 mg 05/05/24 09:00 05/06/24 08:42 Isosorbide Mononitrate Er 30 Mg Tab.Er.24h PO 30 mg DAILY DESTINY Administration Naloxone HCl 0.2 mg 05/04/24 22:13 Naloxone 0.4 Mg/Ml 1 Ml Vial IVP Q2M PRN Opioid Reversal Pantoprazole Sodium 40 mg 05/05/24 07:30 05/06/24 06:39 Pantoprazole 40 Mg Tablet PO 40 mg AC-BRKFST DESTINY Administration Petrolatum 1 applic 05/05/24 15:13 Zinc Oxide Paste (Z-Guard) 1 Applic TOPICAL BID PRN [facility] Protocol Prednisone 40 mg 05/05/24 09:00 05/06/24 08:42 Prednisone 20 Mg Tab PO 05/09/24 09:01 40 mg DAILY DESTINY Administration Pregabalin 75 mg 05/05/24 09:00 05/06/24 08:42 Pregabalin 75 Mg Cap PO 75 mg BID DESTINY Administration Trazodone HCl 150 mg 05/05/24 17:11 Trazodone Hcl 50 Mg Tab PO HS PRN sleep Venlafaxine HCl 75 mg 05/05/24 09:00 05/06/24 08:42 Venlafaxine Hcl Er 75 Mg Cap PO 75 mg DAILY DESTINY Administration Intake and Output 05/05/24 05/06/24 05/06/24 22:59 06:59 14:59 Intake Total 200 Output Total 650 800 Balance -650 -800 200 Intake: Oral 200 Output: Urine 650 800 Other: Voiding Method External Catheter Weight 87.543 kg 82.5 kg Patient Weight 05/07/24 06:59 Weight 82.5 kg 05/06/24 03:16 05/05/24 13:06
[2024-05-06] MEDS: MAG HYDROX/AL HYDROX/SIMETH 30 ML CUP PO PRN (17:09)
[2024-05-06 17:27] LABS: Glucose,Whole Blood 280 mg/dL (70-110)
[2024-05-06] MEDS: ALPRAZolam 0.5 MG TAB PO PRN (18:16)
--- NOTE | 2024-05-06 18:16 | P.PN ---
Subjective Progress Note Date: 05/06/24 Hospital course: Patient is a pleasant 69-year-old female with a past medical history of COPD with chronic hypoxic and hypercarbic respiratory failure 3 L home O2 dependent, CKD stage IV, HFrEF, insulin-dependent diabetes mellitus, hypertension, and Depression. She presented to our on 05/04/2024 with a chief complaint of shortness of breath. Upon arrival to our facility, patient underwent evaluation in the emergency department. Vital signs upon arrival show blood pressure 139/66, heart rate 70, respiratory rate 18, temp 97.7 F, and SpO2 of 92% on 4 L. EKG completed showing sinus mechanism with diffuse T wave abnormalities. Chest x-ray completed showing mild volume overload. Labs completed and reviewed. CBC unremarkable. Coagulation profile normal findings. BMP showing hyponatremia with sodium of 130 and metabolic alkalosis with chloride of 83, bicarb of 38, and anion gap of 9 with renal function consistent with known CKD stage IV with BUN of 79, creatinine 2.93, GFR of 16. Magnesium 1.6. Liver profile showing elevated ALT of 41 otherwise normal findings. Troponin was 0.030 with proBNP of 9100. Influenza A, influenza B, RSV, and COVID PCR were negative. Patient mated under services with consultation to nephrology and cardiology. Physical exam: Patient seen and fully evaluated at bedside this morning patient reports breathing is better today. Patient remains on baseline 3 L O2. Family at bedside updated on plan. Patient to continue scheduled nebulizers over the next 24 hours and plan for likely discharge tomorrow morning. Vital signs reviewed and stable. General: Nontoxic, no distress and appears stated age. Obese. Chronically ill-appearing. Derm: Skin warm and dry, normal coloration for ethnicity. Head: Atraumatic, normocephalic and symmetric. Eyes: EOM's intact, no lid lag, and anicteric sclera Mouth: no lip lesions, mucus membranes moist Cardiovascular: regular rate and rhythm with normal S1S2, systolic murmur, positive posterior tibial pulses bilaterally, and cap refill < 2 seconds. Lungs: Respirations even, regular, and unlabored on 3 L O2 via nasal cannula. Lungs diminished with expiratory wheezes. No conversational dyspnea noted. Abdominal: soft, nontender to palpation, no guarding, no appreciable organomegaly Ext: ROM intact. No gross muscle atrophy, no edema, no contractures Neuro: Speech clear, face symmetrical and CN II-XII grossly intact with no noted focal neuro deficits Psych: Alert and oriented to person, place, time, and situation. Appropriate and pleasant affect. Assessment and Plan of Care: Acute on chronic hypoxic and hypercarbic respiratory failure COPD with acute exacerbation Acute on chronic diastolic heart failure, mild exacerbation Stage IV CKD Hypertension -Cardiology consulted, appreciate recommendations -Nephrology consulted, appreciate recommendations -Telemetry monitoring -Troponin 0.030.. ProBNP 9100. -Daily weights and Close monitoring of I's and O's -Lasix 40 mg IVP x 1 dose pending evaluation and recommendations by static balancer/sales clerk as patient reports static balancer wanted to initiate dialysis and patient to resume oral home Lasix 40 mg daily. -Continue daily medication regimen with aspirin 81 mg daily, amlodipine 10 mg daily, carvedilol 25 mg twice daily, isosorbide mononitrate 30 mg daily, and hydralazine 100 mg 3 times daily -Continued close monitoring of electrolytes while diuresing. Insulin-dependent diabetes mellitus -Continue Lantus 32 units nightly and patient placed on glycemic protocol with Humalog sliding scale. Pressure ulcers, present upon arrival -RN reports to stage II pressure ulcers to coccyx/sacral region. Order placed for wound care consult. Hypertension -Continue amlodipine 10 mg daily, carvedilol 25 mg daily. Depression and anxiety Continue Effexor 75 mg daily, and Xanax 0.5 mg twice daily as needed for anxiety. Data and imaging reviewed: Vital signs reviewed. Blood pressure 137/64, heart rate 75, respiratory rate 18, temp 98.4 F, and SpO2 of 93% on 3 L. Morning labs reviewed. CBC showing stable normocytic anemia with hemoglobin of 9.6. BMP showing sodium 133, chloride 84, bicarb 35.7, and anion gap of 13.30 with renal function showing BUN 63.1, creatinine 2.9, and GFR of 17. Blood glucose 89. Magnesium was low at 1.5 and orders placed for magnesium sulfate 2 g IVPB. Liver profile unremarkable with exception of low albumin of 3.6 CODE STATUS: Full code DVT prophylaxis: Lovenox Anticipated discharge date: Likely within the next [address]: Pending clinical course Patient was seen independently by Nurse Pracitioner. This document was prepared using [employer] dictation software. Please allow for errors in proof press operator, while rare they do occur. Ham Mckinney SERVER MANAGER rendered care for this patient independently, reviewed the findings and plan as documented in the note above and agree with plan. I did not physically speak with or examine the patient on this date. Objective - Vital Signs Vital signs: Vital Signs Temp 98.4 F 05/06/24 07:00 Pulse 82 05/06/24 09:19 Resp 18 05/06/24 07:00 BP 137/64 05/06/24 07:00 Pulse Ox 93 L 05/06/24 07:00 FiO2 Intake & Output 05/05/24 05/06/24 05/06/24 18:59 06:59 18:59 Intake Total 200 Output Total 1450 Balance -1450 200 Weight 87.543 kg 82.5 kg Intake: Oral 200 Output: Urine 1450 Other: Voiding Method External Catheter External Catheter - Labs CBC & Chem 7: 05/06/24 03:16 05/06/24 03:16 Labs: Abnormal Lab Results - Last 24 Hours (Table) 05/05/24 05/05/24 05/05/24 Range/Units 13:06 13:06 13:09 RBC 3.50 L (3.80-5.40) m/uL Hgb 10.1 L (11.4-16.0) gm/dL Hct 33.0 L (34.0-46.0) % MCHC 30.6 L (31.0-37.0) g/dL RDW (11.5-14.5) % Lymphocytes # 0.8 L (1.0-4.8) k/uL Sodium 129 L (137-145) mmol/L Chloride 83 L (98-107) mmol/L Carbon Dioxide 39 H (22-30) mmol/L BUN 75 H (7-17) mg/dL Creatinine 2.82 H (0.52-1.04) mg/dL Glucose 189 H (74-99) mg/dL POC Glucose (mg/dL) 212 H (70-110) mg/dL 05/05/24 05/05/24 05/06/24 Range/Units 16:27 20:54 03:16 RBC 3.46 L (3.80-5.40) m/uL Hgb 9.6 L (11.4-16.0) gm/dL Hct 32.4 L (34.0-46.0) % MCHC 29.6 L (31.0-37.0) g/dL RDW 15.4 H (11.5-14.5) % Lymphocytes # (1.0-4.8) k/uL Sodium (137-145) mmol/L Chloride (98-107) mmol/L Carbon Dioxide (22-30) mmol/L BUN (7-17) mg/dL Creatinine (0.52-1.04) mg/dL Glucose (74-99) mg/dL POC Glucose (mg/dL) 238 H 151 H (70-110) mg/dL
[2024-05-06] MEDS: MAGNESIUM SULFATE-D5W PMX 1 GM in DEXTROSE/WATER 1 100ML.BAG IVPB SCH (20:07)
[2024-05-06 20:20] LABS: Glucose,Whole Blood 294 mg/dL (70-110)
[2024-05-06] MEDS: ACETAMINOPHEN TAB 325 MG TAB PO PRN (22:23)
[2024-05-07 06:22] LABS: Glucose,Whole Blood 144 mg/dL (70-110)
[2024-05-07 08:49] LABS: ALT 30 U/L (8-44); AST 19 U/L (13-35); Albumin 3.6 g/dL (3.8-4.9); Albumin/Globulin Ratio 1.16 Ratio (1.60-3.17); Alkaline Phosphatase 94 U/L (41-126); BUN/Creat Ratio 20.28 Ratio (12.00-20.00); Blood Urea Nitrogen 64.9 mg/dL (9.0-27.0); Calcium 8.8 mg/dL (8.7-10.3); Carbon Dioxide 36.3 mmol/L (21.6-31.8); Chloride 83 mmol/L (96-109); Globulin 3.1 g/dL (1.6-3.3); Glucose 119 mg/dL (70-110); Sodium 129 mmol/L (135-145); Total Bilirubin 0.5 mg/dL (0.3-1.2); Total Protein 6.7 g/dL (6.2-8.2)
[2024-05-07 09:07] LABS: Magnesium 2.9 mg/dL (1.5-2.4)
--- NOTE | 2024-05-07 09:17 | P.PN ---
Subjective HISTORY OF PRESENT ILLNESS: This is a pleasant 69-year-old female patient of Dr. Felipe with past medical history of COPD, chronic hypoxic respiratory failure on home O2 follows with Dr. Diamond, cardiomyopathy with improvement in the LV systolic function, diabetes, hypertension, chronic kidney disease, nicotine dependence, quit 7 weeks ago. She has been in and out of the hospital since mid March. In March she presented with worsening shortness of breath and was found to be positive for influenza A at that time an echocardiogram was done which showed some improvement in her LV. She had a NT proBNP at that time of 94,500. She is being followed closely by nephrology and they have contemplated dialysis in the past. She was subsequently sent to [facility] for rehab. She was recently discharged from [facility] on the of this month was there with worsening shortness of breath. Presented to the hospital with complaints of shortness of breath and cough. Since her hospitalization in March she has been unable to find relief from her cough. The cough is congested, frequent but she is unable to expectorate secretions. She complains of generalized weakness. She continues to complain of shortness of breath. She was smoking up until 7 weeks ago when she was admitted in March. She continues on home oxygen. She denies any edema or chest pain. She has had no palpitations. She has had no dizziness or lightheadedness. Diagnostics -EKG: Sinus rhythm with poor baseline -Chest x-ray: Correlate for mild volume overload -Laboratory studies: COVID 9.6, sodium 129, potassium 4.0, BUN 75, creatinine 2.82, NT proBNP 9100 -Home cardiac medications: Hydralazine 100 mg p.o. 3 times daily, carvedilol 25 mg p.o. daily, amlodipine 10 mg p.o. daily, isosorbide 30 mg p.o. daily, Lasix 40 mg p.o. daily -Prior stress test: Results not available -Echocardiogram: March 2024 ejection fraction 50 to 55% with mild MR, previous echocardiogram from 2022 showed ejection fraction 30 to 35% -Cardiac catheterization: None 05/07/2024 Patient examined this morning at the bedside. Patient currently denies any chest pain or pressure. She states that her shortness of breath is improving but feels like she is wheezing a little bit this morning. Vital signs are stable. PHYSICAL EXAM: VITAL SIGNS: Reviewed. GENERAL: Well-developed in no acute distress. NECK: Supple. No JVD or thyromegaly LUNGS: Respirations even and unlabored. Lungs with minimal expiratory wheezing HEART: Regular rate and rhythm. S1 and S2 heard. EXTREMITIES: Normal range of motion. No clubbing or cyanosis. Peripheral pulses intact. No lower extremity edema ASSESSMENT: 1. COPD exacerbation, follows with Dr. Stover as an outpatient 2. Elevated NT proBNP, likely secondary to renal impairment, improved since March 3. Cardiomyopathy, no documentation of ischemic heart disease, most recent ejection fraction 50 to 55% 4. Chronic kidney disease 5. Nicotine dependence, recently quit 6. Hypertension PLAN: Continue current cardiac medications Patient is currently stable from a cardiac standpoint with no further inpatient recommendations We will sign off. Please reconsult if needed. Patient to follow-up postdischarge with Dr. Felipe Nurse practitioner note has been reviewed by physician. Signing provider agrees with the documented findings, assessment, and plan of care documented by WEAPONS MECHANIC as a scribe. Objective - Vital Signs Vital signs: Vital Signs Temp 98.3 F 05/07/24 08:00 Pulse 91 05/07/24 08:00 Resp 18 05/07/24 08:00 BP 132/63 05/07/24 08:00 Pulse Ox 93 L 05/07/24 08:00 FiO2 Intake & Output 05/06/24 05/07/24 05/07/24 18:59 06:59 18:59 Intake Total 520 Output Total 900 Balance -380 Weight 82.5 kg 83 kg Intake: Oral 520 Output: Urine 900 Other: Voiding Method External Catheter External Catheter - Labs CBC & Chem 7: 05/06/24 03:16 05/07/24 03:14 Labs: Abnormal Lab Results - Last 24 Hours (Table) 05/06/24 05/06/24 05/06/24 Range/Units 03:16 03:16 11:35 RBC 3.46 L (4.10-5.20) X 10*6/uL Hgb 9.6 L (12.0-15.0) g/dL Hct 32.4 L (37.2-46.3) % MCHC 29.6 L (32.0-37.0) g/dL RDW 15.4 H (11.5-14.5) % Sodium 133 L (135-145) mmol/L Chloride 84 L (96-109) mmol/L Carbon Dioxide 35.7 H (21.6-31.8) mmol/L Anion Gap 13.30 H (4.00-12.00) mmol/L BUN 63.1 H (9.0-27.0) mg/dL Creatinine 2.9 H (0.6-1.5) mg/dL Est GFR (CKD-EPI) 17 L (>=60) BUN/Creatinine Ratio 21.76 H (12.00-20.00) Ratio POC Glucose (mg/dL) 184 H (70-110) mg/dL Albumin 3.6 L (3.8-4.9) g/dL Albumin/Globulin Ratio 1.20 L (1.60-3.17) Ratio 05/06/24 05/06/24 05/07/24 Range/Units 17:25 20:18 06:20 RBC (4.10-5.20) X 10*6/uL Hgb (12.0-15.0) g/dL Hct (37.2-46.3) % MCHC (32.0-37.0) g/dL RDW (11.5-14.5) % Sodium (135-145) mmol/L Chloride (96-109) mmol/L Carbon Dioxide (21.6-31.8) mmol/L Anion Gap (4.00-12.00) mmol/L BUN (9.0-27.0) mg/dL Creatinine (0.6-1.5) mg/dL Est GFR (CKD-EPI) (>=60) BUN/Creatinine Ratio (12.00-20.00) Ratio POC Glucose (mg/dL) 280 H 294 H 144 H (70-110) mg/dL Albumin (3.8-4.9) g/dL Albumin/Globulin Ratio (1.60-3.17) Ratio
--- NOTE | 2024-05-07 10:24 | P.PN ---
Subjective Patient is seen in follow-up for acute kidney injury on chronic kidney disease. Creatinine 3.2 today. Resting in chair. Nonoliguric. Vital signs are stable. General: No acute distress. HEENT: Head exam is unremarkable. On nasal cannula. LUNGS: No audible rhonchi or wheezes. HEART: Rate and Rhythm are regular. ABDOMEN: Nontender. EXTREMITITES: No edema. Objective - Vital Signs Vital signs: Vital Signs Temp 98.3 F 05/07/24 08:00 Pulse 77 05/07/24 09:20 Resp 18 05/07/24 09:20 BP 132/63 05/07/24 08:00 Pulse Ox 93 L 05/07/24 08:00 FiO2 Intake & Output 05/06/24 05/07/24 05/07/24 18:59 06:59 18:59 Intake Total 520 Output Total 900 Balance -380 Weight 82.5 kg 83 kg Intake: Oral 520 Output: Urine 900 Other: Voiding Method External Catheter External Catheter External Catheter - Labs CBC & Chem 7: 05/06/24 03:16 05/07/24 03:14 Labs: Abnormal Lab Results - Last 24 Hours (Table) 05/06/24 05/06/24 05/06/24 Range/Units 03:16 11:35 17:25 Sodium 133 L (135-145) mmol/L Chloride 84 L (96-109) mmol/L Carbon Dioxide 35.7 H (21.6-31.8) mmol/L Anion Gap 13.30 H (4.00-12.00) mmol/L BUN 63.1 H (9.0-27.0) mg/dL Creatinine 2.9 H (0.6-1.5) mg/dL Est GFR (CKD-EPI) 17 L (>=60) BUN/Creatinine Ratio 21.76 H (12.00-20.00) Ratio Glucose (70-110) mg/dL POC Glucose (mg/dL) 184 H 280 H (70-110) mg/dL Magnesium (1.5-2.4) mg/dL Albumin 3.6 L (3.8-4.9) g/dL Albumin/Globulin Ratio 1.20 L (1.60-3.17) Ratio 05/06/24 05/07/24 05/07/24 Range/Units 20:18 03:14 06:20 Sodium 129 L (135-145) mmol/L Chloride 83 L (96-109) mmol/L Carbon Dioxide 36.3 H (21.6-31.8) mmol/L Anion Gap (4.00-12.00) mmol/L BUN 64.9 H (9.0-27.0) mg/dL Creatinine 3.2 H (0.6-1.5) mg/dL Est GFR (CKD-EPI) 15 L (>=60) BUN/Creatinine Ratio 20.28 H (12.00-20.00) Ratio Glucose 119 H (70-110) mg/dL POC Glucose (mg/dL) 294 H 144 H (70-110) mg/dL Magnesium 2.9 H (1.5-2.4) mg/dL Albumin 3.6 L (3.8-4.9) g/dL Albumin/Globulin Ratio 1.16 L (1.60-3.17) Ratio Assessment and Plan Plan: Assessment: 1. Acute kidney injury secondary to ATN versus progression of underlying chronic kidney disease. Creatinine in March and April 2024 was mostly in the range of 3-4. Stable in the range of 2.8-3.2 this admission so far. Kidney ultrasound from March 2024 showed atrophic kidneys without any hydronephrosis. 2. Acute on chronic diastolic CHF. 3. Anemia of chronic kidney disease. Rule out iron deficiency. 4. Hypertension with chronic kidney disease. Stable. 5. Chronic kidney disease mineral bone disease maintained on PhosLo. 6. Diabetes mellitus. Plan: Maintain oral Lasix. Repeat chest x-ray. Check iron studies. Encouraged oral intake. Add 1500 cc fluid restriction. Continue to monitor renal function and urine output.
[2024-05-07 11:21] LABS: Glucose,Whole Blood 162 mg/dL (70-110)
--- NOTE | 2024-05-07 11:22 | P.CONS ---
History of Present Illness - Reason for Consult Consult date: 05/07/24 wound care - History of Present Illness This is a 69-year-old patient being seen on 4 S. for stage II pressure ulcer to right and left buttocks. Patient has history of chronic kidney disease and diabetes. Patient has multiple small ulcerations to right and left buttocks granulation seen throughout with minimal drainage no tunneling or undermining noted. Wound edges are attached to the wound base. Review Of Systems: Constitutional: No fever, no chills, no night sweats. No weight change. No weakness, fatigue or lethargy. No daytime sleepiness. Integumentary:reports wounds, no lesions. No rash or pruritus. No unusual bruising. No change in hair or nails. Physical exam: General Appearance: Alert, cooperative, no distress, appears stated age. Skin: See HPI all other Skin color, texture, tugor normal, no rashes or lesions. Neurologic: Alert oriented x3 Assessment: 1. Stage II pressure ulcer left buttocks 2. Stage II pressure ulcer right buttocks 3. Diabetes with skin ulceration Plan: 1. Apply honey gel and bordered foam to the site change Tuesday. Utilize a air-filled cushion while sitting. Turn patient to every 2 hours. Thank you for the consultation any questions please contact the wound care center DNP note has been reviewed and discussed with Dr. Damico and the impression and plan of care has been directed as dictated. Past Medical History Past Medical History: COPD, Diabetes Mellitus, Hypertension, Osteoarthritis (OA), Renal Disease Additional Past Medical History / Comment(s): EDIN but does'nt use cpap anymore, past uterine fibroids 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 Past Anesthesia/Blood Transfusion Reactions: No Reported Reaction Past Psychological History: Bipolar, Depression Additional Psychological History / Comment(s): lives with fiancee Smoking Status: Former smoker Past Alcohol Use History: None Reported Additional Past Alcohol Use History / Comment(s): started smoking at age 15, smokes 1 ppd Past Drug Use History: Marijuana - Past Family History Mother Family Medical History: Diabetes Mellitus, Myocardial Infarction (ME), O steoarthritis (OA) Additional Family Medical History / Comment(s): djd Father Family Medical History: Deep Vein Thrombosis (DVT) Medications and Allergies Home Medications Medication Instructions Recorded Confirmed Type traZODone HCL 150 mg PO HS PRN 10/08/16 05/04/24 History Insulin Degludec [Tresiba 32 units SQ HS 01/30/18 05/04/24 History Flextouch U-100 Pen] Albuterol Inhaler [Ventolin Hfa 2 puff INHALATION RT-Q4H PRN 08/12/20 05/04/24 History Inhaler] Cyclobenzaprine [Flexeril] 5 mg PO TID PRN 10/13/22 05/04/24 History Isosorbide Mononitrate ER [Imdur] 30 mg PO DAILY #30 tab 11/07/22 05/04/24 Rx Venlafaxine HCl ER [Effexor XR] 75 mg PO DAILY 10/10/23 05/04/24 History carvediloL [Coreg] 25 mg PO DAILY 10/10/23 05/04/24 History Calcium Acetate [PhosLo] 667 mg PO TID-W/MEALS #90 tab 04/13/24 05/04/24 Rx Ipratropium-Albuterol Nebulize 3 ml INHALATION RT-QID each 04/13/24 05/04/24 Rx [Duoneb 0.5 mg-3 mg/3 ml Soln] Ipratropium-Albuterol Nebulize 3 ml INHALATION RT-QID PRN each 04/13/24 05/04/24 Rx [Duoneb 0.5 mg-3 mg/3 ml Soln] Pantoprazole [Protonix] 40 mg PO AC-BRKFST #30 tab 04/13/24 05/04/24 Rx amLODIPine [Norvasc] 10 mg PO DAILY #30 tab 04/13/24 05/04/24 Rx hydrALAZINE HCL [Apresoline] 100 mg PO TID #90 tab 04/13/24 05/04/24 Rx ALPRAZolam [Xanax] 0.5 mg PO BID PRN #6 tab 04/17/24 05/04/24 Rx Acetaminophen-Codeine 300-30mg 1 tab PO BID PRN #6 tab 04/17/24 05/04/24 Rx [Tylenol w/codeine #3] Furosemide [Lasix] 40 mg PO DAILY tab 04/17/24 05/04/24 Rx Cephalexin [Keflex] 500 mg PO QID 05/04/24 05/04/24 History Pregabalin [Lyrica] 75 mg PO BID 05/04/24 05/04/24 History Allergies Allergy/AdvReac Type Severity Reaction Status Date / Time aspirin AdvReac Nausea & Verified 05/04/24 20:24 Vomiting ibuprofen [From Motrin] AdvReac Nausea & Verified 05/04/24 20:24 Vomiting Physical Exam Vitals: Vital Signs Temp Pulse Pulse Pulse Resp BP Pulse Ox 05/07/24 09:20 91 77 18 05/07/24 08:55 96 05/07/24 08:41 97 05/07/24 08:00 98.3 F 91 18 132/63 93 L 05/07/24 00:44 97.6 F 77 20 126/62 98 05/06/24 20:10 77 05/06/24 20:00 71 05/06/24 19:42 98.0 F 81 20 123/61 92 L 05/06/24 16:40 70 05/06/24 16:26 72 16 05/06/24 14:00 98.9 F 76 19 116/62 90 L 05/06/24 12:23 80 05/06/24 12:10 82 Intake and Output 05/06/24 05/07/24 05/07/24 22:59 06:59 14:59 Intake Total 200 Output Total 900 Balance -700 Intake: Oral 200 Output: Urine 900 Other: Voiding Method External Catheter External Catheter Weight 83 kg Results CBC & Chem 7: 05/06/24 03:16 05/07/24 03:14 Labs: Abnormal Lab Results - Last 24 Hours (Table) 05/06/24 05/06/24 05/06/24 Range/Units 03:16 11:35 17:25 Sodium 133 L (135-145) mmol/L Chloride 84 L (96-109) mmol/L Carbon Dioxide 35.7 H (21.6-31.8) mmol/L Anion Gap 13.30 H (4.00-12.00) mmol/L BUN 63.1 H (9.0-27.0) mg/dL Creatinine 2.9 H (0.6-1.5) mg/dL Est GFR (CKD-EPI) 17 L (>=60) BUN/Creatinine Ratio 21.76 H (12.00-20.00) Ratio Glucose (70-110) mg/dL POC Glucose (mg/dL) 184 H 280 H (70-110) mg/dL Magnesium (1.5-2.4) mg/dL Albumin 3.6 L (3.8-4.9) g/dL Albumin/Globulin Ratio 1.20 L (1.60-3.17) Ratio 05/06/24 05/07/24 05/07/24 Range/Units 20:18 03:14 06:20 Sodium 129 L (135-145) mmol/L Chloride 83 L (96-109) mmol/L Carbon Dioxide 36.3 H (21.6-31.8) mmol/L Anion Gap (4.00-12.00) mmol/L BUN 64.9 H (9.0-27.0) mg/dL Creatinine 3.2 H (0.6-1.5) mg/dL Est GFR (CKD-EPI) 15 L (>=60) BUN/Creatinine Ratio 20.28 H (12.00-20.00) Ratio Glucose 119 H (70-110) mg/dL POC Glucose (mg/dL) 294 H 144 H (70-110) mg/dL Magnesium 2.9 H (1.5-2.4) mg/dL Albumin 3.6 L (3.8-4.9) g/dL Albumin/Globulin Ratio 1.16 L (1.60-3.17) Ratio Assessment and Plan (1) Stage II pressure ulcer of left buttock Current Visit: Yes Status: Acute Code(s): L89.322 - PRESSURE ULCER OF LEFT BUTTOCK, STAGE 2 SNOMED Code(s): 38949269306941 (2) Stage II pressure ulcer of right buttock Current Visit: Yes Status: Acute Code(s): L89.312 - PRESSURE ULCER OF RIGHT BUTTOCK, STAGE 2 SNOMED Code(s): 74682957051172 (3) Type 2 diabetes mellitus with other skin ulcer Current Visit: Yes Status: Acute Code(s): E11.622 - TYPE 2 DIABETES MELLITUS WITH OTHER SKIN ULCER; L98.499 - NON-PRESSURE CHRONIC ULCER OF SKIN OF SITES W UNSP SEVERITY SNOMED Code(s): 581707599536340
--- NOTE | 2024-05-07 13:48 | P.PN ---
Subjective Progress Note Date: 05/07/24 Hospital course: Patient is a pleasant 69-year-old female with a past medical history of COPD with chronic hypoxic and hypercarbic respiratory failure 3 L home O2 dependent, CKD stage IV, HFrEF, insulin-dependent diabetes mellitus, hypertension, and Depression. She presented to our on 05/04/2024 with a chief complaint of shortness of breath. Upon arrival to our facility, patient underwent evaluation in the emergency department. Vital signs upon arrival show blood pressure 139/66, heart rate 70, respiratory rate 18, temp 97.7 F, and SpO2 of 92% on 4 L. EKG completed showing sinus mechanism with diffuse T wave abnormalities. Chest x-ray completed showing mild volume overload. Labs completed and reviewed. CBC unremarkable. Coagulation profile normal findings. BMP showing hyponatremia with sodium of 130 and metabolic alkalosis with chloride of 83, bicarb of 38, and anion gap of 9 with renal function consistent with known CKD stage IV with BUN of 79, creatinine 2.93, GFR of 16. Magnesium 1.6. Liver profile showing elevated ALT of 41 otherwise normal findings. Troponin was 0.030 with proBNP of 9100. Influenza A, influenza B, RSV, and COVID PCR were negative. Patient mated under services with consultation to nephrology and cardiology. Physical exam: Patient seen and fully evaluated at bedside this morning patient reports breathing is better today. Patient remains on baseline 3 L O2. Renal function slightly elevating. Nephrology started patient back on oral Lasix and recommending monitoring overnight for repeat morning BMP. Discussed with patient with tentative likely plans for discharge tomorrow morning. Vital signs reviewed and stable. General: Nontoxic, no distress and appears stated age. Obese. Chronically ill- appearing. Derm: Skin warm and dry, normal coloration for ethnicity. Head: Atraumatic, normocephalic and symmetric. Eyes: EOM's intact, no lid lag, and anicteric sclera Mouth: no lip lesions, mucus membranes moist Cardiovascular: regular rate and rhythm with normal S1S2, systolic murmur, positive posterior tibial pulses bilaterally, and cap refill < 2 seconds. Lungs: Respirations even, regular, and unlabored on 3 L O2 via nasal cannula. Lungs diminished with expiratory wheezes. No conversational dyspnea noted. Abdominal: soft, nontender to palpation, no guarding, no appreciable organomegaly Ext: ROM intact. No gross muscle atrophy, no edema, no contractures Neuro: Speech clear, face symmetrical and CN II-XII grossly intact with no noted focal neuro deficits Psych: Alert and oriented to person, place, time, and situation. Appropriate and pleasant affect. Assessment and Plan of Care: Acute on chronic hypoxic and hypercarbic respiratory failure COPD with acute exacerbation Acute on chronic diastolic heart failure, mild exacerbation Stage IV CKD Hypertension -Cardiology evaluated recommending continuation of current medication regimen with no further inpatient recommendations at this time. -Nephrology following, recommending resuming oral Lasix and following up with repeat BMP tomorrow. -Telemetry monitoring -Troponin 0.030.. ProBNP 9100. -Daily weights and Close monitoring of I's and O's -Continue daily medication regimen with aspirin 81 mg daily, furosemide 40 mg daily, amlodipine 10 mg daily, carvedilol 25 mg twice daily, isosorbide mononitrate 30 mg daily, and hydralazine 100 mg 3 times daily -Continue prednisone 40 mg daily day 3 of 5 Insulin-dependent diabetes mellitus -Continue Lantus 32 units nightly and patient placed on glycemic protocol with Humalog sliding scale. Pressure ulcers, present upon arrival -Wound care following Hypertension -Continue amlodipine 10 mg daily and carvedilol 25 mg daily. Depression and anxiety Continue Effexor 75 mg daily, and Xanax 0.5 mg twice daily as needed for anxiety. Data and imaging reviewed: Vital signs reviewed. Blood pressure 132/63, heart rate 91, respiratory rate 18, temp 98.3 F, and SpO2 of 93% on 3 L Morning labs reviewed. CBC showing stable normocytic anemia with hemoglobin of 9.6. BMP showing hyponatremia with sodium 129, hypochloremia with chloride of 83 and elevated bicarb of 36.3. Renal function increasing with BUN of 64.9, creatinine of 3.2, and GFR of 15. Blood glucose 119. Magnesium 2.9. CODE STATUS: Full code DVT prophylaxis: Lovenox Anticipated discharge date: Likely tomorrow morning Anticipated discharge place: Home, PT/OT recommending rehab however patient declines but is in agreement to going home with home care. Patient was seen independently by Nurse Pracitioner. This document was prepared using [employer] dictation software. Please allow for errors in lokie engineer, while rare they do occur. Ham Mckinney NP rendered care for this patient independently, reviewed the findings and plan as documented in the note above and agree with plan. I did not physically speak with or examine the patient on this date. Objective - Vital Signs Vital signs: Vital Signs Temp 98.3 F 05/07/24 08:00 Pulse 77 05/07/24 09:20 Resp 18 05/07/24 09:20 BP 132/63 05/07/24 08:00 Pulse Ox 93 L 05/07/24 08:00 FiO2 Intake & Output 05/06/24 05/07/24 05/07/24 18:59 06:59 18:59 Intake Total 520 Output Total 900 Balance -380 Weight 82.5 kg 83 kg Intake: Oral 520 Output: Urine 900 Other: Voiding Method External Catheter External Catheter External Catheter - Labs CBC & Chem 7: 05/06/24 03:16 05/07/24 03:14 Labs: Abnormal Lab Results - Last 24 Hours (Table) 05/06/24 05/06/24 05/06/24 Range/Units 03:16 11:35 17:25 Sodium 133 L (135-145) mmol/L Chloride 84 L (96-109) mmol/L Carbon Dioxide 35.7 H (21.6-31.8) mmol/L Anion Gap 13.30 H (4.00-12.00) mmol/L BUN 63.1 H (9.0-27.0) mg/dL Creatinine 2.9 H (0.6-1.5) mg/dL Est GFR (CKD-EPI) 17 L (>=60) BUN/Creatinine Ratio 21.76 H (12.00-20.00) Ratio Glucose (70-110) mg/dL POC Glucose (mg/dL) 184 H 280 H (70-110) mg/dL Magnesium (1.5-2.4) mg/dL Albumin 3.6 L (3.8-4.9) g/dL Albumin/Globulin Ratio 1.20 L (1.60-3.17) Ratio 05/06/24 05/07/24 05/07/24 Range/Units 20:18 03:14 06:20 Sodium 129 L (135-145) mmol/L Chloride 83 L (96-109) mmol/L Carbon Dioxide 36.3 H (21.6-31.8) mmol/L Anion Gap (4.00-12.00) mmol/L BUN 64.9 H (9.0-27.0) mg/dL Creatinine 3.2 H (0.6-1.5) mg/dL Est GFR (CKD-EPI) 15 L (>=60) BUN/Creatinine Ratio 20.28 H (12.00-20.00) Ratio Glucose 119 H (70-110) mg/dL POC Glucose (mg/dL) 294 H 144 H (70-110) mg/dL Magnesium 2.9 H (1.5-2.4) mg/dL Albumin 3.6 L (3.8-4.9) g/dL Albumin/Globulin Ratio 1.16 L (1.60-3.17) Ratio
[2024-05-07 15:27] LABS: % Iron Saturation 21.36 (12.00-45.00)
[2024-05-07 16:43] LABS: Glucose,Whole Blood 196 mg/dL (70-110)
[2024-05-07 16:47] LABS: Glucose,Whole Blood 199 mg/dL (70-110)
[2024-05-07 21:39] LABS: Glucose,Whole Blood 210 mg/dL (70-110)
[2024-05-07] MEDS: ONDANSETRON 4 MG/2 ML VIAL IVP STA (23:39)
[2024-05-08 04:07] LABS: HCT 32.2 % (34.0-46.0); HGB 9.9 gm/dL (11.4-16.0); Hypochromasia Slight; MCH 28.6 pg (25.0-35.0); MCHC 30.7 g/dL (31.0-37.0); MCV 93.4 fL (80.0-100.0); Mean Platelet Volume 7.8; Platelet Count 240 k/uL (150-450); RBC 3.45 m/uL (3.80-5.40); RDW 15.9 % (11.5-15.5); WBC 9.7 k/uL (3.8-10.6)
[2024-05-08 06:21] LABS: Glucose,Whole Blood 92 mg/dL (70-110)
--- NOTE | 2024-05-08 08:08 | XR ---
EXAMINATION TYPE: XR chest 1V DATE OF EXAM: 05/08/2024 6:51 AM COMPARISON: 05/04/2024 CLINICAL INDICATION: Female, 69 years old with history of sob, TECHNIQUE: XR chest 1V view(s) obtained. FINDINGS: The heart size is normal. The pulmonary vasculature is somewhat prominent. Mild diffuse increased lung markings at the left lung and to a lesser degree right lung. Findings are increasing from comparison. Correlate for mild volume overload IMPRESSION: 1. Clinical consideration for mild volume overload [facility], , 05/08/2024 8:06 AM
[2024-05-08 08:42] LABS: BUN/Creat Ratio 23.52 Ratio (12.00-20.00); Blood Urea Nitrogen 72.9 mg/dL (9.0-27.0); Calcium 9.3 mg/dL (8.7-10.3); Carbon Dioxide 35.5 mmol/L (21.6-31.8); Chloride 81 mmol/L (96-109); Glucose 108 mg/dL (70-110); Magnesium 3.3 mg/dL (1.5-2.4); Potassium 3.8 mmol/L (3.5-5.5); Sodium 128 mmol/L (135-145)
--- NOTE | 2024-05-08 09:46 | P.PN ---
Subjective Patient is seen in follow-up for acute kidney injury on chronic kidney disease. Renal function fairly stable. Resting in chair. Nonoliguric. Vital signs are stable. General: No acute distress. HEENT: Head exam is unremarkable. On nasal cannula. LUNGS: No audible rhonchi or wheezes. HEART: Rate and Rhythm are regular. ABDOMEN: Nontender. EXTREMITITES: No edema. Objective - Vital Signs Vital signs: Vital Signs Temp 97.4 F L 05/08/24 07:08 Pulse 92 05/08/24 09:05 Resp 16 05/08/24 07:08 BP 143/60 05/08/24 07:08 Pulse Ox 97 05/08/24 07:08 FiO2 Intake & Output 05/07/24 05/08/24 05/08/24 18:59 06:59 18:59 Output Total 450 Balance -450 Weight 81 kg Output: Urine 450 Other: Voiding Method External Catheter External Catheter - Labs CBC & Chem 7: 05/08/24 03:33 05/08/24 03:33 Labs: Abnormal Lab Results - Last 24 Hours (Table) 05/07/24 05/07/24 05/07/24 Range/Units 03:14 11:19 16:42 RBC (3.80-5.40) m/uL Hgb (11.4-16.0) gm/dL Hct (34.0-46.0) % MCHC (31.0-37.0) g/dL RDW (11.5-15.5) % Sodium (135-145) mmol/L Chloride (96-109) mmol/L Carbon Dioxide (21.6-31.8) mmol/L BUN (9.0-27.0) mg/dL Creatinine (0.6-1.5) mg/dL Est GFR (CKD-EPI) (>=60) BUN/Creatinine Ratio (12.00-20.00) Ratio POC Glucose (mg/dL) 162 H 196 H (70-110) mg/dL Magnesium (1.5-2.4) mg/dL Iron 47 L (50-170) UG/DL TIBC 220 L (228-460) UG/DL Transferrin 157.0 L (204.0-354.0) mg/dL Ferritin 452.0 H (10.0-291.0) ng/mL 05/07/24 05/07/24 05/08/24 Range/Units 16:45 21:38 03:33 RBC (3.80-5.40) m/uL Hgb (11.4-16.0) gm/dL Hct (34.0-46.0) % MCHC (31.0-37.0) g/dL RDW (11.5-15.5) % Sodium 128 L (135-145) mmol/L Chloride 81 L (96-109) mmol/L Carbon Dioxide 35.5 H (21.6-31.8) mmol/L BUN 72.9 H (9.0-27.0) mg/dL Creatinine 3.1 H (0.6-1.5) mg/dL Est GFR (CKD-EPI) 16 L (>=60) BUN/Creatinine Ratio 23.52 H (12.00-20.00) Ratio POC Glucose (mg/dL) 199 H 210 H (70-110) mg/dL Magnesium 3.3 H (1.5-2.4) mg/dL Iron (50-170) UG/DL TIBC (228-460) UG/DL Transferrin (204.0-354.0) mg/dL Ferritin (10.0-291.0) ng/mL 05/08/24 Range/Units 03:33 RBC 3.45 L (3.80-5.40) m/uL Hgb 9.9 L (11.4-16.0) gm/dL Hct 32.2 L (34.0-46.0) % MCHC 30.7 L (31.0-37.0) g/dL RDW 15.9 H (11.5-15.5) % Sodium (135-145) mmol/L Chloride (96-109) mmol/L Carbon Dioxide (21.6-31.8) mmol/L BUN (9.0-27.0) mg/dL Creatinine (0.6-1.5) mg/dL Est GFR (CKD-EPI) (>=60) BUN/Creatinine Ratio (12.00-20.00) Ratio POC Glucose (mg/dL) (70-110) mg/dL Magnesium (1.5-2.4) mg/dL Iron (50-170) UG/DL TIBC (228-460) UG/DL Transferrin (204.0-354.0) mg/dL Ferritin (10.0-291.0) ng/mL Assessment and Plan Plan: Assessment: 1. Acute kidney injury secondary to ATN versus progression of underlying chronic kidney disease. Creatinine in March and April 2024 was mostly in the range of 3-4. Stable in the range of 2.8-3.2 this admission so far. Kidney ultrasound from March 2024 showed atrophic kidneys without any hydronephrosis. 2. Acute on chronic diastolic CHF. 3. Anemia of chronic kidney disease. Mild iron deficiency noted. 4. Hypertension with chronic kidney disease. Stable. 5. Chronic kidney disease mineral bone disease maintained on PhosLo. 6. Diabetes mellitus. 7. Hypermagnesemia secondary to acute kidney injury as well as magnesium supplementation (Maalox). Plan: Maintain oral Lasix. IV iron x 1 dose today. Encouraged oral intake. Maintain 1500 cc fluid restriction. Continue to monitor renal function and urine output. Discontinue Maalox.
[2024-05-08 11:38] LABS: Glucose,Whole Blood 111 mg/dL (70-110)
--- NOTE | 2024-05-08 12:28 | P.PN ---
Subjective Progress Note Date: 05/08/24 Hospital course: Patient is a pleasant 69-year-old female with a past medical history of COPD with chronic hypoxic and hypercarbic respiratory failure 3 L home O2 dependent, CKD stage IV, HFrEF, insulin-dependent diabetes mellitus, hypertension, and Depression. She presented to our on 05/04/2024 with a chief complaint of shortness of breath. Upon arrival to our facility, patient underwent evaluation in the emergency department. Vital signs upon arrival show blood pressure 139/66, heart rate 70, respiratory rate 18, temp 97.7 F, and SpO2 of 92% on 4 L. EKG completed showing sinus mechanism with diffuse T wave abnormalities. Chest x-ray completed showing mild volume overload. Labs completed and reviewed. CBC unremarkable. Coagulation profile normal findings. BMP showing hyponatremia with sodium of 130 and metabolic alkalosis with chloride of 83, bicarb of 38, and anion gap of 9 with renal function consistent with known CKD stage IV with BUN of 79, creatinine 2.93, GFR of 16. Magnesium 1.6. Liver profile showing elevated ALT of 41 otherwise normal findings. Troponin was 0.030 with proBNP of 9100. Influenza A, influenza B, RSV, and COVID PCR were negative. Patient admitted under services with consultation to nephrology and cardiology. Physical exam: Patient seen and fully evaluated at bedside this morning patient reports breathing is okay, but reporting having a rough night and experiencing both constipation and urinary retention. RN reports after straight catheterization x 2 order placed for insertion of Crocker catheter secondary to greater than 800 cc in urinary bladder per bladder scan after previous straight catheterizations. Order also placed for lactulose 30 g p.o. x 1 dose. Vital signs reviewed and stable. General: Nontoxic, no distress and appears stated age. Obese. Chronically ill- appearing. Derm: Skin warm and dry, normal coloration for ethnicity. Head: Atraumatic, normocephalic and symmetric. Eyes: EOM's intact, no lid lag, and anicteric sclera Mouth: no lip lesions, mucus membranes moist Cardiovascular: regular rate and rhythm with normal S1S2, systolic murmur, positive posterior tibial pulses bilaterally, and cap refill < 2 seconds. Lungs: Respirations even, regular, and unlabored on 3 L O2 via nasal cannula. Lungs diminished with expiratory wheezes. No conversational dyspnea noted. Abdominal: soft, nontender to palpation, no guarding, no appreciable organomegaly Ext: ROM intact. No gross muscle atrophy, no edema, no contractures Neuro: Speech clear, face symmetrical and CN II-XII grossly intact with no noted focal neuro deficits Psych: Alert and oriented to person, place, time, and situation. Appropriate and pleasant affect. Assessment and Plan of Care: Acute on chronic hypoxic and hypercarbic respiratory failure COPD with acute exacerbation Acute on chronic diastolic heart failure, mild exacerbation Hypertension -Cardiology evaluated recommending continuation of current medication regimen with no further inpatient recommendations at this time. -Nephrology following, recommending resuming oral Lasix and following up with repeat BMP tomorrow. -Telemetry monitoring -Troponin 0.030.. ProBNP 9100. -Daily weights and Close monitoring of I's and O's -Continue daily medication regimen with aspirin 81 mg daily, furosemide 40 mg daily, amlodipine 10 mg daily, carvedilol 25 mg twice daily, isosorbide mononitrate 30 mg daily, and hydralazine 100 mg 3 times daily -Continue prednisone 40 mg daily day 4 of 5 Stage IV CKD Hypermagnesemia -Nephrology following. Discussed continuing elevation of magnesium levels today up to 3.3 with employee wellness/fitness coordinator. He recommended just to continue daily home dose of Lasix 40 mg daily and monitor. Urinary retention -Patient retaining greater than 800 cc after previous straight catheterizations order placed for Crocker catheter insertion. Constipation -Order placed for lactulose 30 g x 1 dose and patient started on MiraLAX 17 g nightly. Continue to monitor for resolution. Insulin-dependent diabetes mellitus -Continue Lantus 32 units nightly and patient placed on glycemic protocol with Humalog sliding scale. Pressure ulcers, present upon arrival -Wound care following Hypertension -Continue amlodipine 10 mg daily and carvedilol 25 mg daily. Depression and anxiety -Continue Effexor 75 mg daily, and Xanax 0.5 mg twice daily as needed for anxiety. Data and imaging reviewed: Vital signs reviewed. Blood pressure 143/60, heart rate 72, respiratory rate 16, temp 97.4 F, and SpO2 of 97% on baseline 3 L O2. Morning labs reviewed. CBC showing stable normocytic anemia with hemoglobin of 9.9. BMP showing hyponatremia with sodium of 128 and metabolic alkalosis with chloride of 81, bicarb of 35.5, and anion gap of 11.50. Renal function showing BUN of 72.9, creatinine 3.1, GFR of 16 with blood glucose of 108. Magnesium further elevated at 3.3. CODE STATUS: Full code DVT prophylaxis: Lovenox Anticipated discharge date: Likely tomorrow morning Anticipated discharge place: Home, PT/OT recommending rehab however patient declines but is in agreement to going home with home care. Patient was seen independently by Nurse Pracitioner. This document was prepared using [employer] dictation software. Please allow for errors in kiln furniture caster, while rare they do occur. Ham Mckinney NP rendered care for this patient independently, reviewed the findings and plan as documented in the note above and agree with plan. I did not physically speak with or examine the patient on this date. Objective - Vital Signs Vital signs: Vital Signs Temp 97.4 F L 05/08/24 07:08 Pulse 86 05/08/24 08:57 Resp 16 05/08/24 07:08 BP 143/60 05/08/24 07:08 Pulse Ox 97 05/08/24 07:08 FiO2 Intake & Output 05/07/24 05/08/24 05/08/24 18:59 06:59 18:59 Output Total 450 Balance -450 Weight 81 kg Output: Urine 450 Other: Voiding Method External Catheter External Catheter - Labs CBC & Chem 7: 05/08/24 03:33 05/08/24 03:33 Labs: Abnormal Lab Results - Last 24 Hours (Table) 05/07/24 05/07/24 05/07/24 Range/Units 03:14 03:14 11:19 RBC (3.80-5.40) m/uL Hgb (11.4-16.0) gm/dL Hct (34.0-46.0) % MCHC (31.0-37.0) g/dL RDW (11.5-15.5) % Sodium (135-145) mmol/L Chloride (96-109) mmol/L Carbon Dioxide (21.6-31.8) mmol/L BUN (9.0-27.0) mg/dL Creatinine (0.6-1.5) mg/dL Est GFR (CKD-EPI) (>=60) BUN/Creatinine Ratio (12.00-20.00) Ratio POC Glucose (mg/dL) 162 H (70-110) mg/dL Magnesium 2.9 H (1.5-2.4) mg/dL Iron 47 L (50-170) UG/DL TIBC 220 L (228-460) UG/DL Transferrin 157.0 L (204.0-354.0) mg/dL Ferritin 452.0 H (10.0-291.0) ng/mL 05/07/24 05/07/24 05/07/24 Range/Units 16:42 16:45 21:38 RBC (3.80-5.40) m/uL Hgb (11.4-16.0) gm/dL Hct (34.0-46.0) % MCHC (31.0-37.0) g/dL RDW (11.5-15.5) % Sodium (135-145) mmol/L Chloride (96-109) mmol/L Carbon Dioxide (21.6-31.8) mmol/L BUN (9.0-27.0) mg/dL Creatinine (0.6-1.5) mg/dL Est GFR (CKD-EPI) (>=60) BUN/Creatinine Ratio (12.00-20.00) Ratio POC Glucose (mg/dL) 196 H 199 H 210 H (70-110) mg/dL Magnesium (1.5-2.4) mg/dL Iron (50-170) UG/DL TIBC (228-460) UG/DL Transferrin (204.0-354.0) mg/dL Ferritin (10.0-291.0) ng/mL 05/08/24 05/08/24 Range/Units 03:33 03:33 RBC 3.45 L (3.80-5.40) m/uL Hgb 9.9 L (11.4-16.0) gm/dL Hct 32.2 L (34.0-46.0) % MCHC 30.7 L (31.0-37.0) g/dL RDW 15.9 H (11.5-15.5) % Sodium 128 L (135-145) mmol/L Chloride 81 L (96-109) mmol/L Carbon Dioxide 35.5 H (21.6-31.8) mmol/L BUN 72.9 H (9.0-27.0) mg/dL Creatinine 3.1 H (0.6-1.5) mg/dL Est GFR (CKD-EPI) 16 L (>=60) BUN/Creatinine Ratio 23.52 H (12.00-20.00) Ratio POC Glucose (mg/dL) (70-110) mg/dL Magnesium 3.3 H (1.5-2.4) mg/dL Iron (50-170) UG/DL TIBC (228-460) UG/DL Transferrin (204.0-354.0) mg/dL Ferritin (10.0-291.0) ng/mL
[2024-05-08] MEDS: LACTULOSE 20 GM/30 ML CUP PO ONE (15:03)
[2024-05-08] MEDS: SODIUM FERRIC GLUCONAT-SUCROSE 125 MG in SODIUM CHLORIDE 0.9% 100 ML IVPB ONE (15:03)
[2024-05-08 16:50] LABS: Glucose,Whole Blood 194 mg/dL (70-110)
[2024-05-08 20:32] LABS: Glucose,Whole Blood 151 mg/dL (70-110)
[2024-05-08] MEDS: polyethylene glycoL 3350 17 GM POWD.PACK PO SCH (21:38)
[2024-05-09 06:16] LABS: Glucose,Whole Blood 50 mg/dL (70-110)
[2024-05-09 06:32] LABS: Glucose,Whole Blood 76 mg/dL (70-110)
[2024-05-09 06:52] LABS: Glucose,Whole Blood 115 mg/dL (70-110)
[2024-05-09 08:29] LABS: HCT 30.8 % (37.2-46.3); HGB 9.7 g/dL (12.0-15.0); MCH 28.9 pg (27.0-32.0); MCHC 31.5 g/dL (32.0-37.0); MCV 91.7 FL (80.0-97.0); Mean Platelet Volume 11.1 FL (9.5-12.2); NRBC Per 100 WBC 0 X 10*3/uL (0.00-0.01); Platelet Count 242 X 10*3/uL (140-440); RBC 3.36 X 10*6/uL (4.10-5.20); RDW 15.9 % (11.5-14.5); WBC 10.38 X 10*3/uL (4.50-10.00)
[2024-05-09 08:39] LABS: ALT 25 U/L (8-44); AST 19 U/L (13-35); Albumin 3.5 g/dL (3.8-4.9); Albumin/Globulin Ratio 1.35 Ratio (1.60-3.17); Alkaline Phosphatase 74 U/L (41-126); BUN/Creat Ratio 25.67 Ratio (12.00-20.00); Calcium 9.2 mg/dL (8.7-10.3); Carbon Dioxide 35.4 mmol/L (21.6-31.8); Chloride 82 mmol/L (96-109); Globulin 2.6 g/dL (1.6-3.3); Glucose 62 mg/dL (70-110); Magnesium 3.1 mg/dL (1.5-2.4); Sodium 128 mmol/L (135-145); Total Bilirubin 0.4 mg/dL (0.3-1.2); Total Protein 6.1 g/dL (6.2-8.2)
--- NOTE | 2024-05-09 09:56 | P.PN ---
Subjective Patient is seen in follow-up for acute kidney injury on chronic kidney disease. Renal function fairly stable. Resting in chair. Nonoliguric. Vital signs are stable. General: No acute distress. HEENT: Head exam is unremarkable. On nasal cannula. LUNGS: No audible rhonchi or wheezes. HEART: Rate and Rhythm are regular. ABDOMEN: Nontender. EXTREMITITES: No edema. Objective - Vital Signs Vital signs: Vital Signs Temp 98.7 F 05/09/24 01:39 Pulse 74 05/09/24 09:08 Resp 16 05/09/24 07:08 BP 100/58 05/09/24 07:08 Pulse Ox 99 05/09/24 07:08 FiO2 Intake & Output 05/08/24 05/09/24 05/09/24 18:59 06:59 18:59 Output Total 800 1200 Balance -800 -1200 Weight 80 kg Output: Urine 800 1200 Uretheral (Crocker) 800 Other: Voiding Method Indwelling Catheter Indwelling Catheter # Bowel Movements 1 - Labs CBC & Chem 7: 05/09/24 03:30 05/09/24 03:30 Labs: Abnormal Lab Results - Last 24 Hours (Table) 05/08/24 05/08/24 05/08/24 Range/Units 11:36 16:49 20:30 WBC (4.50-10.00) X 10*3/uL RBC (4.10-5.20) X 10*6/uL Hgb (12.0-15.0) g/dL Hct (37.2-46.3) % MCHC (32.0-37.0) g/dL RDW (11.5-14.5) % Sodium (135-145) mmol/L Chloride (96-109) mmol/L Carbon Dioxide (21.6-31.8) mmol/L BUN (9.0-27.0) mg/dL Creatinine (0.6-1.5) mg/dL Est GFR (CKD-EPI) (>=60) BUN/Creatinine Ratio (12.00-20.00) Ratio Glucose (70-110) mg/dL POC Glucose (mg/dL) 111 H 194 H 151 H (70-110) mg/dL Magnesium (1.5-2.4) mg/dL Total Protein (6.2-8.2) g/dL Albumin (3.8-4.9) g/dL Albumin/Globulin Ratio (1.60-3.17) Ratio 05/09/24 05/09/24 05/09/24 Range/Units 03:30 03:30 06:13 WBC 10.38 H (4.50-10.00) X 10*3/uL RBC 3.36 L (4.10-5.20) X 10*6/uL Hgb 9.7 L (12.0-15.0) g/dL Hct 30.8 L (37.2-46.3) % MCHC 31.5 L (32.0-37.0) g/dL RDW 15.9 H (11.5-14.5) % Sodium 128 L (135-145) mmol/L Chloride 82 L (96-109) mmol/L Carbon Dioxide 35.4 H (21.6-31.8) mmol/L BUN 77.0 H (9.0-27.0) mg/dL Creatinine 3.0 H (0.6-1.5) mg/dL Est GFR (CKD-EPI) 16 L (>=60) BUN/Creatinine Ratio 25.67 H (12.00-20.00) Ratio Glucose 62 L (70-110) mg/dL POC Glucose (mg/dL) 50 L (70-110) mg/dL Magnesium 3.1 H (1.5-2.4) mg/dL Total Protein 6.1 L (6.2-8.2) g/dL Albumin 3.5 L (3.8-4.9) g/dL Albumin/Globulin Ratio 1.35 L (1.60-3.17) Ratio 05/09/24 Range/Units 06:50 WBC (4.50-10.00) X 10*3/uL RBC (4.10-5.20) X 10*6/uL Hgb (12.0-15.0) g/dL Hct (37.2-46.3) % MCHC (32.0-37.0) g/dL RDW (11.5-14.5) % Sodium (135-145) mmol/L Chloride (96-109) mmol/L Carbon Dioxide (21.6-31.8) mmol/L BUN (9.0-27.0) mg/dL Creatinine (0.6-1.5) mg/dL Est GFR (CKD-EPI) (>=60) BUN/Creatinine Ratio (12.00-20.00) Ratio Glucose (70-110) mg/dL POC Glucose (mg/dL) 115 H (70-110) mg/dL Magnesium (1.5-2.4) mg/dL Total Protein (6.2-8.2) g/dL Albumin (3.8-4.9) g/dL Albumin/Globulin Ratio (1.60-3.17) Ratio Assessment and Plan Plan: Assessment: 1. Acute kidney injury secondary to ATN versus progression of underlying chronic kidney disease. Creatinine in March and April 2024 was mostly in the range of 3-4. Stable in the range of 2.8-3.2 this admission so far. Kidney ultrasound from March 2024 showed atrophic kidneys without any hydronephrosis. 2. Acute on chronic diastolic CHF. 3. Anemia of chronic kidney disease. Mild iron deficiency noted. Status post IV iron. 4. Hypertension with chronic kidney disease. Stable. 5. Chronic kidney disease mineral bone disease maintained on PhosLo. 6. Diabetes mellitus. 7. Hypermagnesemia secondary to acute kidney injury as well as magnesium supplementation (Maalox). Trending down. 8. Urinary retention. Has Crocker catheter. Plan: Maintain oral Lasix. Samsca 7.5 mg once today. Add Aranesp. Encouraged oral intake. Maintain 1500 cc fluid restriction. Continue to monitor renal function and urine output. Add Flomax. Stop amlodipine as blood pressure is on the lower end. Decrease dose of hydralazine. Hold for systolic blood pressure less than 120. Voiding trial tomorrow. Case discussed with primary team.
[2024-05-09 10:31] LABS: Glucose,Whole Blood 191 mg/dL (70-110)
[2024-05-09] MEDS: TOLVAPTAN 15 MG TABLET PO ONE (11:26)
[2024-05-09] MEDS: DARBEPOETIN ALFA 40 MCG/0.4 ML SYRINGE SQ SCH (11:26)
[2024-05-09] MEDS: TAMSULOSIN 0.4 MG CAP.ER.24H PO SCH (11:26)
--- NOTE | 2024-05-09 12:41 | P.PN ---
Subjective Progress Note Date: 05/09/24 Hospital course: Patient is a pleasant 69-year-old female with a past medical history of COPD with chronic hypoxic and hypercarbic respiratory failure 3 L home O2 dependent, CKD stage IV, HFrEF, insulin-dependent diabetes mellitus, hypertension, and Depression. She presented to our on 05/04/2024 with a chief complaint of shortness of breath. Upon arrival to our facility, patient underwent evaluation in the emergency department. Vital signs upon arrival show blood pressure 139/66, heart rate 70, respiratory rate 18, temp 97.7 F, and SpO2 of 92% on 4 L. EKG completed showing sinus mechanism with diffuse T wave abnormalities. Chest x-ray completed showing mild volume overload. Labs completed and reviewed. CBC unremarkable. Coagulation profile normal findings. BMP showing hyponatremia with sodium of 130 and metabolic alkalosis with chloride of 83, bicarb of 38, and anion gap of 9 with renal function consistent with known CKD stage IV with BUN of 79, creatinine 2.93, GFR of 16. Magnesium 1.6. Liver profile showing elevated ALT of 41 otherwise normal findings. Troponin was 0.030 with proBNP of 9100. Influenza A, influenza B, RSV, and COVID PCR were negative. Patient admitted under services with consultation to nephrology and cardiology. Physical exam: Patient seen and fully evaluated at bedside this morning she was resting in bed and currently denies having any complaints or needs at this time. Patient had resolution of previous reported constipation. Crocker catheter remains in place. Vital signs reviewed and stable. General: Nontoxic, no distress and appears stated age. Obese. Chronically ill- appearing. Derm: Skin warm and dry, normal coloration for ethnicity. Head: Atraumatic, normocephalic and symmetric. Eyes: EOM's intact, no lid lag, and anicteric sclera Mouth: no lip lesions, mucus membranes moist Cardiovascular: regular rate and rhythm with normal S1S2, systolic murmur, positive posterior tibial pulses bilaterally, and cap refill < 2 seconds. Lungs: Respirations even, regular, and unlabored on 3 L O2 via nasal cannula. Lungs diminished. No wheezing, rhonchi, or rales noted at this time. No conversational dyspnea noted. Abdominal: soft, nontender to palpation, no guarding, no appreciable organomegaly Ext: ROM intact. No gross muscle atrophy, no edema, no contractures Neuro: Speech clear, face symmetrical and CN II-XII grossly intact with no noted focal neuro deficits Psych: Alert and oriented to person, place and situation but does show episodes of confusion/forgetfulness. Assessment and Plan of Care: Acute on chronic hypoxic and hypercarbic respiratory failure COPD with acute exacerbation Acute on chronic diastolic heart failure, mild exacerbation Hypertension -Cardiology evaluated recommending continuation of current medication regimen with no further inpatient recommendations at this time. -Telemetry monitoring -Troponin 0.030.. ProBNP 9100. -Daily weights and Close monitoring of I's and O's -Continue daily medication regimen with aspirin 81 mg daily, furosemide 40 mg daily, carvedilol 25 mg twice daily, isosorbide mononitrate 30 mg daily, and hydralazine 100 mg 3 times daily -Continue prednisone 40 mg daily day 5 of 5 Stage IV CKD Hypochloremic hyponatremia Hypermagnesemia Metabolic alkalosis, secondary to CKD -Nephrology following, discussed plan of care with Dr. Lyons. He recommended holding off on voiding challenge until tomorrow would like to start patient on Flomax and making additional medication changes including Samsca 7.5 mg x 1 dose and starting patient on Aranesp and discontinuing amlodipine. Urinary retention -Crocker catheter was inserted on 05/08/2024 secondary to urinary retention believed to be resulting from patient's constipation. -Constipation successfully treated, orders placed to perform voiding challenge, nephrology recommending holding off voiding challenge until tomorrow morning this was discussed with RN at bedside. -Continue Flomax 0.4 mg daily. Constipation -Constipation resolved after one-time dose of lactulose. -Patient to continue MiraLAX 17 g nightly. Insulin-dependent diabetes mellitus with episodes of hypoglycemia -Lantus decreased to 25 units nightly and patient to continue glycemic protocol with Humalog sliding scale. Pressure ulcers, present upon arrival -Wound care following Hypertension -Continue carvedilol 25 mg daily. Depression and anxiety -Continue Effexor 75 mg daily, and Xanax 0.5 mg twice daily as needed for anxiety. Data and imaging reviewed: Vital signs reviewed. Blood pressure 100/58, heart rate 65, respiratory rate 16, temp 98.7 F, and SpO2 of 99% on chronic baseline 3 L of oxygen. Morning labs reviewed. CBC showing mild leukocytosis with WBC count of 10.38 and stable normocytic anemia with hemoglobin of 9.7. BMP showing hyponatremia with sodium of 128 metabolic alkalosis with chloride of 82, bicarb of 35.4, and anion gap of 10.60. Renal function remains elevated but stable with BUN of 77.0, creatinine 3.0, and GFR 16. Blood glucose was low this morning x 2 episodes of 62 and 50.. CODE STATUS: Full code DVT prophylaxis: Lovenox Anticipated discharge date: Pending clinical course, medication changes made today and patient to complete voiding challenge tomorrow. Authorization has been submitted for possible SNF placement at [facility]. Anticipated discharge place: [facility], [facility] Patient was seen independently by Nurse Pracitioner. This document was prepared using [employer] dictation software. Please allow for errors in [employer], while rare they do occur. Ham Mckinney NP rendered care for this patient independently, reviewed the findings and plan as documented in the note above and agree with plan. I did not physically speak with or examine the patient on this date. Objective - Vital Signs Vital signs: Vital Signs Temp 98.7 F 05/09/24 01:39 Pulse 52 L 05/09/24 01:39 Resp 16 05/09/24 07:08 BP 100/58 05/09/24 07:08 Pulse Ox 100 05/09/24 01:39 FiO2 Intake & Output 05/08/24 05/09/24 05/09/24 18:59 06:59 18:59 Output Total 800 1200 Balance -800 -1200 Weight 80 kg Output: Urine 800 1200 Uretheral (Crocker) 800 Other: Voiding Method Indwelling Catheter Indwelling Catheter # Bowel Movements 1 - Labs CBC & Chem 7: 05/09/24 03:30 05/09/24 03:30 Labs: Abnormal Lab Results - Last 24 Hours (Table) 05/08/24 05/08/24 05/08/24 Range/Units 03:33 11:36 16:49 WBC (4.50-10.00) X 10*3/uL RBC (4.10-5.20) X 10*6/uL Hgb (12.0-15.0) g/dL Hct (37.2-46.3) % MCHC (32.0-37.0) g/dL RDW (11.5-14.5) % Sodium 128 L (135-145) mmol/L Chloride 81 L (96-109) mmol/L Carbon Dioxide 35.5 H (21.6-31.8) mmol/L BUN 72.9 H (9.0-27.0) mg/dL Creatinine 3.1 H (0.6-1.5) mg/dL Est GFR (CKD-EPI) 16 L (>=60) BUN/Creatinine Ratio 23.52 H (12.00-20.00) Ratio POC Glucose (mg/dL) 111 H 194 H (70-110) mg/dL Magnesium 3.3 H (1.5-2.4) mg/dL 05/08/24 05/09/24 05/09/24 Range/Units 20:30 03:30 06:13 WBC 10.38 H (4.50-10.00) X 10*3/uL RBC 3.36 L (4.10-5.20) X 10*6/uL Hgb 9.7 L (12.0-15.0) g/dL Hct 30.8 L (37.2-46.3) % MCHC 31.5 L (32.0-37.0) g/dL RDW 15.9 H (11.5-14.5) % Sodium (135-145) mmol/L Chloride (96-109) mmol/L Carbon Dioxide (21.6-31.8) mmol/L BUN (9.0-27.0) mg/dL Creatinine (0.6-1.5) mg/dL Est GFR (CKD-EPI) (>=60) BUN/Creatinine Ratio (12.00-20.00) Ratio POC Glucose (mg/dL) 151 H 50 L (70-110) mg/dL Magnesium (1.5-2.4) mg/dL 05/09/24 Range/Units 06:50 WBC (4.50-10.00) X 10*3/uL RBC (4.10-5.20) X 10*6/uL Hgb (12.0-15.0) g/dL Hct (37.2-46.3) % MCHC (32.0-37.0) g/dL RDW (11.5-14.5) % Sodium (135-145) mmol/L Chloride (96-109) mmol/L Carbon Dioxide (21.6-31.8) mmol/L BUN (9.0-27.0) mg/dL Creatinine (0.6-1.5) mg/dL Est GFR (CKD-EPI) (>=60) BUN/Creatinine Ratio (12.00-20.00) Ratio POC Glucose (mg/dL) 115 H (70-110) mg/dL Magnesium (1.5-2.4) mg/dL
[2024-05-09 16:54] LABS: Glucose,Whole Blood 120 mg/dL (70-110)
[2024-05-09] MEDS: hydrALAZINE HCL 50 MG TAB PO SCH (17:04)
[2024-05-09 21:05] LABS: Glucose,Whole Blood 172 mg/dL (70-110)
[2024-05-09] MEDS: INSULIN GLARGINE (LANTUS) 100 UNIT/ML SYR SQ SCH (21:12)
[2024-05-10 06:06] LABS: Glucose,Whole Blood 45 mg/dL (70-110)
[2024-05-10 06:06] LABS: Glucose,Whole Blood 37 mg/dL (70-110)
[2024-05-10] MEDS: DEXTROSE 50% SYRINGE 50 ML IVP PRN (06:07)
[2024-05-10 06:26] LABS: Glucose,Whole Blood 202 mg/dL (70-110)
[2024-05-10 10:29] LABS: HCT 28.8 % (37.2-46.3); MCH 28.8 pg (27.0-32.0); MCHC 31.3 g/dL (32.0-37.0); Mean Platelet Volume 11.1 FL (9.5-12.2); NRBC Per 100 WBC 0 X 10*3/uL (0.00-0.01); Platelet Count 207 X 10*3/uL (140-440); RBC 3.13 X 10*6/uL (4.10-5.20); RDW 15.6 % (11.5-14.5); WBC 9.15 X 10*3/uL (4.50-10.00)
[2024-05-10 10:51] LABS: Magnesium 2.9 mg/dL (1.5-2.4)
[2024-05-10 11:01] LABS: ALT 22 U/L (8-44); AST 17 U/L (13-35); Albumin 3.3 g/dL (3.8-4.9); Albumin/Globulin Ratio 1.38 Ratio (1.60-3.17); Alkaline Phosphatase 75 U/L (41-126); BUN/Creat Ratio 26.79 Ratio (12.00-20.00); Blood Urea Nitrogen 77.7 mg/dL (9.0-27.0); Carbon Dioxide 37.6 mmol/L (21.6-31.8); Chloride 84 mmol/L (96-109); Globulin 2.4 g/dL (1.6-3.3); Glucose 30 mg/dL (70-110); Potassium 4.3 mmol/L (3.5-5.5); Sodium 129 mmol/L (135-145); Total Bilirubin 0.3 mg/dL (0.3-1.2); Total Protein 5.7 g/dL (6.2-8.2)
--- NOTE | 2024-05-10 11:17 | P.PN ---
Subjective Patient is seen in follow-up for acute kidney injury on chronic kidney disease. Renal function fairly stable. Sitting up in bed. Awake and alert. Son present at bedside. Nonoliguric. Vital signs are stable. General: No acute distress. HEENT: Head exam is unremarkable. On nasal cannula. LUNGS: No audible rhonchi or wheezes. HEART: Rate and Rhythm are regular. ABDOMEN: Nontender. EXTREMITITES: No edema. Objective - Vital Signs Vital signs: Vital Signs Temp 98.2 F 05/10/24 07:50 Pulse 68 05/10/24 09:55 Resp 18 05/10/24 09:55 BP 111/60 05/10/24 07:50 Pulse Ox 91 L 05/10/24 09:44 FiO2 Intake & Output 05/09/24 05/10/24 05/10/24 18:59 06:59 18:59 Output Total 1000 150 Balance -1000 -150 Output: Urine 1000 150 Stool 0 Other: Voiding Method Indwelling Catheter Indwelling Catheter - Labs CBC & Chem 7: 05/10/24 04:38 05/10/24 04:38 Labs: Abnormal Lab Results - Last 24 Hours (Table) 05/09/24 05/09/24 05/10/24 Range/Units 16:52 21:04 04:38 RBC (4.10-5.20) X 10*6/uL Hgb (12.0-15.0) g/dL Hct (37.2-46.3) % MCHC (32.0-37.0) g/dL RDW (11.5-14.5) % Sodium 129 L (135-145) mmol/L Chloride 84 L (96-109) mmol/L Carbon Dioxide 37.6 H (21.6-31.8) mmol/L BUN 77.7 H (9.0-27.0) mg/dL Creatinine 2.9 H (0.6-1.5) mg/dL Est GFR (CKD-EPI) 17 L (>=60) BUN/Creatinine Ratio 26.79 H (12.00-20.00) Ratio Glucose 30 A* (70-110) mg/dL POC Glucose (mg/dL) 120 H 172 H (70-110) mg/dL Magnesium 2.9 H (1.5-2.4) mg/dL Total Protein 5.7 L (6.2-8.2) g/dL Albumin 3.3 L (3.8-4.9) g/dL Albumin/Globulin Ratio 1.38 L (1.60-3.17) Ratio 05/10/24 05/10/24 05/10/24 Range/Units 04:38 06:03 06:04 RBC 3.13 L (4.10-5.20) X 10*6/uL Hgb 9.0 L (12.0-15.0) g/dL Hct 28.8 L (37.2-46.3) % MCHC 31.3 L (32.0-37.0) g/dL RDW 15.6 H (11.5-14.5) % Sodium (135-145) mmol/L Chloride (96-109) mmol/L Carbon Dioxide (21.6-31.8) mmol/L BUN (9.0-27.0) mg/dL Creatinine (0.6-1.5) mg/dL Est GFR (CKD-EPI) (>=60) BUN/Creatinine Ratio (12.00-20.00) Ratio Glucose (70-110) mg/dL POC Glucose (mg/dL) 37 L* 45 L* (70-110) mg/dL Magnesium (1.5-2.4) mg/dL Total Protein (6.2-8.2) g/dL Albumin (3.8-4.9) g/dL Albumin/Globulin Ratio (1.60-3.17) Ratio 05/10/24 Range/Units 06:25 RBC (4.10-5.20) X 10*6/uL Hgb (12.0-15.0) g/dL Hct (37.2-46.3) % MCHC (32.0-37.0) g/dL RDW (11.5-14.5) % Sodium (135-145) mmol/L Chloride (96-109) mmol/L Carbon Dioxide (21.6-31.8) mmol/L BUN (9.0-27.0) mg/dL Creatinine (0.6-1.5) mg/dL Est GFR (CKD-EPI) (>=60) BUN/Creatinine Ratio (12.00-20.00) Ratio Glucose (70-110) mg/dL POC Glucose (mg/dL) 202 H (70-110) mg/dL Magnesium (1.5-2.4) mg/dL Total Protein (6.2-8.2) g/dL Albumin (3.8-4.9) g/dL Albumin/Globulin Ratio (1.60-3.17) Ratio Assessment and Plan Plan: Assessment: 1. Acute kidney injury secondary to ATN versus progression of underlying chronic kidney disease. Creatinine in March and April 2024 was mostly in the range of 3-4. Stable in the range of 2.8-3.2 this admission so far. Kidney ultrasound from March 2024 showed atrophic kidneys without any hydronephrosis. 2. Acute on chronic diastolic CHF. 3. Anemia of chronic kidney disease. Mild iron deficiency noted. Status post IV iron. On Aranesp. 4. Hypertension with chronic kidney disease. Stable. 5. Chronic kidney disease mineral bone disease maintained on PhosLo. 6. Diabetes mellitus. 7. Hypermagnesemia secondary to acute kidney injury as well as magnesium supplementation (Maalox). Trending down. 8. Urinary retention. On Flomax. Crocker catheter removed this morning. Plan: Maintain oral Lasix. Status post Samsca given May 09, 2024. Encouraged oral intake. Maintain 1500 cc fluid restriction. Continue to monitor renal function and urine output. Amlodipine discontinued due to low blood pressures. Hold hydralazine for systolic blood pressure less than 120. Monitor for urinary retention. Repeat BMP and magnesium level 2 to 3 days postdischarge. Follow-up outpatient 1 week postdischarge. Case discussed with son present at bedside.
[2024-05-10 12:00] LABS: Glucose,Whole Blood 233 mg/dL (70-110)
[2024-05-10 12:00] LABS: Glucose,Whole Blood 388 mg/dL (70-110)
[2024-05-10 13:18] VITALS: BMI 33.3
--- NOTE | 2024-05-10 15:29 | P.DS ---
Providers Date of admission: 05/04/24 22:14 Attending physician: Millie Neal MD Consults: 05/05/24 14:17 Consult Physician Routine Consulting Provider: Sharmaine Trotter Consult Reason/Comments: CKD stage IV, pt reports she talked w/ you about hemodialysis Do you want consulting provider notified?: Yes Primary care physician: [facility] Course: Discharge Diagnosis: Acute on chronic hypoxic hypercapnic respiratory failure COPD exacerbation Acute on chronic diastolic heart failure, mild exacerbation Hypertension ETHAN on CKD stage IV Hyponatremia Hypomagnesemia Metabolic alkalosis secondary to CKD Urinary retention Constipation Type II DM on insulin Pressure ulcer, present on arrival Hypertension Depression, anxiety Hospital Course: Patient is a pleasant 69-year-old female with a past medical history of COPD with chronic hypoxic and hypercarbic respiratory failure 3 L home O2 dependent, CKD stage IV, HFrEF, insulin-dependent diabetes mellitus, hypertension, and D epression. She presented to our on 05/04/2024 with a chief complaint of shortness of breath. Upon arrival to our facility, patient underwent evaluation in the emergency department. Vital signs upon arrival show blood pressure 139/66, heart rate 70, respiratory rate 18, temp 97.7 F, and SpO2 of 92% on 4 L. EKG completed showing sinus mechanism with diffuse T wave abnormalities. Chest x-ray completed showing mild volume overload. Labs completed and reviewed. CBC unremarkable. Coagulation profile normal findings. BMP showing hyponatremia with sodium of 130 and metabolic alkalosis with chloride of 83, bicarb of 38, and anion gap of 9 with renal function consistent with known CKD stage IV with BUN of 79, creatinine 2.93, GFR of 16. Magnesium 1.6. Liver profile showing elevated ALT of 41 otherwise normal findings. Troponin was 0.030 with proBNP of 9100. Influenza A, influenza B, RSV, and COVID PCR were negative. Patient admitted under services with consultation to nephrology and cardiology. Cardiology evaluated recommending continuation of current medication regimen with no further inpatient recommendations at this time. Patient completed 5 days of prednisone 40. Oxygen requirement remained stable at 3 L Crocker catheter was inserted on 05/08 secondary to urinary retention that was believed to be resulting from patient's constipation, constipation was successfully treated. Crocker catheter removed , patient continued on Flomax. Nephrology following for hypochloremic hyponatremia, ETHAN on CKD, patient was maintained on oral Lasix, provided with some saw on 05/09, maintained on fluid restriction 1500 cc, her amlodipine was discontinued due to low blood pressure, recommended to hold hydralazine for systolic blood pressure less than 120. She was provided with nephrology follow-up repeat BMP and magnesium level in 2 or 3 days Patient has multiple serious comorbidities, high risk for readmission, previously discussed palliative approach, recommend outpatient follow-up with palliative medicine. Patient seen and examined at bedside Vital signs reviewed and stable. General: Nontoxic, no distress and appears stated age. Obese. Chronically ill- appearing. Derm: Skin warm and dry, normal coloration for ethnicity. Head: Atraumatic, normocephalic and symmetric. Eyes: EOM's intact, no lid lag, and anicteric sclera Mouth: no lip lesions, mucus membranes moist Cardiovascular: regular rate and rhythm with normal S1S2, systolic murmur, positive posterior tibial pulses bilaterally, and cap refill < 2 seconds. Lungs: Respirations even, regular, and unlabored on 3 L O2 via nasal cannula. Lungs diminished. No wheezing, rhonchi, or rales noted at this time. No conversational dyspnea noted. Abdominal: soft, nontender to palpation, no guarding, no appreciable organomegaly Ext: ROM intact. No gross muscle atrophy, no edema, no contractures Neuro: Speech clear, face symmetrical and CN II-XII grossly intact with no noted focal neuro deficits Psych: Alert and oriented to person, place and situation but does show episodes of confusion/forgetfulness. A total of 40 minutes of time were spent preparing this complex discharge summary. Patient was discharged on 05/10 back to SNF. Patient Condition at Discharge: Fair Plan - Discharge Summary Discharge Rx Participant: No New Discharge Prescriptions: New INSULIN LISPRO (HumaLOG) [HumaLOG] 0 unit SQ ACHS each hydrALAZINE HCL [Apresoline] 50 mg PO TID #90 tab Tamsulosin [Flomax] 0.4 mg PO PC-BRKFST #30 cap polyethylene glycoL 3350 [Miralax] 17 gm PO HS #30 packet Benzonatate [Tessalon Perles] 100 mg PO TID PRN #30 cap PRN Reason: Cough Continue traZODone HCL 150 mg PO HS PRN PRN Reason: sleep Albuterol Inhaler [Ventolin Hfa Inhaler] 2 puff INHALATION RT-Q4H PRN PRN Reason: Shortness Of Breath Cyclobenzaprine [Flexeril] 5 mg PO TID PRN PRN Reason: Muscle Spasm Ipratropium-Albuterol Nebulize [Duoneb 0.5 mg-3 mg/3 ml Soln] 3 ml INHALATION RT-QID PRN each PRN Reason: Shortness Of Breath Or Wheezing Calcium Acetate [PhosLo] 667 mg PO TID-W/MEALS #90 tab Pregabalin [Lyrica] 75 mg PO BID Cephalexin [Keflex] 500 mg PO QID Isosorbide Mononitrate ER [Imdur] 30 mg PO DAILY #30 tab carvediloL [Coreg] 25 mg PO DAILY Venlafaxine HCl ER [Effexor XR] 75 mg PO DAILY Ipratropium-Albuterol Nebulize [Duoneb 0.5 mg-3 mg/3 ml Soln] 3 ml INHALATION RT-QID each Pantoprazole [Protonix] 40 mg PO AC-BRKFST #30 tab Furosemide [Lasix] 40 mg PO DAILY tab Acetaminophen-Codeine 300-30mg [Tylenol w/codeine #3] 1 tab PO BID PRN #6 tab PRN Reason: Moderate To Severe Pain (4-10) ALPRAZolam [Xanax] 0.5 mg PO BID PRN #6 tab PRN Reason: Anxiety Changed Insulin Degludec [Tresiba Flextouch U-100 Pen] 18 units SQ HS #0 Discontinued hydrALAZINE HCL [Apresoline] 100 mg PO TID #90 tab amLODIPine [Norvasc] 10 mg PO DAILY #30 tab Discharge Medication List traZODone HCL 150 mg PO HS PRN 10/08/16 [History] Albuterol Inhaler [Ventolin Hfa Inhaler] 2 puff INHALATION RT-Q4H PRN 08/12/20 [History] Cyclobenzaprine [Flexeril] 5 mg PO TID PRN 10/13/22 [History] Isosorbide Mononitrate ER [Imdur] 30 mg PO DAILY #30 tab 11/07/22 [Rx] Venlafaxine HCl ER [Effexor XR] 75 mg PO DAILY 10/10/23 [History] carvediloL [Coreg] 25 mg PO DAILY 10/10/23 [History] Calcium Acetate [PhosLo] 667 mg PO TID-W/MEALS #90 tab 04/13/24 [Rx] Ipratropium-Albuterol Nebulize [Duoneb 0.5 mg-3 mg/3 ml Soln] 3 ml INHALATION RT-QID each 04/13/24 [Rx] Ipratropium-Albuterol Nebulize [Duoneb 0.5 mg-3 mg/3 ml Soln] 3 ml INHALATION RT-QID PRN each 04/13/24 [Rx] Pantoprazole [Protonix] 40 mg PO AC-BRKFST #30 tab 04/13/24 [Rx] ALPRAZolam [Xanax] 0.5 mg PO BID PRN #6 tab 04/17/24 [Rx] Acetaminophen-Codeine 300-30mg [Tylenol w/codeine #3] 1 tab PO BID PRN #6 tab 04/17/24 [Rx] Furosemide [Lasix] 40 mg PO DAILY tab 04/17/24 [Rx] Cephalexin [Keflex] 500 mg PO QID 05/04/24 [History] Pregabalin [Lyrica] 75 mg PO BID 05/04/24 [History] Benzonatate [Tessalon Perles] 100 mg PO TID PRN #30 cap 05/10/24 [Rx] INSULIN LISPRO (HumaLOG) [HumaLOG] 0 unit SQ ACHS each 05/10/24 [Rx] Insulin Degludec [Tresiba Flextouch U-100 Pen] 18 units SQ HS #0 05/10/24 [Rx] Tamsulosin [Flomax] 0.4 mg PO PC-BRKFST #30 cap 05/10/24 [Rx] hydrALAZINE HCL [Apresoline] 50 mg PO TID #90 tab 05/10/24 [Rx] polyethylene glycoL 3350 [Miralax] 17 gm PO HS #30 packet 05/10/24 [Rx] Follow up Appointment(s)/Referral(s): Neftali Felipe DO [STAFF PHYSICIAN] - 1 Week Amara Parnell MD [Primary Care Provider] - 1-2 days Thomas Barragan [NON-STAFF] - As Needed Hunter Lyons DO [STAFF PHYSICIAN] - 1 Week [facility], [NON-STAFF] - As Needed Ambulatory/Diagnostic Orders: Basic Metabolic Panel [LAB.AMB] Time Frame: 3 Days, Location: None Selected Magnesium [LAB.AMB] Time Frame: 3 Days, Location: None Selected Activity/Diet/Wound Care/Special Instructions: Repeat BMP and magnesium level 2 to 3 days postdischarge. follow up with PCP, cardiology, nephrology Maintain fluid restriction 1500 ml Discharge Disposition: TRANSFER TO SNF/ECF
[2024-05-10 16:32] VITALS: BP 108/57; RESP 17; TEMP 98.1
[2024-05-10 16:47] VITALS: PULSE 80
[2024-05-10 16:52] LABS: Glucose,Whole Blood 169 mg/dL (70-110)
[2024-05-10] MEDS ORDERED: INSULIN GLARGINE (LANTUS) 100 UNIT/ML SYR SQ SCH (21:00)
== END 2024-05-10 18:23 | DRG 291 ==
LOC: EC 17:24 → 4SSUR 22:14
PROVIDERS: ADMIT Internal Medicine; ATTEND Internal Medicine
DX: I13.0 Hypertensive heart and chronic kidney disease with heart failure and stage 1 through stage 4 chronic kidney disease, or unspecified chronic kidney disease (principal); I50.33 Acute on chronic diastolic (congestive) heart failure; J96.21 Acute and chronic respiratory failure with hypoxia; J96.22 Acute and chronic respiratory failure with hypercapnia; N17.0 Acute kidney failure with tubular necrosis; L89.312 Pressure ulcer of right buttock, stage 2; L89.322 Pressure ulcer of left buttock, stage 2; E83.41 Hypermagnesemia; D63.1 Anemia in chronic kidney disease; J44.1 Chronic obstructive pulmonary disease with (acute) exacerbation; N18.4 Chronic kidney disease, stage 4 (severe); E11.622 Type 2 diabetes mellitus with other skin ulcer; F32.A Depression, unspecified; E87.3 Alkalosis; E87.1 Hypo-osmolality and hyponatremia; I42.9 Cardiomyopathy, unspecified; E11.22 Type 2 diabetes mellitus with diabetic chronic kidney disease; E11.65 Type 2 diabetes mellitus with hyperglycemia; L98.499 Non-pressure chronic ulcer of skin of other sites with unspecified severity; Z79.4 Long term (current) use of insulin; Z11.52 Encounter for screening for COVID-19; R33.8 Other retention of urine; E83.42 Hypomagnesemia; E87.8 Other disorders of electrolyte and fluid balance, not elsewhere classified; F41.9 Anxiety disorder, unspecified; K59.00 Constipation, unspecified; M89.8X8 Other specified disorders of bone, other site; Z79.899 Other long term (current) drug therapy; Z82.49 Family history of ischemic heart disease and other diseases of the circulatory system; Z87.891 Personal history of nicotine dependence; Z90.710 Acquired absence of both cervix and uterus; Z99.81 Dependence on supplemental oxygen; Z96.643 Presence of artificial hip joint, bilateral; Z89.411 Acquired absence of right great toe
CPT/HCPCS: 36415; 71045; 71046; 80048; 80053; 82140; 82728; 82803; 83540; 83550; 83605; 83735; 83880; 84484; 85025; 85027; 85610; 85730; 87636; 93005; 94640; 94760; 96372; 96374; 99285